=== PATIENT | female | born 1975 | race Caucasian/White ===

== ENCOUNTER 2018-05-15 08:08 | Day surgery (SDC) | payer BC ==
--- NOTE | 2018-05-14 07:00 | EKG ---
Test Date: 2018-05-13 Test Time: 14:05:20 Agent Licensing Clerk: RAJENDRA MEASUREMENT RESULTS: Intervals: Rate: 70 VT: 148 QRSD: 110 QT: 424 QTc: 457 [place]: P: 45 VT: 148 QRS: 48 T: 41 INTERPRETIVE STATEMENTS: Normal sinus rhythm Incomplete right bundle branch block Borderline ECG No previous ECG available for comparison Electronically Signed On 05-14-18 06:59:59 SOLDERER DIPPER by Shine Morales
[2018-05-15] MEDS ORDERED: Ringers Lactate 1,000 ML IV ONE (08:30)
[2018-05-15] MEDS ORDERED: EPINEPHRINE/PF 1 MG/ML AMP ONE (08:39)
[2018-05-15] MEDS ORDERED: LIDOCAINE 1% W/EPI 1:100,000 MDV 50 ML VIAL ONE (08:39)
[2018-05-15] MEDS ORDERED: PROPOFOL 200 MG/20 ML VIAL IV ONE (08:42)
[2018-05-15] MEDS ORDERED: FENTANYL CITR 100 MCG/2 ML ONE (08:43)
[2018-05-15] MEDS ORDERED: LIDOCAINE 2% MPF 5 ML VIAL ONE (08:43)
[2018-05-15] MEDS ORDERED: ONDANSETRON 4 MG/2 ML VIAL ONE (08:44)
[2018-05-15] MEDS ORDERED: ROCURONIUM 50 MG/5 ML VIAL IV ONE (08:44)
[2018-05-15] MEDS ORDERED: MIDAZOLAM HCL 2 MG/2 ML INJ ONE (08:48)
[2018-05-15] MEDS ORDERED: DEXAMETHASONE 10 MG/ML VIAL ONE (09:13)
[2018-05-15] MEDS ORDERED: GLYCOPYRROLATE 0.2 MG/ML SYR ONE (09:14)
[2018-05-15] MEDS ORDERED: ALBUTEROL INHALER 60 PUFF/8 GM IH ONE (09:15)
[2018-05-15] MEDS ORDERED: NEOSTIGMINE 1 MG/ML -5 ML SYRINGE ONE (09:15)
--- NOTE | 2018-05-15 19:22 | OP ---
Surgeon: Maggy Rudd MD Preoperative Diagnoses: Chronic hoarseness, chronic laryngitis, and tobacco use, abnormal in-office findings. Postoperative Diagnoses: Chronic hoarseness, chronic laryngitis, and tobacco use, abnormal in-office findings. Procedure: Direct operative laryngoscopy with telescope and biopsy. Indication For Procedure: Ms. Amezcua is a 42-year-old with chronic hoarseness and chronic laryngit is, chronic tobacco use, who was noted to have a thickened enlarged area on the left intra-arytenoid region, which was more prominent compared to the contralateral side. The risks, benefits, and altern atives to the procedure were discussed with the patient, who agreed to proceed. Procedure In Detail: The patient was brought to the operating room. She was placed under general an esthesia via oral endotracheal tube. A shoulder roll was placed and the neck was extended. A tooth guard was placed. A Yankauer was used to suction thick clear secretions from the oropharynx. Exam u nder anesthesia revealed no lesions of the lower lip. There was a small new crusted lesion of the ou ter lip, but due to the acuity of the finding, biopsy is not indicated at this time. The gingiva, pa late, teeth, floor of mouth, oral tongue, and base of tongue were all normal to examination and palpa tion. The [facility] laryngoscope was fitted with a 15-degree rigid telescope and used to perform a direct laryngoscopy. The uvula, posterior pharyngeal wall, tonsillar region, vallecula, and epiglo ttis were all without lesions, ulcerations, or masses. The epiglottis was moderately erythematous, b ut not swollen. The tip of the laryngoscope was passed along the endolaryngeal surface of the epiglo ttis and placed in suspension. Photodocumentation of the anterior commissure and vocal cords were ob tained. There is some hypervascularity, particularly on the lateral aspect of the right vocal cord, but no obvious mucosal lesion. There is moderate edema of the vocal cord with somewhat of a sulcus o n the right true vocal cord. The prominent vascularity is worse on the patient's left true vocal cor d. After adequate preop oxygenation with 100% oxygen, the endotracheal tube was removed in order to allow examination of the posterior pharynx including the interarytenoid area. Photodocumentation of this area was obtained and a large and small cup forceps were used to take several biopsies. After c ollection of the biopsies, the endotracheal tube was replaced for ventilation for several minutes. T he tube was then removed and an epinephrine-soaked pledget was applied to the biopsy site to aid in h emostasis. After several moments this was removed and the endotracheal tube was replaced. The proce dure was concluded and the laryngoscope was carefully withdrawn using a push-pull technique to mainta in intubation, the tooth guard was removed. The oropharynx was thoroughly suctioned from secretions and a small amount of clot, and the patient was returned to care of anesthesia for awakening, extubat ion in the operating room, which proceeded without difficulty. Disposition: The patient to be discharged home later today in the care of her family on strict voice rest for 3 days, and we will contact the patient when pathology results are available. LATESHA Voice ID: [id number] Report ID: [id number]
== END 2018-05-15 10:45 | disposition home or self-care (01) ==
LOC: OR 08:08
PROVIDERS: ATTEND Otolaryngology
PROC: 0CBM8ZX Excision of Pharynx, Via Natural or Artificial Opening Endoscopic, Diagnostic (ICD-10-PCS; principal; 2018-05-15 09:00)
DX: R49.0 Dysphonia (principal); J37.0 Chronic laryngitis; K21.9 Gastro-esophageal reflux disease without esophagitis; Z72.0 Tobacco use; Z80.9 Family history of malignant neoplasm, unspecified
CPT/HCPCS: 88305; 93005; J0171; J1100; J2250; J2405; J2704; J2710; J3010

== ENCOUNTER 2020-11-08 00:41 | Emergency (ER) | payer BC, SELFPAY ==
[2020-11-08 02:37] LABS: Protime INR 1.15
[2020-11-08 02:44] LABS: ALT/SGPT 45 U/L (12-78); AST/SGOT 66 U/L (15-37); Albumin 2.3 g/dL (3.4-5.0); Alkaline Phosphatase 483 U/L (45-117); BUN Blood Urea Nitrogen 10 mg/dL (7-18); Bicarbonate 28 mmol/L (21-32); Bilirubin Direct 0.2 mg/dL (0-0.2); Bilirubin Total 0.6 mg/dL (0.2-1.0); Glucose Level 93 mg/dL (74-106); Potassium 3.7 mmol/L (3.5-5.1); Protein, Total 6.8 g/dL (6.4-8.2); Sodium Level 138 mmol/L (136-145)
[2020-11-08 03:00] LABS: Absolute Lymphocytes (CBC) 4.5 K/uL (0.7-4.9); Hematocrit 28.1 % (36.0-45.0); Lymphocytes % 33.7 % (15.3-44.8); MPV 8.1 fL (7.6-11.3); RBC Red Blood Cell Count 3.06 M/uL (3.86-4.86)
[2020-11-08 04:01] LABS: Blood Morphology Comment NOTED (NOT SEEN); Platelet Estimate ADEQ; Polychromasia 1+
--- NOTE | 2020-11-08 06:57 | EDPHYS ---
Physician Documentation [facility] Name: Joyce Amezcua Age: 44 yrs Sex: Female : 1975 Arrival Date: 11/08/2020 Time: 00:43 Bed 8 Private MD: ED Physician Eliseo Logan HPI: 11/08 03:16 This 44 yrs old Female presents to ER via EMS with complaints of Numbness Of mh7 Face. 03:16 The patient's problem is reported as a facial droop, on right, paresthesias, in right mh7 side of face. Onset: The symptoms/episode began/occurred 3 week(s) ago. Duration: The episode is continuous. Context: the episode(s) was witnessed, by no one, symptoms became apparent at an unknown time, occurred at an unknown location, occurred while the patient was unknown. Possible contributing factors include:. The symptoms are alleviated by nothing. The symptoms are aggravated by nothing. Associated signs and symptoms: Pertinent positives: numbness, tingling, Pertinent negatives: abdominal pain, agitation, ataxia, blurred vision, chest pain, combativeness, confusion, diaphoresis, diarrhea, dizziness, headache, lightheadedness, nausea, palpitations, seizure, shortness of breath, vertigo, vomiting, weakness. Severity of symptoms: At their worst the symptoms were moderate 14 day(s) ago, in the emergency department the symptoms are unchanged. Patient's baseline: Neuro: alert and fully oriented, Motor: no deficits, Ambulation: walks without assistance, Speech: normal. Historical: - Allergies: : No Known Allergies; ad5 - PMHx: : breast cancer; ad5 - PSHx: :29 femur fracture repair-R side; ad5 - Immunization history:: Adult Immunizations unknown. - Social history:: Smoking status: unknown. ROS: 03:16 Constitutional: Negative for fever, chills, and weight loss, Eyes: Negative for injury, mh7 pain, redness, and discharge, Neck: Negative for injury, pain, and swelling, Cardiovascular: Negative for chest pain, palpitations, and edema, Respiratory: Negative for shortness of breath, cough, wheezing, and pleuritic chest pain, Abdomen/GI: Negative for abdominal pain, nausea, vomiting, diarrhea, and constipation, Back: Negative for injury and pain, : Negative for injury, bleeding, discharge, and swelling, MS/Extremity: Negative for injury and deformity, Skin: Negative for injury, rash, and discoloration, Psych: Negative for depression, anxiety, suicide ideation, homicidal ideation, and hallucinations, Allergy/Immunology: Negative for hives, rash, and allergies, Endocrine: Negative for neck swelling, polydipsia, polyuria, polyphagia, and marked weight changes, Hematologic/Lymphatic: Negative for swollen nodes, abnormal bleeding, and unusual bruising. Exam: 03:16 Constitutional: This is a well developed, well nourished patient who is awake, alert, mh7 and in no acute distress. Head/Face: Normocephalic, atraumatic. 03:16 Eyes: Pupils equal round and reactive to light, extra-ocular motions intact. Lids and lashes normal. Conjunctiva and sclera are non-icteric and not injected. Cornea within normal limits. Periorbital areas with no swelling, redness, or edema. ENT: Nares patent. No nasal discharge, no septal abnormalities noted. Tympanic membranes are normal and external auditory canals are clear. Oropharynx with no redness, swelling, or masses, exudates, or evidence of obstruction, uvula midline. Mucous membranes moist. Neck: Trachea midline, no thyromegaly or masses palpated, and no cervical lymphadenopathy. Supple, full range of motion without nuchal rigidity, or vertebral point tenderness. No Meningismus. Chest/axilla: Normal chest wall appearance and motion. Nontender with no deformity. No lesions are appreciated. Cardiovascular: Regular rate and rhythm with a normal S1 and S2. No gallops, murmurs, or rubs. Normal PMI, no JVD. No pulse deficits. Respiratory: Lungs have equal breath sounds bilaterally, clear to auscultation and percussion. No rales, rhonchi or wheezes noted. No increased work of breathing, no retractions or nasal flaring. Abdomen/GI: Soft, non-tender, with normal bowel sounds. No distension or tympany. No guarding or rebound. No evidence of tenderness throughout. Back: No spinal tenderness. No costovertebral tenderness. Full range of motion. Skin: Warm, dry with normal turgor. Normal color with no rashes, no lesions, and no evidence of cellulitis. MS/ Extremity: Pulses equal, no cyanosis. Neurovascular intact. Full, normal range of motion. 03:16 Psych: Awake, alert, with orientation to person, place and time. Behavior, mood, and affect are within normal limits. 03:16 Head/face: 03:16 Neuro: Orientation: is normal, Mentation: is normal, Memory: is normal, Cranial nerves: facial droop noted on right, with forehead involved. Decreased sensation on right face, Cerebellar function: is grossly normal, Motor: is normal, Sensation: is normal, Gait: is steady, at a normal pace, without difficulty, seizure activity, is not displayed by the patient, Abnormal movements: there are no abnormal movements. Vital Signs: 01:23 BP 97 / 78; Pulse 77; Resp 16 S; Temp 98.0; Pulse Ox 98% on R/A; Weight 72.57 kg; ad5 Height 5 ft. 6 in. (167.64 cm); 02:13 BP 104 / 68; Pulse 81; Resp 20 S; Pulse Ox 97% on R/A; ad5 03:39 BP 112 / 83; Pulse 95; Resp 18 S; Pulse Ox 100% on R/A; ad5 05:22 BP 120 / 77; Pulse 79; Resp 18 S; Pulse Ox 93% on R/A; ad5 06:30 BP 120 / 85; Pulse 88; Resp 16; Pulse Ox 95% on R/A; ea 06:53 BP 120 / 83; Pulse 80; Resp 18; Pulse Ox 98% ; ea 01:23 Body Mass Index 25.82 (72.57 kg, 167.64 cm) ad5 MDM: 06:53 Differential diagnosis: CVA, TIA, paralysis, [place] Palsy. Data reviewed: vital signs, [facility] nurses notes, lab test result(s), CBC, electrolytes, radiologic studies, CT scan. Counseling: I had a detailed discussion with the patient and/or guardian regarding: the historical points, exam findings, and any diagnostic results supporting the discharge/admit diagnosis, lab results, radiology results, the need for outpatient follow up, Oncology. Response to treatment: the patient's symptoms have mildly improved after treatment. 06:56 Patient medically screened. [facility] 11/08 02:05 Order name: CBC with Diff; Complete Time: 04:07 [facility] 11/08 02:05 Order name: Basic Metabolic Panel; Complete Time: 04:07 [facility] 11/08 02:05 Order name: LFT's; Complete Time: 04:07 [facility] 11/08 02:05 Order name: Protime (+inr); Complete Time: 04: [facility] 11/08 02:05 Order name: Ptt, Activated; Complete Time: 04:07 [facility] 11/08 03:02 Order name: Manual Differential; Complete Time: 04:07 [facility] 11/08 02:05 Order name: CT Head Brain wo Cont [facility] Administered Medications: 06:49 Drug: morphine 4 mg Route: IVP; Site: right antecubital; ea 06:58 Follow up: Response: No adverse reaction ea 06:49 Drug: Zofran (Ondansetron) 4 mg Route: IVP; Site: right antecubital; ea 06:58 Follow up: Response: No adverse reaction ea Disposition Summary: 11/08/20 06:56 Discharge Ordered Location: Home [facility] Problem: an ongoing problem [facility] Symptoms: have improved [facility] Condition: Stable [facility] Diagnosis - Facial Nerve Palsy, Right [facility] - Metastatic Cancer [facility] Followup: [facility] - With: Private Physician - When: 1 - 2 days - Reason: Worsening of condition, Recheck today's complaints, Continuance of care, Re-evaluation by your physician Followup: [facility] - With: Haley Jj MD - When: 1 - 2 days - Reason: Worsening of condition, Recheck today's complaints Discharge Instructions: - Discharge Summary Sheet [facility] - [place] Palsy, Adult [facility] - Metastatic Cancer [facility] Forms: - Medication Reconciliation Form [facility] - Thank You Letter [facility] - Antibiotic Education [facility] - Prescription Opioid Use [facility] Signatures: Dispatcher [employer] Marzena Guadarrama, RN RN Eliseo Gray MD MD [facility] Justin Villanueva
--- NOTE | 2020-11-08 06:57 | ER ---
Nurse's Notes [facility] Name: Joyce Amezcua Age: 44 yrs Sex: Female : 1975 Arrival Date: 11/08/2020 Time: 00:43 Bed 8 Private MD: Diagnosis: Facial Nerve Palsy, Right;Metastatic Cancer Presentation: 11/08 01:23 Chief complaint: EMS states: Pt BIB EMS from home for c/o R side facial ad5 tingling/numbness x 2-3 weeks. Pt with recent femur fx surgery to RLE, dry/intact bandages in place at this time. Hx of breast CA with mets. Pt AAOx3, speech clear and appropriate. Pt with R side facial droop, states "twitching" to R eye" and pain to R ear/neck. No other neuro deficits noted or reported. Coronavirus screen: At this time, the client does not indicate any symptoms associated with coronavirus-19. Ebola Screen: No symptoms or risks identified at this time. Initial Sepsis Screen: Does the patient meet any 2 criteria? No. Patient's initial sepsis screen is negative. Does the patient have a suspected source of infection? No. Patient's initial sepsis screen is negative. Risk Assessment: Do you want to hurt yourself or someone else? Patient reports no desire to harm self or others. Onset of symptoms is unknown. 01:23 Method Of Arrival: EMS ad5 01:23 Acuity: JOHNIE 3 ad5 Triage Assessment: :29 General: Appears uncomfortable, Behavior is calm, cooperative, appropriate for age. ad5 Pain: Complains of pain in right leg. Historical: - Allergies: : No Known Allergies; ad5 - PMHx: : breast cancer; ad5 - PSHx: :29 femur fracture repair-R side; ad5 - Immunization history:: Adult Immunizations unknown. - Social history:: Smoking status: unknown. Screenin:33 Abuse screen: Denies threats or abuse. Denies injuries from another. Nutritional ad5 screening: No deficits noted. Tuberculosis screening: No symptoms or risk factors identified. Fall Risk No fall in past 12 months (0 pts). Secondary diagnosis (15 points) IV access (20 points). Ambulatory Aid- None/Bed Rest/Nurse Assist (0 pts). Gait- Impaired (20 pts.). Mental Status- Oriented to own ability (0 pts). Total Mario Fall Scale indicates High Risk Score (45 or more points). Fall prevention measures have been instituted. Side Rails Up X 2 Frequent Obs/Assessments Occuring As available patient and family educated on Fall Prevention Program and Strategies. Assessment: 01:30 General: Appears uncomfortable, Behavior is calm, cooperative, appropriate for age. ad5 Neuro: Level of Consciousness is awake, alert, obeys commands, Oriented to person, place, time, situation, Appropriate for age Tape Control Skin Or [place] Operator are equal bilaterally Moves all extremities. Gait is unassessed at this time, pt unable to ambulate d/t recent leg surgery . 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 Pt reports increased concern this pm d/t s/s. Cardiovascular: No deficits noted. Heart tones present Capillary refill < 3 seconds Patient's skin is warm and dry. Rhythm is regular. Respiratory: No deficits noted. Airway is patent Respiratory effort is even, unlabored, Respiratory pattern is regular, symmetrical. GI: No deficits noted. No signs and/or symptoms were reported involving the gastrointestinal system. : No deficits noted. No signs and/or symptoms were reported regarding the genitourinary system. Derm: Skin is pink, warm \\T\\ dry. Musculoskeletal: Circulation, motion, and sensation intact. Capillary refill < 3 seconds, pt with dry/intact dressings to RLE, s/p recent femur repair per pt; denies new fall or injury; distal SMCs intact. 02:14 Reassessment: Patient appears in no apparent distress at this time. Patient and/or ad5 family updated on plan of care and expected duration. Pain level reassessed. Patient is alert, oriented x 3, equal unlabored respirations, skin warm/dry/pink. Pt reports pain to RLE, states last pain medication at home at 2100, MD aware. Awaiting further orders. Will continue to monitor.l. 03:39 Reassessment: Patient and/or family updated on plan of care and expected duration. Pain ad5 level reassessed. Patient is alert, oriented x 3, equal unlabored respirations, skin warm/dry/pink. 05:22 Reassessment: No changes from previously documented assessment. Patient and/or family ad5 updated on plan of care and expected duration. Pain level reassessed. 06:30 Reassessment: Patient and/or family updated on plan of care and expected duration. Pain ea level reassessed. Patient is alert, oriented x 3, equal unlabored respirations, skin warm/dry/pink. 07:08 Reassessment: Patient and/or family updated on plan of care and expected duration. Pain ea level reassessed. Patient is alert, oriented x 3, equal unlabored respirations, skin warm/dry/pink. Discharge instruction given to patient verbalized the understanding of instruction. Pt left ED wheelchair tolerating well. Vital Signs: 01:23 BP 97 / 78; Pulse 77; Resp 16 S; Temp 98.0; Pulse Ox 98% on R/A; Weight 72.57 kg; ad5 Height 5 ft. 6 in. (167.64 cm); 02:13 BP 104 / 68; Pulse 81; Resp 20 S; Pulse Ox 97% on R/A; ad5 03:39 BP 112 / 83; Pulse 95; Resp 18 S; Pulse Ox 100% on R/A; ad5 05:22 BP 120 / 77; Pulse 79; Resp 18 S; Pulse Ox 93% on R/A; ad5 06:30 BP 120 / 85; Pulse 88; Resp 16; Pulse Ox 95% on R/A; ea 06:53 BP 120 / 83; Pulse 80; Resp 18; Pulse Ox 98% ; ea 01:23 Body Mass Index 25.82 (72.57 kg, 167.64 cm) ad5 ED Course: 00:43 Patient arrived in ED. mw2 01:23 Justin Villanueva is Primary Nurse. ad5 01:27 Eliseo Logan MD is Attending Physician. mh7 01:28 Triage completed. ad5 01:29 Arm band placed on. EKG completed in triage. Results shown to . ad5 01:34 Patient has correct armband on for positive identification. Placed in gown. Bed in low ad5 position. Call light in reach. Side rails up X2. 01:34 No provider procedures requiring assistance completed. Inserted saline lock: 20 gauge ad5 in right antecubital area, using aseptic technique. Blood collected. 03:39 CT Head Brain wo Cont Sent. ad5 03:43 CT Head Brain wo Cont In Process Unspecified. EDMS 06:54 Haley jJ MD is Referral Physician. [facility] 07:08 IV discontinued, intact, bleeding controlled, No redness/swelling at site. Pressure ea dressing applied. Administered Medications: 06:49 Drug: morphine 4 mg Route: IVP; Site: right antecubital; ea 06:58 Follow up: Response: No adverse reaction ea 06:49 Drug: Zofran (Ondansetron) 4 mg Route: IVP; Site: right antecubital; ea 06:58 Follow up: Response: No adverse reaction ea Outcome: 06:56 Discharge ordered by . [facility] 06:57 Condition: stable ea 07:07 Discharged to home via wheelchair, with family. ea 07:07 Discharge instructions given to patient, Instructed on discharge instructions, follow up and referral plans. Demonstrated understanding of instructions, follow-up care. 07:09 Patient left the ED. ea Signatures: Dispatcher [employer] EDND Marzena Olea RN RN Brandon Mcfarland mw2 Eliseo Logan MD MD [facility] Justin Villanueva ad5
[2020-11-08] MEDS ORDERED: MORPHINE 4 MG/ML SYR ONE (07:07)
[2020-11-08] MEDS ORDERED: ONDANSETRON 4 MG/2 ML VIAL ONE (07:07)
[2020-11-08 07:16] VITALS: TEMP 98
[2020-11-08 07:25] VITALS: BP 120/83; O2SAT 98
--- NOTE | 2020-11-08 11:01 | RAD REPORT ---
EXAM DESCRIPTION: CT - Head Brain Wo Cont - 11/08/2020 6:30 am COMPARISON: None. CLINICAL HISTORY: NUMBNESS TECHNIQUE: Axial images were obtained from skull base to vertex without intravenous contrast. Imag es viewed on bone and brain windows. Multiplanar reformats were performed. Automated exposure contr ol was utilized on this examination as a dose lowering technique. FINDINGS: Brain parenchyma, ventricles, dura, meninges, and extra-axial spaces: Ventricles and sulci are normal. No abnormal attenuation of brain parenchyma is present. No acute intracranial hemor rhage or abnormal extra-axial fluid collections are present. Vascular structures: No hyperdense arteries or veins. Calvarium, mastoid air cells, paranasal sinuses and orbits: There is a lytic lesion of the suboccipit al calvarium, best seen on sagittal image 58. A similar lytic lesion is present in the left basion de pendent right C1 vertebral body. Additional similar lesion is noted in the left anterior zygoma. The mastoid air cells are clear. Visualized paranasal sinuses are unremarkable. Orbital structures are un remarkable. IMPRESSION: 1. No acute intracranial abnormality. Given osseous findings, further evaluation is lucrecia mmended with MRI brain with IV contrast to evaluate for intracranial metastases. 2. Multiple lytic lesions are present in the calvarium and cervical spine, concerning for metastases lesions or multiple myeloma. Electronically signed by: Usman Myrick MD 11/08/2020 4:01 AM CDT Due to temporary technical issues with the PACS/Fluency reporting system, reports are being signed by the in house radiologist without review as a courtesy to ensure prompt reporting. The interpreting r adiologist is fully responsible for the content of the report.
--- NOTE | 2020-11-08 12:59 | EKG ---
Test Date: 2020-11-08 Test Time: 01:19:38 First Officer: ROCIO MEASUREMENT RESULTS: Intervals: Rate: 78 MO: 136 QRSD: 86 QT: 396 QTc: 451 [place]: P: 42 MO: 136 QRS: 36 T: 37 INTERPRETIVE STATEMENTS: Normal sinus rhythm Normal ECG Compared to ECG 05/13/2018 14:05:20 Incomplete right bundle-branch block no longer present Electronically Signed On 11-08-20 12:58:53 CDT by Jeevan Sandoval
--- OUTSIDE RECORDS SUMMARY | 2020-11-08 15:05 | XMS REPORT | Continuity of Care Document ---
:1975 Author Organization [facility] t Address [address] [place] [address] Care Team Providers Name Role Phone [employer] Attending Clinician Daniel MOLINAP Attending Clinician Jet MARION Attending Clinician Miguel SIMMONS L Attending Clinician Problems Condition Condition Condition Status Onset Resolution Last Treating Co mments Source Name Details Category Date Date Treatment Clinician Date Throat Throat Problem [facility]arseness Hoarseness Problem Active [facility] Tobacco Tobacco Problem Active [facility] arm Right arm Problem Active [facility] Gastroesop Gastroesop Problem Active [facility] hageal hageal [facility] - reflux reflux [facility] disease, disease, l esophagiti esophagiti Ou tpati s presence s presence en t not not Clinics specified specified Hepatic Hepatic Problem Active [facility] Acute UTI Acute UTI Problem [facility] Vitamin D Vitamin D Problem Active [facility] deficiency deficiency [facility] Abnormal Abnormal Problem [facility] abdomen abdomen [facility] Anxiety Anxiety Problem [facility] Hyperchole Hyperchole Problem Active [facility] sterolemia sterolemia [facility] Out[facility] Renal Renal Problem Active [facility] cysts, cysts, [facility] - acquired, acquired, Rosales radhika bilateral bilateral l Outpati ent Clinics Callus of Callus of Problem Active [facility] foot foot [facility]ics Blood in Blood in Problem [facility] Elevated Elevated Problem Active [facility] blood blood [facility] pressure pressure [facility] a reading reading l without without Outpati diagnosis diagnosis ent of of Clinics hypertensi hypertensi on on Cough Cough Diagnosis Active [facility] Seasonal Seasonal Diagnosis Active [facility] allergic allergic [facility] rhinitis, rhinitis, Rosales radhika unspecifie unspecifie l d trigger d trigger Outp ati ent Clinics Allergies, Adverse Reactions, Alerts This patient has no known allergies or adverse reactions. Medications Ordered Filled Start Stop Current Ordering Indication Dosage Frequency Signature Comments Components Source Medication Medication Date Date Medication? Clinician (SIG) Name Name ProAir A ProAir A 2018- Yes Adriana [address] [facility] 0-11 Jack needed [facility] Vitamin D Vitamin D Yes Adriana [address] [facility] Jack (OTC) [facility] Procedures This patient has no known procedures. Encounters Start End Encounter Admission Attending Care Care Encounter Source Date/Time Date/Time Type Type Clinicians Facility Department ID 2020-11-07 2020-11-07 Transition Shonda Jauregui [id number] 00:00:00 00:00:00 of Care Kendra Kelly [id number] [place] [id number] 2020-11-02 2020-11-02 Surgery [facility] [id number] 13:05:00 15:27:00 SPECIALTY [id number] CARE [id number] CENTER AT [id number] MARGARITA Armaan OSCAR 2020-10-26 2020-10-26 [facility] [id number] 13:21:54 23:59:00 Encounter Beatriz SPECIALTY [id number] CARE [id number] CENTER AT [id number] MARGARITA 800 OSCAR 2020-10-26 2020-10-26 [facility] [id number] 13:19:49 13:20:00 Encounter Beatriz SPECIALTY [id number] CARE [id number] CENTER AT [id number] MARGARITA MOORE 2020-10-23 2020-10-23 Telephone [facility] [id number] 00:00:00 00:00:00 Beatriz Rothman [id number] [place] [id number] Professio [phone] [address] 2020-10-18 2020-10-18 Telemedici [facility] [id number] 15:55:20 16:13:41 ne Visit López Salters [id number] [place] [id number] Professio [id number] [address] 2020-10-18 2020-10-18 [facility] [id number] 00:00:00 00:00:00 Beatriz Rothman [id number] [place] [id number] Professio [phone] [address] 2020-10-16 2020-10-16 [facility] [id number] 00:00:00 00:00:00 Beatriz Rothman [id number] [place] [id number] Professio [id number] [address] 2020-10-12 2020-10-12 Patient [facility] [id number] 00:00:00 00:00:00 Outreach Enedina Lincoln Salters [id number] [place] [id number] Professio [id number] [address] 2020-10-11 2020-10-11 Office [facility] [id number] 14:29:04 15:22:03 Visit Beatriz Rothman [id number] Daniele .[id number] Daija [phone] [address] 2019-07-26 2019-07-26 [facility] [id number] [facility] 14:00:00 14:00:00 [facility] Medicine Outpati ent Clinics 2019-07-26 2019-07-26 [facility] [id number] [facility] 10:51:00 10:51:00 [facility] Medicine Outpati ent Clinics 2019-02-12 2019-02-12 [facility] [id number] [facility] 10:40:00 10:40:00 [facility] Medicine Outpati ent Clinics 2018-07-29 2018-07-29 [facility] [id number] [facility] 13:15:00 13:15:00 [facility] Medicine Outpati ent Clinics 2018-05-08 2018-05-08 [facility] [id number] [facility] 14:34:00 14:34:00 [facility] Medicine Outpati ent Clinics Results This patient has no known results.
== END 2020-11-08 07:09 | disposition home or self-care (01) ==
LOC: ER 00:41
DX: G51.0 Bell's palsy (principal); C79.31 Secondary malignant neoplasm of brain; C50.919 Malignant neoplasm of unspecified site of unspecified female breast
CPT/HCPCS: 36415; 70450; 80048; 80076; 85025; 85610; 85730; 93005; 96374; 96375; 99284; J2405

== ENCOUNTER 2020-12-02 21:49 | Observation (INO) | payer OTHER ==
--- OUTSIDE RECORDS SUMMARY | 2020-12-02 21:53 | XMS REPORT | Continuity of Care Document ---
:1975 Author Organization [facility] t Address [address] [place] [address] Care Team Providers Name Role Phone [phone] Primary Care Physician Unavailable SYSTEM, NOT IN Attending Clinician Unavailable Guanakito Rosenbaum Attending Clinician ISABELLA Attending Clinician Unavailable Isabella MARION Attending Clinician Doctor Unassigned, Name Attending Clinician Unavailable Sean MONTERROSO, L Attending Clinician Humble HITCHCOCK, M Attending Clinician Unavailable Latonia MURGUIA Attending Clinician Unavailable Von Han MD Attending Clinician Italia Guillermo MD Attending Clinician Jyoti MARION Attending Clinician Vesna MARION Attending Clinician Latonia Murguia MD Attending Clinician Louisa Dodd MD Attending Clinician LOUISA DODD Attending Clinician Unavailable VESNA Attending Clinician Unavailable Cristy MARION PhD, Magali Attending Clinician KWAKU Attending Clinician Unavailable Elias Landa Attending Clinician Kwaku MARION Attending Clinician El HITCHCOCK, D Attending Clinician Unavailable Deidre MARION, R Attending Clinician Tonya Gibbs Attending Clinician Doron HITCHCOCK Attending Clinician Unavailable Phil HITCHCOCK, A Attending Clinician Unavailable Daniel ADAMS Attending Clinician Alfredo CORDOVA, B Attending Clinician Unavailable Marcos MARION, G Attending Clinician Evelyn MARION Attending Clinician Desmond Alfaro PT Attending Clinician Catalina Ann MA Attending Clinician Unavailable VESNA Admitting Clinician Unavailable Payers Payer Name Policy Type Policy Effective Expiration Source Number Date Date [place]ID [place] [id number] 2020 MD Neal gore [place] 00:00:00 TRADITION[place] STAR NON [id number] 2020-Pre sentMedicaid Problems Condition Condition Condition Status Onset Resolution Last Treating Co mments Source Name Details Category Date Date Treatment Clinician Date 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 11-26 An derso disease disease 00:00: n 00 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:00: n of breast of breast 00 Cancer Cancer Disease Active associated associated 11-24 An derso pain pain 00:00: n 00 Facial Facial Disease Active palsy palsy 11-24 Anderso 00:00: n 00 Thoracic Thoracic Disease Active back pain back pain 11-24 Krunal rso 00:00: n 00 Severe Severe Disease Active protein-ca protein-ca 11-24 An derso home home 00:00: n malnutriti malnutriti 00 on on 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 - Anderso carcinoma carcinoma 00:00: n of of 00 overlappin overlappin g sites of g sites of right right female female breast 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 Chalino o positive positive 00:00: n status status 00 (ER+) (ER+) 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 rso neoplasm neoplasm 00:00: n of bone of bone 00 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 00:00: n of lower of lower 00 outer outer quadrant quadrant of left of left female female breast breast Throat Throat Problem [facility] Hoarseness Hoarseness Problem Active [facility] Tobacco Tobacco Problem Active [facility] Right arm Right arm Problem Active [facility] Gastroesop Gastroesop Problem Active [facility] hageal hageal [facility] - reflux reflux Memoria disease, disease, l esophagiti esophagiti Ou tpati s presence s presence en t not not Clinics specified specified Hepatic Hepatic Problem Active [facility] Acute UTI Acute UTI Problem Active [facility] Vitamin D Vitamin D Problem Active [facility] deficiency deficiency [facility] Abnormal Abnormal Problem Active [facility] abdomen abdomen [facility] Anxiety Anxiety Problem Active [facility] Hyperchole Hyperchole Problem Active [facility] sterolemia sterolemia [facility] Renal Renal Problem Active [facility] cysts, cysts, [facility] - acquired, acquired, Rosales radhika bilateral bilateral l [facility] Callus of Callus of Problem Active [facility] foot foot [facility] Blood in Blood in Problem Active [facility] stool stool [facility] Elevated Elevated Problem Active [facility] blood blood [facility] pressure pressure Memori a reading reading l without without Outpati diagnosis diagnosis ent of of Clinics hypertensi hypertensi on on Cough Cough Diagnosis Active [facility] Nausea Nausea Disease Active MD De Jesus n Malignant Malignant Disease Active neoplasm neoplasm Chalino o related related n fatigue fatigue Slow Slow Disease Active transit transit Anderso constipati constipati n on on Seasonal Seasonal Diagnosis Active [facility] allergic allergic [facility] rhinitis, rhinitis, Rosales radhika unspecifie unspecifie l d trigger d trigger Outp ati ent Clinics Acute Acute Disease Active hyperglyshayna hyperglyshayna woodso david david n Allergies, Adverse Reactions, Alerts This patient has no known allergies or adverse reactions. Family History Family Member Diagnosis Comments Start Date Stop Date Source Natural father -Other cancer MD Krunal yeboah Natural mother -Unknown cancer MD Megan marr Social History Social Habit Start Date Stop Date Quantity Comments Source History of tobacco Cigarette Smoker MD Osei use Exposure to Not sure MD Osei SARS-CoV-2 (event) Cigarettes smoked 2020-11-30 2020-11-30 MD Krunal yeboah current (pack per 00:00:00 00:00:00 day) - Reported Cigarette 2020-11-30 2020-11-30 MD Osei pack-years 00:00:00 00:00:00 Tobacco use and 2020-11-30 2020-11-30 Never used MD Allred on exposure 00:00:00 00:00:00 Alcohol intake 2020-11-30 2020-11-30 Ex-drinker MD Neal gore 00:00:00 00:00:00 (finding) Sex [birth year] At [birth year] MD Allred on 00:00:00 00:00:00 Smoking Status Start Date Stop Date Source Current every day smoker 2020-11-30 00:00:00 MD Osei Medications Ordered Filled Start Stop Current Ordering Indication Dosage Frequency Signature Comments Components Source Medication Medication Date Date Medication? Clinician (SIG) Name Name letrozole Yes Infiltratin 2.5mg Take 1 MD (Femara) 7-29 g duct tablet Anderso 2.5 mg 00:00: carcinoma (2.5 mg) n tablet 00 of lower by mouth outer daily. quadrant of left female breast palbociclib 2020- Infiltratin 125mg Take 1 MD (Ibrance) 7- 08-20 g duct tablet Harley so 125 mg 00:00: 04:59 carcinoma (125 mg) n tablet 00 :00 of lower by mouth outer daily for quadrant of 21 days. left female Repeat breast every 28 days. morphine Yes Cancer 30mg Take 1 MD (MS CONTIN) 7- associated tablet (30 Anderso 30 mg 12 hr 00:00: pain mg) by n tablet 00 mouth every 8 (eight) hours. morphine 2021-0 Yes Cancer 15mg Take 1 MD (MSIR) 15 7-27 associated tablet (15 Anderso mg IR 00:00: pain mg) by n tablet 00 mouth every 4 (four) hours as needed for moderate pain or severe pain. ondansetron Yes Nausea 8mg Take 1 MD (Zofran) 8 7-27 tablet (8 Krunal rso mg tablet 00:00: mg) by n 00 mouth every 8 (eight) hours as needed for nausea or vomiting. pantoprazol Yes Nausea 40mg Take 1 MD e 7-27 tablet (40 Anderso (Protonix) 00:00: mg) by n 40 mg EC 00 mouth tablet daily with breakfast. gabapentin Yes Secondary 300mg Take 1 MD (NEURONTIN) 7-20 malignant capsule Anderso 300 mg 00:00: neoplasm of (300 mg) n capsule 00 bone by mouth 3 (three) times a day. HYDROcodone Yes Secondary 1{tbl} Take 1-2 MD -acetaminop 7-20 malignant tablets by Neal hen ([place]) 00:00: neoplasm of mouth n 5 mg-325 mg 00 bone every 6 per tablet (six) hours as needed for moderate pain. LORazepam Yes Malignant 1mg Take 1 M D (ATIVAN) 1 7-15 neoplasm of tablet (1 Anderso mg tablet 00:00: unspecified mg) by n 00 site of mouth as unspecified directed. female Take 45 breast minutes prior to MRI or radiation treatment, once daily. Ok to take 1 additional pill at time of appointmen t if needed. dexamethaso 2020- Yes Malignant 4mg Take 1 MD ne 7-15 08-15 neoplasm of tablet (4 An derso (DECADRON) 00:00: 04:59 unspecified mg) by n 4 mg tablet 00 :00 site of mouth 2 unspecified (two) female times a breast day with meals for 30 days. tiZANidine 2020- No 2mg Take 2 mg M D (ZANAFLEX) 10-18 by mouth Krunal rso 2 mg tablet 00:00: 00:00 daily as n 00 :00 needed. traMADol-ac 2020- No 1{tbl} Take 1 M D etaminophen 10-18 tablet by An derso (ULTRACET) 00:00: 00:00 mouth n 37.5-325 mg 00 :00 every 8 per tablet (eight) hours as needed. gabapentin 2020- No 100mg Take 100 M D (NEURONTIN) 10-18-20 mg by Chalino o 100 mg 00:00: 00:00 mouth 3 n capsule 00 :00 (three) times a day. diclofenac 2020- No 100mg Take 100 M D sodium 100 10-09- mg by Anderso mg 24 hr 00:00: 00:00 mouth at n tablet 00 :00 bedtime. phenazopyri No 200mg Take 200 MD dine 10-09- mg by Anderso (PYRIDIUM) 00:00: 00:00 mouth n 200 mg 00 :00 daily as tablet needed. ProAir HFA ProAir HFA 2018-05 Yes Adriana [address] [facility] 0-11 [facility] Vitamin D Vitamin D Yes Adriana [address] [facility] (OTC[facility] Vital Signs Vital Name Observation Time Observation Value Comments Source Systolic blood pressure 2020-11-30 20:46:00 95 mm[Hg] MD Osei Diastolic blood pressure 2020-11-30 20:46:00 67 mm[Hg] MD Osei Heart rate 2020-11-30 20:46:00 76 /min MD Harley kasper Body temperature 2020-11-30 19:22:52 36.89 Marisol MD Dorene brady Respiratory rate 2020-11-30 19:22:52 16 /min MD Dorene brady Body weight 2020-11-30 19:22:52 61.6 kg MD Harley kasper BMI 2020-11-30 19:22:52 22.76 kg/m2 MD Harley kasper Oxygen saturation in 2020-11-30 19:22:52 98 /min MD Osei Arterial blood by Pulse oximetry Body height 2020-11-26 02:12:00 164.5 cm MD Harley kasper Procedures Procedure Date / Time Performed Performing Clinician [facility] e COMPLETE BLOOD COUNT W/ 2020-11-28 08:04:00 Pia Doll MD DIFFERENTIAL COMPREHENSIVE METABOLIC PANEL 2020-11-28 08:04:00 Jefry Doll MD Results CBC 2020-11-28 08:04:00 Pia Doll MD MANUAL DIFFERENTIAL 2020-11-28 08:04:00 Pia Doll MDrson GLUCOSE LEVEL 2020-11-28 08:04:00 Pia Doll MD Harleydaylin kasper BLOOD UREA NITROGEN 2020-11-28 08:04:00 Pia Doll MDrsilya ELECTROLYTE PANEL 2020-11-28 08:04:00 Pia Doll SERUM CREATININE 2020-11-28 08:04:00 Pia Doll MD ilya .GLOMERULAR FILTRATION RATE 2020-11-28 08:04:00 Renae Doll MD CALCIUM LEVEL TOTAL 2020-11-28 08:04:00 Pia Doll MDrson ALBUMIN LEVEL 2020-11-28 08:04:00 Pia Doll MD ALKALINE PHOSPHATASE 2020-11-28 08:04:00 Pia Doll MD ALANINE AMINOTRANSFERASE 2020-11-28 08:04:00 Pia Doll MD ASPARTATE AMINOTRANSFERASE 2020-11-28 08:04:00 Pia Doll MD TOTAL PROTEIN 2020-11-28 08:04:00 Pia Doll MD FRACTIONATED BILIRUBIN 2020-11-28 08:04:00 Pia Doll COMPLETE BLOOD COUNT W/ 2020-11-27 08:02:00 Pia Doll MD DIFFERENTIAL COMPREHENSIVE METABOLIC PANEL 2020-11-27 08:02:00 Jefry Doll MD Results CBC 2020-11-27 08:02:00 Pia Doll MD MANUAL DIFFERENTIAL 2020-11-27 08:02:00 Pia Doll MDrsilya GLUCOSE LEVEL 2020-11-27 08:02:00 Pia Doll MD Harleydaylin kasper BLOOD UREA NITROGEN 2020-11-27 08:02:00 Pia Doll MD ELECTROLYTE PANEL 2020-11-27 08:02:00 Pia Doll SERUM CREATININE 2020-11-27 08:02:00 Pia Doll MD Krunal rson .GLOMERULAR FILTRATION RATE 2020-11-27 08:02:00 Renae Doll MD CALCIUM LEVEL TOTAL 2020-11-27 08:02:00 Pia Doll MD ALBUMIN LEVEL 2020-11-27 08:02:00 Pia Doll MD [facility] ALKALINE PHOSPHATASE 2020-11-27 08:02:00 Pia Doll MD ALANINE AMINOTRANSFERASE 2020-11-27 08:02:00 Pia Doll MD ASPARTATE AMINOTRANSFERASE 2020-11-27 08:02:00 Pia Doll MD TOTAL PROTEIN 2020-11-27 08:02:00 Pia Doll MD [facility] FRACTIONATED BILIRUBIN 2020-11-27 08:02:00 Pia Doll COMPLETE BLOOD COUNT W/ 2020-11-26 05:32:00 Pia Doll MD DIFFERENTIAL COMPREHENSIVE METABOLIC PANEL 2020-11-26 05:32:00 Jefry Doll MD MAGNESIUM LEVEL 2020-11-26 05:32:00 Pia Doll MD Harley ranjith PHOSPHORUS LEVEL 2020-11-26 05:32:00 Pia Doll MD Krunal rson Results CBC 2020-11-26 05:32:00 Pia Doll MD Harley ranjith MANUAL DIFFERENTIAL 2020-11-26 05:32:00 Pia Doll MD GLUCOSE LEVEL 2020-11-26 05:32:00 Pia Doll MD Harleydaylin kasper BLOOD UREA NITROGEN 2020-11-26 05:32:00 Pia Doll MD ELECTROLYTE PANEL 2020-11-26 05:32:00 Pia Doll MD And erson SERUM CREATININE 2020-11-26 05:32:00 Pia Doll MD Krunal rson .GLOMERULAR FILTRATION RATE 2020-11-26 05:32:00 Renae Doll MD CALCIUM LEVEL TOTAL 2020-11-26 05:32:00 Pia Doll MD nderson ALBUMIN LEVEL 2020-11-26 05:32:00 Pia Doll MD Harley son ALKALINE PHOSPHATASE 2020-11-26 05:32:00 Pia Doll MD ALANINE AMINOTRANSFERASE 2020-11-26 05:32:00 Pia Doll MD ASPARTATE AMINOTRANSFERASE 2020-11-26 05:32:00 Pia Doll MD TOTAL PROTEIN 2020-11-26 05:32:00 [facility] FRACTION[facility] BILIRUBIN 2020-11-26 05:32:00 Pia Doll COMPLETE BLOOD COUNT W/ 2020-11-25 12:33:00 ThoppilJustine MD DIFFERENTIAL COMPREHENSIVE METABOLIC PANEL 2020-11-25 12:33:00 ThoppilJustine MD MAGNESIUM LEVEL 2020-11-25 12:33:00 ThoppilJustine MD PHOSPHORUS LEVEL 2020-11-25 12:33:00 ThoppilJustine MD Results CBC 2020-11-25 12:33:00 ThoppilJustine MD MANUAL DIFFERENTIAL 2020-11-25 12:33:00 ThoppilJustine MD Krunal rsilya GLUCOSE LEVEL 2020-11-25 12:33:00 ThoppiJustine edge MD BLOOD UREA NITROGEN 2020-11-25 12:33:00 ThoppilJustine MD Krunal rsilya ELECTROLYTE PANEL 2020-11-25 12:33:00 ThoppiJustine edge MD Chalino on SERUM CREATININE 2020-11-25 12:33:00 Thoppil, Justine P MD Anderso n .GLOMERULAR FILTRATION RATE 2020-11-25 12:33:00 ThoppilJustine MD CALCIUM LEVEL TOTAL 2020-11-25 12:33:00 Thoppil, Justine Jones MD Krunal rson ALBUMIN LEVEL 2020-11-25 12:33:00 ThoppilJustine MD ALKALINE PHOSPHATASE 2020-11-25 12:33:00 Thoppil, Justine Jones MD And erson ALANINE AMINOTRANSFERASE 2020-11-25 12:33:00 ThoppilJustine MD ASPARTATE AMINOTRANSFERASE 2020-11-25 12:33:00 Thoppil, Justine Osei TOTAL PROTEIN 2020-11-25 12:33:00 Thoppil, Justine Osei FRACTIONATED BILIRUBIN 2020-11-25 12:33:00 ThoppilJustine MD nderson MRI BRAIN W WO CONTRAST 2020-11-25 02:54:35 Jeny Guillermo MRI CERVICAL THORACIC LUMBAR 2020-11-25 02:53:52 Jeny Guillermo MD SPINE W WO CONTRAST OCT, RETINA - OU - BOTH EYES 2020-11-24 19:14:15 Beata Swanson MD FUNDUS PHOTOS - OU - BOTH 2020-11-24 19:14:11 Beata Swanson MD EYES INFLUENZA A/B + COVID-19 2020-11-24 14:13:00 Justyn Olsen MD ASYMPTOMATIC-L COMPLETE BLOOD COUNT W/ 2020-11-24 14:13:00 Justyn Olsen MD DIFFERENTIAL COMPREHENSIVE METABOLIC PANEL 2020-11-24 14:13:00 Clemente Olsen MD MAGNESIUM LEVEL 2020-11-24 14:13:00 Justyn Olsen MD And erson PHOSPHORUS LEVEL 2020-11-24 14:13:00 Justyn Olsen MD An derson Results CBC 2020-11-24 14:13:00 Юлия Han MD MANUAL DIFFERENTIAL 2020-11-24 14:13:00 Юлия Han MD Hraley son GLUCOSE LEVEL 2020-11-24 14:13:00 Юлия Han MD BLOOD UREA NITROGEN 2020-11-24 14:13:00 Юлия Han MD [facility] ELECTROLYTE PANEL 2020-11-24 14:13:00 Юлия Han MD SERUM CREATININE 2020-11-24 14:13:00 Юлия Han MD .GLOMERULAR FILTRATION RATE 2020-11-24 14:13:00 Юлия Han MD CALCIUM LEVEL TOTAL 2020-11-24 14:13:00 Юлия Han MD [facility] ALBUMIN LEVEL 2020-11-24 14:13:00 Юлия Han MD ALKALINE PHOSPHATASE 2020-11-24 14:13:00 Юлия Han MD ALANINE AMINOTRANSFERASE 2020-11-24 14:13:00 Юлия Han MD ASPARTATE AMINOTRANSFERASE 2020-11-24 14:13:00 Юлия Han TOTAL PROTEIN 2020-11-24 14:13:00 Юлия Han MD FRACTIONATED BILIRUBIN 2020-11-24 14:13:00 Юлия Han MD derson 2019-NCOV COVID-19 2020-11-15 15:27:00 Ofelia Dodd MD OSI FEMUR 2020-11-04 16:36:00 George Mason MD OSI INTERVENTIONAL 2020-11-02 16:35:00 George Mason MD Har[facility] OSI US BREAST 2020-10-31 16:37:00 George Mason MD OSI MAMMO BILATERAL 2020-10-31 16:36:00 George Mason MD rsilya PATHOLOGY OUTSIDE 2020-10-31 00:00:00 MD Neal Rivas INTERPRETATION [place] [facility] CHEST ABDOMEN PELVIS 2020-10-30 16:35:00 George Mason MD OSI FEMUR 2020-10-29 22:17:00 George Mason MD OSI HIP 2020-10-29 22:16:00 George Mason MD OSI MAMMO BILATERAL 2020-10-26 22:18:00 George Mason MD rson OSI US BREAST 2020-10-26 16:35:00 George Mason MD Encounters Start End Encounter Admission Attending Care Care Encounter Source Date/Time Date/Time Type Type Clinicians Facility Department ID 2020-11-23 Outpatient MDA MDA [id number] 15:33:25 Neal gore 2020-11-09 [facility] MDA [id number] 15:38:19 PROVIDER Chalino o sofía 2020-11-30 2020-11-30 Outpatient ABOARB, MDA MDA [id number] 15:20:51 17:28:01 GEORGE gore 2020-11-30 2020-11-30 [facility] MDA [id number] 14:05:47 15:12:04 GEORGE gore 2020-11-30 2020-11-30 [facility] MDA MDA [id number] 13:05:56 13:05:56 GEORGE gore 2020-11-30 2020-11-30 Outpatient [facility], MDA MDA [id number] 13:04:21 13:04:21 GEORGE gore 2020-11-30 2020-11-30 Orders Doctor JAQUELINE [id number] 00:00:00 00:00:00 Only Unassigned, KATHLEEN [id number] [place] [facility] [id number] 2020-11-29 2020-11-29 Outpatient ABOUHARB, MDA MDA [id number] 14:40:25 17:37:42 GEORGE Vanegasers bimal gore 2020-11-29 2020-11-29 [facility] [id number] 09:54:45 09:54:45 GEORGE gore 2020-11-24 2020-11-28 Inpatient ER LUCINA MURGUIA Med Breast [id number] 08:40:00 17:13:00 GABRIELLA gore 2020-11-27 2020-11-27 Inpatient EL DODD, MDA MDA [id number] 13:27:40 14:01:08 OFELIA gore 2020-11-27 2020-11-27 Inpatient EL JULIO CÉSARARB, MDA MDA [id number] 10:51:56 10:52:00 GEORGE gore 2020-11-26 2020-11-26 Inpatient EL VESNA, MDA MDA [id number] 22:10:48 22:26:19 MARCIAAILYN Megan israelsandra R n 2020-11-24 2020-11-24 Outpatient KWAKU, MDA MDA [id number] 13:48:32 15:01:50 BEATA gore 2020-11-23 2020-11-23 Outpatient JULIO CÉSARARB, MDA MDA [id number] 13:43:16 17:07:13 GEORGE gore 2020-11-23 2020-11-23 Outpatient JULIO CÉSARARB, MDA MDA [id number] 15:09:37 16:35:32 GEORGE gore 2020-11-23 2020-11-23 Outpatient JULIO CÉSARARB, MDA MDA [id number] 15:10:43 15:10:43 GEORGE gore 2020-11-20 2020-11-20 Outpatient JULIO CÉSARARB, MDA MDA [id number] 06:00:00 23:59:00 GEORGE gore 2020-11-20 2020-11-20 [facility] [id number] 00:00:00 00:00:00 [facility] [id number] [place] [id number] [facility] [id number] nal [address] 2020-11-16 2020-11-16 Outpatient [facility], MDA MDA [id number] 08:49:34 10:32:19 OFELIA gore 2020-11-16 2020-11-16 Outpatient [facility], MDA MDA [id number] 07:59:46 09:39:56 OFELIA gore 2020-11-16 2020-11-16 Outpatient EL ABOUHARB, MDA MDA [id number] 07:55:28 08:28:52 GEORGE Chalino o n 2020-11-15 2020-11-15 Outpatient EL ABOUHARB, MDA MDA [id number] 09:59:18 10:28:17 GEORGE Chalino o n 2020-11-14 2020-11-14 Orders Doctor PARSONS [id number] 00:00:00 00:00:00 Only Unassigned, KATHLEEN [id number] [place] [facility] [id number] 2020-11-10 2020-11-10 Outpatient ABOARB, MDA MDA [id number] 17:14:57 17:14:57 GEORGE Vanegasers o n 2020-11-10 2020-11-10 Outpatient ABOARB, MDA MDA [id number] 11:12:04 11:12:04 GEORGE Vanegasers o n 2020-11-10 2020-11-10 Outpatient ABOARB, MDA MDA [id number] 11:11:06 11:11:06 GEORGE Chalino o n 2020-11-10 2020-11-10 Outpatient ABOARB, MDA MDA [id number] 11:10:25 11:10:25 GEORGE Chalino o n 2020-11-10 2020-11-10 Outpatient ABOUHARB, MDA MDA [id number] 11:09:41 11:09:41 GEORGE Chalino o n 2020-11-10 2020-11-10 Outpatient EL ABOARB, MDA MDA [id number] 11:09:07 11:09:07 GEORGE Chalino o n 2020-11-10 2020-11-10 Outpatient EL ABOUHARB, MDA MDA [id number] 11:08:45 11:08:45 GEORGE Chalino o sofía 2020-11-10 2020-11-10 Outpatient ABOUHARB, MDA MDA [id number] 11:07:07 11:07:07 GEORGE Chalino o n 2020-11-10 2020-11-10 Outpatient ABOARB, MDA MDA [id number] 11:04:03 11:04:03 GEORGE gore 2020-11-02 2020-11-02 Surgery [facility] [id number] 13:05:00 15:27:00 SPECIALTY [id number] CARE [id number] [place] [id number] MARGARITA Crook [facility] 2019-07-26 2019-07-26 [facility] [id number] [facility] 14:00:00 14:00:00 [facility] 2019-07-26 2019-07-26 [facility] [id number] 10:51:00 10:51:00 [facility] 2019-02-12 2019-02-12 [facility] [id number] 10:40:00 10:40:00 [facility] 2018-07-29 2018-07-29 [facility] [id number] 13:15:00 13:15:00 [facility] 2018-05-08 2018-05-08 [facility] [id number] 14:34:00 14:34:00 [facility] Results Test Description Test Time Test Comments Results Result Comments Source Differential 2020-11-28 13:24:15 Test Item Value Reference Range Interpretation Comme nts Total Cells (test code = 7642) 112 Neutrophil % (test code = 6491) 65.0 % 42.0-66.0 The Neutrophil count includes Bands. Lymphocyte % (test code = 6194) 22.0 % 24.0-44.0 L Monocyte % (test code = 6422) 8.0 % 2.0-7.0 H Metamyelocyte % (test code = 5.0 % See_Comment H The Metamyelocyte count 6399) includes Myeloc ytes. [Automated mess age] The system which ge nerated this result transmit reyes reference range: <=0.0. T he reference range was not u sed to interpret this result as normal/abnormal . NRBC (test code = 6472) 38.0 See_Comment H [Au tomated message] The system which [employer] nerated this result transmit reyes reference range: <=0.0. T he reference range was not u sed to interpret this result as normal/abnormal . Neutrophil Abs (test code = 11.64 K/uL 1.70-7.30 H 6492) Lymphocyte Abs (test code = 3.94 K/uL 1.00-4.80 6195) Monocyte Abs (test code = 6423) 1.43 K/uL 0.08-0.70 H RBC Morph (test code = 6942) Present Normal A PLT Morph (test code = 45123-8) Normal Normal Anisocytosis (test code = 4811) Present Not Present A Polychromasia (test code = Present Not Present A 6844) Macrocyte (test code = 6358) Present Not Present A Pappenheimers (test code = Present Not Present A 7795-8) Lab Interpretation (test code = Abnormal 07350-8) MD Osei.[id number] 13:24:13 Test Item Value Reference Range Interpretation Comments WBC (test code = 17.9 K/uL 4.0-11.0 H 6690-2) RBC (test code = 789-8) 3.18 See_Comment L [Au tomated message] The system [employer] generated this result transmitted ref erence range: 4.00 - 5 .50 M/uL. The refer ence range was not u sed to interpret this result as normal/abnor mal. Hgb (test code = 718-7) 9.9 See_Comment L [Au tomated message] The system [employer] generated this result transmitted ref erence range: 12.0 - 1 6.0 gm/dL. The refe rence range was not u sed to interpret this result as normal/abnor mal. Hct (test code = 31.9 % 37.0-47.0 L 4544-3) MPV (test code = 787-2) 9.9 fL 4.0-10.4 H MCH (test code = 785-6) 31.1 pg 27.0-31.0 H MCHC (test code = 31.0 See_Comment [Automate d message] 786-4) The system [employer] generated this result transmitted ref erence range: 31.0 - 3 6.0 gm/dL. The refe rence range was not u sed to interpret this result as normal/abnor mal. RDW-SD (test code = 75.8 fL 35.1-46.3 H 13756-9) RDW-CV (test code = 21.1 % 12.0-15.5 H 788-0) Platelet count (test 218 K/uL 140-440 code = 777-3) INRBC (test code = 30.2 % See_Comment H The INRBC (instrument 5974) NRBC) value ref lects the enumeration of nucleated red b lood cells contained in a 200uL sampleof whole blood analyzed by the instrument. Thi s value maydiffer from the NRBC value reported in a m anual differential,wh ich is based on a 100 cell differential. [Automated mess age] The system [employer] generated this result transmitted ref erence range: <=0.0. T he reference range was not used to int erpret this result as normal/abnormal . Lab Interpretation Abnormal (test code = 12811-0) MD OseiFractionated [id number] 09:17:36 Test Item Value Reference Range Interpretation Comments Bili Total (test 0.3 mg/dL See_Comment Indocyanine Green (ICG) code = 5096) may cause false ly elevated biliru bin results. Total and direct bilirubin must not be measured from s amples containing indo cyanine green. False el evation of total bilirubin can be seen in patient s with IgG concentrations above 28 g/L. [Automate d message] The system [employer] generated this result transmitted ref erence range: <=1.2. T he reference range was not used to interpr et this result as normal/abnormal . Bili Direct (test <0.2 See_Comment Indocyanin e Green (ICG) code = 5094) may cause false ly elevated biliru bin results. Total and direct bilirubin must not be measured from s amples containing indo cyanine green. [Automat ed message] The sy stem which generated this result transmitted ref erence range: <=0.3 mg /dL. The reference range was not used to interpr et this result as normal/abnormal . Bili Indirect (test See Note 0.0-0.9 Unable t o calculate code = 5095) Indirect Biliru bin result due to some par ameters are outside rep ortable range MD OseiElectrolyte [id number] 09:17:35 Test Item Value Reference Range Interpretation Comments Sodium Lvl (test code = 137 See_Comment [Au tomated message] The 1219) system which ge nerated this result tra nsmitted reference range : 136 - 145 mEq/L. The reference range was not u sed to interpret this result as normal/abnormal . Potassium Lvl (test 4.4 See_Comment [Automa reyes message] The code = 6854) system which ge nerated this result tra nsmitted reference range : 3.5 - 5.1 mEq/L. The reference range was not u sed to interpret this result as normal/abnormal . Chloride (test code = 102 See_Comment [Auto mated message] The 2453) system which ge nerated this result tra nsmitted reference range : 98 - 107 mEq/L. The refe rence range was not u sed to interpret this result as normal/abnormal . CO2 (test code = 5227) 23 See_Comment [Aut omated message] The system which ge nerated this result tra nsmitted reference range : 22 - 29 mEq/L. The refe rence range was not u sed to interpret this result as normal/abnormal . Anion Gap (test code = 12 See_Comment [Aut omated message] The 8345) system which ge nerated this result tra nsmitted reference range : 4 - 14 mEq/L. The refe rence range was not u sed to interpret this result as normal/abnormal . MD OseiCalcium Njwfg0916-40-09 09:17:34 Test Item Value Reference Range Interpretation Comments Calcium Lvl (test code = 5258) 8.7 mg/dL 8.4-10.2 MD OseiAlbumin [id number] 09:17:32 Test Item Value Reference Range Interpretation Comments Albumin Lvl (test code = 3.2 See_Comment L [A utomated message] 9377) The system [employer] Aubrey generated this result transmitted ref erence range: 3.5 - 5. 2 gm/dL. The refe rence range was not u sed to interpret this result as normal/abnor mal. Lab Interpretation (test Abnormal code = 67639-8) MD OseiGlomerular Filtration [id number] 09:17:31 Test Item Value Reference Range Interpretation Comments eGFR-AA (test code 134 See_Comment Normal eG FR: >= 60 = 8062) mL/min/1.73 m2N ote: The eGFR is calculated u sing the CKD-EPI equatio n. The eGFR declines with a ge. eGFR <60 mL/min/1.73 m2 is considered as "decreased". This equation should only be used for patients 18 and older. According to th e [employer]'s Kidney Disease Outcome Quality Initiative (KDO QI) classification and 2012 Kidney Disease Improving Global Outcomes (KDIGO) Clinical Practi ce Guideline, the stage of CK D should be categorized bas ed on estimated GFR. Stage Description GFR mL/min/1.73 m21 Normal or high GFR >=902 Mildly decrease d GFR 60-893a M ildly to moderately decr eased GFR 45-593b Moderat supriya to severely decrea sed GFR 30-444 Severely decreased GFR 15-295 Kid leny failure <15 [Automa reyes message] The system [employer] generated this result tra nsmitted reference range : >=60 mL/min/1.73 sq. m. The reference range was not used to interpret th is result as normal/abnormal . eGFR-EFREM (test code 116 See_Comment Normal e GFR: >= 60 = 8063) mL/min/1.73 m2N ote: The eGFR is calculated u sing the CKD-EPI equatio n. The eGFR declines with a ge. eGFR <60 mL/min/1.73 m2 is considered as "decreased". This equation should only be used for patients 18 and older. According to th e [employer] on's Kidney Disease Outcome Quality Initiative (KDO QI) classification and 2012 Kidney Disease Improving Global Outcomes (KDIGO) Clinical Practi ce Guideline, the stage of CK D should be categorized bas ed on estimated GFR. Stage Description GFR mL/min/1.73 m21 Normal or high GFR >=902 Mildly decrease d GFR 60-893a M ildly to moderately decr eased GFR 45-593b Moderat supriya to severely decrea sed GFR 30-444 Severely decreased GFR 15-295 Kid leny failure <15 [Automa reyes message] The system [employer] generated this result tra nsmitted reference range : >=60 mL/min/1.73 sq. m. The reference range was not used to interpret th is result as normal/abnormal . MD OseiAspartate Ifxrkkxyelbpkohh1303-75-45 09:17:30 Test Item Value Reference Range Interpretation Comments AST (test code = 28 U/L See_Comment [Automated message] The 5251) system which ge nerated this result transmit reyes reference range : <=32. The reference range was not used to interpr et this result as shravan l/abnormal. MD OseiTotal [id number] 09:17:28 Test Item Value Reference Range Interpretation Comments Total Protein (test code = 7649) 6.2 g/dL 6.4-8.3 L Lab Interpretation (test code = Abnormal 71745-1) MD OseiAlkaline Jiyzujafhve1308-05-48 09:17:26 Test Item Value Reference Range Interpretation Comments Alk Phos (test code = 4768) 635 U/L 35-104 H Lab Interpretation (test code = Abnormal 64678-5) MD OseiGlucose [id number] 09:17:25 Test Item Value Reference Range Interpretation Comments Glucose Level (test code 120 mg/dL 70-99 H Eff ective 11/29/15, = 5699) the glucose reference inter vals have been updat ed based on [place] an Diabetes Associ ation guidelines (Standards of Medical Care in Diabetes 2016. Diabetes Care 2 016; 39: S13-S22).Fa sting blood glucose:Normal: 70-99 mg/dLImpa ired fasting glucose (increased risk for diabetes or pre-diabetes): 100-125 mg/dLDiabetes mellitus: >/=1 26 mg/dL Random bl ood glucose:Normal: 70-199 mg/dLNot e: Random glucose >100 mg/dL is associ ated with increased risk for diabetes Lab Interpretation (test Abnormal code = 07639-9) MD [id number] 09:17:24 Test Item Value Reference Range Interpretation Comments ALT (test code = 25 U/L See_Comment [Automated message] The 2855) system which ge nerated this result transmit reyes reference range : <=33. The reference range was not used to interpr et this result as shravan l/abnormal. MD Osei.Serum Fnxeayxxef4107-37-38 09:17:23 Test Item Value Reference Range Interpretation Comments Creatinine (test code = 5399) 0.50 mg/dL 0.51-0.95 L Lab Interpretation (test code = Abnormal 66827-9) [id number] 09:17:22 Test Item Value Reference Range Interpretation Comments BUN (test code = 5055) 22 mg/dL 6-23 MD OseiMagnesium Hpgbj5037-41-95 06:41:24 Test Item Value Reference Range Interpretation Comments Magnesium (test code = 6359) 2.3 mg/dL 1.6-2.6 MD OseiPhosphorus [id number] 06:41:19 Test Item Value Reference Range Interpretation Comments Phosphorus (test code = 6817) 3.2 mg/dL 2.5-4.5 MD OseiMRI CERVICAL THORACIC LUMBAR SPINE W WO [id number] 03:45:40 Metastatic disease throughout the skull base cervical thoracic lumbosacral spine both luis and ribs as well as anterior chest wall bones that with enhancement and some mottling throughout consistent with diffuse metastatic disease. No epidural or leptomeningeal disease. Mottling of the marrow signal is consistent with predominantly cellular metastasis with some areas of bony sclerosis.Small biconcavecompression injury in the posterior aspect of T10 anterior biconcave compression injuries in T8 unchanged from prior study October 30, 2020. Interface, Radiology Results In - 11/24/2020 10:47 PM CDT FULL RESULT: Examination: MRI CERVICAL THORACIC LUMBAR SPINE W WO CONTRAST, 11/24/2020 9:53 PM.Clinical History: Thoracic back painEncounter for observation for other suspected condition ruled outBenign neoplasm of right choroidInfiltrating duct carcinoma of breastCancer associated painFacial palsyIndication: Back pain, leg weaknessComparison: CT chest abdomen pelvis October 30, 2020Technique: Multiplanar, multisequence magnetic resonance imaging of the cervical, thoracic and lumbosacral spine was performed without and with intravenous contrast. Findings: Cervical spine: Multiple metastatic lesions throughout the skull base cervical spine almost diffuse with both the T2 and postcontrast T1 enhancement as well as some signal voids consistent with diffuse metastatic disease. Degenerative changes with effacement of thecal sac at several levels consistent with mild cervical spondylosis. No cord compromise. No significant epidural and no leptomeningeal disease. Vertebral body alignment is stable. Marrow signal is heterogenous consistent diffuse metastatic disease. No significant spinal canal stenosis is present. There is no cord signal abnormality or cord compression. Thoracic spine: Multiple metastatic lesions throughout the thoracic spine and ribs consistent with diffuse metastatic disease. Vertebral body alignment is stable. Marrow signalis heterogenous consistent with diffuse metastatic disease. No significant spinal canal stenosis ispresent. There is no cord signal abnormality or cord compression. No epidural or leptomeningeal disease.Small biconcave compression injury in the posterior aspect of T10 anterior biconcave compression injuries in T8 unchanged from prior study October 30, 2020.Lumbosacral spine: Multicentric metastatic les ions throughout the lumbosacral spine both luis consistent with diffuse metastatic disease. Vertebral body alignment is stable. Marrow signal is heterogenous consistent with diffuse metastatic disease.. No significant spinal canal stenosis is present. There is no cord signal abnormality or cord compr ession. No epidural or leptomeningeal disease.IMPRESSION:Metastatic disease throughout the skull base cervical thoracic lumbosacral spine both luis and ribs as well as anterior chest wall bones that with enhancement and some mottling throughout consistent with diffuse metastatic disease. No epidural or leptomeningeal disease. Mottling of the marrow signal is consistent with predominantly cellular metastasis with some areas of bony sclerosis.Small biconcave compression injury in the posterior aspect of T10 anterior biconcave compression injuries in T8 unchanged from prior study October 30, 2020.[facility] MRI Brain with and without [id number] 03:20:09No acute intracranial lesions. Enhancement of the mastoid segment of the right facial nerve and adjac ent petrous bone worrisome for a metastasis. Multiple additional metastasis in the skull base and calvarium with dural enhancement overlying the cerebral convexities and at the left cranial occipital junction. Metastasis of the left sphenoid triangle/lateral orbital wall with enhancement extending tothe superior orbital fissure. No visualized intra-axial metastasis. Interface, Radiology Results In 11/24/2020 10:22 PM CDT FULL RESULT:Examination: MRI BRAIN W WO CONTRAST on 11/24/2020 9:54 PMClinical History: Invasive ductal carcinoma the breast.Indication: Right- sided facial droop.Comparison: NoneTechnique: Multiplanar pre and post contrast T1 and T2 weighted sequences were obtained through the brain.Findings:There is asymmetric enhancement within the right petrous bone and adjacent mastoid segment of the facial nerve (series 24, images 6 through 8; series 2501, image 94Multiple enhancing metastasis are seen within the bilateral calvarium with no obvious intracranial mass extension, although there is underlying bilateral dural enhancement. There is no visualized leptomeningeal or sulcal cisternal enhancement to suggest obvious CSF dissemination of tumor.No visualized intra- axial/intraparenchymal metastasis, although the 3-D postcontrast T1-weighted sequences are limited secondary to motion artifact.No acute infarct, hemorrhage, ventriculomegaly, or concerning extra-axial fluid collection.Additional enhancing lesions of the bilateral skull base, proximal cervical spine, and facial bones. The posterior left craniocervical junction has a prominent metastasis with invasion through the inner cortex with subtle underlying dural enhancement (series 24, image 5). There is an enhancing lesion in the left sphenoid triangle with asymmetric enhancement extending over the left superior orbital fissure (series 24, image 13; series 2501,image 62). IMPRESSION:No acute intracranial lesions.Enhancement of the mastoid segment of the right facial nerve and adjacent petrous bone worrisome for a metastasis.Multiple additional metastasis in the skull base and calvarium with dural enhancement overlying the cerebral convexities and at the leftcranial occipital junction. Metastasis of the left sphenoid triangle/lateral orbital wall with enhancement extending to the superior orbital fissure.No visualized intra-axial metastasis.MD Osei OCT, Retina - OU - Both [id number] 19:25:39Right EyeQuality was good. Scan locations included subfoveal. This is the baseline exam. Findings include normal foveal contour. Left EyeQuality was good. Scan locations included subfoveal. This is the baseline exam. Findings include normal foveal contour.MD Osei Fundus Photos - OU - Both [id number] 19:23:17Right EyeBasline Exam. The vitreous is clear. Disc findings include normal observations. Macula findings include normal observations. Vessel findings include normal observations. Periphery findings include Comments: (WWP, Nevus along ST and SN). Left EyeBasline Exam. The vitreous is clear. Disc findings include normal observations. Macula findings include normal observations. Vessel findings includenormal observations. Periphery findings include Comments: (WWP). NotesOD: nevus along ST and SN, noorange pigment or SRF.MD OseiInfluenza A/B + COVID-19 Asymptomatic- [id number] 14:56:39 Test Item Value Reference Range Interpretation Comments COVID19 Not Detected Not Detected (SARS-CoV-2) (test code = 80091-1) Influenza A (test Not Detected Not Detected code = 16005-9) Influenza B (test Not Detected Not Detected code = 47424-0) COVID19 SARS Inpatient Indication (test Admission code = 23071) Inf AB+Cov19 See Note The rodney SARS- CoV-2 Comment (test & Influenza A/ B code = 66453) nucleic acid t est for use on the bebeto s [employer] System is a e-Go aeroplaneslex real-time RT-PC R assay intended for the simultaneou s, qualitative det ection and differentia l of SARS-CoV-2 (COVID-19), inf luenza A, and influenz a B viral RNA in nasopharyngeal swabs in transport me héctor from patients suspected of gu ving a respiratory inf ection with one of the se viruses or poss ibly exposure to COV ID-19 by a healthcare provider. Resul ts must be interpr eted within the cont ext of all relevant cl inical and laboratory findings and sh ould not form the so le basis for a héctor gnosis or treatment decision. A fac t sheet for patie nts provided by the [employer] ([employer]) can be rev iewed at: https://www.fda .gov/m edia/627319/josias nloadA fact sheet for Health Care providers is provided by the [employer] ([employer]) and can be reviewed at: https://www.fda .gov/m edia/397052/josias nload Influenza A and Influenza B neg ative results should be considered presumptive in samples that gu ve a positive SARS-C oV-2 result. If co-infection wi th influenza A or influenza B vir us is suspected in sa mples with a positive SARS-CoV-2 resu lts, the sample shou ld be re-tested with another approve d influenza test. This assay has been authorized by t alessandra [facility] for use only un [place] Emergency Use Authorization ( EUA) in laboratories that have been CLIA-certified to perform moderate-comple xity and high-comple xity tests. The Microbiology Laboratory at [facility], CLIA Accreditation #[id number] and CAP Accreditation #[id number], verif ied the performance characteristics of this assay. Int ernal controls are us ed to monitor all sta ges of the test proces s. MD OseiPathology Outside Brufodqwvdsquc2394-02-67 15:53:36 Test Item Value Reference Range Interpretation Comments Materials Received (test x5wqkGKwRTGykSHgAuZc code = 9973) FMPpOYStl6nkVPMppRFh ZzEwMzNcZnRuYmpcdWMx RDWvQsTyz7reg783zLEk m7dcWZNkSuI1lWVuPNMo iXAmL388FHVoRWtmc2sq p1MpYOMbhMQch0M6QCBF ookzfJw7tClpE74zw9D8 DbbcQ0jtHQOgDXBoE2Fo IC1lDGLvKzb5RFK3MIG7 SWShCMZeC5BiHN9oIQQv mYHvDDi0q2ymmVakYLKs KWI3u4lzXQrjblBvKV6d bh8bnYv4h1zlmxEaTKOd PWHvpAMBIAAfD5DfgMdp Rc4mhMb6fEqqPgqnWAO3 Wwy9LB0jge49olk0yKhx TNLxgznwYeC1ZGroRDBy izirKZc2OLjbMRSgwIgc MFxtYXJncjcyMFxtYXJn uBM6MTBrcANeA3XaARLh MBziSORgqls4VyReIn2e gPZujRtaIMwuk4xdi6fj cHNnWig5DVZqDhFhFdqe AAozy2Jos3guNOIfzt2z YOA0mLFcnUqjb0F0cFIo OYBgdLYhesRtYSQeew44 eKQvaZEtvTXhlf7ymuVn yMGsxRVhUXR8wCVwuzLp CJZwxYEnOMAcRO5toWGg YRWhkT1spiptSPIcGdDu xtphVIKjiPxzpwFaMx8f vNqbCWO0CWsqG4kuxQ4m WiI4VWteG0mxeP4uWDb5 ARngnKD7BYDyvG3rBE6a yffml1gtVdTaYN5bszna u8wcSmSxVO8hprr4c4vl RWD0LAbxVGTvNcP1yaP4 NDBcaGVhZGVyeTcyMFxm e355RBR4OfCoGIKzc9Gq Q7AfmKsyF77tdJqpE04h CLSjwSshdC2jqBglpS9y YmHzOhQbAQj7yt55LEq3 lfyecAcuWEq8msNmCTHy UZF8LPKokNHiDRTsM6p0 rxZfAOYxKUV8ELDtnTSx ZIYxJ5a0uvMjALG2HSf6 cnBhZGRmdDNcdHJwYWRk YjBcdHJwYWRkZmIzXHRy uYUarYLbvBIlnF8zyIog KUCljEPxfY0wRXS2EMUt cmgzMjBcdHJoZHJcbHRy rm77QRVltwSgbCEngOcj jBHaJMU3IQUqKZBgJTXy OGK3RAInLwHqkwBrXKkz bGJyZHJiXGJyZHJzXGJy JQX0BLSjZnFyebWkEOzh bGJyZHJsXGJyZHJzXGJy SFH1KEJcPqZovwOnRTwc bGJyZHJyXGJyZHJzXGJy BJY0KDAnGzFslsIqMTgl bHBhZHQxMFxjbHBhZGZ0 M8qzjBEjSAXpSVtyyNTs QUGjH5atsFYtTWdnTZTx cGFkZmwzXGNscGFkYjBc T8nnONQdOsEzD1GkfZk2 MDAwXGNsdmVydGFsdFxj iXEnNIY3KEHtAWQdXHNj CTT0QYHnSyTrcqXuYAsv bGJyZHJiXGJyZHJzXGJy TGX4DAUePeIqnkZcZOui bGJyZHJsXGJyZHJzXGJy RRF6YAGvDbMglbAtYJug bGJyZHJyXGJyZHJzXGJy DFV5HKOuHmZlorKiVRna bHBhZHQxMFxjbHBhZGZ0 X6qejYSdSDTaACmqjLSq MTSdL8kaeYDfOMjnUEBn cGFkZmwzXGNscGFkYjBc X3yaEQJqMiIqR1RqrFs5 NjAwXGNsdmVydGFsdFxj mEGiRLT0LFKrINMjVXBz WHJ9KIEiXnSgfkIyMMdq bGJyZHJiXGJyZHJzXGJy KUQ7IEMmNxDbueBaFFsd bGJyZHJsXGJyZHJzXGJy CPJ5YEMwGzAkccUlUGfh bGJyZHJyXGJyZHJzXGJy ZLM5OUOjSyErnsQcCNzq bHBhZHQxMFxjbHBhZGZ0 V3fhrZIqIXHmKVyobBAc PSFiH1brkBTkHWryXCAq cGFkZmwzXGNscGFkYjBc P3sqKUOlMlOtG3QvnSm4 CrQyYKGkmdFktR23Rpch m3WwDCYvSMP3RRdzKHyl bFxwbGFpblxmMVxmczIw HZqenqswOCXvCYgfJ4hb UdKbXIPwhOrgFPrwe2Xs XGYxXGNmMlxmczIwXGIg SGEzKJXkxD1zIgypN2Tm oN6hIMbhJozmO1qrIOKq v7HovB5xJZhfpORjpxap MVxmczIwXGxhbmcxMDMz HSswV7hfNdFbXKIicDuq TMphn5UwCPQlOHZcDbvu exDrOEa3rnTzQCBktBgx sTHeIXyntlCxfHeac6De fmGgrTjvGSItSYy5qqXj dkdipAy0kYPozNzsUMTn uDyqfF5tKqVcQhBcQNxi bGFpblxmMVxmczIwXGxh ywttZOGlOUctE0bfTsSt AMVcjAurIUzqi6XtZRLq CFJaKtujovBkZAPvB61a bGVjdGVkXHBsYWluXGYx XGZzMjBcbGFuZzEwMzNc aGljaFxmMVxkYmNoXGYx EPhwR9yqBzHmU1UaUKRw TxFydWTuP3geI8VguXzq YXJkXGludGJsXHNzcGFy YSN2vEWjszIefQCjaAIj KEJyCTrvGOM5eVFqgucb vUCwznvhNSqdzqB1TNDk YWluXGYxXGZzMjBcbGFu ZzEwMzNcaGljaFxmMVxk HtYrTFDiBXaaD3qwRyBe S2AkOPUaDuRrBqSJGWXj aXZlZFxwbGFpblxmMVxm czIwXGxhbmcxMDMzXGhp K8ceRuBnUUTqoKqkEErf p7ZgGNZlJTWkLyagbfWc RXg0emVrBCXbsVotaB74 Jvwyck34IHGks1lvAZKi K0VnhIWiHYPuhIYlJVix MDhcdHJwYWRkZmwzXHRy cGFkZHIxMDhcdHJwYWRk ZnIzXHRycGFkZHQwXHRy nGEgELN9X5o2yaYjUDDi FWn6lmLiYFBiBfYqzNEl AQD2XId1GainixI2wPOh T7i0RbwvzpHuGJqviJQm yy85ZEWalrJkkONicVxi qDNuENQ6EKTaHXDpBXNl EHA7VOHbDaEpctKcNUae bGJyZHJiXGJyZHJzXGJy ILI1EQKjWjIqtgFrQEeu bGJyZHJsXGJyZHJzXGJy YDI0ZNVmBuRsyyOhCYdo bGJyZHJyXGJyZHJzXGJy MHJ8ORVvAfPtvrCjLNst bHBhZHQxMFxjbHBhZGZ0 Z4jiqLAdVEXgMHhfdQGi POQqW1qaoJHqJQfmYCAy cGFkZmwzXGNscGFkYjBc E4jsDTLiQnHaW4RaxQd2 MDAwXGNsdmVydGFsdFxj lFJyBUM5FHZwRAFfUXFp ZYW5QFGjSaFazvNvMKxg bGJyZHJiXGJyZHJzXGJy OPN6PNGnKiRjbxGyMWrc bGJyZHJsXGJyZHJzXGJy AXU6TWBtAqIvxkIuXSkw bGJyZHJyXGJyZHJzXGJy WWV0ZLOqAjIpkmVwYYda bHBhZHQxMFxjbHBhZGZ0 X2ylzOCuABUdHKtdkHAj YCBcI3tcxRYzRGbiBYEq cGFkZmwzXGNscGFkYjBc V4xmEHZtRlPtG4VvtNy7 NjAwXGNsdmVydGFsdFxj gQRaSPK8NBZlHWTzXIMp KTN1QGXiXgWuxqOeCLmj bGJyZHJiXGJyZHJzXGJy UUI5JGXwSkRzyrWpATvi bGJyZHJsXGJyZHJzXGJy GJM2UPNzCqPygjBnUOfz bGJyZHJyXGJyZHJzXGJy YCE5ZMOcCqRldxMyZKky bHBhZHQxMFxjbHBhZGZ0 C2jopMAlVKWlERlcfFVq NGIlQ7ubxIIsVBbyBYHk cGFkZmwzXGNscGFkYjBc D4wgWEOrDlIoT6DsaEw3 JwBbVDFqvvBfvP19Bgjv h8IjXQZwGVD0XLkmQUas bFxwbGFpblxmMFxmczI0 XHBsYWluXGYxXGZzMjBc bGFuZzEwMzNcaGljaFxm HEujTzKuGFVoHQinE0bd CbFtC7AzFNHjGmBuPD4n GySpMWTnZMs0RCAgHlSY NzujNFEAST0JD1RkYBGa VVNTXHBhciBCLiBTMjEt KJGcRYTjCEA1COYWMUTr KWGGG8WQCppdYODBX1Yy pXjldS0vTsPjYpYgKWne UY2pUHJbT7duwWVgUYTg RCTeW3fpKbLptD7lwJuu MVxjZjJcZnMyMFxsdHJj nZldLPiaSLZachNccY14 Xphzi7WuUPLiYLN4VEtw MFxxbFxwbGFpblxmMFxm qpT0CNPfPShqZKTpTSJv MjBcbGFuZzEwMzNcaGlj aFxmMVxkYmNoXGYxXGxv U6ceQqFfV8WrXANvDqSj Ca3jYL4iSJImEQQyruU7 LzEvMjAyMVxwbGFpblxm MVxmczIwXGxhbmcxMDMz QYscY7uzXeEfTIJcsFxq OFysq0JdVDTdVHAtQlyb apKjTIx4moMcIQTlpGkh mIRoHUqfcvCbdBtyw5Lp cmFhdXgwXHMwXHFsXHBs YWluXGYwXGZzMjRccGxh jG8yKnOuXmHfYWrmGV9f VSVcY8tupVUdYNKfLGMt T4vnGlHbpA9sxQfbNArp BdYlIgSbPZB9TnD9MxVd MjFccGFyIDcvMTUvMjAy MVxwbGFpblxmMVxmczIw KExyyqvlLVHtROzeB6xc OqRdWAWckEkcBFzwr4Am XGYxXGNmMlxmczIwXGx0 dqPvSOJaxPthbI60Gpvl cx62KGNcfgZlo9DpQVFt FKC6OGlgTMtreSfbvZYm lkwwFMlkzgN3VHKyITfi XGYxXGZzMjBcbGFuZzEw MzNcaGljaFxmMVxkYmNo XXZoZQhsP5quTnIpWmPa MFxwYXJ9 Diagnosis (test code = q4fxbIKiPEFstIL5JQKf 34) CKJwg1pus4GmoIKxcQAm YDxtaBNfkvJypf39xRZ9 iR23PB0jRVMpZbT1NXJh ijK7Tdu4IMGiNFGfwSVj Y177g3jcu8ezbqEbdME4 QDChKHDwJ3RhKF3mYHDe pJOiS89zgHMeZXO7XXJl AOPwsWHwJZDeUKM2SZAj rTDfG0aoAOTgBB1nzdyu BNwnCOgpHMUhtTW4PSUh bGRvF0BaJUAyKYaeGULo qhd4YcJgWm3gqPUkqIxp MFxwYXJkXHBsYWluXGZz OjDnC2CbZN93oPHrJMPt ISCmHO6cHBU0EcvdRUXr O9TrCUIzCpwDH7vWNOOq JVECDsduB60npROlvRCs KH0rPRPeKgnpHxRtFEl3 XHBhclxjZjBccGFyXGxp NzIwXGxpbjcyMCBCcmVh i6SbQNnjUbKzCThvXaKo MpKtYFJ1LD9ot5NcUBxt ZOPxNAUnPA1rgLAdQAGy QTEtNSwgQTItNSwgQTMt FSciWLtREAl5NChffRMv XHBhclxsaTIxNjBcZmkt HmMiZPjejxDxZuJgG7Cv PCcUKvGQBWKTIPOOF5RO ACQDBZVTYN8AABNiUyQA LMHDTCWACYOOO3yKS6lR ZCeHKTDMAFBhIR7KVXbH DVSFVCRJQLNWM0DiAnZK TEVBUiBHUkFERSAyIChJ XbQIMt7UMKySLAUoY1MX GWWqFaDfD3IBJISDAA2O TlQgIzEpXHBhclxwYXJk JKarHyM0BNdahQ06QoDb wMskLiI4DZxwGkHfrGKd GPefBkXrRIEbWPoykE13 NrBmIuUvNZS8ITXswCmq dCwgcmlnaHQgYnJlYXN0 CL7wa5DuRAufPCSmJGLk RK5dqPElRKRtBwPhQFib QjItNSwgQjMtNSwgSUhD IBb3UUikiXVhBUIhqvxh zFZ0EVBkaHveECI3KTtt YbJvWV1ENABKTzOaDLPJ NTIKLJGGFkGUYg8YDRXK KpGCV1EhUQwIW8CWXM0P REKfM0TWPMTgKsfjAE9T QQZUZIWlZwmWV5iaVyPQ VUNMRUFSIEdSQURFIDIg CYaQGYHWYWWKDXBYXQ3H RoHUCYewLDhSHJZhO20F TUVOVCAjMSlccGFyXGxp CQslfC9lOKNvYRllJMHf T8UmAH03jBIoSNItGRGs AT1iZXDzGysiDFGsS0Gs CXZdErwLK0pBHQEnNFZD DzruD64ovUVotYVzJK8t KQvtLX1qTXOdMGfxhALu GDKkCEzdNPXvqYd7AnQd bGluNzIwIEJvbmUsIGlu yPJwhNMklQwpZMB4PFSj WT0nqpneSjJxfNUxoHdx sYFvNU51hxAgOVSyRnqh MVGsGHniFLIxFNj1OPPf clxwYXJcbGkyMTYwXGZp AAlaNPyhjM4lLNDcTPHN J1XOORMPSMIWQLWILbGN YSIOKKCNKKBODV7WVLHf ETFwG0GWZZWXTJ9MYlYq IzIpXHBhclxwYXJcbGk3 MjBcZmkwXGxpbjcyMCBC l76kTSGynqUwVG4eIJIa lMXgeFKnRCYnuD0jSGGp y85ntoxpbSOiWpUksHTz KEIxLTIsIEIyLTEsIEIz TYTmOLI4AFSiJGuXGaI7 Cbn3JVJmohwyCNBmqQmq GAIiIIntfcH7DZNvIC1Q UkxZIERJRkZFUkVOVElB EXWFGLTJAvOPHn3HQE5e PKmLMUQsE87AXACTMXMf MilccGFyXHBhcmRccGFy LUjSZq1SDEWxiLQyyA== Comment (test code = m3qwhYFtKMIfxIS3KIEl 8660) QTXgx9vpv7PaiXAvvIOn NBrcsRTgpcZxpb94mRP2 hM27HM9qTFXmThS3WWBu lqW4Tvu3DXRoMYFadFAr Z003z2ivr1ruhiLqbJA7 sLfqEEFbvdsfQjF6DDsg BIAumjrqKWl5JFhaFUFl bFV4VRRmcJVbJ4CmAKSv CZ7otxe7WRB9DHziSECo KbJ7DWTnxQYjYNZpnTde KCjbu212IYG6UgBeRNJp tlBjuZlxqG4oTaAjWPSp GFgpZ84zk3VgwLb1wVNf GV30sXSbJSDca9ctILVc IANcc75hGh12rCDbAFV7 IGFuZCByaWdodCBicmVh v9JfcWIxl5HmCtsooZNi ZXMsIGludmFzaXZlIGNh jjWlhi6wWJCtxuUym7Zb kXh5HJYng2BmOMI2sg3a EV7mnqMiZRJ8u8FyJHl0 OImmJsitkI63XB7vsTF9 XUpgmB3itMCtmvCfZw8e CHFhe5wlt3Axkt4gLLNh ZWNlcHRvciAoOTUlLCAz KyBpbnRlbnNpdHkpLCBh knFwioJzBSOxivDhJo8n ZTsKIrAdz8WlowE2gVGh v7Fzm80gDWJxEV4vL4x6 JtYwsl3szVAmlgZ0oODg GRvuOFO9XHjpSJUiPR1b TSosYLAbH9VmlHv3fVEc VHfljLWbv1nng4LxQ8wc oLusMXovk2OkxL8qKCXp ciBFLWNhZGhlcmluIHNo d0jvpEMvQgPfkhYrj1Mm mV9viheqxI4kdBNqu2Rg G4ObrAFrPPV6wZIoclMe krdkYXPviyQqWNnxH14i b3eaDzysSCWliGBmHRJx MiAUtGRnlKR8UEWpaF5p hS3saJpkaB7ueTWogHAz eARndENyyYUqBYEcz2rj yFIas0JlL0NqbTEmVCZp NNBxm5r1aRNtJFFckiJG IILwQFRaISN2jZ7zRJNu tQjgpywlT8j1OTCWLJAG MywgRVIsIGFuZCBQUiwg DX9cAB7gW7R9aPIxVHGc ciBDSzIwIGFuZCBIRVIy UsRBjHFkj5HaaeVxvIUt lAU9w1clM5wdXIGvcjVp hjlsWPTwy41aJCzetCpp fYphEMAuuT4gH9FeKXfi s3XptfbfVA1iGYPxbL1r dMRmFMmmmFXot6acd3Lm Y6ajaYibIPpwj6TcaY1v UBLwUTEbc99ntNW1UH74 WJyrwRpsuZB2AYA8GNQh KqJwXHOcoV6wpCNmOREj HCYcbBHqsihkJFI8Iqjj YXJccGFyfQ== Biomarker Block(s) (test a7nkbHOxGTFrwAK5RLLf code = 9841) OCXse4zfs2WkgKPuaWTl BCopjUWbdaJqlt55cLI8 rC17VE6zSFOcZzY2SEOh cfH4Eyl0GLNdKBQfaECc P316a7upf8wtokLtaVT2 HFVoPGCbY3TiUE8ePRLc oWCgO85bkQXuDQI7GNVc JDHbpPCoIGQnHYM0NQTd eEJzD8efISPcKF4xcfwy IKtnTFrfDPJyuVC9YAAn eIWwD0XnVPZzIRbiLODv agl8WiJgMx6cyKRbwRzp MFxwYXJkXHBsYWluXGZz MjAgVDogXGNmMSBTMjEt MTEwOTcsIEIxLTVccGFy ZP41OH0qNBfgWDZ1 Disclaimer (test code = v9xayGZxHLJljZRoWjYs 9817) ECOjJXDvi2xwOPBhdVLz ZzEwMzNcZnRuYmpcdWMx OMWuVxUsj0mak078oEQh w0ufFNEoAgN5hNQxUGRe cGHdE177ZZBbSTcbz5um s1OkKOIakLYcd2H2EJGP rniywSp4oBlcH49bz3V3 MfaxK1jvZDAhYUHxS9Vu TT4uEPAvRxk5KNA7OBQ6 THErVTLkQ7ImCM5yUVIs rWKqRCr4u7chjAljFRCw YET3q7uqCFbfzqNxGG6o wo8zrQd7s8dmdxUsCRWm MODkdNJBFUPvN9RovKlc Yj2zsKg3sMjbBbagQCM3 Ulb6BC5wgg16cwd7aBag DZHmmvmgScO6NSqqBFTj eemjXXo7RRnsLADluBD5 UEDfnELxC6AiOCBsJC4p nge2VBH7XOchZBVrDaV9 NDBcaGVhZGVyeTcyMFxm j771AFU8NgRgRY1vL9Zy d2K4dC5vyFYjGCPkhPRa HkVsFPIvwt4jrRSmLTkq a2BnWAS9axV4cRKajAYl OOOvOF13Fdlyk2DxSjpl XQC4FKFtbzXyp0Bqh1fm ByGbwdGoK3qmZ6RpITPl BRLqVTVjCiUcelFrj3Sl l0UvuJGvrXi5c1gaXLDd CFXriIgmt1goGVQ4HOXa O9L4tDPzt7rgTAavQHPt zFD8wyB3DHBtyMQtB3Fy xN0vWZQiBA1bagn9u4qv SBD5WNebDHArMuV9ylZ2 NDBcaGVhZGVyeTcyMFxm j406BIR3SyZhTJFcs1Xf O7FdjXwnM12naOqeY98q XZIzyImxpW0ynTohsL7f ZjBcZnMyNFxxbFxwbGFp xdjgEAmsnlR5EBxuygxb KNQlRJjkK2jjShKeVTCr mXjaSQdvl1KgKNQeMFTy TwxomtX5HELNj88tWALf e4BnZMFqdF2zwTTiNSjy ybOljVO2PXshfiBjDwUu kpNqKYSchN4hSGHjWH9v GFNkicSdrw0gvoCfBAYk IKTlZ6AmbckobVdtpbSu BWVcrl3tffYgWGV1YPMJ SB0ABJYcBJFro68hVLAs pVfjiX8ukUPkfrKqYNOb d0LrjK2pxXYJDCFrN9nc EF1qVOlse5VzyDUtaIOt qDV0ZRWmh9BrTjMqwoDg bEUsaFOaV0RxyXgeH7ns SYWyTASbwxYzqOUqn8Kd TNRgwLO1tZZaQR0CCgKY c34bMJMsYXDUtcPuMKEz hZoxxTE8eqI7uF1xDeKB ZiBhcHBsaWNhYmxlLCBj l228jk3gscP1BSPnGVJy fsrxh1KbRJZuYOFunP33 HJGeJSAnbt4copeuyCKy cuAbF1Cvbfc6qM7lHJDw YWluXGYxXGZzMjJcbGFu ZzEwMzNcaGljaFxmMVxk ReAtCXRhBQapC8vzEqUg ZnMyMlxwYXJ9 MD OseiMT COVID-19 (CINDI-CoV-2) PCR [id number] 11:39:53 Test Item Value Reference Interpretation Comments Range COVID19 SARS Pre-Radiation Therapy Indication (test code = 17962) COVID19 SARS Result Not Detected Not Detected (test code = 90409-7) COVID19 SARS SARS-CoV-2 NOT Detected. Interpretation (test Reference Range: Not code = 96348) Detected Methodology: The Ramírez RealTime SARS-CoV-2 assay is a qualitative real-time reverse tamper operator polymerase chain reaction (thermal intelligence analyst-PCR) test to detect RNA from SARS-CoV-2 in nasal, nasopharyngeal and oropharyngeal swabs from patients with signs and symptoms of infection who are suspected of COVID-19 by their health care provider. The Ramírez RealTime SARS-CoV-2 performed on the Jobber000 System is a dual target assay with primers and probes for the RdRp and N genes. Results must be interpreted within the context of all relevant clinical and laboratory findings, and epidemiological risk factors. Positive results are indicative of the presence of SARS-CoV-2 RNA; clinical correlation with patient history and other diagnostic information is necessary to determine patient infection status. Positive results do not rule out bacterial infection or co-infection with other viruses. Negative results do not preclude SARS-CoV-2 infection and should not be used as the sole basis for patient management decisions. The Ramírez RealTime SARS-CoV-2 assay is for in vitro diagnostic use under FDA Emergency Use Authorization only. Testing is limited to laboratories certified under the Clinical Laboratory Improvement Amendments of 1988 (CLIA), 42U.S.C. 263a, to perform high complexity tests. The Test was performed by the CLIA-certified, high-complexity Molecular Diagnostics Laboratory ([facility]) at [facility] under the Food and Drug Administration (FDA) s Emergency Use Authorization. Factsheet for patients: https://www.[facility].org/ AbbottFactSheetPatientsFact sheet for healthcare providers: https://www.[facility].org/ AbbottFactSheetHCP Test performed by:[facility] [id number] [place] [address] MD Brown [id number] 22:17:06Study acquired at another institution. For comparison only. No MD Osei originated interpretationrequested or available. MD Brown US [id number] 16:37:22Study acquired at another institution. For comparison only. No MD Osei originated interpretation requested or available.MD Brown [id number] 16:36:55Study acquired at another institution. For comparison only. No MD Osei originated interpretationrequested or available.MD Brown [id number] 16:36:34 Study acquired at another institution. For comparison only. No MD Osei originated interpretationrequested or available.MD Brown Interventional 2020-11-10 16:36:14Study acquired at another institution. For comparison only. No MD Osei originated interpretationrequested or available.MD Brown CT CHEST ABDOMEN [id number] 16:35:52Study acquired at another institution. For comparison only. No MD Sea originated interpretationrequested or available.MD Osei
[2020-12-03 02:24] LABS: Absolute Lymphocytes (CBC) 1.9 K/uL (0.7-4.9); Basophils % 0.9 % (0-1.3); Hematocrit 34.4 % (36.0-45.0); Lymphocytes % 16.3 % (15.3-44.8); MPV 7.4 fL (7.6-11.3); RBC Red Blood Cell Count 3.61 M/uL (3.86-4.86)
[2020-12-03 02:36] LABS: ALT/SGPT 98 U/L (12-78); AST/SGOT 79 U/L (15-37); Alkaline Phosphatase 623 U/L (45-117); BUN Blood Urea Nitrogen 11 mg/dL (7-18); Bicarbonate 28 mmol/L (21-32); Bilirubin Direct 0.2 mg/dL (0-0.2); Bilirubin Total 0.6 mg/dL (0.2-1.0); Glucose Level 96 mg/dL (74-106); Magnesium 2.4 mg/dL (1.8-2.4); NT PRO-BNP 136 pg/mL (<125); Potassium 4.6 mmol/L (3.5-5.1); Protein, Total 7.5 g/dL (6.4-8.2); Sodium Level 136 mmol/L (136-145); Troponin (Emerg Dept Use Only) < 0.02 ng/mL (0.0-0.045)
--- NOTE | 2020-12-03 02:52 | EDPHYS ---
Physician Documentation [facility] Name: Joyce Amezcua Age: 44 yrs Sex: Female : 1975 Arrival Date: 12/02/2020 Time: 21:55 Bed 6 Private MD: Davian Stuart HPI: 12/03 02:16 This 44 yrs old Female presents to ER via Wheelchair with complaints of Chest gregory Pain. 02:16 The patient or guardian reports chest pain that is located primarily in the epigastric gregory area, anterior chest wall. Onset: yesterday. The pain does not radiate. Associated signs and symptoms: Pertinent positives: cough, shortness of breath. The chest pain is described as a pressure, sharp. Duration: The patient or guardian reports a single episode, that is still ongoing. Modifying factors: The symptoms are alleviated by nothing. remaining still, the symptoms are aggravated by deep breath, exertion, movement. Severity of pain: At its worst the pain was moderate in the emergency department the pain is unchanged. The patient has experienced similar episodes in the past, several times. 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 - Social history:: Smoking status: Patient reports the use of cigarette tobacco products, smokes one-half pack cigarettes per day. - Family history:: not pertinent. ROS: 12/03 02:16 Constitutional: Negative for fever, chills, and weight loss, Eyes: Negative for injury, gregory pain, redness, and discharge, ENT: Negative for injury, pain, and discharge, Neck: Negative for injury, pain, and swelling, Respiratory: Negative for shortness of breath, cough, wheezing, and pleuritic chest pain, Abdomen/GI: Negative for abdominal pain, nausea, vomiting, diarrhea, and constipation, Back: Negative for injury and pain, : Negative for injury, bleeding, discharge, and swelling, MS/Extremity: Negative for injury and deformity, Skin: Negative for injury, rash, and discoloration, Neuro: Negative for headache, weakness, numbness, tingling, and seizure, Psych: Negative for depression, anxiety, suicide ideation, homicidal ideation, and hallucinations, Allergy/Immunology: Negative for hives, rash, and allergies, Endocrine: Negative for neck swelling, polydipsia, polyuria, polyphagia, and marked weight changes, Hematologic/Lymphatic: Negative for swollen nodes, abnormal bleeding, and unusual bruising. Cardiovascular: Positive for chest pain, of the chest. Exam: 02:16 Constitutional: This is a well developed, well nourished patient who is awake, alert, gregory and in no acute distress. Head/Face: Normocephalic, atraumatic. Eyes: Pupils equal round and reactive to light, extra-ocular motions intact. Lids and lashes normal. Conjunctiva and sclera are non-icteric and not injected. Cornea within normal limits. Periorbital areas with no swelling, redness, or edema. ENT: Nares patent. No nasal discharge, no septal abnormalities noted. Tympanic membranes are normal and external auditory canals are clear. Oropharynx with no redness, swelling, or masses, exudates, or evidence of obstruction, uvula midline. Mucous membranes moist. Neck: Trachea midline, no thyromegaly or masses palpated, and no cervical lymphadenopathy. Supple, full range of motion without nuchal rigidity, or vertebral point tenderness. No Meningismus. Chest/axilla: Normal chest wall appearance and motion. Nontender with no deformity. No lesions are appreciated. Cardiovascular: Regular rate and rhythm with a normal S1 and S2. No gallops, murmurs, or rubs. Normal PMI, no JVD. No pulse deficits. Respiratory: Lungs have equal breath sounds bilaterally, clear to auscultation and percussion. No rales, rhonchi or wheezes noted. No increased work of breathing, no retractions or nasal flaring. Abdomen/GI: Soft, non-tender, with normal bowel sounds. No distension or tympany. No guarding or rebound. No evidence of tenderness throughout. Back: No spinal tenderness. No costovertebral tenderness. Full range of motion. Skin: Warm, dry with normal turgor. Normal color with no rashes, no lesions, and no evidence of cellulitis. MS/ Extremity: Pulses equal, no cyanosis. Neurovascular intact. Full, normal range of motion. Neuro: Awake and alert, GCS 15, oriented to person, place, time, and situation. Cranial nerves II-XII grossly intact. Motor strength 5/5 in all extremities. Sensory grossly intact. Cerebellar exam normal. Normal gait. Psych: Awake, alert, with orientation to person, place and time. Behavior, mood, and affect are within normal limits. 02:16 Musculoskeletal/extremity: DVT Exam: No signs of deep vein thrombosis. no pain, no swelling, no tenderness, negative Homans' sign noted on exam, no appreciated bluish discoloration, no erythema, no increased warmth. 04:37 ECG was reviewed by the Attending Physician. [facility] Vital Signs: 12/02 22:35 BP 89 / 70; Pulse 102; Resp 18 S; Temp 97.7(TE); Pulse Ox 94% on R/A; Weight 63.5 kg bb (R); Height 5 ft. 6 in. (167.64 cm) (R); Pain 10/10; 12/03 02:30 BP 99 / 73; Pulse 89; Resp 18; Pulse Ox 100% on R/A; Pain 10/10; em 03:45 BP 112 / 82; Pulse 86; Resp 16; Pulse Ox 97% on R/A; Pain 8/10; em 06:02 BP 114 / 82; Pulse 79; Resp 18; Pulse Ox 99% on R/A; Pain 7/10; em 12/02 22:35 Body Mass Index 22.60 (63.50 kg, 167.64 cm) bb MDM: 02:07 Patient medically screened. [facility] 02:20 Differential diagnosis: coronary artery disease chest wall pain, congestive heart gregory failure cholecystitis, Cholelithiasis costochondritis, esophagitis, gastritis, hiatal hernia, pancreatitis, peptic ulcer disease, pleurisy, pneumonia, pulmonary embolus, stable angina, thoracic aortic disection, unstable angina. HEART Score: History: Slightly Suspicious (0), ECG: Normal (0), Age: > 45 and < 65 years (1), Risk Factors: 1 or 2 risk factors (1), [Active Smoker] Troponin: Total Score = 1. The patient was given aspirin in the Emergency Department. The patient's deep vein thrombosis risk score was calculated as follows: Total Score: 0. This patient was found to be at low risk for a deep vein thrombosis by using the Well's assessment criteria. The patient's pulmonary embolism risk score was calculated as follows: the patients heart rate is greater than 100 beats per minute (1.5 Pts) malignancy Total Score: 0-2 points. This patient was found to be at low risk for a pulmonary embolism by using the Well's assessment criteria. RADHA Risk Score: TOTAL SCORE = 0. Data reviewed: vital signs, nurses notes, lab test result(s), EKG, radiologic studies, CT scan, plain films. Data interpreted: nurse monitoring: rate is 102 beats/min, rhythm is regular, Pulse oximetry: on room air is 94 %. Test interpretation: by ED physician or midlevel provider: ECG, plain radiologic studies. Counseling: I had a detailed discussion with the patient and/or guardian regarding: the historical points, exam findings, and any diagnostic results supporting the discharge/admit diagnosis, the presence of at least one elevated blood pressure reading (>120/80) during this emergency department visit, lab results, the need for further work-up and treatment in the hospital. 12/03 02:05 Order name: Basic Metabolic Panel 12/03 02:05 Order name: CBC with Diff 12/03 02:05 Order name: LFT's 12/03 02:05 Order name: Magnesium 12/03 02:05 Order name: NT PRO-BNP; Complete Time: 02:47 12/03 02:05 Order name: PT-INR 12/03 02:05 Order name: Troponin (emerg Dept Use Only); Complete Time: 02:47 12/03 02:05 Order name: Basic Metabolic Panel; Complete Time: 02:47 EDNC 12/03 02:05 Order name: CBC with Automated Diff; Complete Time: 03:38 EDMS 12/03 02:05 Order name: Liver (Hepatic) Function; Complete Time: 02:47 EDMS 12/03 02:05 Order name: Magnesium; Complete Time: 02:47 EDMS 12/03 02:15 Order name: Lipase [facility] 12/03 02:15 Order name: COVID-19 : Document "Date of Symptom Onset" if Symptomatic. [facility] 12/03 02:29 Order name: Manual Differential; Complete Time: 03:38 EDMS 12/03 02:05 Order name: XRAY Chest (1 view) 12/03 02:05 Order name: EKG; Complete Time: 02:06 em 12/03 02:05 Order name: Cardiac monitoring; Complete Time: 02:06 em 12/03 02:05 Order name: EKG - Nurse/Tech; Complete Time: 02:05 em 12/03 02:05 Order name: IV Saline Lock; Complete Time: 02:05 em 12/03 02:05 Order name: Labs collected and sent; Complete Time: 02:05 em 12/03 02:05 Order name: O2 Per Protocol; Complete Time: 02:05 em 12/03 02:15 Order name: CT Aorta for Dissection gregory 12/03 06:01 Order name: SARS-COV-2 RT PCR EDMS 12/03 02:05 Order name: O2 Sat Monitoring; Complete Time: 02:05 em EC:37 Rate is 97 beats/min. Rhythm is regular. QRS [place] is Normal. [place] interval is normal. QRS gregory interval is normal. QT interval is normal. No Q waves. T waves are Normal. No ST changes noted. Clinical impression: NSR w/ Non-specific ST/T Changes and No evidence of ischemia. Interpreted by me. Reviewed by me. Administered Medications: 02:37 Drug: NS 0.9% 1000 ml Route: IV; Rate: 1 bolus; Site: right antecubital; em 03:37 Follow up: IV Status: Completed infusion; IV Intake: 1000ml em 02:37 Drug: morphine 4 mg Route: IVP; Site: right antecubital; em 03:36 Follow up: Response: No adverse reaction; Marked relief of symptoms; Pain is decreased em 02:37 Drug: Zofran (Ondansetron) 4 mg Route: IVP; Site: right antecubital; em 03:36 Follow up: Response: No adverse reaction em 02:37 Drug: Pepcid (famotidine) 20 mg Route: IVP; Site: right antecubital; em 03:36 Follow up: Response: No adverse reaction em 04:25 Drug: [place] (HYDROcodone-acetaminophen) (7.5 mg-325 mg) 1 tabs Route: PO; em 05:33 Follow up: Response: No adverse reaction; Marked relief of symptoms; Pain is decreased em 04:25 Drug: Aspirin Chewable Tablet 324 mg Route: PO; em 04:42 Follow up: Response: No adverse reaction em 04:25 Drug: Lovenox (enoxaparin) 1 mg/kg Route: Sub-Q; Site: right lower abdomen; em 04:42 Follow up: Response: No adverse reaction em Disposition Summary: 12/03/20 02:52 Hospitalization Ordered Hospitalization Status: Observation gregory Provider: Chris Booker cha Location: Telemetry/MedSurg (observation) gregory Condition: Fair gregory Problem: new gregory Symptoms: have improved gregory Bed/Room Type: Standard gregory Room Assignment: 209(12/03/20 06:16) mw Diagnosis - Chest pain, unspecified gregory - Chest pain on breathing gregory - Hypotension, unspecified gregory - Tobacco abuse counseling gregory - Tobacco use gregory - Personal history of malignant neoplasm of breast - metastatic gregory - Pulmonary embolism without acute cor pulmonale - BILATERAL MAIN PA, RIGHT AND LEFT gregory Forms: - Medication Reconciliation Form gregory - SBAR form gregory Signatures: Dispatcher [employer] Helena Abraham RN RN mw Anderson, Corey, MD MD cha Munoz, Edgar, RN RN em Ballard, Brenda, RN RN bb Attema, Lee, TRAVELIFT OPERATOR-C TRAVELIFT OPERATOR-Cla1 Corrections: (The following items were deleted from the chart) 06:16 02:52 greogry mw
--- NOTE | 2020-12-03 02:52 | ER ---
Nurse's Notes [facility] Name: Joyce Amezcua Age: 44 yrs Sex: Female : 1975 Arrival Date: 12/02/2020 Time: 21:55 Bed 6 Private MD: Diagnosis: Chest pain, unspecified;Chest pain on breathing;Hypotension, unspecified;Tobacco abuse counseling;Tobacco use;Personal history of malignant neoplasm of breast-metastatic;Pulmonary embolism without acute cor pulmonale-BILATERAL MAIN PA, RIGHT AND LEFT Presentation: 12/02 22:35 Chief complaint: Patient states: c/o chest pain x 3 hours and nausea. Coronavirus bb screen: At this time, the client does not indicate any symptoms associated with coronavirus-19. Ebola Screen: No symptoms or risks identified at this time. Initial Sepsis Screen: Does the patient meet any 2 criteria? Systolic BP < 90 mmHg. HR > 90 bpm. Yes Does the patient have a suspected source of infection? Yes: Other: unknown. Risk Assessment: Do you want to hurt yourself or someone else? Patient reports no desire to harm self or others. Onset of symptoms was December 02, 2020. 22:35 Method Of Arrival: Wheelchair bb 22:35 Acuity: JOHNIE 2 bb Triage Assessment: 22:38 General: Appears ill, Behavior is cooperative, anxious. Pain: Complains of pain in bb chest. Neuro: Level of Consciousness is awake, alert, obeys commands, Oriented to person, place, time, situation. Cardiovascular: Capillary refill < 3 seconds Patient's skin is warm and dry. Respiratory: Respiratory effort is even, unlabored. GI: Reports nausea. Derm: Skin is pink, warm \T\ dry. Musculoskeletal: Circulation, motion, and sensation intact. 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 - Social history:: Smoking status: Patient reports the use of cigarette tobacco products, smokes one-half pack cigarettes per day. - Family history:: not pertinent. Screenin/01 02:06 Abuse screen: Denies threats or abuse. Nutritional screening: No deficits noted. em Tuberculosis screening: No symptoms or risk factors identified. Fall Risk None identified. Assessment: 02:00 General: Appears in no apparent distress. uncomfortable, Behavior is cooperative, em Denies fever. Pain: Complains of pain in chest Pain does not radiate. Pain began 2-3 days ago. Neuro: Level of Consciousness is awake, alert, obeys commands, Oriented to person, place, time, situation, Speech Facial droop on right, reports paralysis on the right side of the face from brain tumor . Cardiovascular: Capillary refill < 3 seconds Patient's skin is warm and dry. Respiratory: Airway is patent Respiratory effort is even, unlabored, Respiratory pattern is regular, symmetrical. Derm: Skin is intact, is healthy with good turgor, Skin is pink, warm \T\ dry. Musculoskeletal: Capillary refill < 3 seconds, Range of motion: intact in all extremities. 03:00 Reassessment: Patient appears in no apparent distress at this time. Patient and/or em family updated on plan of care and expected duration. Pain level reassessed. Patient is alert, oriented x 3, equal unlabored respirations, skin warm/dry/pink. 03:45 Reassessment: Patient appears in no apparent distress at this time. Patient and/or em family updated on plan of care and expected duration. Pain level reassessed. Patient is alert, oriented x 3, equal unlabored respirations, skin warm/dry/pink. Patient states symptoms have improved. 06:06 Reassessment: Patient appears in no apparent distress at this time. Patient and/or em family updated on plan of care and expected duration. Pain level reassessed. Patient is alert, oriented x 3, equal unlabored respirations, skin warm/dry/pink. rates pain 7/10, pending covid swab Patient states feeling better. Vital Signs: 12/02 22:35 BP 89 / 70; Pulse 102; Resp 18 S; Temp 97.7(TE); Pulse Ox 94% on R/A; Weight 63.5 kg bb (R); Height 5 ft. 6 in. (167.64 cm) (R); Pain 10/10; 12/03 02:30 BP 99 / 73; Pulse 89; Resp 18; Pulse Ox 100% on R/A; Pain 10/10; em 03:45 BP 112 / 82; Pulse 86; Resp 16; Pulse Ox 97% on R/A; Pain 8/10; em 06:02 BP 114 / 82; Pulse 79; Resp 18; Pulse Ox 99% on R/A; Pain 7/10; em 12/02 22:35 Body Mass Index 22.60 (63.50 kg, 167.64 cm) bb ED Course: 12/02 21:55 Patient arrived in ED. cf2 22:38 Triage completed. bb 22:38 Arm band placed on. EKG completed in triage. Results shown to MD. bb 12/03 02:00 Inserted saline lock: 20 gauge in right antecubital area, using aseptic technique. em Blood collected. Patient maintains SpO2 saturation greater than 95% on room air. 02:05 Tyler Rothman, RN is Primary Nurse. em 02:06 Patient has correct armband on for positive identification. Bed in low position. Call em light in reach. Side rails up X2. Adult w/ patient. panel monitor on. Pulse ox on. NIBP on. 02:07 Davian Osei MD is Attending Physician. gregory 02:49 XRAY Chest (1 view) In Process Unspecified. EDMS 02:49 Chris Booker is Hospitalizing Provider. gregory 02:59 No provider procedures requiring assistance completed. em 03:18 CT Aorta for Dissection In Process Unspecified. EDMS 06:27 Patient admitted, IV remains in place. em Administered Medications: 02:37 Drug: NS 0.9% 1000 ml Route: IV; Rate: 1 bolus; Site: right antecubital; em 03:37 Follow up: IV Status: Completed infusion; IV Intake: 1000ml em 02:37 Drug: morphine 4 mg Route: IVP; Site: right antecubital; em 03:36 Follow up: Response: No adverse reaction; Marked relief of symptoms; Pain is decreased em 02:37 Drug: Zofran (Ondansetron) 4 mg Route: IVP; Site: right antecubital; em 03:36 Follow up: Response: No adverse reaction em 02:37 Drug: Pepcid (famotidine) 20 mg Route: IVP; Site: right antecubital; em 03:36 Follow up: Response: No adverse reaction em 04:25 Drug: [place] (HYDROcodone-acetaminophen) (7.5 mg-325 mg) 1 tabs Route: PO; em 05:33 Follow up: Response: No adverse reaction; Marked relief of symptoms; Pain is decreased em 04:25 Drug: Aspirin Chewable Tablet 324 mg Route: PO; em 04:42 Follow up: Response: No adverse reaction em 04:25 Drug: Lovenox (enoxaparin) 1 mg/kg Route: Sub-Q; Site: right lower abdomen; em 04:42 Follow up: Response: No adverse reaction em Intake: 03:37 IV: 1000ml; Total: 1000ml. em Outcome: 02:52 Decision to Hospitalize by Provider. gregory 06:27 Admitted to Med/surg accompanied by nurse, via wheelchair, room 209, with chart, Report em called to CORETTA Arias 06:27 Condition: stable 06:27 Instructed on the need for admit, Demonstrated understanding of instructions. 06:54 Patient left the ED. lp1 Signatures: Dispatcher [employer] Davian Sinclair MD MD cha Munoz, Edgar, RN RN Sweta Crowley RN RN Enedina Holbrook RN RN lp1 Yaakov Sullivan 2
[2020-12-03] MEDS ORDERED: ONDANSETRON 4 MG/2 ML VIAL ONE (02:56)
[2020-12-03] MEDS ORDERED: MORPHINE 4 MG/ML SYR ONE (02:56)
[2020-12-03] MEDS ORDERED: FAMOTIDINE 20 MG/2 ML VIAL IV ONE (02:56)
[2020-12-03] MEDS ORDERED: NA CHLORIDE 0.9% 1,000 ML ONE (02:56)
[2020-12-03 03:16] LABS: Platelet Estimate ADEQ
[2020-12-03 03:17] LABS: Anisocytosis 2+; Blood Morphology Comment NOTED (NOT SEEN); Macrocytosis 1+
[2020-12-03 03:18] LABS: Polychromasia 1+; Stomatocytes 1+
--- NOTE | 2020-12-03 03:31 | P.HP ---
Certification for Inpatient Patient admitted to: Observation With expected LOS: <2 Midnights Patient will require the following post-hospital care: None Practitioner: I am a practitioner with admitting privileges, knowledge of patient current condition, hospital course, and medical plan of care. Services: Services provided to patient in accordance with Admission requirements found in Title 42 Section 412.3 of the Code of Federal Regulations <Gabriel Jenkins - Last Filed: 12/03/20 03:28> Patient History Date of Service: 12/03/20 Reason for admission: Chest pain History of Present Illness: 44-year-old female with history of stage IV breast cancer presents emergency department for chest pain. Patient reports chest pain waking her up from sleep proximally 3 hours prior to arrival, pain described as sharp radiating to the neck and back. Patient evaluated in the emergency department, labs significant for white blood cell count 11.7 hemoglobin 1.5 a hematocrit 34.4,10% bands alk phos 623 ALT 98 AST 79 BNP 136 troponin negative EKG without acute ST changes. CT dissection protocol pending but without gross dissection or PE, ED provider wishes to admit for further evaluation and management of chest pain. - Past Medical/Surgical History -: Stage IV breast cancer -: Right hip surgery -: Hysterectomy Psychosocial/ Personal History: Lives with significant other currently unemployed - Family History Father -: Cancer Mother -: Cancer - Social History Smoking Status: Current every day smoker Counseled patient to stop smoking for: less than 10 minutes Smoking therapy provided: No (Patient declined) Alcohol use: No CD- Drugs: No Caffeine use: Yes Place of Residence: Home <Gabriel Jenkins - Last Filed: 12/03/20 03:28> Date of Service: 12/03/20 <Lakesha Mcintosh - Last Filed: 12/03/20 14:15> Allergies No Known Drug Allergies Allergy (Verified 12/03/20 08:46) Unknown No Known Allergies Allergy (Uncoded 05/13/18 13:56) Unknown Home Medications: Hydrocodone Bit/Acetaminophen [[place] 7.5-325 Tablet] 1 tab PO PRN PRN 12/03/20 Morphine *Extended Release* [MS Contin*] 1 tab PO PRN PRN 12/03/20 Review of Systems 10-point ROS is otherwise unremarkable General: Weakness, Malaise Respiratory: Shortness of Breath Cardiovascular: Chest Pain <Gabriel Jenkins - Last Filed: 12/03/20 03:28> Physical Examination - Physical Exam General: Alert, In no apparent distress, Oriented x3 HEENT: Atraumatic, PERRLA, Mucous membr. moist/pink, EOMI, Sclerae nonicteric Neck: Supple, 2+ carotid pulse no bruit, No LAD, Without JVD or thyroid abnormality Respiratory: Clear to auscultation bilaterally, Normal air movement Cardiovascular: Regular rate/rhythm, Normal S1 S2 Gastrointestinal: Normal bowel sounds, No tenderness Musculoskeletal: No tenderness Integumentary: No rashes Neurological: Normal speech, Normal strength at 5/5 x4 extr, Normal tone, Normal affect - Studies Laboratory Data (last 24 hrs) 12/03/20 02:00: WBC 11.70 H, Hgb 11.5 L, Hct 34.4 L, Plt Count 190 12/03/20 02:00: Sodium 136, Potassium 4.6, BUN 11, Creatinine 0.72, Glucose 96, Magnesium 2.4, Total Bilirubin 0.6, AST 79 H, ALT 98 H, Alkaline Phosphatase 623 H <Gabriel Jenkins - Last Filed: 12/03/20 03:28> - Studies Laboratory Data (last 24 hrs) 12/03/20 02:00: Lipase 104 12/03/20 02:00: PT 12.4, INR 1.04 12/03/20 02:00: WBC 11.70 H, Hgb 11.5 L, Hct 34.4 L, Plt Count 190 12/03/20 02:00: Sodium 136, Potassium 4.6, BUN 11, Creatinine 0.72, Glucose 96, Magnesium 2.4, Total Bilirubin 0.6, AST 79 H, ALT 98 H, Alkaline Phosphatase 623 H <Lakesha Mcintosh - Last Filed: 12/03/20 14:15> Assessment and Plan - Plan Assessment: Chest pain rule out ACS Stage IV breast cancer Plan: Chest pain rule out ACS: Monitor on telemetry, trend troponin, daily aspirin, statin therapy. Blood pressure borderline low will hold off on beta-gloria therapy at this time. As needed pain medications, cardiology consult in place. Stage IV breast cancer: Patient has received radiation, due to start chemotherapy in the next week or 2. Patient reports cancer is "everywhere except her left leg". Patient need to follow-up with oncology outpatient. DVT PPX: Lovenox Code status: Full Discharge Plan: Home Plan to discharge in: 24 Hours - Advance Directives Does patient have a Living Will: No Does patient have a Durable POA for Healthcare: No - Code Status/Comfort Care Code Status Assessed: Yes Critical Care: No Time Spent Managing Pts Care (In Minutes): 55 <Gabriel Jenkins - Last Filed: 12/03/20 03:28> Date of Service: 12/03/20 Subjective: Agree with history of presenting illness. Patient scheduled for chemo in 2 weeks. In the meantime we will continue with Eliquis. Patient needs to follow with Oncology did see what they would recommend for outpatient anti coagulation. Physical Examination: Vitals: Afebrile vital signs are stable Physical exam: Cardiovascular: Within normal limits. Lungs: Within normal limits Abdomen: Within normal limits Neuro: Awake, alert, oriented to person place and time Assessment: 1. Metastatic breast cancer 2. Chronic pain with bone metastasis status post radiation 3. Pulmonary embolism Plan: 1. Continue with current plan of care <Lakesha Mcintosh - Last Filed: 12/03/20 14:15>
[2020-12-03 03:36] LABS: Protime INR 1.04
[2020-12-03] MEDS ORDERED: HYDROCODONE/APAP 7.5/325 MG TAB ONE (04:04)
[2020-12-03] MEDS ORDERED: ASPIRIN 81 MG CHEWABLE TABLET ONE (04:39)
[2020-12-03] MEDS ORDERED: ENOXAPARIN 60 MG/0.6 ML SQ ONE (04:41)
[2020-12-03] MEDS ORDERED: ONDANSETRON 4 MG/2 ML VIAL IV PRN (06:40)
[2020-12-03] MEDS ORDERED: MORPHINE 2 MG/ML SYR IV PRN (06:40)
[2020-12-03 07:27] VITALS: O2SAT 99
[2020-12-03 07:52] LABS: HDL Cholesterol 45 mg/dL (40-60); LDL Cholesterol, Calculated 111 (<130); Thyroid Stimulating Hormone 0.095 uIU/mL (0.360-3.740); Troponin I < 0.02 ng/mL (0.0-0.045)
[2020-12-03] MEDS ORDERED: ASPIRIN EC 81 MG TAB PO SCH (09:00)
--- NOTE | 2020-12-03 10:15 | RAD REPORT ---
EXAM DESCRIPTION: RAD - Chest Single View - 12/03/2020 2:49 am CLINICAL HISTORY: CHEST PAIN Chest pain. COMPARISON: Chest Pa And Lat (2 Views) dated 08/11/2015; Humerus Right dated 02/25/2018; Angio Aorta For Dissection dated 12/03/2020; Head Brain Wo Cont dated 11/08/2020 FINDINGS: Portable technique limits examination quality. The lungs are grossly clear. The heart is normal in size. Extensive lytic and sclerotic appearance to the bony structures probably related to metastatic disease.
[2020-12-03 11:33] VITALS: BMI 22.6
[2020-12-03] MEDS ORDERED: HYDROMORPHONE HCL 1 MG/ML INJ IV ONE (13:45)
--- NOTE | 2020-12-03 14:25 | P.DS ---
Discharge Date: 12/03/20 Disposition: ROUTINE DISCHARGE Discharge Condition: GOOD Reason for Admission: Chest pain Consultations: Pulmonary Brief History of Present Illness: Patient is a 44-year-old female with a history of metastatic breast cancer with metastasis to the bones. Patient has been on radiation therapy. Patient also on chemotherapy. Chemotherapy is to resume in 2-3 weeks. Patient follows up with Oncology in [place]. Patient came in because she was having generalized pain and also some chest discomfort. CT of the chest revealed small pulmonary emboli in the right and left pulmonary arteries. There was no RV strain. Hospital Course: At this time, patient is clinically doing better. Patient still having pain which is chronic. She has another really helps her pain as she takes MS Contin and hydrocodone at home. We have given her some IV Dilaudid care. At this time patient is stable for discharge. Vital Signs/Physical Exam: Temp Pulse Resp BP Pulse Ox 99.1 F 93 H 18 103/61 96 12/03/20 12:00 12/03/20 12:00 12/03/20 12:00 12/03/20 12:00 12/03/20 12:00 General: Alert, In no apparent distress, Oriented x3 Laboratory Data at Discharge: WBC 11.70 K/uL (4.3-10.9) H 12/03/20 02:00 Hgb 11.5 g/dL (12.0-15.0) L 12/03/20 02:00 Hct 34.4 % (36.0-45.0) L 12/03/20 02:00 Plt Count 190 K/uL (152-406) 12/03/20 02:00 PT 12.4 SECONDS (9.2-12.8) 12/03/20 02:00 INR 1.04 12/03/20 02:00 Sodium 136 mmol/L (136-145) 12/03/20 02:00 Potassium 4.6 mmol/L (3.5-5.1) 12/03/20 02:00 BUN 11 mg/dL (7-18) 12/03/20 02:00 Creatinine 0.72 mg/dL (0.55-1.3) 12/03/20 02:00 Glucose 96 mg/dL (74-106) 12/03/20 02:00 Magnesium 2.4 mg/dL (1.8-2.4) 12/03/20 02:00 Total Bilirubin 0.6 mg/dL (0.2-1.0) 12/03/20 02:00 AST 79 U/L (15-37) H 12/03/20 02:00 ALT 98 U/L (12-78) H 12/03/20 02:00 Alkaline Phosphatase 623 U/L (45-117) H 12/03/20 02:00 Troponin I < 0.02 ng/mL (0.0-0.045) 12/03/20 13:15 Triglycerides 213 mg/dL (<150) H 12/03/20 07:06 Cholesterol 199 mg/dL (<200) 12/03/20 07:06 HDL Cholesterol 45 mg/dL (40-60) 12/03/20 07:06 Cholesterol/HDL Ratio 4.42 12/03/20 07:06 Lipase 104 U/L (73-393) 12/03/20 02:00 Home Medications: Apixaban [Eliquis] 5 mg PO BID #1 tab.ds.pk 12/03/20 Hydrocodone Bit/Acetaminophen [[place] 7.5-325 Tablet] 1 tab PO PRN PRN 12/03/20 Morphine *Extended Release* [MS Contin*] 1 tab PO PRN PRN 12/03/20 predniSONE [Deltasone] 20 mg PO DAILY #5 tab 12/03/20 New Medications: Apixaban [Eliquis] 5 mg PO BID #1 tab.ds.pk predniSONE [Deltasone] 20 mg PO DAILY #5 tab Physician Discharge Instructions: OK TO DC IV AND DC HOME FOLLOW-UP WITH PRIMARY CARE PROVIDER IN 1-2 WEEKS FOLLOW-UP WITH Oncology and Pulmonary and 1 week RETURN TO THE ER IF symptoms worsen CALL or TEXT DR. BOND AT [phone] IF ANY QUESTIONS REGARDING HOSPITAL STAY. PLEASE CALL THE FLOOR AT [phone] IF ANY MEDICATION OR NURSING QUESTIONS. Diet: Regular Activity: Fall precautions Followup: NONE,NONE [Primary Care Provider] - Time spent managing pt's care (in minutes): 35
[2020-12-03] MEDS ORDERED: HYDROCODONE/APAP 7.5/325 MG TAB PO PRN ×2 (14:46→16:00)
[2020-12-03] MEDS ORDERED: MORPHINE *EXTENDED RELEASE* 15 MG TAB PO PRN (14:46)
[2020-12-03] MEDS ORDERED: WATER FOR INJ,STERILE 10 ML IV SCH (15:00)
[2020-12-03] MEDS ORDERED: HYDROCORTISONE SUC 100 MG INJ IV ONE (15:00)
[2020-12-03 17:04] VITALS: BP 105/74; TEMP 98
--- NOTE | 2020-12-03 17:05 | CON ---
Date of Consultation: 12/03/2020 Reason For Consultation: Chest pain. History Of Present Illness: This is a young female, who has history of breast cancer, status post ra diation and chemotherapy, presented to the emergency room because of chest pain and worse with deep b reath along with some shortness of breath. At the present time, she seems to be comfortable. Does n ot have any further episodes of chest pain. Past Medical History: Breast cancer. Medications: Refer to reconciliation sheet for detailed list. Allergies: NO KNOWN DRUG ALLERGIES. Social History: She is a smoker. Does not drink, use any drugs. Family History: No premature coronary artery disease, but there is history of cancer in both sides o f family. Review of Systems: All systems reviewed and were negative except mentioned in the HPI. Physical Examination: Vital Signs: Temperature is 99.1, pulse 93, breathing at 18, blood pressure 103/61, saturating 96%. General: A pleasant young female, in no apparent distress. Head and Neck: Pupils are equal, reactive to light. Intact eye movements. No JVD. No cervical lym phadenopathy. Neck: Supple. Thyroid is not enlarged. Lungs: Clear to auscultation bilaterally. No rhonchi, rales, or crackles. No accessory muscle use. Heart: Regular rate and rhythm. No extra sounds. Abdomen: Soft, nontender. Bowel sounds positive. No organomegaly. No rigidity or rebound. Extremities: No clubbing, cyanosis. Intact pulses. Skin: No rashes. Neurologic: Alert, awake, oriented x3. No acute focal deficits appreciated. Investigations: Troponins x2 are negative. Creatinine 0.72. Hemoglobin is 11.5 with white blood ce ll count of 11.7. CT scan as per documentation showed small pulmonary embolisms. Assessment And Recommendations: Pulmonary embolism in the setting of presence of cancer. The patien t is hemodynamically and clinically stable. I recommend Lovenox 1 mg/kg subcu q.12 hours and to be a s a maintenance treatment upon discharge due to the presence of cancer, likely this pulmonary embolis m related to her cancer problem. From my standpoint since the troponins are negative, she can be rel eased and she will need further evaluation with a stress test and echocardiogram, but for the time be ing and acute management of pulmonary embolism which should be carried on as an outpatient with Loven ox as outlined above. Thank you for the consult. MARTIN Voice ID: [id number] Report ID: [id number]
[2020-12-03 17:07] LABS: Urine Appearance CLEAR (Clear); Urine Bilirubin NEGATIVE (Negative); Urine Blood NEGATIVE (Negative); Urine Color YELLOW (Yellow); Urine Glucose NEGATIVE (Negative); Urine Protein NEGATIVE (Negative)
[2020-12-03 17:53] LABS: Urine Microscopic Reflex ORDER UMIC
[2020-12-03] MEDS ORDERED: APIXABAN 5 MG TABLET PO SCH (18:00)
[2020-12-03 18:06] LABS: Urine Bacteria 20-50 /HPF (<20); Urine RBC <5 /HPF (NONE SEEN); Urine Trichomonas PRESENT (NONE SEEN)
[2020-12-03 18:07] LABS: Urine Mucus 1+ /HPF (NONE SEEN)
[2020-12-03] MEDS ORDERED: RIVAROXABAN 15 MG TABLET PO SCH (21:00)
[2020-12-03] MEDS ORDERED: ATORVASTATIN 40 MG TAB PO SCH (21:00)
[2020-12-03] MEDS ORDERED: ENOXAPARIN 60 MG/0.6 ML SQ SCH (21:00)
--- NOTE | 2020-12-04 09:40 | RAD REPORT ---
EXAM DESCRIPTION: ADDENDUM #1 THIS REPORT CONTAINS FINDINGS THAT MAY BE CRITICAL TO PATIENT CARE: Called, telephoned, verbal repo rt was given oral to Dr. Davian Osei at 3:37 AM CDT on 12/03/2020. Electronically signed by: Larry Tomlinson MD 12/03/2020 4:06 AM CDT End of Addendum EXAM DESCRIPTION: Angio Aorta For Dissection 12/03/2020 3:24 AM CDT CLINICAL HISTORY: 44 years, Female, mixed sclerotic and lytic lesions throughout the bones correspon ding to diffuse metastatic disease. COMPARISON: None. TECHNIQUE: Multiple transaxial tomograms from the thoracic and abdominal aorta from the lung apex to the ischial tuberosities performed before and after the administration of large bolus of IV contrast for complete opacification of the thoracic, abdominal aorta and iliac arteries utilizing 3 mm slice thickness at 3 mm. 2-D and 3-D multiplanar reformats, volume rendering technique and maximum intensity projection images were generated and reviewed. This exam was performed according to our departmental dose-optimization protocol, which includes auto mated exposure control, adjustment of the mA and/or kV according to patient size and/or use of iterat alverto reconstruction technique. FINDINGS: Thoracic aorta: The thoracic aorta demonstrate to be within normal limits. There is no evidence for thoracic aortic d issection and/or aneurysm. The ascending portion of the thoracic aorta measured 3.2 cm on image 36. T he aortic arch measured 2.4 cm on image 23. The descending portion of the thoracic aorta measured 2.2 cm on image 47. There is normal takeoff of the great vessels with no evidence for significant stenos is and/or proximal occlusion. Abdominal aorta: The abdominal aorta demonstrate to be within normal limits. There is no evidence for dissection and/o r aneurysm. The proximal aspect of the abdominal aorta measured 2.1 cm on image 86, the midportion of the abdominal aorta measured 1.9 cm on image 95. The distal portion of the abdominal aorta measured 1.5 cm on image 119. The right common iliac artery measured 0.8 cm, the left common iliac artery mynor ured 0.8 cm on image 136. The celiac trunk, superior mesenteric artery and inferior mesenteric artery demonstrate to be patent with no evidence for significant stenosis and/or occlusion. There is normal single bilateral renal arteries with no evidence for stenosis. Chest: The lung parenchyma demonstrate to be clear. No significant pulmonary nodules and/or masses. T he trachea mainstem bronchus demonstrate to be unremarkable. There is no pleural/or pericardial effus ions the heart is normal in size. There is no significant coronary artery calcification. The central portions of the pulmonary arteries demonstrate small partial filling defect within the proximal aspec t of the right and left pulmonary arteries corresponding to small pulmonary embolus. There is no evid ence for right ventricular strain. There is no significant mediastinal and/or hilar lymphadenopathy. The axillary regions demonstrate to be clear. The bone windows demonstrate diffuse mixed metastatic disease throughout the bony structur es of the chest. Abdomen and pelvis: The liver, gallbladder, spleen, adrenal glands, pancreas demonstrate to be unrema rkable. The kidneys demonstrate normal uptake of contrast media. The unopacified stomach, large and small bowel demonstrate to be within normal limits. There is no ev idence for bowel dilatation/or free air. The bladder is normal. The uterus is unremarkable. There are no adnexal masses. There is no retroperi toneal lymphadenopathy. The bone windows demonstrate diffuse mixed sclerotic and lytic lesions throughout the bony structures of the abdomen and pelvis. Small umbilical hernia containing omentum. IMPRESSION: Small partial filling defect within the proximal aspect of the right and left pulmonary arteries corresponding to small pulmonary embolus. No evidence for thoracic aortic dissection and/or aneurysm. Diffuse mixed sclerotic and lytic lesions throughout the bony structures of the chest, abdomen, and p heidi, consistent with diffuse bony metastatic disease. Electronically signed by: Larry Tomlinson MD 12/03/2020 3:34 AM CDT Due to temporary technical issues with the PACS/Fluency reporting system, reports are being signed by the in house radiologists without review as a courtesy to insure prompt reporting. The interpreting radiologist is fully responsible for the content of the report.
== END 2020-12-03 18:21 | disposition home or self-care (01) ==
LOC: ER 21:49 → ERHOLD 12-03 03:22 → 2ND 12-03 06:36
PROVIDERS: ADMIT Hospitalist; ATTEND Hospitalist
DX: I26.99 Other pulmonary embolism without acute cor pulmonale (principal); C50.919 Malignant neoplasm of unspecified site of unspecified female breast; C79.51 Secondary malignant neoplasm of bone; G89.3 Neoplasm related pain (acute) (chronic); I95.9 Hypotension, unspecified; F17.210 Nicotine dependence, cigarettes, uncomplicated; Z71.6 Tobacco abuse counseling; Z20.822 Contact with and (suspected) exposure to COVID-19; Z90.710 Acquired absence of both cervix and uterus; Z80.9 Family history of malignant neoplasm, unspecified; Z82.49 Family history of ischemic heart disease and other diseases of the circulatory system
CPT/HCPCS: 96361; 93005; 87088; 85025; 87086; 80048; 36415; 83735; 85610; 80061; 80076; 84443; 84484 ×3; 84439; 83690; 83880; 71275; 74175; 71045; 96375; 96372; 96374; 99285; U0003; Q9967; J1650; J2270; J1170; J7030; J1720; J2405 ×2; G0378 ×2; 81003; 81015

== ENCOUNTER 2020-12-24 22:28 | Inpatient (IN) | payer OTHER ==
--- OUTSIDE RECORDS SUMMARY | 2020-12-24 22:32 | XMS REPORT | Clinical Summary ---
:1975 Author Organization [facility] MD [facility] Address [address] [place] [address] Care Team Providers Name Role Phone Jaylen Sanchez Unavailable MD Isabella Primary Care Provider Allergies No Known Active Allergies Medications Medication Sig Dispensed Refills Start Date End Date Status LORazepam (ATIVAN) 1 Take 1 tablet (1 mg) 30 tablet 2 11/17/19 21 Active mg by mouth as tabletIndications: directed. Take 45 Secondary malignant minutes prior to MRI neoplasm of bone, or radiation Acute thoracic back treatment, once pain, Malignant daily. Ok to take 1 neoplasm of additional pill at unspecified site of time of appointment unspecified female if needed. breast Additional Information Patient not taking. Reason: No longer taking, Informant: Self, Reported on 12/07/2020 gabapentin (NEURONTIN) 300 mg Take 1 capsule (300 90 capsule 2 11/21/2020 Active capsuleIndications: Secondary mg) by mouth 3 malignant neoplasm of bone (three) times a day. Additional Information Patient not taking. Reason: No longer taking, Informant: Self, Reported on 12/07/2020 HYDROcodone-acetaminophen (Spring) 5 Take 1-2 tablets 30 tablet 0 11/21/2020 Active mg-325 mg per tabletIndications: by mouth every 6 Secondary malignant neoplasm of (six) hours as bone needed for moderate pain. Additional Information Patient not taking. Reason: No longer taking, Informant: Self, Reported on 12/07/2020 morphine (MS CONTIN) 30 mg 12 Take 1 tablet (30 mg) 90 tablet 0 11/28/2020 Active hr tabletIndications: Cancer by mouth every 8 associated pain (eight) hours. morphine (MSIR) 15 mg IR Take 1 tablet (15 mg) 120 tablet 0 Active tabletIndications: Cancer by mouth every 4 associated pain (four) hours as needed for moderate pain or severe pain. ondansetron (Zofran) 8 mg Take 1 tablet (8 mg) 30 tablet 0 Active tabletIndications: Nausea by mouth every 8 (eight) hours as needed for nausea or vomiting. Additional Information Patient not taking. Reason: No longer taking, Informant: Self, Reported on 12/07/2020 pantoprazole (Protonix) 40 mg Take 1 tablet (40 mg) 30 tablet 0 11/28/2020 Active EC tabletIndications: Nausea by mouth daily with breakfast. Additional Information Patient not taking. Reason: No longer taking, Informant: Self, Reported on 12/07/2020 letrozole (Femara) 2.5 Take 1 tablet 30 tablet 2 11/30/2020 Active mg tabletIndications: (2.5 mg) by Secondary malignant mouth daily. 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 Repeat carcinoma of overlapping every 28 days. 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 chlorhexidine (PERIDEX) Swish and spit 473 mL 12/07/202001/06 Active 0.12% 15 mL twice solutionIndications: daily for 30 Infiltrating duct days. carcinoma of overlapping sites of right female breast fluoride, sodium, Apply to teeth 51 g 12/07/202001/06 Active (PREVIDENT) 1.1 % dental twice daily for creamIndications: 30 days. Coffey Infiltrating duct teeth with cream carcinoma of overlapping twice a day and sites of right female expectorate (Do breast not rinse for 30 minutes). lidocaine (XYLOCAINE) 20 Swish and spit 100 mL 0 12/07/2020 Active mg/mL (2%) viscous 15 mL as needed solutionIndications: (rinse and Infiltrating duct expectorate as carcinoma of overlapping needed TID). sites of right female breast ondansetron (ZOFRAN-ODT) Dissolve 1 30 tablet 3 12/13/2020 Active 8 mg disintegrating tablet (8 mg) on tabletIndications: the tongue every Infiltrating duct 8 (eight) hours carcinoma of overlapping as needed for sites of right female nausea or breast vomiting. diclofenac sodium 100 mg Take 100 mg by 0 10/09/202011/24 Discontinued 24 hr tablet mouth at (Error) bedtime. gabapentin (NEURONTIN) Take 100 mg by 0 10/18/2020 0 11/21 Discontinued 100 mg capsule mouth (three) (Alternate times a day. therapy ) phenazopyridine Take 200 mg by 0 10/09/202011/24 Discontinued (PYRIDIUM) 200 mg tablet mouth daily (Error) needed. tiZANidine (ZANAFLEX) 2 Take 2 mg by 0 10/18/2020 Discontinued mg tablet mouth daily (Erro r) needed. traMADol-acetaminophen Take 1 tablet by 0 10/18/202011/24 Discontinued (ULTRACET) 37.5-325 mg mouth every 21 (Error) per tablet (eight) hours as needed. dexamethasone (DECADRON) Take 1 tablet (4 60 tablet 2 11/17/19 21 12/16 4 mg tabletIndications: mg) by mouth 2020 Secondary malignant (two) times a neoplasm of bone, Acute day with meals thoracic back pain, for 30 days. 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 10/18/2020 Nausea Malignant neoplasm related fatigue Slow transit constipation Acute hyperglycemia Encounters Date Type Specialty Care Team Description 12/21/2020 Infusion Infusion Services [facility], Secondary malignant neoplasm of bone (Primary Dx); MD George Estrogen recept or positive status (ER+); Infiltrating du ct carcinoma of overlapping sites of right female breast 12/21/2020 Office Visit Breast Medical [facility], Secondary mal ignant neoplasm of bone (Primary Dx); Oncology MD George 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; Infiltrating du ct carcinoma of overlapping sites of right female breast; Estrogen recept or positive status (ER+) 12/21/2020 Orders Only Breast Medical [facility], Oncology MD George 12/21/2020 Orders Only Breast Medical [facility], Secondary mal ignant neoplasm of bone (Primary Dx); Oncology MD George 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; Infiltrating du ct carcinoma of overlapping sites of right female breast; Estrogen recept or positive status (ER+) 12/21/2020 Travel 12/18/2020 Telephone Oncology Noé Turk RN 12/18/2020 Telephone Oncology Ariane Biggs 12/14/2020 Telephone Radiation Oncology Mone Garay PA 12/13/2020 Orders Only Oncology Sweta Estrada 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, [employer]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 female breast (Primary Dx) 12/11/2020 Telephone Oncology Noé Turk RN 12/08/2020 Telemedicine Pain Medicine José Miguel, Neoplasm rela reyes pain (acute) (chronic) (Primary Dx); Judi Secondary fina gnant neoplasm of bone; 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; Infiltrating du ct carcinoma of overlapping sites of right female breast; 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 12/08/2020 Telephone Pain Medicine Marina Ravi RN 12/07/2020 Hospital Encounter Lab [facility], Secondary malignant neoplasm of bone; MD George 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; Infiltrating du ct carcinoma of overlapping sites of right female breast; Estrogen recept or positive status (ER+) 12/07/2020 Hospital Encounter Dental Oncology Kenroy Isidoro, Jonas ounter for DDS observation for other suspected condition ruled out 12/07/2020 Hospital Encounter Dental Oncology Isidoro Jasmine, Aracelis ondary malignant neoplasm of bone; DDS 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; Infiltrating du ct carcinoma of overlapping sites of right female breast; Estrogen recept or positive status (ER+) 12/07/2020 Documentation [facility], Oncology MD George 12/07/2020 Orders Only Breast Medical [facility], Secondary mal ignant neoplasm of bone (Primary Dx); Oncology MD George 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; Infiltrating du ct carcinoma of overlapping sites of right female breast; Estrogen recept or positive status (ER+) 12/07/2020 Orders Only Dental Oncology Sade, Encounter f or NIKA Anderson observation for other suspected condition ruled out (Primary Dx) 12/07/2020 Travel 12/04/2020 Telephone Oncology Noé Turk PE RN 12/01/2020 Specialty Pharmacy Maura Calabrese PharmD 11/30/2020 Infusion Infusion Services [facility], Secondary malignant neoplasm of bone (Primary Dx); MD George Estrogen recept or positive status (ER+); Infiltrating du ct carcinoma of overlapping sites of right female breast 11/30/2020 Office Visit Breast Medical [facility], Secondary mal ignant neoplasm of bone (Primary Dx); Oncology MD George 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; Infiltrating du ct carcinoma of overlapping sites of right female breast; Estrogen recept or positive status (ER+) 11/30/2020 Clinical [facility] ([facility] MD George Request) 11/30/2020 Orders Only Oncology Sweta Estrada Infiltrating d uct carcinoma of overlapping sites of right female breast (Primary Dx); L, [employer]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 Estrogen recept or positive status (ER+); Secondary malig nant neoplasm of bone; 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 11/30/2020 Travel 11/29/2020 Telemedicine Breast [facility], Secondary mal ignant neoplasm of bone; Oncology MD George 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; Infiltrating du ct carcinoma of overlapping sites of right female breast; Estrogen recept or positive status (ER+) 11/29/2020 Travel 11/29/2020 Telephone Radiation Oncology Lorenza Kate RN 11/27/2020 Telemedicine Radiation Oncology [place] 11/26/2020 Documentation Radiation Oncology Jordon Muniz MD PhD 11/25/2020 Travel 11/24/2020 Hospital Encounter /GI Med Юлия Han Infiltra ting duct carcinoma of breast (Primary Dx); Kelly Longoria MD Cancer associated pain; 11/28/2020 Jeny Guillermo Facial palsy ; MD Italia Thoracic back pain; Wattana, Benign neoplasm of right choroid; MD Lorenza Encounter for observation for other susp ected condition ruled out; [place], Nausea; Jesse, Infiltrating d uct carcinoma of lower outer quadrant of left female breast Gilbert Adams MD 11/24/2020 Orders Only Ophthalmology Bravo, Facial palsy ANGIE Arcos (Primary Dx) 11/24/2020 Ophth Exam Ophthalmology Maria Dolores Swanson MD 11/24/2020 Travel 11/23/2020 [facility] neoplasm of bone Karey Gallegos (Primary Dx) Elias RN 11/23/2020 Consult Breast Medical [facility], Secondary mal ignant neoplasm of bone (Primary Dx); Oncology MD George 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; Infiltrating du ct carcinoma of overlapping sites of right female breast; Estrogen recept or positive status (ER+) 11/23/2020 Documentation Radiation Oncology Paulina Jiang MD 11/23/2020 Travel 11/23/2020 Orders Only Radiation Oncology Mone Garay ry malignant DEBBIE Castaneda neoplasm of bon e (Primary Dx) 11/23/2020 Telephone Radiation Oncology Maggie Sal RN 11/22/2020 Documentation Radiation Oncology Janette Dodd MD 11/21/2020 Orders Only Radiation Oncology Janette Dodd MD 11/21/2020 Telephone Radiation Oncology Justin Villarreal RN 11/21/2020 Orders Only Radiation Oncology Janette Dodd Secondary malignant MD Louisa neoplasm of bon e (Primary Dx) 11/20/2020 Hospital Encounter Radiation Oncology George Mason MD 11/17/[address] 11/16/2020 Office Visit Radiation Oncology Janette Dodd Secondary malignant neoplasm of bone (Primary Dx); MD Louisa Facial palsy; Acute thoracic back pain; Malignant neopl asm of unspecified site of unspecified female breast 11/16/2020 NPR Patient Access Mary Mason MD 11/16/2020 Documentation Radiation Oncology Janette Dodd MD 11/16/2020 Documentation Radiation Oncology Janette Dodd MD 11/16/2020 Lab Requisition Juancho Rodríguez MD Muthukumarana, [place], MD 11/16/2020 Documentation Physical Therapy OdemBella Michele, PT 11/16/2020 Orders Only Radiation Oncology Mone Garay ry DEBBIE Hutchinson neoplasm of bon e (Primary Dx) 11/16/2020 Travel 11/15/2020 [facility] COVID-Farhat Vazquez MD (Primary Dx) Myra Ann MA 11/15/2020 Orders Only Radiation Oncology Janette Dodd Secondary malignant MD Louisa neoplasm of bon e (Primary Dx) 11/15/2020 Orders Only Radiation Oncology Mone Garay PA 11/15/2020 Travel 11/10/2020 Ancillary Procedure Radiology Kana Mason MD 11/10/2020 Ancillary Procedure Radiology Kana Mason MD 11/10/2020 Ancillary Procedure Radiology Kana Mason MD 11/10/2020 Ancillary Procedure Radiology Kana Mason MD 11/10/2020 Ancillary Procedure Radiology Kana Mason MD 11/10/2020 Ancillary Procedure Radiology Kana Mason MD 11/10/2020 Ancillary Procedure Radiology Kana Mason MD 11/10/2020 Ancillary Procedure Radiology Kana Mason MD 11/10/2020 Ancillary Procedure Radiology Kana Mason MD 11/09/2020 Telephone Patient Access Mary Mason MD after 12/25/2019 Surgical History Surgery Date Site/Laterality Comments HYSTERECTOMY 05/05/2013 - 05/04/2014 Uterine fi broid HUMERUS FRACTURE SURGERY 05/05/1991 - 05/04/1992 Left M etal Screws Family History Medical History Relation Name Comments -Other cancer Father -Unknown cancer Mother Relation Name Status Comments Father Alive Renal cell carci noma stage IV Mother Alive Stomach cancer Sister Alive Cervical cancer Social History Tobacco Use Types Packs/Day Years Used Date Current Every Day Smoker Cigarettes 0.25 30 Smokeless Tobacco: Never Used Tobacco Cessation: Ready to Quit: No; Co unseling Given: Yes Alcohol Use Standard Drinks/Week Comments Not Currently 0 (1 standard drink = 0.6 oz pure alcoho l) Sex Assigned at Date Recorded Not on file Job Start Date Occupation Industry Not on file Not on file Not on file COVID-19 Exposure Response Date Recorded In the last month, have you been in contact with No / Unsure 12/21/2020 11:58 AM CDT someone who was confirmed or suspected to have Coronavirus / COVID-19? Last Filed Vital Signs Vital Sign Reading Time Taken Comments Blood Pressure 106/72 12/21/2020 3:30 PM CDT Pulse 86 12/21/2020 3:30 PM CDT Temperature 36.7 C (98.1 F) 12/21/2020 1:01 PM CDT Respiratory Rate 18 12/21/2020 3:30 PM CDT Oxygen Saturation 99% 12/21/2020 1:01 PM CDT Inhaled Oxygen Concentration - - Weight 60.5 kg (133 lb 6.1 oz) 12/21/2020 1:01 PM CDT Height 164.5 cm (5' 4.76") 11/25/2020 9:12 PM CDT Body Mass Index 22.36 11/25/2020 9:12 PM CDT Plan of Treatment Date Type Specialty Care Team Description 12/27/2020 Consult Pain Medicine Judi Valdez MD [address] [place], [place] [address] [phone] 01/01/2021 Appointment Ophthalmology Marcio Jama MD [address] [place], [place] [address] [phone] 01/02/2021 Lab Lab George Mason MD [address] [place], [place] [address] [phone] 01/02/2021 Office Visit Breast Medical Oncology George Mason MD [facility] [place], [place] [address] [phone] 02/21/2021 Appointment Ophthalmology Emil Cuenca MD [facility] [place], [place] [address] [phone] Implants Implanted Type Area Business Strategy Manager Device Identifier Shelf Exp iration Model / Serial Date / Lot Nail Nail Femur Procedures Procedure Name Priority Date/Time Associated Comments Diagnosis CONFIRM ABORH TYPE Routine 12/21/2020 12:45 Resul ts for this PM CDT procedure are i n the results section. TMP INTERPRETATION Routine 12/21/2020 12:02 Resul ts for this ANTIBODY SCREEN NEGATIVE PM CDT pro cedure are in the results section. CLOT EXPIRATION DATE Routine 12/21/2020 12:02 Res ults for this PM CDT procedure are i n the results section. ANTIBODY SCREEN Routine 12/21/2020 12:02 Secondary malignant R esults for this PM CDT neoplasm of bone procedure are in Infiltrating duct the result s carcinoma of lower section. 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 receptor positive status (ER+) COMPREHENSIVE METABOLIC Routine 12/21/2020 12:02 Secondary mal ignant PANEL PM CDT neoplasm of bone Infiltrating duct carcinoma of lower 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 FRACTIONATED BILIRUBIN AM 11/28/2020 3:04 R esults for this AM CDT procedure are i n the results section. TOTAL PROTEIN AM 11/28/2020 3:04 Results fo r this AM CDT procedure are i n the results section. ASPARTATE AM 11/28/2020 3:04 Results for this AMINOTRANSFERASE AM CDT procedure a re in the results section. ALANINE AMINOTRANSFERASE AM 11/28/2020 3:04 Results for this AM CDT procedure are i n the results section. ALKALINE PHOSPHATASE AM 11/28/2020 3:04 Res ults for this AM CDT procedure are i n the results section. ALBUMIN LEVEL AM 11/28/2020 3:04 Results fo r this AM CDT procedure are i n the results section. CALCIUM LEVEL TOTAL AM 11/28/2020 3:04 Resu lts for this AM CDT procedure are i n the results section. .GLOMERULAR FILTRATION AM 11/28/2020 3:04 R esults for this RATE AM CDT procedure are i n the results section. SERUM CREATININE AM 11/28/2020 3:04 Results for this AM CDT procedure are i n the results section. ELECTROLYTE PANEL AM 11/28/2020 3:04 Result s for this AM CDT procedure are i n the results section. BLOOD UREA NITROGEN AM 11/28/2020 3:04 Resu lts for this AM CDT procedure are i n the results section. GLUCOSE LEVEL AM 11/28/2020 3:04 Results fo r this AM CDT procedure are i n the results section. MANUAL DIFFERENTIAL AM 11/28/2020 3:04 Resu lts for this AM CDT procedure are i n the results section. Results CBC AM 11/28/2020 3:04 Results for this AM CDT procedure are i n the results section. COMPREHENSIVE METABOLIC AM 11/28/2020 3:04 PANEL AM CDT COMPLETE BLOOD COUNT W/ AM 11/28/2020 3:04 DIFFERENTIAL AM CDT FRACTIONATED BILIRUBIN AM 11/27/2020 3:02 R esults for this AM CDT procedure are i n the results section. TOTAL PROTEIN AM 11/27/2020 3:02 Results fo r this AM CDT procedure are i n the results section. ASPARTATE AM 11/27/2020 3:02 Results for this AMINOTRANSFERASE AM CDT procedure a re in the results section. ALANINE AMINOTRANSFERASE AM 11/27/2020 3:02 Results for this AM CDT procedure are i n the results section. ALKALINE PHOSPHATASE AM 11/27/2020 3:02 Res ults for this AM CDT procedure are i n the results section. ALBUMIN LEVEL AM 11/27/2020 3:02 Results fo r this AM CDT procedure are i n the results section. CALCIUM LEVEL TOTAL AM 11/27/2020 3:02 Resu lts for this AM CDT procedure are i n the results section. .GLOMERULAR FILTRATION AM 11/27/2020 3:02 R esults for this RATE AM CDT procedure are i n the results section. SERUM CREATININE AM 11/27/2020 3:02 Results for this AM CDT procedure are i n the results section. ELECTROLYTE PANEL AM 11/27/2020 3:02 Result s for this AM CDT procedure are i n the results section. BLOOD UREA NITROGEN AM 11/27/2020 3:02 Resu lts for this AM CDT procedure are i n the results section. GLUCOSE LEVEL AM 11/27/2020 3:02 Results fo r this AM CDT procedure are i n the results section. MANUAL DIFFERENTIAL AM 11/27/2020 3:02 Resu lts for this AM CDT procedure are i n the results section. Results CBC AM 11/27/2020 3:02 Results for this AM CDT procedure are i n the results section. COMPREHENSIVE METABOLIC AM 11/27/2020 3:02 PANEL AM CDT COMPLETE BLOOD COUNT W/ AM 11/27/2020 3:02 DIFFERENTIAL AM CDT FRACTIONATED BILIRUBIN AM 11/26/2020 12:32 R esults for this AM CDT procedure are i n the results section. TOTAL PROTEIN AM 11/26/2020 12:32 Results fo r this AM CDT procedure are i n the results section. ASPARTATE AM 11/26/2020 12:32 Results for this AMINOTRANSFERASE AM CDT procedure a re in the results section. ALANINE AMINOTRANSFERASE AM 11/26/2020 12:32 Results for this AM CDT procedure are i n the results section. ALKALINE PHOSPHATASE AM 11/26/2020 12:32 Res ults for this AM CDT procedure are i n the results section. ALBUMIN LEVEL AM 11/26/2020 12:32 Results fo r this AM CDT procedure are i n the results section. CALCIUM LEVEL TOTAL AM 11/26/2020 12:32 Resu lts for this AM CDT procedure are i n the results section. .GLOMERULAR FILTRATION AM 11/26/2020 12:32 R esults for this RATE AM CDT procedure are i n the results section. SERUM CREATININE AM 11/26/2020 12:32 Results for this AM CDT procedure are i n the results section. ELECTROLYTE PANEL AM 11/26/2020 12:32 Result s for this AM CDT procedure are i n the results section. BLOOD UREA NITROGEN AM 11/26/2020 12:32 Resu lts for this AM CDT procedure are i n the results section. GLUCOSE LEVEL AM 11/26/2020 12:32 Results fo r this AM CDT procedure are i n the results section. MANUAL DIFFERENTIAL AM 11/26/2020 12:32 Resu lts for this AM CDT procedure are i n the results section. Results CBC AM 11/26/2020 12:32 Results for this AM CDT procedure are i n the results section. PHOSPHORUS LEVEL AM 11/26/2020 12:32 Results for this AM CDT procedure are i n the results section. MAGNESIUM LEVEL AM 11/26/2020 12:32 Results for this AM CDT procedure are i n the results section. COMPREHENSIVE METABOLIC AM 11/26/2020 12:32 PANEL AM CDT COMPLETE BLOOD COUNT W/ AM 11/26/2020 12:32 DIFFERENTIAL AM CDT FRACTIONATED BILIRUBIN Now 11/25/2020 7:33 R esults for this AM CDT procedure are i n the results section. TOTAL PROTEIN Now 11/25/2020 7:33 Results fo r this AM CDT procedure are i n the results section. ASPARTATE Now 11/25/2020 7:33 Results for this AMINOTRANSFERASE AM CDT procedure a re in the results section. ALANINE AMINOTRANSFERASE Now 11/25/2020 7:33 Results for this AM CDT procedure are i n the results section. ALKALINE PHOSPHATASE Now 11/25/2020 7:33 Res ults for this AM CDT procedure are i n the results section. ALBUMIN LEVEL Now 11/25/2020 7:33 Results fo r this AM CDT procedure are i n the results section. CALCIUM LEVEL TOTAL Now 11/25/2020 7:33 Resu lts for this AM CDT procedure are i n the results section. .GLOMERULAR FILTRATION Now 11/25/2020 7:33 R esults for this RATE AM CDT procedure are i n the results section. SERUM CREATININE Now 11/25/2020 7:33 Results for this AM CDT procedure are i n the results section. ELECTROLYTE PANEL Now 11/25/2020 7:33 Result s for this AM CDT procedure are i n the results section. BLOOD UREA NITROGEN Now 11/25/2020 7:33 Resu lts for this AM CDT procedure are i n the results section. GLUCOSE LEVEL Now 11/25/2020 7:33 Results fo r this AM CDT procedure are i n the results section. MANUAL DIFFERENTIAL Now 11/25/2020 7:33 Resu lts for this AM CDT procedure are i n the results section. Results CBC Now 11/25/2020 7:33 Results for this AM CDT procedure are i n the results section. PHOSPHORUS LEVEL Now 11/25/2020 7:33 Results for this AM CDT procedure are i n the results section. MAGNESIUM LEVEL Now 11/25/2020 7:33 Results for this AM CDT procedure are i n the results section. COMPREHENSIVE METABOLIC Now 11/25/2020 7:33 PANEL AM CDT COMPLETE BLOOD COUNT W/ Now 11/25/2020 7:33 DIFFERENTIAL AM CDT MRI BRAIN W WO CONTRAST STAT 11/24/2020 9:54 Results for this PM CDT procedure are i n the results section. MRI CERVICAL THORACIC STAT 11/24/2020 9:53 Re sults for this LUMBAR SPINE W WO PM CDT procedure are in CONTRAST the results section. 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 observation for other suspected condition ruled out FRACTIONATED BILIRUBIN Now 11/24/2020 9:13 R esults for this AM CDT procedure are i n the results section. TOTAL PROTEIN Now 11/24/2020 9:13 Results fo r this AM CDT procedure are i n the results section. ASPARTATE Now 11/24/2020 9:13 Results for this AMINOTRANSFERASE AM CDT procedure a re in the results section. ALANINE AMINOTRANSFERASE Now 11/24/2020 9:13 Results for this AM CDT procedure are i n the results section. ALKALINE PHOSPHATASE Now 11/24/2020 9:13 Res ults for this AM CDT procedure are i n the results section. ALBUMIN LEVEL Now 11/24/2020 9:13 Results fo r this AM CDT procedure are i n the results section. CALCIUM LEVEL TOTAL Now 11/24/2020 9:13 Resu lts for this AM CDT procedure are i n the results section. .GLOMERULAR FILTRATION Now 11/24/2020 9:13 R esults for this RATE AM CDT procedure are i n the results section. SERUM CREATININE Now 11/24/2020 9:13 Results for this AM CDT procedure are i n the results section. ELECTROLYTE PANEL Now 11/24/2020 9:13 Result s for this AM CDT procedure are i n the results section. BLOOD UREA NITROGEN Now 11/24/2020 9:13 Resu lts for this AM CDT procedure are i n the results section. GLUCOSE LEVEL Now 11/24/2020 9:13 Results fo r this AM CDT procedure are i n the results section. MANUAL DIFFERENTIAL STAT 11/24/2020 9:13 Resu lts for this AM CDT procedure are i n the results section. Results CBC STAT 11/24/2020 9:13 Results for this AM CDT procedure are i n the results section. PHOSPHORUS LEVEL Now 11/24/2020 9:13 Results for this AM CDT procedure are i n the results section. MAGNESIUM LEVEL Now 11/24/2020 9:13 Results for this AM CDT procedure are i n the results section. COMPREHENSIVE METABOLIC Now 11/24/2020 9:13 PANEL AM CDT COMPLETE BLOOD COUNT W/ Now 11/24/2020 9:13 DIFFERENTIAL AM CDT INFLUENZA A/B + COVID-19 Now 11/24/2020 9:13 Results for this ASYMPTOMATIC-L AM CDT procedure are in the results section. HC 2019-NCOV COVID-19 Routine 11/15/2020 10:27 Suspected COVID -19 Results for this AM CDT procedure are i n the results section. OSI FEMUR Routine 11/04/2020 11:36 Cancer Results for this AM CDT procedure are i n the results section. OSI INTERVENTIONAL Routine 11/02/2020 11:35 Cancer Resul ts for this AM CDT procedure are i n the results section. OSI US BREAST Routine 10/31/2020 11:37 Cancer Results fo r this AM CDT procedure are i n the results section. OSI MAMMO BILATERAL Routine 10/31/2020 11:36 Cancer Resu lts for this AM CDT procedure are i n the results section. PATHOLOGY OUTSIDE Routine 10/31/2020 Results fo r this INTERPRETATION procedure are in the results section. OSI CT CHEST ABDOMEN Routine 10/30/2020 11:35 Cancer Res ults for this PELVIS AM CDT procedure are i n the results section. OSI FEMUR Routine 10/29/2020 5:17 Cancer Results for this PM CDT procedure are i n the results section. OSI HIP Routine 10/29/2020 5:16 Cancer Results for this PM CDT procedure are i n the results section. OSI MAMMO BILATERAL Routine 10/26/2020 5:18 Cancer Resu lts for this PM CDT procedure are i n the results section. OSI US BREAST Routine 10/26/2020 11:35 Cancer Results fo r this AM CDT procedure are i n the results section. after 12/25/2019 Results Confirm ABORh (12/21/2020 12:45 PM CDT) Pathologist Sig nature ABORh Confirm. O NEG [facility] ER Specimen Blood Performing Organization Address City/State/ZIP Code Phon e Number [facility] Unless otherwise noted, [place] [address] CENTER all lab tests performed by: Division of Pathology and Laboratory Medicine [address] .Serum Creatinine (12/21/2020 12:02 PM CDT)Only the most recent of7 results within the time period is included. Pathologist Sig nature Creatinine 0.84Comment: Testing 0.51 - 0.95 mg/dL WACO performed at [facility], [address] [place] [address] Specimen Blood Performing Organization Address City/State/ZIP Code Phon e Number [address] .CBC (12/21/2020 12:02 PM CDT)Only the most recent of7 resultswithin the time period is included. [facility] nature WBC 3.9 (L)Comment: All 4.0 - 11.0 K/uL WACO components of the CBC performed at [facility], [address] [place] [address] RBC 3.79 (L)Comment: All 4.00 - 5.50 WACO components of the CBC M/uL performed at [facility], [address] [place] [address] Hgb 12.2Comment: As part 12.0 - 16.0 WACO of CBC or as an gm/dL individual orderable testing performed at [facility], [address] [place] [address] Hct 38.7Comment: As part 37.0 - 47.0 % WACO of CBC testing performed at [facility], [address] [place] [address] MCV 102 (H)Comment: As 82 - 98 fL WACO part of CBC testing performed at [facility], [address] [place] [address] MCH 32.2 (H)Comment: As 27.0 - 31.0 pg WACO part of CBC testing performed at [facility], [address] [place] [address] MCHC 31.5Comment: As part 31.0 - 36.0 WACO of CBC testing gm/dL performed at [facility], [address] [place] [address] RDW-SD 71.9 (H)Comment: As 35.1 - 46.3 fL WACO part of CBC testing performed at [facility], [address] [place] [address] RDW-CV 19.1 (H)Comment: As 12.0 - 15.5 % WACO part of CBC testing performed at [facility], [address] [place] [address], [place] [address] Platelet count 238Comment: As part 140 - 440 K/uL WACO of CBC or an individual orderable testing performed at [facility], [address] [place] [address], [place] [address] MPV 9.8Comment: As part 4.0 - 10.4 fL WACO of CBC testing performed at [facility], [address] [place] [address], [place] [address] Specimen Blood Performing Organization Address City/State/ZIP Code Phon e Number [address] Clot Expiration Date (12/21/2020 12:02 PM CDT) Pathologist Sig amanda T & S Expiration 12/24/2020 [facility] Specimen Blood Performing Organization Address City/State/ZIP Code Phon e Number [facility] Unless otherwise noted, [place] [address] [place] all lab tests performed by: Division of Pathology and Laboratory Medicine [address] [facility] Glomerular Filtration Rate (12/21/2020 12:02 PM CDT)Only the most recent of7 resultswithin the time period is included. Pathologist Sig amanda eGFR-AA 96 >=60 mL/min/1.73 WACO Comment: sq. m Normal eGFR >= 60 mL/min/1.73 m2 Note: The eGFR is calculated using the CKD-EPI equation. The eGFR declines with age. eGFR <60 mL/min/1.73 m2 is considered as "decreased". This equation should only be used for patients 18 and older. According to the National [facility]'s Kidney Disease Outcome Quality Initiative (KDOQI) classification and 2012 Kidney Disease Improving Global Outcomes (KDIGO) Clinical Practice Guideline, the stage of CKD should be categorized based on estimated GFR. Stage Description GFR mL/min/1.73 m2 1 Normal or high GFR >=90 2 Mildly decreased GFR 60-89 3a Mildly to moderately decreased GFR 45-59 3b Moderately to severely decreased GFR 30-44 4 Severely decreased GFR 15-29 5 Kidney failure <15 Testing performed at [facility], [address] [place] [address] eGFR-EFREM 83 >=60 mL/min/1.73 WACO Comment: sq. m Normal eGFR >= 60 mL/min/1.73 m2 Note: The eGFR is calculated using the CKD-EPI equation. The eGFR declines with age. eGFR <60 mL/min/1.73 m2 is considered as "decreased". This equation should only be used for patients 18 and older. According to the National [facility]'s Kidney Disease Outcome Quality Initiative (KDOQI) classification and 2012 Kidney Disease Improving Global Outcomes (KDIGO) Clinical Practice Guideline, the stage of CKD should be categorized based on estimated GFR. Stage Description GFR mL/min/1.73 m2 1 Normal or high GFR >=90 2 Mildly decreased GFR 60-89 3a Mildly to moderately decreased GFR 45-59 3b Moderately to severely decreased GFR 30-44 4 Severely decreased GFR 15-29 5 Kidney failure <15 Testing performed at [facility], [address] [place] [address] Specimen Blood Performing Organization Address City/State/ZIP Code Phon e Number [facility] [place] [address] [place] [address] Fractionated Bilirubin (12/21/2020 12:02 PM CDT)Only the most recent of7 results within the time period is included. [facility] Bili Total 0.7 <=1.2 mg/dL WACO Comment: Indocyanine Green (ICG) may cause falsely elevated bilirubin results. Total and direct bilirubin must not be measured from samples containing indocyanine green. False elevation of total sarita irubin can be seen in patients with IgG concentrations above 28 g/L. Testing performed at [facility], [address] [place] [address] Bili Direct 0.3 <=0.3 mg/dL WACO Comment: Indocyanine Green (ICG) may cause falsely elevated bilirubin results. Total and direct bilirubin must not be measured from samples containing indocyanine green. Testing performed at [facility], [address] [place] [address] Bili Indirect 0.4Comment: Testing 0.0 - 0.9 WACO performed at [facility], [address] [place] [address] Specimen Blood Performing Organization Address [facility] [place] [address] [address] [facility] TMP Interpretation Antibody Screen Negative (12/21/2020 12:02 PM CDT) [facility] Auto Neg ABSC At the present time, patien t plasma shows no evidence of RBC alloantibodies. [facility] Interp Comment: [facility] MALLORY VALLADARES, Dictated by: MALLORY VALLADARES, Dictated Date/Time: 12.23.19 7:17 AM CDT Transcribed Date/Time: 12.22.2020 7:17 AM CDT Electronically Signed By: MALLORY VALLADARES, on 12.04 7:17 AM C Specimen Blood Performing Organization Address City/[facility] [facility] Code Phon e Number [facility] CANCER Unless otherwise noted, [place] [address] OLATON all lab tests performed by: Division of Pathology and Laboratory Medicine [address] [place] [address] CA 15-3 (12/21/2020 12:02 PM CDT)Only the most recent of2 resultswithin the time period is included. [facility] [place] 15-3 4,035.0 (H) <=25.0 U/mL WACO Comment: Results greater than 2400.0 U/mL may not be reliable due to matrix effect with extended dilution as it exceeds the associate professor of forestry's recommended limit. Caution should be exercised when interpreting such va lues and done in conjunction with clinical context. This test is measured by olena ctrochemiluminescence immunoassay on Bria Rodney immunoassay analyzers. Results obtained in different methods are not interchangeable. Testing Performed at [facility], [address] [place] [address] Specimen Blood Performing Organization Address City/State/[place] [address] [place] [address] ABORh (12/21/2020 12:02 PM CDT) Pathologist Sig amanda ABORraulito. O NEG [facility] Specimen Blood Performing Organization Address City/State/ZIP Code Phon e Number [facility] CANCER Unless otherwise noted, [place] [address] CENTER all lab tests performed by: Division of Pathology and Laboratory Medicine [address] Differential (12/21/2020 12:02 PM CDT)Only the most recent of7 resultswithin the time period is included. Total Cells 100Comment: All WACO components of the Differential performed at [facility], [address] [place] [address] Neutrophil % 67.0 (H) 42.0 - 66.0 % WACO Comment: The Neutrophil count includes Bands. As part of the Differential testing performed at [facility], [address] [place] [address] Lymphocyte % 20.0 (L)Comment: As 24.0 - 44.0 % WACO part of the Differential testing performed at [facility], [address] [place] [address] Monocyte % 3.0Comment: As part 2.0 - 7.0 % WACO of the Differential testing performed at [facility], [address] [place] [address]455 Eosinophil % 8.0 (H)Comment: As 1.0 - 4.0 % [facility] part of the Differential testing performed at [facility], [address] [place] [address] Basophil % 2.0 (H)Comment: As 0.0 - 1.0 % [facility] part of the Differential testing performed at [facility], [address] [place] [address] NRBC 15.0 (H)Comment: As <=0.0 [facility] part of the Differential testing performed at [facility], [address], [place] [address] Neutrophil Abs 2.61Comment: As part 1.70 - 7.30 K/uL [facility] of the Differential testing performed at [facility], [address] [place] [address], [facility] Lymphocyte Abs 0.78 (L)Comment: As 1.00 - 4.80 K/uL [facility] [place] part of the Differential testing performed at [facility], [address] [place] [address], [facility] Monocyte Abs 0.12Comment: As part 0.08 - 0.70 K/uL [facility] of the Differential testing performed at [facility], [address] [place], [place] [address] Eosinophil Abs 0.31Comment: As part 0.04 - 0.40 K/uL [facility] of the Differential testing performed at [facility], [address] [place] [address] Basophil Abs 0.08Comment: As part 0.00 - 0.10 K/uL [place] of the Differential testing performed at [facility], [address] [place] [address], [place] [address] RBC Morph Present (A)Comment: Normal WACO As part of the Differential testing performed at [facility], [address] [place] [address], [facility] PLT Morph NormalComment: As Normal [facility] part of the Differential testing performed at [facility], [address] [place] [address], [place] [address] Schistocyte Few (A)Comment: As Not Seen [facility] [place] part of the Differential testing performed at [facility], [address] [place] [address], [place] [address] Anisocytosis Present (A)Comment: Not Present [place] [place] As part of the Differential testing performed at [facility], [address] [place] [address], [facility] Polychromasia Present (A)Comment: Not Present [place] [place] As part of the Differential testing performed at [facility], [address] [place] [address], [facility] Macrocyte Present (A)Comment: Not Present [place] [place] As part of the Differential testing performed at [facility], [address] [place] [address] Specimen Blood Performing Organization Address City/[facility]/ZIP Code Phon e Number [place], [place] [id number] [place] [address] Antibody Screen (12/21/2020 12:02 PM CDT) Pathologist Sig nature ABSC. Negative ABSC [facility] R Specimen Blood Performing Organization Address City/[facility] Code Phon e Number [facility]ER Unless otherwise noted, [place] [address] OLATON all lab tests performed by: Division of Pathology and Laboratory Medicine [address] BUN (12/21/2020 12:02 PM CDT)Only the most recent of7 resultswithin the time period is included. Pathologist Sig amanda BUN 10Comment: Testing 6 - 23 mg/dL WACO performed at [facility], [address] [place] [address] Specimen Blood Performing Organization Address City/[facility] Code Phon e Number [place], [place] [id number] [place] [address] ALT (12/21/2020 12:02 PM CDT)Only the most recent of7 resultswithin the time period is included. Pathologist Sig amanda ALT 105 (H)Comment: Testing <=33 U/L WACO performed at [facility], [address] [place] [address] Specimen Blood Performing Organization Address City/[facility]/[place] [address] [place] [address] Aspartate Aminotransferase (12/21/2020 12:02 PM CDT)Only the most recent of7 resultswithin the time period is included. Pathologist Sig nature AST 63 (H)Comment: Testing <=32 U/L WACO performed at [facility], [address] [place] [address] Specimen Blood Performing Organization Address City/[facility]/ZIP [facility] Phon e Number [place], [place] [id number] [place] [address] Total Protein (12/21/2020 12:02 PM CDT)Only the most recent of7 resultswithin the time period is included. Pathologist Sig nature Total Protein 7.0Comment: Testing 6.4 - 8.3 g/dL WACO performed at [facility], [address] [place] [address]647 Specimen Blood Performing Organization Address City/State/ZIP Code Phon e Number [place], [place] [id number] [place] [address] Alkaline Phosphatase (12/21/2020 12:02 PM CDT)Only the most recent of7 results within the time period is included. Pathologist Sig nature Alk Phos 776 (H)Comment: Testing 35 - 104 U/L WACO performed at [facility], [address] [place] [address]98 Specimen Blood Performing Organization Address City/[facility]/ZIP Code Phon e Number [place], [place] [id number] [place] [address] Glucose Level (12/21/2020 12:02 PM CDT)Only the most recent of7 resultswithin the time period is included. Pathologist Sig nature Glucose Level 90 70 - 99 mg/dL WACO Comment: Effective 11/29/15, the gluco se reference intervals have been updated based on [place] [employer] guidelines (Standards of Medical Care in Diabetes 2016. Diabetes Care 2016; 39: S13-S22). Fasting blood glucose: Normal: 70-99 mg/dL Impaired fasting glucose (in creased risk for diabetes or pre-diabetes): 100- 125 mg/dL Diabetes mellitus: >/=126 mg/dL Random blood glucose: Normal: 70-199 mg/dL Note: Random glucose >100 mg/dL is assoc iated with increased risk for diabetes Testing performed at [facility], [address] [place] [address] Specimen Blood Performing Organization Address City/State/[place] [address] [place] [address] Calcium Level (12/21/2020 12:02 PM CDT)Only the most recent of7 resultswithin the time period is included. Pathologist Sig nature Calcium Lvl 9.5Comment: Testing 8.4 - 10.2 mg/dL WACO performed at [facility], [address] [place] [address]121 Specimen Blood Performing Organization Address City/[facility]/ZIP Code Phon e Number [place], [place] [id number] [place] [address] Albumin Level (12/21/2020 12:02 PM CDT)Only the most recent of7 resultswithin the time period is included. Pathologist Sig nature Albumin Lvl 3.6Comment: Testing 3.5 - 5.2 gm/dL WACO performed at [facility], [address] [place] [address] Specimen Blood Performing Organization Address City/[facility] Code Phon e Number [place], [place] [id number] [place] [address] Electrolyte Panel (12/21/2020 12:02 PM CDT)Only the most recent of7 results within the time period is included. Pathologist Sig nature Sodium Lvl 138Comment: Testing 136 - 145 mEq/L WACO performed at [facility], [address] [place] [address] Potassium Lvl 3.9Comment: Testing 3.5 - 5.1 mEq/L WACO performed at [facility], [address] [place] [address]503 Chloride 100Comment: Testing 98 - 107 mEq/L WACO performed at [facility], [address] [place] [address]006 CO2 23Comment: Testing 22 - 29 mEq/L WACO performed at [facility], [address] [place] [address] Anion Gap 15 (H)Comment: 4 - 14 mEq/L WACO Testing performed at [facility], [address] [place] [address]28 Specimen Blood Performing Organization Address City/[facility]/ZIP Code Phon e Number [place], [place] [id number] [place] [address] Estradiol (12/07/2020 9:48 AM CDT) Pathologist Sig nature Estradiol <11 pg/mL [facility] Comment: [facility] CENTER Reference Ranges: Adult Females: Follicular Phase 12.0 - 233.0 pg/mL Ovulation Phase 41.0 - 398.0 pg/mL Luteal Phase 22.0 - 341.0 pg/mL Postmenopausal <138.0 pg/mL Adult Males: 11 - 43 pg/mL Boys (1-10 years): <20.0 pg/mL Girl (1-10 years): <27.0 pg/mL Patients treated with Fulves trant will show falsely increase in estradiol concentrations due to cross-reaction. For further information or assistance, please contact pathologist. Specimen Blood Performing Organization Address City/[facility]/ZIP Code Phon e Number [facility] CANCER Unless otherwise noted, [place] [id number] OLATON all lab tests performed by: Division of Pathology and Laboratory Medicine [address] Phosphorus Level (12/07/2020 9:48 AM CDT)Only the most recent of4 resultswithin the time period is included. Pathologist Sig nature Phosphorus 5.1 (H) 2.5 - 4.5 mg/dL [facility] Specimen Blood Performing Organization Address City/[facility] Code Phon e Number [facility] DIAGNOSTIC Unless otherwise noted, [place] [address] OL[place] all lab tests performed by: Division of Pathology and Laboratory Medicine [address] Magnesium Level (12/07/2020 9:48 AM CDT)Only the most recent of4 resultswithin the time period is included. Pathologist Sig nature Magnesium 2.4 1.6 - 2.6 mg/dL [facility] Specimen Blood Performing Organization Address City/[facility]/ZIP Code Phon e Number [facility] DIAGNOSTIC Unless otherwise noted, [place] [address] OL[place] all lab tests performed by: Division of Pathology and Laboratory Medicine [address] LH (12/07/2020 9:48 AM CDT) Pathologist Sig nature LH 3.1 mIU/mL [facility] Comment: [facility] Female Luteinizing Hormone Reference Ranges: LOW H IGH Follicular 2.4 12.6 Ovulation 14.0 95.6 Luteal 1.0 11.4 Postmenopause 7.7 58.5 Specimen Blood Performing Organization Address City/[facility]/ZIP Code Phon e Number [facility]ER Unless otherwise noted, [address] all lab tests performed by: Division of Pathology and Laboratory Medicine [facility] [place] FSH (12/07/2020 9:48 AM CDT) Pathologist Sig nature FSH 5.0 mIU/mL [facility] Comment: [facility] CENTER Female Follicle Stimulating Hormone Reference Ranges: LOW HI GH Follicular 3.5 12.5 Ovulation 4.7 21.5 Luteal 1.7 7.7 Postmenopause 25.8 134.8 Specimen Blood Performing Organization Address City/[facility] Phon e Number [facility] CANCER Unless otherwise noted, [address] all lab tests performed by: Division of Pathology and Laboratory Medicine [facility] [place] Orthopantogram (12/07/2020 8:04 AM CDT) Specimen Narrative Performed At This procedure requires no interpretation from the rad iologist. MRI Brain with and without Contrast (11/24/2020 9:54 PM CDT) Specimen Impressions Performed At No acute intracranial lesions. [id number] Enhancement of the mastoid segment of the right facial nerve and adjacent petrous bone worrisome for a me tastasis. Multiple additional metastasis in the skull base and c alvarium with dural enhancement overlying the cerebral convexities a nd at the left cranial occipital junction. Metastasis of the left sphenoid triangle/lateral orbit al wall with enhancement extending to the superior or bital fissure. No visualized intra-axial metastasis. 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 Indication: Right-sided facial droop. Comparison: None Technique: Multiplanar pre and post contrast T1 and T2 weighted sequences were obtained through the [facility] n. Findings: There is asymmetric enhancement within the right lidya us bone and adjacent mastoid segment of the facial nerve (series 2 4, images 6 through 8; series 2501, image 94 Multiple enhancing metastasis are seen within the bila teral calvarium with no obvious intracranial mass extension, although there is underlying bilateral dural enhancement. There is no vi sualized leptomeningeal or sulcal cisternal enhancement to sugg est obvious CSF dissemination of tumor. No visualized intra-axial/intraparenchymal metastasis, although the 3-D postcontrast T1-weighted sequences are limited sec ondary to motion artifact. No acute infarct, hemorrhage, ventriculomegaly, or con cerning extra-axial fluid collection. Additional enhancing lesions of the bilateral skull ba se, proximal cervical spine, and facial bones. The posterior left c raniocervical junction has a prominent metastasis with invasion thro ugh the inner cortex with subtle underlying dural enhancement (serie s 24, image 5). There is an enhancing lesion in the left sphenoid tria ngle with asymmetric enhancement extending over the left superio r orbital fissure (series 24, image 13; series 250 1, image 62). 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 Indication: Right-sided facial droop. Comparison: None Technique: Multiplanar pre and post cont rast T1 and T2 weighted sequences were obtained through the brain. Findings: There is asymmetric enhancement within t he right petrous bone and adjacent mastoid segment of the facial nerve (series 24, images 6 through 8; series 2501, image 94 Multiple enhancing metastasis are seen w ithin the bilateral calvarium with no obvious intracranial mass extension, although there is underlying bilateral dural enhancement. There is no visualized leptomeningeal or sulcal cisternal enhancement to suggest obvious CSF dissemination of tumor. No visualized intra-axial/intraparenchym al metastasis, although the 3-D postcontrast T1-weighted sequences are limited secondary to motion artifact. No acute infarct, hemorrhage, ventriculo megaly, or concerning extra-axial fluid collection. Additional enhancing lesions of the bila teral skull base, proximal cervical spine, and facial bones. The posterior left craniocervical junction has a prominent metastasis with invasion through the inner cortex with subtle underlying dural enhancement (series 24, image 5). There is an enhancing lesion in the left sphenoid triangle with asymmetric enhancement extending over the left superior orbital fissure (series 24, image 13; series 2501, image 62). IMPRESSION: No acute intracranial lesions. Enhancement of the mastoid segment of th e right facial nerve and adjacent petrous bone worrisome for a metastasis. Multiple additional metastasis in the sk ull base and calvarium with dural enhancement overlying the cerebral convexities and at the left cranial occipital junction. Metastasis of the left sphenoid triangle /lateral orbital wall with enhancement extending to the superior orbital fissure. No visualized intra-axial metastasis. Performing Organization Address City/State/ZIP Code Phon e Number [id number] MRI CERVICAL THORACIC LUMBAR SPINE W WO CONTRAST (11/24/2020 9:53 PM CDT) Specimen Impressions Performed At Metastatic disease throughout the skull base cervical thoracic [id number] lumbosacral spine both luis and ribs as well as anteri or chest wall bones that with enhancement and some mottling througho ut consistent with diffuse metastatic disease. No epidural or leptom eningeal disease. Mottling of the marrow signal is consistent w ith predominantly cellular metastasis with s ome areas of bony sclerosis. Small biconcave compression injury in the posterior as pect of T10 anterior biconcave compression injuries in T8 unchange d from prior study October 30, 2020. Narrative Performed At FULL RESULT: [id number] Examination: MRI CERVICAL THORACIC LUMBAR SPINE W WO C ONTRAST, 11/24/2020 9:53 PM. 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 Findings: Cervical spine: Multiple metastatic lesions throughout the skull base cervical spine almost diffuse with both the T2 and pos tcontrast T1 enhancement as well as some signal voids consistent wi th diffuse metastatic disease. Degenerative changes with effaceme nt of thecal sac at several levels consistent with mild cervical spondy losis. No cord compromise. No significant epidural and no leptomening eal disease. Vertebral body alignment is stable. Marrow signal is heterogenous consistent diffuse metastatic disease. No significan t spinal canal stenosis is present. There is no cord signal abnormali ty or cord compression. Thoracic spine: Multiple metastatic lesions throughout the thoracic spine and ribs consistent with diffuse metastatic dise ase. Vertebral body alignment is stable. Marrow signal is heterogen ous consistent with diffuse metastatic disease. No significant spin al canal stenosis is present. There is no cord signal abnormali ty or cord compression. No epidural or leptomeningeal disease.Sma ll biconcave compression injury in the posterior aspect of T10 ante rior biconcave compression injuries in T8 unchanged fro m prior study October 30, 2020. Lumbosacral spine: Multicentric metastatic lesions thr oughout the lumbosacral spine both luis consistent with diffuse me tastatic disease. Vertebral body alignment is stable. Marrow signal is heterogenous consistent with diffuse metastatic diseas e.. No significant spinal canal stenosis is present. There is no cord signal abnormality or cord compression. No epidural or leptom eningeal disease. Procedure Note Interface, Radiology Results In - 2020 10:47 PM CDT FULL RESULT: Examination: MRI CERVICAL THORACIC LUMBA R SPINE W WO CONTRAST, 11/24/2020 9:53 PM. 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 Findings: Cervical spine: Multiple metastatic lesi ons throughout the skull base cervical spine almost diffuse with both the T2 and postcontrast T1 enhancement as well as some signal voids consistent with diffuse metastatic disease. Degenerative changes with effacement of thecal sac at several levels consistent with mild cervical spondylosis. No cord compromise. No significant epidural and no leptomeningeal disease. Vertebral body alignment is stable. Mar row signal is heterogenous consistent diffuse metastatic disease. No significant spinal canal stenosis is present. There is no cord signal abnormality or cord compression. Thoracic spine: Multiple metastatic lesi ons throughout the thoracic spine and ribs consistent with diffuse metastatic disease. Vertebral body alignment is stable. Marrow signal is heterogenous consistent with diffuse metastatic disease. No signific ant spinal canal stenosis is present. There is no cord signal abnormality or cord compression. No epidural or leptomeningeal disease.Small biconcave compression injury in the posterior aspect of T10 anterior bic oncave compression injuries in T8 unchanged from prior study October 30, 2020. Lumbosacral spine: Multicentric metastat ic lesions throughout the lumbosacral spine both luis consistent with diffuse metastatic disease. Vertebral body alignment is stable. Marrow signal is heterogenous consistent with diffuse metastatic disea se.. No significant spinal canal stenosis is present. There is no cord signal abnormality or cord compression. No epidural or leptomeningeal disease. IMPRESSION: Metastatic disease throughout the skull base cervical thoracic lumbosacral spine both luis and ribs as well as anterior chest wall bones that with enhancement and some mottling throughout consistent with diffuse metastatic disease. No epidural or lepto meningeal disease. Mottling of the marrow signal is consistent with predominantly cellular metastasis with some areas of bony sclerosis. Small biconcave compression injury in th e posterior aspect of T10 anterior biconcave compression injuries in T8 unchanged from prior study October 30, 2020. Performing Organization Address City/State/ZIP Code Phon e Number [id number] OCT, Retina - OU - Both Eyes (11/24/2020 2:14 PM CDT) Specimen Narrative Performed At This result has an attachment that is no t available. Right Eye Quality was good. Scan locations included subfoveal. T his is the baseline exam. Findings include normal foveal contour. Left Eye Quality was good. Scan locations included subfoveal. T his is the baseline exam. Findings include normal foveal contour. Fundus Photos - OU - Both Eyes (11/24/2020 2:14 PM CDT) Specimen Narrative Performed At This result has an attachment that is no t available. Right Eye Basline Exam. The vitreous is clear. Disc findings inc lude normal observations. Macula findings include normal observati ons. Vessel findings include normal observations. Periphery findings includ e Comments: (WWP, Nevus along ST and SN). Left Eye Basline Exam. The vitreous is clear. Disc findings inc lude normal observations. Macula findings include normal observati ons. Vessel findings include normal observations. Periphery findings includ e Comments: (WWP). Notes OD: nevus along ST and SN, no orange pigment or SRF. Influenza A/B + COVID-19 Asymptomatic- L (11/24/2020 9:13 AM CDT) COVID19 Not Detected Not Detected [facility] Influenza A Not Detected Not Detected [facility] Influenza B Not Detected Not Detected [facility] COVID19 SARS Inpatient Admission [facility] Inf AB+Cov19 See Note [facility] Comment Comment: [facility] The rodney SARS-CoV-2 & Influ yogesh A/B nucleic acid test for use on the rodney Mamta System is a multiplex real-time RT-PCR assay intended for the simultaneous, qualitative detection and differential of SARS-CoV-2 (COVID-19), influenza A, and influenza B viral RNA in nasopharyngeal swabs in transport media from patients suspected of having a respiratory infection with one of these viruses or possibly exposure to COVID-19 by a healthcare provider. Results must be interpreted within the context of all relevant clinical and labora tory findings and should not form the sole basis for a diagnosis or treatment decision. A fact sheet for patients provided by the associate professor of forestry ([employer]) can be reviewed at: https://www.fda.gov/media/572053/download A fact sheet for Health Care providers is provided by the associate professor of forestry ([employer]) and can be reviewed at: https://www.fda.gov/media/447276/download Influenza A and Influenza B negative results should be considered presumptive in samples that have a positive SARS-CoV-2 result. If co-infection with influenza A or influenza B virus is suspected in brendon ples with a positive SARS-CoV-2 results, the sample should be re-tested with another approved influenza te st. This assay has been authoriz ed by the FDA for use only under Emergency Use Authorization (EUA) in laboratories that have been CLIA-certified to perform moderate-complexity and high-complexity tests. The Microbiology Laboratory at [facility], CLIA Accreditation # [id number] and CAP Accreditation #[id number], verified the performance characteristics of this assay. Internal controls are used to monitor all stages of the test process. Specimen Nasopharyngeal Swab Performing Organization Address City/State/ZIP Code Phon e Number [facility] Unless otherwise noted, [place] [address] [place] all lab tests performed by: Division of Pathology and Laboratory Medicine [address] Nathalia Mathias MD COVID-19 (CINDI-CoV-2) PCR Asymptomatic (11/15/2020 10:27 AM CDT) COVID19 SARS Pre-Radiation Therapy [facility] COVID19 SARS Result Not Detected Not Detected [facility] COVID19 SARS SARS-CoV-2 NOT Detected. [facility] Reference Range: Not Detected Methodology: The Ramírez Real Time SARS-CoV-2 assay is a qualitative real-time reverse continuous process tanner rotary drum polymerase chain reaction (trauma manager-PCR) test to detect RNA from SARS-CoV-2 in nasal, nasopharyngeal and oropharyngeal swabs from patients with signs and symptoms of infection who ar e suspected of COVID-19 by their health care provider. The Ramírez RealTime SARS-CoV-2 performed on the [employer] System is a dual target assay with primers and probes for the RdRp and N genes. Results must be interpreted within the context of all relevant clinical and laboratory findings, and epidemiological risk factors. Positive results are indicative of the presence of SARS-CoV-2 RNA; clinical correlation with patient history and other diagnostic information is ne cessary to determine patient infection status. Positive results do not rule out bacterial infection or co-infection with other viruses. Negative results do not preclude SARS- CoV-2 infection and should not be used as the sole basis for patient management decisions. The Ramírez RealTime SARS-CoV -2 assay is for in vitro diagnostic use under FDA Emergency Use Authorization only. Testing is limited to laboratories certified under the Clinical Laboratory Improvement Khadijah ndments of 1988 (CLIA), 42U.S.C. 263a, to perform high complexity tests. The T est was performed by the CLIA-certified, high- complexity Molecular Diagnostics Laboratory (MDL) at [facility] under the Food and Drug Administration (FDA) s Emergency Use Authorization. Factsheet for patients: https://www.mdanderson.org/Abb ottFactSheetPatients Factsheet for healthcare pro viders: https://www.mdanderson.org/AbbottFactSheetHCP Test performed by: [facility] [address] [place] [address] Specimen Nasopharyngeal Swab Performing Organization Address City/State/ZIP Code Phon e Number [facility] Unless otherwise noted, [place] [address] CENTER all lab tests performed by: Division of Pathology and Laboratory Medicine [facility] OSI Femur (11/04/2020 11:36 AM CDT)Only the most recent of2 resultswithin the time period is included. Specimen Narrative Performed At Study acquired at another institution. For comparison only. No MD Osei originated interpretation requested or available. OSI Interventional (11/02/2020 11:35 AM CDT) Specimen Narrative Performed At Study acquired at another institution. For comparison only. No MD Osei originated interpretation requested or available. OSI US Breast (10/31/2020 11:37 AM CDT)Only the most recent of2 resultswithin the time period is included. Specimen Narrative Performed At Study acquired at another institution. For comparison only. No MD FRANCIS Osei originated interpretation requested or available. Performing Organization Address City/[facility] Code Phon e Number [facility] OSI Mammo (10/31/2020 11:36 AM CDT)Only the most recent of2 resultswithin the time period is included. Specimen Narrative Performed At Study acquired at another institution. For comparison only. No MD FRANCIS Osei originated interpretation requested or available. Performing Organization Address [facility] Phon e Number FRANCIS Pathology Outside Interpretation (10/31/2020) Materials Accession#, Stained, Block, Unstained Collected Receiv ed [facility] Received A. [id number], 16 SS, 0 BLOCKS, 0 USS B. [id number], 14 SS, 0 BLOCKS, 0 USS 10/31/2020 11/02/2020 11/16/2020 11/16/2020 Diagnosis Outside ([id number], 16 SS, 0 BLOCKS, 0 USS, lino ected on 10/31/2020): [facility] Electronically signed by Willi am Breast, left, left breast mass 5:00 2 cm nipple (A1-5, A2-5, A3-5, IHC x5): Martell Diaz MD on 11/20/2020 at INVASIVE DUCTAL CARCINOMA BR EAST, HISTOLOGIC GRADE 2, MODIFIED BLACK'S NUCLEAR GRADE 2 (INTERMEDIATE-GRADE). (SEE COMMENT #1) 10:53 AM Breast, right, right breast mass 9:00 2 cm nippl e (B1-5, B2-5, B3-5, IHC x5): INVASIVE DUCTAL CARCINOMA BR EAST, HISTOLOGIC GRADE 2, MODIFIED BLACK'S NUCLEAR GRADE 2 (INTERMEDIATE-GRADE). (SEE COMMENT #1) Outside ([id number], 14 SS, 0 BLOCKS, 0 USS, collected on 11/02/2020): Bone, intramedullary reaming from right femur (A1-2, A 2-1, A3-1): POORLY DIFFERENTIATED CARCINOMA. (SEE COMMENT #2) Bone, intramedullary reaming from right femur (B1-2, B2-1, B3-1, B4-1, IHC x7): POORLY DIFFERENTIATED CARCINOMA. (SEE COMMENT #2) WFS/FMT Comment #1: On submitted outside sli junior from both left and right breast tumor biopsies, invasive carcinoma is positive for estrogen receptor (95%, 3+ intensity), positive for progesterone receptor (95%, 3+ inte [facility] nsity), and negative for HER 2 overexpression (1+). Ki67 proliferative index is 30%. Submitted immunohistochemica l stains for E-cadherin show membrane staining in tumor cells, supporting above diagnosis. #2: Submitted immunohistoche mical studies show tumor cells are positive for AE1/AE3 cytokeratins, CK7, GATA3, ER, and HI, and negative for CK20 and HER2. The overall histologic findings along with the c linical history and reported immunohistochemical stains are consistent with metastatic carcinoma, breast primary. Biomarker T: [id number], B1-5 [facility] Block(s) N: N/A Disclaimer "Some tests reported here [facility] may have been developed and performance characteristics determined by [facility] Pathology and Laboratory Medicine. These tests have not been specifically cleared or approved by the U.S. Food and Drug Administration. If applicable, controls were reviewed and showed appropriate reactivity." Specimen Tissue Tissue Performing Organization Address City/State/ZIP Code Phon e Number [facility] [place] [address] [address] [facility] OSI CT CHEST ABDOMEN PELVIS (10/30/2020 11:35 AM CDT) Specimen Narrative Performed At Study acquired at another institution. For comparison only. No [facility] originated interpretation requested or available. OSI Hip (10/29/2020 5:16 PM CDT) Specimen Narrative Performed At Study acquired at another institution. For comparison only. No [facility] originated interpretation requested or available. after 12/25/2019 Insurance Payer Benefit Plan / Subscriber ID Effective Phone Address T ype Group Dates [place] [id number] 2020-Prese Medicaid TRADITIONAL TRADITIONAL STAR nt NON SSI Joyce Amezcua Dorene Personal/Family Self 1975 [address]) [place] [address] Advance Directives Code Status Date Activated Date Inactivated Comments Full Code 11/24/2020 3:48 PM 11/28/2020 7:18 PM
--- OUTSIDE RECORDS SUMMARY | 2020-12-24 22:33 | XMS REPORT | Continuity of Care Document ---
:1975 Author Organization [facility] t Address [address] [place] [address] Care Team Providers Name Role Phone [phone] Primary Care Physician Unavailable SYSTEM, NOT IN Attending Clinician Unavailable Carson ADAMS Attending Clinician Isabella MARION Attending Clinician ISABELLA Attending Clinician Unavailable Burke HITCHCOCK, T Attending Clinician Unavailable Vasquez Biggs Attending Clinician Unavailable Tonya Gibbs Attending Clinician Sean MONTERROSO, L Attending Clinician José Miguel MARION Attending Clinician Trav HITCHCOCK, A Attending Clinician Unavailable Mateo DDS Attending Clinician MATEO Attending Clinician Unavailable Sade MAHER Attending Clinician Guanakito PharmD Attending Clinician Doctor Unassigned, Name Attending Clinician Unavailable Humble HITCHCOCK, M Attending Clinician Unavailable Von Han MD Attending Clinician Eagle MARION AArti Attending Clinician Jyoti MARION Attending Clinician Vesna MARION Attending Clinician Latonia Murguia MD Attending Clinician Latonia MURGUIA Attending Clinician Unavailable Louisa Dodd MD Attending Clinician LOUISA DODD Attending Clinician Unavailable VESNA Attending Clinician Unavailable Cristy MARION PhD, Magali Attending Clinician KWAKU Attending Clinician Unavailable Lawrence ADAMS, D Attending Clinician Kwaku MARION Attending Clinician El RN, D Attending Clinician Unavailable Deidre MARION, R Attending Clinician Doron HITCHCOCK Attending Clinician Unavailable Phil HITCHCOCK, A Attending Clinician Unavailable Daniel ADAMS Attending Clinician Alfredo CORDOVA, B Attending Clinician Unavailable Lizette Rodríguez MD Attending Clinician Evelyn MARION Attending Clinician Corolla Angelina ROJAS Attending Clinician Catalina Ann MA Attending Clinician Unavailable VESNA Admitting Clinician Unavailable Payers Payer Name Policy Type Policy Effective Expiration Source Number Date Date MEDICAID [place] [id number] 2020 MD De Jesus n [place] 00:00:00 TRADITIONAL STAR NON [id number] 2020-Pre sentMedicaid Problems Condition Condition Condition Status Onset Resolution Last Treating Co mments Source Name Details Category Date Date Treatment Clinician Date 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 12-08 Anderso use of use of 00:00: n opiate opiate 00 analgesic analgesic 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 11-26 An derso disease disease 00:00: n 00 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 related 11-24 Anderso pain pain 00:00: n (acute) (acute) 00 (chronic) (chronic) Facial Facial Disease Active palsy palsy 11-24 Anderso 00:00: n 00 Thoracic Thoracic Disease Active back pain back pain 7-23 Krunal rso 00:00: n 00 Severe Severe Disease Active protein-ca protein-ca 7-23 Megan bhat 00:00: n malnutriti malnutriti 00 on on 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 7-22 Anderso carcinoma carcinoma 00:00: n of of 00 overlappin overlappin g sites of g sites of right right female female breast breast 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 7-22 Chalino o positive positive 00:00: n status status 00 (ER+) (ER+) Secondary Secondary Disease Active MD malignant malignant 7-14 Krunal rso neoplasm neoplasm 00:00: n of bone of bone 00 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 00:00: n of lower of lower 00 outer outer quadrant quadrant of left of left female female breast breast Throat Throat Problem Active [facility] Hoarseness Hoarseness Problem Active [facility] Tobacco Tobacco Problem Active [facility] Right arm Right arm Problem Active [facility] Gastroesop Gastroesop Problem Active [facility] hageal hageal [facility] - reflux reflux Memoria disease, disease, l esophagiti esophagiti Ou tpati s presence s presence en t not not Clinics specified specified Hepatic Hepatic Problem Active [facility] cyst cyst [facility] Acute UTI Acute UTI Problem Active [facility] Vitamin D Vitamin D Problem Active [facility] deficiency deficiency [facility] Abnormal Abnormal Problem Active [facility] - abdomen abdomen [facility] Anxiety Anxiety Problem Active [facility] Hyperchole Hyperchole Problem Active [facility] sterolemia sterolemia [facility] Renal Renal Problem Active [facility] cysts, cysts, [facility] - acquired, acquired, Rosales radhika bilateral bilateral l [facility] Callus of Callus of Problem [...] trigger d trigger Outp ati ent Clinics Nausea Nausea Disease Active Andteo n Malignant Malignant Disease Active neoplasm neoplasm Chalino o related related n fatigue fatigue Slow Slow Disease Active transit transit Anderso constipati constipati n on on Acute Acute Disease Active hyperglyce hyperglyce An derso david david n Allergies, Adverse Reactions, Alerts [...] Date Date Medication? Clinician (SIG) Name Name famotidine Yes 20mg Take 20 mg M D (PEPCID) 20 8-19 by mouth Krunal rso mg tablet 18:11: daily as n 00 needed. ondansetron Yes Infiltratin 8mg Dissolve 1 MD (ZOFRAN-ODT 8-11 g duct tablet (8 A nderso ) 8 mg 00:00: carcinoma mg) on the n disintegrat 00 of tongue ing tablet overlapping every 8 sites of (eight) right hours as female needed for breast nausea or vomiting. lidocaine Yes Infiltratin 15mL Swish and MD (XYLOCAINE) 8-05 g duct spit 15 mL Anderso 20 mg/mL 00:00: carcinoma as needed n (2%) 00 of (rinse and viscous overlapping expectorat solution sites of e as right needed female TID). breast chlorhexidi 2020- Yes Infiltratin 15mL Swish and MD ne 8- 09-05 g duct spit 15 mL Chalino o (PERIDEX) 00:00: 04:59 carcinoma twice n 0.12% 00 :00 of daily for solution overlapping 30 days. sites of right female breast fluoride, 2020- Yes Infiltratin Apply to MD sodium, 8 09-05 g duct teeth Anderso (PREVIDENT) 00:00: 04:59 carcinoma twice n 1.1 % 00 :00 of daily for dental overlapping 30 days. cream sites of [place] right teeth with female cream breast twice a day and expectorat e (Do not rinse for 30 minutes). Eliquis 2.5 Yes MD mg tablet 12-04 Anderso 00:00: n 00 predniSONE Yes MD (DELTASONE) 8- Anderso 20 mg 00:00: n tablet 00 letrozole Yes Infiltratin 2.5mg Take 1 MD (Femara) 7-29 g duct tablet Anderso 2.5 mg 00:00: carcinoma (2.5 mg) n tablet 00 of lower by mouth outer daily. quadrant of left female breast palbociclib 2020- Yes Infiltratin 125mg Take 1 MD (Ibrance) 11-30 09-17 g duct tablet Harley so 125 mg 00:00: 04:59 carcinoma (125 mg) n tablet 00 :00 of lower by mouth outer daily for quadrant of 21 days. left female Repeat breast every 28 days. morphine 2021-0 Yes Cancer 30mg Take 1 MD (MS CONTIN) 7-27 associated tablet (30 Anderso 30 mg 12 hr 00:00: pain mg) by n tablet 00 mouth every 8 (eight) hours. morphine Yes Cancer 15mg Take 1 MD (MSIR) [...] 1-2 MD -acetaminop 7-20 malignant tablets by Anderso hen ([place]) 00:00: neoplasm of mouth n 5 mg-325 [...] time of appointmen t if needed. dexamethaso 2020-2020- No Malignant 4mg Take 1 MD ne 7-15 08-15 neoplasm of tablet (4 An derso (DECADRON) 00:00: 04:59 unspecified mg) by n 4 mg tablet 00 :00 site of mouth 2 unspecified (two) female times a breast day with meals for 30 days. tiZANidine 0 2020- No 2mg Take 2 mg M D (ZANAFLEX) 6-16 07-23 by mouth Krunal rso 2 mg tablet 00:00: 00:00 daily as n 00 :00 needed. traMADol-ac No 1{tbl} Take 1 M D etaminophen 10-18 tablet by An derso (ULTRACET) 00:00: 00:00 mouth n 37.5-325 mg 00 :00 every 8 per tablet (eight) hours as needed. gabapentin No 100mg Take 100 M D (NEURONTIN) 10-18-20 mg by Chalino o 100 mg 00:00: 00:00 mouth 3 n capsule 00 :00 (three) times a day. diclofenac No 100mg Take 100 M D sodium 100 10-09- mg by Anderso mg 24 hr 00:00: 00:00 mouth at n tablet 00 :00 bedtime. phenazopyri 200mg Take 200 MD dine 10-09 mg by Anderso (PYRIDIUM) 00:00: 00:00 mouth n 200 mg 00 :00 daily as tablet needed. ProAir HFA ProAir HFA 2018-05 Yes Adriana [address] [facility]11 [facility] Vitamin D Vitamin D Yes Adriana [address] [facility]OTC[facility] Vital Signs Vital Name Observation Time Observation Value Comments Source Systolic blood pressure 2020-12-21 20:30:00 106 mm[Hg] MD Osei Diastolic blood pressure 2020-12-21 20:30:00 72 mm[Hg] MD Osei Heart rate 2020-12-21 20:30:00 86 /min MD Harley kasper Respiratory rate 2020-12-21 20:30:00 18 /min MD Dorene brady Body temperature 2020-12-21 18:01:03 36.72 Marisol MD Dorene brady Body weight 2020-12-21 18:01:03 60.5 kg MD Harley kasper BMI 2020-12-21 18:01:03 22.36 kg/m2 MD Harley kasper Oxygen saturation in 2020-12-21 18:01:03 99 /min MD Osei Arterial blood by Pulse oximetry Body height 2020-11-26 02:12:00 164.5 cm MD Harley kasper Procedures Procedure Date / Time Performed Performing Clinician Marisel drummond CONFIRM ABORH TYPE 2020-12-21 17:45:00 George Mason MD COMPLETE BLOOD COUNT W/ 2020-12-21 17:02:00 George Mason MD DIFFERENTIAL COMPREHENSIVE METABOLIC PANEL 2020-12-21 17:02:00 Sheila Mason MD TYPE AND SCREEN 2020-12-21 17:02:00 George Mason MD CANCER ANTIGEN 15-3 2020-12-21 17:02:00 George Mason MD Krunal rson Results CBC 2020-12-21 17:02:00 George Mason MD MANUAL DIFFERENTIAL 2020-12-21 17:02:00 George Mason MD Krunal rson GLUCOSE LEVEL 2020-12-21 17:02:00 George Mason MD BLOOD UREA NITROGEN 2020-12-21 17:02:00 George Mason MD Krunal rson ELECTROLYTE PANEL 2020-12-21 17:02:00 George Mason MD on SERUM CREATININE 2020-12-21 17:02:00 George Mason MD n .GLOMERULAR FILTRATION RATE 2020-12-21 17:02:00 George Mason MD CALCIUM LEVEL TOTAL 2020-12-21 17:02:00 George Mason MD Krunal rson ALBUMIN LEVEL 2020-12-21 17:02:00 George Mason MD ALKALINE PHOSPHATASE 2020-12-21 17:02:00 George Mason MD And erson ALANINE AMINOTRANSFERASE 2020-12-21 17:02:00 George Mason MD ASPARTATE AMINOTRANSFERASE 2020-12-21 17:02:00 George Mason MD TOTAL PROTEIN 2020-12-21 17:02:00 George Mason MD FRACTIONATED BILIRUBIN 2020-12-21 17:02:00 George Mason MD nderson ABORH 2020-12-21 17:02:00 AbouhGeorge wilks MD ANTIBODY SCREEN 2020-12-21 17:02:00 [facility] CLOT EXPIRATION DATE 2020-12-21 17:02:00 AboGeorge wilks TMP INTERPRETATION ANTIBODY 2020-12-21 17:02:00 AboGeorge wilks MD SCREEN NEGATIVE COMPLETE BLOOD COUNT W/ 2020-12-07 14:48:00 AboGeorge wilks MD DIFFERENTIAL COMPREHENSIVE METABOLIC PANEL 2020-12-07 14:48:00 AbouharbSheila MD CANCER ANTIGEN 15-3 2020-12-07 14:48:00 AboarbGeorge MD rson PHOSPHORUS LEVEL 2020-12-07 14:48:00 AbouharbGeorge MD MAGNESIUM LEVEL 2020-12-07 14:48:00 AboGeorge wilks MD ESTRADIOL LEVEL 2020-12-07 14:48:00 AboGeorge wilks MD FOLLICLE STIMULATING HORMONE 2020-12-07 14:48:00 AbouharbJennifer MD LEVEL LUTEINIZING HORMONE 2020-12-07 14:48:00 AboarbGeorge MD rson Results CBC 2020-12-07 14:48:00 AboGeorge wilks MD MANUAL DIFFERENTIAL 2020-12-07 14:48:00 AbouhGeorge wilks MD rson GLUCOSE LEVEL 2020-12-07 14:48:00 AboGeorge wilks MD BLOOD UREA NITROGEN 2020-12-07 14:48:00 AbouhGeorge wilks MD Krunal rson ELECTROLYTE PANEL 2020-12-07 14:48:00 AbouhGeorge wilks MD on SERUM CREATININE 2020-12-07 14:48:00 AbouhGeorge wilks MD .GLOMERULAR FILTRATION RATE 2020-12-07 14:48:00 AbouhGeorge wilks MD CALCIUM LEVEL TOTAL 2020-12-07 14:48:00 AbouhGeorge wilks MD rson ALBUMIN LEVEL 2020-12-07 14:48:00 AbouhGeorge wilks MD ALKALINE PHOSPHATASE 2020-12-07 14:48:00 George Mason MD And erson ALANINE AMINOTRANSFERASE 2020-12-07 14:48:00 George Mason MD ASPARTATE AMINOTRANSFERASE 2020-12-07 14:48:00 George Mason MD TOTAL PROTEIN 2020-12-07 14:48:00 George Mason MD FRACTIONATED BILIRUBIN 2020-12-07 14:48:00 George Mason MD nderson ORTHOPANTOGRAM 2020-12-07 13:04:31 Isidoro Jasmine MD COMPLETE BLOOD COUNT W/ 2020-11-28 08:04:00 Pia Doll MD DIFFERENTIAL COMPREHENSIVE METABOLIC PANEL 2020-11-28 08:04:00 Jefry Doll MD Results CBC 2020-11-28 08:04:00 [facility] 2020-11-28 08:04:00 Pia Doll MDrsilya GLUCOSE LEVEL 2020-11-28 08:04:00 [facility] BLOOD UREA NITROGEN 2020-11-28 08:04:00 Pia Doll MD ELECTROLYTE PANEL 2020-11-28 08:04:00 Pia Doll MD And ersilya SERUM CREATININE 2020-11-28 08:04:00 Pia Doll MD Krunal rson .GLOMERULAR FILTRATION RATE 2020-11-28 08:04:00 Renae Doll MD CALCIUM LEVEL TOTAL 2020-11-28 08:04:00 Pia Doll MD ALBUMIN LEVEL 2020-11-28 08:04:00 Pia Doll MD [facility] ALKALINE PHOSPHATASE 2020-11-28 08:04:00 Pia Doll MD ALANINE AMINOTRANSFERASE 2020-11-28 08:04:00 Pia Doll MD ASPARTATE AMINOTRANSFERASE 2020-11-28 08:04:00 Pia Doll MD TOTAL PROTEIN 2020-11-28 08:04:00 Pia Doll MD FRACTIONATED BILIRUBIN 2020-11-28 08:04:00 Pia Doll COMPLETE BLOOD COUNT W/ 2020-11-27 08:02:00 Pia Doll MD DIFFERENTIAL COMPREHENSIVE METABOLIC PANEL 2020-11-27 08:02:00 Jefry Doll MD Results CBC 2020-11-27 08:02:00 Pia Doll MD Harleydaylin kasper MANUAL DIFFERENTIAL 2020-11-27 08:02:00 Pia Doll MD GLUCOSE LEVEL 2020-11-27 08:02:00 Pia Doll MD Harleydaylin kasper BLOOD UREA NITROGEN 2020-11-27 08:02:00 Pia Doll MD ELECTROLYTE PANEL 2020-11-27 08:02:00 Pia Doll MD And chanel SERUM CREATININE 2020-11-27 08:02:00 Pia Doll MD Krunal rson .GLOMERULAR FILTRATION RATE 2020-11-27 08:02:00 Renae Doll MD CALCIUM LEVEL TOTAL 2020-11-27 08:02:00 Pia Doll MD ALBUMIN LEVEL 2020-11-27 08:02:00 Pia Doll MD Harleydaylin kasper ALKALINE PHOSPHATASE 2020-11-27 08:02:00 Pia Doll MD ALANINE AMINOTRANSFERASE 2020-11-27 08:02:00 Pia Doll MD ASPARTATE AMINOTRANSFERASE 2020-11-27 08:02:00 Pia Doll MD TOTAL PROTEIN 2020-11-27 08:02:00 Pia Doll MD Harley son FRACTIONATED BILIRUBIN 2020-11-27 08:02:00 Pia Doll COMPLETE BLOOD COUNT W/ 2020-11-26 05:32:00 Pia Doll MD DIFFERENTIAL COMPREHENSIVE METABOLIC PANEL 2020-11-26 05:32:00 Jefry Doll MD MAGNESIUM LEVEL 2020-11-26 05:32:00 Pia Doll MD Harley ranjith PHOSPHORUS LEVEL 2020-11-26 05:32:00 Pia Doll MD Kurnal rson Results CBC 2020-11-26 05:32:00 [facility] 2020-11-26 05:32:00 Pia Doll MD nderson GLUCOSE LEVEL 2020-11-26 05:32:00 [facility] BLOOD UREA NITROGEN 2020-11-26 05:32:00 Pia Doll MD nderson ELECTROLYTE PANEL 2020-11-26 05:32:00 Pia Doll MD And [facility] SERUM CREATININE 2020-11-26 05:32:00 Pia Doll MD Krunal rson .GLOMERULAR FILTRATION RATE 2020-11-26 05:32:00 Renae Doll MD CALCIUM LEVEL TOTAL 2020-11-26 05:32:00 Pia Doll MD nderson ALBUMIN LEVEL 2020-11-26 05:32:00 Pia Doll MD [facility] ALKALINE PHOSPHATASE 2020-11-26 05:32:00 Pia Doll MD ALANINE AMINOTRANSFERASE 2020-11-26 05:32:00 Pia Doll MD ASPARTATE AMINOTRANSFERASE 2020-11-26 05:32:00 Pia Doll MD TOTAL PROTEIN 2020-11-26 05:32:00 Pia Doll MD [facility] FRACTIONATED BILIRUBIN 2020-11-26 05:32:00 Pia Doll COMPLETE BLOOD COUNT W/ 2020-11-25 12:33:00 ThopbrycelJustine MD DIFFERENTIAL COMPREHENSIVE METABOLIC PANEL 2020-11-25 12:33:00 ThopJustine ellsworth MD MAGNESIUM LEVEL 2020-11-25 12:33:00 ThopJustine ellsworth MD PHOSPHORUS LEVEL 2020-11-25 12:33:00 ThopJustine [facility] 2020-11-25 12:33:00 Thoppil, Justine Osei MANUAL DIFFERENTIAL 2020-11-25 12:33:00 Thoppil, Justine Jones MD Krunal rson GLUCOSE LEVEL 2020-11-25 12:33:00 ThoppilJustine MD BLOOD UREA NITROGEN 2020-11-25 12:33:00 Thoppil, Justine Jones MD Krunal rson ELECTROLYTE PANEL 2020-11-25 12:33:00 Thoppil, Justine Jones MD Chalino on SERUM CREATININE 2020-11-25 12:33:00 Thoppil, Justine Jones MD Anderso n .GLOMERULAR FILTRATION RATE 2020-11-25 12:33:00 Thoppil, Justine Osei CALCIUM LEVEL TOTAL 2020-11-25 12:33:00 Thoppil, Justine Jones MD Krunal rson ALBUMIN LEVEL 2020-11-25 12:33:00 Thoppil, Justine Osei ALKALINE PHOSPHATASE 2020-11-25 12:33:00 Thoppil, Justine Jones MD And erson ALANINE AMINOTRANSFERASE 2020-11-25 12:33:00 Thoppil, Justine Osei ASPARTATE AMINOTRANSFERASE 2020-11-25 12:33:00 Thoppil, Justine Osei TOTAL PROTEIN 2020-11-25 12:33:00 Thoppil, Justine Osei FRACTIONATED BILIRUBIN 2020-11-25 12:33:00 Thoppil, Justine Catherine nderson MRI BRAIN W WO CONTRAST 2020-11-25 [...] erson PHOSPHORUS LEVEL 2020-11-24 14:13:00 Justyn Olsen MDson Results CBC 2020-11-24 14:13:00 Юлия Han MD MANUAL DIFFERENTIAL 2020-11-24 14:13:00 Юлия Han MD [facility] GLUCOSE LEVEL 2020-11-24 14:13:00 Юлия Han MD BLOOD UREA NITROGEN 2020-11-24 14:13:00 Юлия Han MD [facility] ELECTROLYTE PANEL 2020-11-24 14:13:00 Юлия Han MD [facility] SERUM CREATININE 2020-11-24 14:13:00 Юлия Han MD .GLOMERULAR FILTRATION RATE 2020-11-24 14:13:00 Юлия Han MD CALCIUM LEVEL TOTAL 2020-11-24 14:13:00 Юлия Han MD [facility] ALBUMIN LEVEL 2020-11-24 14:13:00 Юлия Han MD ALKALINE PHOSPHATASE 2020-11-24 14:13:00 Юлия Han MD Krunal rs ALANINE AMINOTRANSFERASE 2020-11-24 14:13:00 Юлия Han MD ASPARTATE AMINOTRANSFERASE 2020-11-24 14:13:00 Юлия Han TOTAL PROTEIN 2020-11-24 14:13:00 Юлия Han MD FRACTIONATED BILIRUBIN 2020-11-24 14:13:00 Юлия Han MD 2019-NCOV COVID-19 2020-11-15 15:27:00 Ofelia Dodd MD OSI FEMUR 2020-11-04 16:36:00 George Mason MD OSI INTERVENTIONAL 2020-11-02 16:35:00 George Mason MD [facility] OSI US BREAST 2020-10-31 16:37:00 George Mason MD OSI MAMMO BILATERAL 2020-10-31 16:36:00 George Mason MD PATHOLOGY OUTSIDE 2020-10-31 00:00:00 MD Neal Rivas INTERPRETATION [place] [facility] CHEST ABDOMEN PELVIS 2020-10-30 16:35:00 George Mason MD OSI FEMUR 2020-10-29 22:17:00 George Mason MD OSI HIP 2020-10-29 22:16:00 Miguel AGeorge wilks MD OSI MAMMO BILATERAL 2020-10-26 22:18:00 George Mason MD OSI US BREAST 2020-10-26 16:35:00 George Mason MD Encounters Start End Encounter Admission Attending Care Care Encounter Source Date/Time Date/Time Type Type Clinicians Facility Department ID 2020-12-14 Outpatient SYSTEM, MDA LUCINA [id number] 09:08:58 PROVIDER Chalino gore 2020-11-23 Outpatient MDA LUCINA [id number] 15:33:25 Neal gore 2020-11-09 Outpatient SYSTEM, MDA LUCINA [id number] 15:38:19 PROVIDER Chalino gore 2020-12-21 2020-12-21 Emergency [facility], [facility] [id number] 16:00:00 16:48:00 [facility] [id number] [facility] [id number] [facility] [id number] [address] ([facility]) 2020-12-21 2020-12-21 Outpatient EL ABOUHARB, MDA MDA [id number] 13:55:05 15:34:33 GEORGE gore 2020-12-21 2020-12-21 Outpatient EL ABOUHARB, MDA MDA [id number] 12:47:00 13:53:05 GEORGE gore 2020-12-21 2020-12-21 Outpatient EL ABOUHARB, MDA MDA [id number] 12:00:35 12:39:38 GEORGE gore 2020-12-07 2020-12-07 Outpatient EL ABOUHARB, MDA MDA [id number] 09:15:00 23:59:00 GEORGE Vanegasers o n 2020-12-07 2020-12-07 Outpatient EL WON, MDA MDA [id number] 08:04:31 09:14:00 ISIDORO Krunal rso n 2020-12-07 2020-12-07 Outpatient EL WON, MDA MDA [id number] 08:00:00 08:03:00 ISIDORO Krunal rso n 2020-11-30 2020-11-30 Outpatient EL ABOUHARB, MDA MDA [id number] 15:20:51 17:28:01 GEORGE Vanegasers o sofía 2020-11-30 2020-11-30 Outpatient EL ABOUHARB, MDA MDA [id number] 14:05:47 15:12:04 GEORGE Vanegasers o sofía 2020-11-30 2020-11-30 Outpatient EL ABOUHARB, MDA MDA [id number] 13:05:56 13:55:00 GEORGE Vanegasers o sofía 2020-11-30 2020-11-30 Outpatient EL ABOUHARB, MDA MDA [id number] 13:04:21 13:04:21 GEORGE Allred o sofía 2020-11-30 2020-11-30 Orders Doctor PARSONS [id number] 00:00:00 00:00:00 Only Unassigned, KATHLEEN [id number] [place] [facility] [id number] 2020-11-29 2020-11-29 Outpatient EL ABOUHARB, MDA MDA [id number] 14:40:25 17:37:42 GEORGE Vanegasers o sfoía 2020-11-29 2020-11-29 Outpatient EL ABOUHARB, MDA MDA [id number] 09:54:45 09:54:45 EGORGE Vanegasers o sofía 2020-11-24 2020-11-28 Inpatient ER SHANTAL, MDA Med Breast [id number] 08:40:00 17:13:00 GABRIELLA gore 2020-11-27 2020-11-27 Inpatient EL DODD, MDA MDA [id number] 13:27:40 14:01:08 OFELIA gore 2020-11-27 2020-11-27 Inpatient EL ABOARB, MDA MDA [id number] 10:51:56 10:52:00 GEORGE gore 2020-11-26 2020-11-26 Inpatient EL VESNA, MDA MDA [id number] 22:10:48 22:26:19 MARGOGaylaRULA underwood R n 2020-11-24 2020-11-24 Outpatient KWAKU, MDA MDA [id number] 13:48:32 15:01:50 BEATA gore 2020-11-23 2020-11-23 Outpatient MIGUEL AARB, MDA MDA [id number] 13:43:16 17:07:13 GEORGE gore 2020-11-23 2020-11-23 [facility] MDA [id number] 15:09:37 16:35:32 GEORGE gore 2020-11-23 2020-11-23 Outpatient [address]UEL [facility], MDA MDA [id number] 15:10:43 15:10:43 GEORGE gore 2020-11-20 2020-11-20 Outpatient [facility], MDA MDA [id number] 06:00:00 23:59:00 GEORGE gore 2020-11-20 2020-11-20 [facility] [id number] 00:00:00 00:00:00 [facility] [id number] [place] [id number] [facility] [id number] nal [address] 2020-11-16 2020-11-16 Outpatient [facility], MDA MDA [id number] 08:49:34 10:32:19 OFELIA gore 2020-11-16 2020-11-16 Outpatient [facility], MDA MDA [id number] 07:59:46 09:39:56 OFELIA gore 2020-11-16 2020-11-16 Outpatient ABOARB, MDA MDA [id number] 07:55:28 08:28:52 GEORGE Chalino o n 2020-11-15 2020-11-15 Outpatient EL ABOUHARB, MDA MDA [id number] 09:59:18 10:28:17 GEORGE Chalino o n 2020-11-14 2020-11-14 Orders Doctor JAQUELINE [id number] 00:00:00 00:00:00 Only Unassigned, KATHLEEN [id number] [facility] [id number] 2020-11-10 2020-11-10 Outpatient EL ABOUHARB, MDA MDA [id number] 17:14:57 17:14:57 GEORGE Vanegasers o n 2020-11-10 2020-11-10 Outpatient EL ABOUHARB, MDA MDA [id number] 11:12:04 11:12:04 GEORGE Vanegasers o n 2020-11-10 2020-11-10 Outpatient EL ABOUHARB, MDA MDA [id number] 11:11:06 11:11:06 GEORGE Chalino o n 2020-11-10 2020-11-10 Outpatient EL ABOUHARB, MDA MDA [id number] 11:10:25 11:10:25 GEORGE Vanegasers o n 2020-11-10 2020-11-10 Outpatient EL ABOUHARB, MDA MDA [id number] 11:09:41 11:09:41 GEORGE Vanegasers o sofía 2020-11-10 2020-11-10 Outpatient EL ABOUHARB, MDA MDA [id number] 11:09:07 11:09:07 GEORGE Chalino o sofía 2020-11-10 2020-11-10 Outpatient EL ABOUHARB, MDA MDA [id number] 11:08:45 11:08:45 GEORGE Vanegasers o sofía 2020-11-10 2020-11-10 Outpatient EL ABOUHARB, MDA MDA [id number] 11:07:07 11:07:07 GEORGE Chalino o n 2020-11-10 2020-11-10 Outpatient EL ABOUHARB, MDA MDA [id number] 11:04:03 11:04:03 GEORGE wallis n 2020-11-02 2020-11-02 Surgery [facility] [id number] 13:05:00 15:27:00 SPECIALTY [id number] CARE [id number] CENTER AT [id number] MARGARITA Crook [facility] 2019-07-26 2019-07-26 [facility] [id number] [facility] 14:00:00 14:00:00 [facility] ent [facility] 2019-07-26 2019-07-26 [facility] [id number] [facility] 10:51:00 10:51:00 [facility] ent [facility] 2019-02-12 2019-02-12 [facility] [id number] [facility] 10:40:00 10:40:00 [facility] ent [facility] 2018-07-29 2018-07-29 [facility] [id number] [facility] 13:15:00 13:15:00 [facility] ent [facility] 2018-05-08 2018-05-08 [facility] [id number] 14:34:00 14:34:00 [facility] Results Test Description Test Time Test Comments Results Result Comments Source FSH 2020-12-07 15:59:51 Test Item Value Reference Range Interpretation Comme nts FSH (test code = 5571) 5.0 mIU/mL Femal e Follicle Stimulating Hormone Reference Ranges: LOW HIGHFollicular 3.5 12.5Ovulation 4.7 21.5Luteal 1.7 7.7Postmenopause 25.8 134.8 MD OseiQiqvrydgRF3920-73-44 15:59:50 Test Item Value Reference Range Interpretation Comments LH (test code = 3.1 mIU/mL Female Lutei nizing Hormone 6126) Reference Range s: LOW HIGHFollicular 2.4 12.6O vulation 14.0 95.6Luteal 1.0 11.4Postmenopau se 7.7 58.5 MD OseiPgftxyydLslnsuteu6908-21-01 15:59:49 Test Item Value Reference Range Interpretation Comments Estradiol (test code = <11 pg/mL Refer ence Ranges: Adult 5524) Females:Follicu lar Phase 12.0 - 233.0 pg/mLOvulation Phase 41.0 - 398.0 pg /mLLuteal Phase 22.0 - 341.0 pg/mLPostmenopa usal <138.0 pg/mL A dult Males: 11 - 43 pg/mLBoys (1-10 years): <20.0 pg/mLGir l (1-10 years): <27 .0 pg/mL Patients treate d with Fulvestrant wendy l show falsely increas e in estradiol sailaja ntrations due to cross-re action. For further informa tion or assistance, ple ase contact pathologist. MD OseiPhosphorus Eflbr9917-06-62 15:47:23 Test Item Value Reference Range Interpretation Comments Phosphorus (test code = 6817) 5.1 mg/dL 2.5-4.5 H Lab Interpretation (test code = Abnormal 85132-7) MD OseiMagnesium Oqyyi0451-39-35 15:47:20 Test Item Value Reference Range Interpretation Comments Magnesium (test code = 6359) 2.4 mg/dL 1.6-2.6 MD OseiZjrtynkmRliuyblijelglv7973-54-79 13:04:31This procedure requires no interpretation from the radiologist.MD OseiMRI CERVICAL THORACIC LUMBAR SPINE W WO [id number] 03:45:40Metastatic disease throughout the skull base cervical thoracic [...] was performed without and with intravenous contrast. Fi ndings: Cervical spine: Multiple metastatic lesions throughout the skull base cervical spine almost diffuse with both the T2 and postcontrast T1 enhancement as well as some signal voids consistent withdiffuse metastatic disease. Degenerative changes with effacement of [...] study October 30, 2020.Lumbosacral spine: Multicentric metastatic lesions throughout the lumbosacral spine both luis consistent with diffuse metastatic disease. Vertebral body alignment is stable. Marrow signal is heterogenous consistent with diffuse metastatic disease.. No significant spinal canal stenosis is present. There is no cord signal abnormality or cord compression. No epidural or leptomeningeal disease.IMPRESSION:Metastatic disease throughout [...] T8 unchanged from prior study October 30, 2020.MD OseiMattie Brain with and without Litsbafk8470-98-94 03:20:09No acute intracranial lesions. Enhancement of the [...] visualized intra-axial metastasis. Interface, Radiology Results In - 11/24/2020 10:22 PM CDT FULL RESULT:Ex amination: MRI BRAIN W WO CONTRAST on 11/24/2020 9:54 PMClinical History: Invasive ductal carcinoma the breast.Indication: Right-sided facial droop.Comparison: NoneTechnique: Multiplanar pre and post [...] extension, although there is underlying bilateral dural enha ncement. There is no visualized leptomeningeal or sulcal [...] Osei OCT, Retina - OU - Both [id number] 19:25:39Right EyeQuality was good. Scan locations included subfoveal. This is the baseline exam. Findings include normal foveal contour. Left EyeQuality was good. Scan locations included subfoveal. This is the baseline exam. Findings include normal foveal contour.MD Osei Fundus Photos - OU - Both [id number] 19:23:17Right EyeBasline Exam. The vitreous is clear. [...] or SRF.MD OseiInfluenza A/B + COVID-19 Asymptomatic- [id number] 14:56:39 Test Item Value Reference Range Interpretation Comments COVID19 Not Detected Not Detected (SARS-CoV-2) (test code = 25596-3) Influenza A (test Not Detected Not Detected code = 16624-7) Influenza B (test Not Detected Not Detected code = 37727-2) COVID19 SARS Inpatient Indication (test Admission code = 21276) Inf AB+Cov19 See Note The rodney SARS- CoV-2 Comment (test & Influenza A/ B code = 98607) nucleic acid t est for use on the bebeto s Mamta System is a mul tiplex real-time RT-PC R assay intended for the [...] sheet for patie nts provided by the distribution center administrator ([employer]) can be rev iewed at: https://www.fda .gov/ edia/081712/josias nloadA fact sheet for Health Care providers is provided by the distribution center administrator ([employer]) and can be reviewed at: https://www.fda .gov/m edia/823138/josias nload Influenza A and Influenza B neg ative results should be considered presumptive in samples that gu ve a positive SARS-C oV-2 result. If co-infection wi th influenza A or influenza B vir us is suspected in sa mples with a positive SARS-CoV-2 resu lts, the sample shou ld be re-tested with another approve d influenza test. This assay has been authorized by [facility] for use only un israel Emergency Use Authorization ( EUA) in laboratories that have been CLIA-certified to perform moderate-comple xity and high-comple xity tests. [facility], CLIA Accreditation #[id number] and CAP Accreditation #[id number], verif ied the performance characteristics of this assay. Int ernal controls are us ed to monitor all sta ges of the test khanh OseiPathology Outside Tjxzrioqxxkxbg1624-33-46 15:53:36 Test Item Value Reference Range Interpretation Comments Materials Received (test s7manWEnLKEkrXDeQeTl code = 9973) EHHaMVQhl9fqNUFguSDl ZzEwMzNcZnRuYmpcdWMx AQTeCcKhc0tnn376dBIi e4mfCLHjUvA2dHBoLGEh nWNrN692YAUrXIevn8bh a7OjVVKsoNZcf0F2EGVV sirjgDg6kUyrY95gx2G6 LqbtC1kwEIDdPXIuF3Gy GE4zUTQhMxr4ODR0ATC2 AVClGDUlU4TeNX8kKBBl kEKpBWn8s8tjlUdsQKCh OHI4p2riDUboqlVqIR1i jj1neQj4h9gqzdCqWNVe UCQmrZLHHLAhX6GifXiy Ag7dhRg2bTmuJshwXXN8 Gap6IY4fuf60qcu7gZaz HWQeqsnjVxA3WKnmQUDq coopBVg9FDjsIGZbhZuo MFxtYXJncjcyMFxtYXJn pJA1MFHmkKCtS9WfWOLg ADkbDXHpkqe2AfLaAn6p xFYoxZbzICuig2fus7of nJQsFrr7HQXiDcLtUsgo WJpxz4Pof8peCQIxva6c HSW0oMRloWjmd6N1lELs ZGWetZRdhqVkNUJupu66 jVLyiMQqpIBdap2kuqFd rDLauZYpDWC9cFAtfpPq OMVvwYFpVDKzGC6vmGRv GAZoyL6ommiiDUKmKqRx mwhuHYRvpTipqrZeKx3e tHfuATM7DYfcT7jzaY9d JfE8MZvtE1ttsR0sWKc6 OKnirBV6YWFdgY8aZH3o ykbje9fnDdVxQI2mtolf m2zpPfHlHB3dmhp1y5jc TGU1QUuuZQZiKbN9nqS0 NDBcaGVhZGVyeTcyMFxm x908ZDX6ArFxGOWeh3Qq D4FchQxaQ65krRemL52m XAPtvTjalY0eaZpzhA5r PgMlEjIbWHg3yx38GMh0 hzsvyKetNHx1snDmFICa EFI6TIJtdSXeWSGtM5k8 poXtLSDlJVH0CBXleYKd SOCpQ9m2cuXjFCJ7TKx7 cnBhZGRmdDNcdHJwYWRk YjBcdHJwYWRkZmIzXHRy wHGpmMEmoRNchS5ciPcm WJUchARwiQ1eHLI1GHWk cmgzMjBcdHJoZHJcbHRy hu96UAKgfuEgkDUezKre kLNcOTT3ISTsMBBxJFNj VTJ0EAYmDhZmeqErMLci bGJyZHJiXGJyZHJzXGJy JGX7EOPnUpEdzuOdIZxx bGJyZHJsXGJyZHJzXGJy KBA9SWKiGoYiwiAsKJwv bGJyZHJyXGJyZHJzXGJy EKC8DNYqEfXywnVoQQae bHBhZHQxMFxjbHBhZGZ0 I7hmhZEnFYHqHYxuiNQx FMYpI7stxGIzZSddFHNk cGFkZmwzXGNscGFkYjBc J0cvIQAjSqFmT6NktLn2 MDAwXGNsdmVydGFsdFxj aDJzOWJ7FBFdKJYbXHLy HEC7HEPwBxDdqjZbEAii bGJyZHJiXGJyZHJzXGJy QQE6NAUzNtRtcnBmECor bGJyZHJsXGJyZHJzXGJy JLS4QKPqXoDdxeZbSEem bGJyZHJyXGJyZHJzXGJy PRA6OTExZjJcrhCfEJkh bHBhZHQxMFxjbHBhZGZ0 C9aguOHxAIQfZXgwrSHy LSNhY1nraJVuMNekEJBw cGFkZmwzXGNscGFkYjBc V7czZMEdJdGsZ9VedZh4 NjAwXGNsdmVydGFsdFxj sLOqWEH8YBJaGDNwJJBe TOI5GOFtLuNjcmDaILmy bGJyZHJiXGJyZHJzXGJy ELW2FGLhElAiecNsXSbm bGJyZHJsXGJyZHJzXGJy CKV2LVAzFbGyicCdKLyi bGJyZHJyXGJyZHJzXGJy QYA2PRGmMjRlmdCgYOxo bHBhZHQxMFxjbHBhZGZ0 I9oguKPfXGTdKGhgxPVp YVXzV9ugbGZjDRflZDYl cGFkZmwzXGNscGFkYjBc Y0bdUKWvJjPiK9SlsFg4 YlClVCMsleFbiR55Efmb l9XtLCBjPWA2CYzrMDnl bFxwbGFpblxmMVxmczIw RTlwzcnmXIYbZVzcZ8jj RoWjWKIfbZcbVFmiu4Qu XGYxXGNmMlxmczIwXGIg VBYlLRVksX7iKzchW1Na dM8pGCjnNitkZ6mjYGGi d6LbkZ8pIFnthQZngvsf MVxmczIwXGxhbmcxMDMz NWfzN3brEgGjVIDuvCcz VOhdh1RzASSwHGScTvxt toXfFXd6gxEpWOKzxWpk eHHxNOrbivFqnOmfx0Fs ozJgvCbxVSXhEWl5zuWm dlocqJi4kVZvjTqfQMAp sJkpgH2kRlYtJpUePBte bGFpblxmMVxmczIwXGxh eydxIUAkIOisC7xhQnFt BKQqoLsrWXpyt1JnFOBd AQQqTfgsbgGfJVVjM52j bGVjdGVkXHBsYWluXGYx XGZzMjBcbGFuZzEwMzNc aGljaFxmMVxkYmNoXGYx VFbwL0svTeQqM7TwMWYp XpIcuIKaK8owM3IqeCtf YXJkXGludGJsXHNzcGFy VEU8iKNvmzPqwWZfcKMv GJPxJObgNVD3mAMpyivd pTRpbsiqPQkdzlW6IHEl YWluXGYxXGZzMjBcbGFu ZzEwMzNcaGljaFxmMVxk UuJqOVTmWGmtZ1fxVeQy E9YyBCDrZvTfSdOYLTQf aXZlZFxwbGFpblxmMVxm czIwXGxhbmcxMDMzXGhp Q7gqPhDtWGOfoIoeOTbv x9OpAYCcBLApGsyylsIt CTz8ptMcKYVayTikwS26 Rimzte07TRNrn7yxGTTb M7PktXAlGYRxzWCjWUbr MDhcdHJwYWRkZmwzXHRy cGFkZHIxMDhcdHJwYWRk ZnIzXHRycGFkZHQwXHRy qSXaLOL0P1q1hdCyTITr ROw3fiIpAEBsJxQjuRKs IKD9NUq0ApyocfT9sGZj H3r5SizsuqJxGKdggZTp dv47SLJwdhHcxAIvhFjq dYUwJTP8FZJcYCCaNSPb TLW3HVHbKuUptqAzWYnh bGJyZHJiXGJyZHJzXGJy UGN4NYPyBhRiioLlHDwn bGJyZHJsXGJyZHJzXGJy DFI7XIDxSkMhhiHgIPxe bGJyZHJyXGJyZHJzXGJy RMC1FXGwLoSxinRuPRsb bHBhZHQxMFxjbHBhZGZ0 O2rceZGyMZRlVAzfuJTp RFCpZ8qqeKYgEEjuXFBw cGFkZmwzXGNscGFkYjBc H1eaZXYqSuMoO9EbhNa0 MDAwXGNsdmVydGFsdFxj oLGzRXE9PTJpXNSvJZIv ZKK0AUSrAgXecvNkPPla bGJyZHJiXGJyZHJzXGJy LKV9AWTcJaOnaeAcGOmg bGJyZHJsXGJyZHJzXGJy IAJ1BIUsUsFtktCrHUsu bGJyZHJyXGJyZHJzXGJy WAB4GUSmCeMogkIgBHgt bHBhZHQxMFxjbHBhZGZ0 Y4vltXJqPEUxUTcaxMKu FCWwV6okkTAjXLiaXLWy cGFkZmwzXGNscGFkYjBc S8ccKMEjSlBfN3XeiEn6 NjAwXGNsdmVydGFsdFxj vTFhBIU0MCVmQQNxUJQi NLR5QHKlDaDpkrZnKOgz bGJyZHJiXGJyZHJzXGJy HTB3JOGmUzJzwuPjFQyj bGJyZHJsXGJyZHJzXGJy ZDL1GDXeUiKfijGuQPer bGJyZHJyXGJyZHJzXGJy PGH4JOWeQhQkzmKjMCfk bHBhZHQxMFxjbHBhZGZ0 Z2eofCOxMWUzILezfXLz FXWjO8hugWZkESubFJMk cGFkZmwzXGNscGFkYjBc J4odDQBaKyVfL8VnrTx2 QxHdSRTcmjGhxF58Smlu p4KdVSBaXLZ4MFvuVUxu bFxwbGFpblxmMFxmczI0 XHBsYWluXGYxXGZzMjBc bGFuZzEwMzNcaGljaFxm AVkyUaYzKHOuXOedW4go GkGkV3SeOKRvQcXuGL9n EdWjDSOhHOx4KITsTgWQ PbmbXOKGIW1TC9RmSHGk VVNTXHBhciBCLiBTMjEt FTLxHQKjLZX4XZNQHRNm QRIEB4NNXmvaBMPZM9Iy sHzykY8aRrPuMoYtMNxf WE3dDDWyL4sdxTHuAMKd EYDlN7anWcIkcP4ciWgw MVxjZjJcZnMyMFxsdHJj xYxsSVriTJWqmmCgjX25 Aiitw3NuVXBzEDL0PJhj MFxxbFxwbGFpblxmMFxm mzR9AXRzWAhfVKXlCALw MjBcbGFuZzEwMzNcaGlj aFxmMVxkYmNoXGYxXGxv G1fkMmSmJ7HbKPQhTaQm Ji7kGS9rDJAkMNIlshP3 LzEvMjAyMVxwbGFpblxm MVxmczIwXGxhbmcxMDMz IBayY5hlEkTrWYSjaUbj WZhos6McDPEpCVNmFuig wjCeCKz2muEsYGXzgUkf dGTuJBtonrGxrUhfe1Bv cmFhdXgwXHMwXHFsXHBs YWluXGYwXGZzMjRccGxh vB9lJoFgYfOaSJlsXD2z MJDrY7dqaCAzDCFcWDHu N3cbXpJusX9qmTdfQFrf TiTdCcEhNKU4ZtQ6JxLy MjFccGFyIDcvMTUvMjAy MVxwbGFpblxmMVxmczIw CIylowhjGVVvUTzwT1df SuJvHXNfiJuwRHymq2Rg XGYxXGNmMlxmczIwXGx0 nnOyHNYkuMaodF13Xykx qc58GAWsobNsf1BjVKEq OQU2CLamUWrpvRbbrFCn diesEWbhkwK0XBScHWay XGYxXGZzMjBcbGFuZzEw MzNcaGljaFxmMVxkYmNo WVYdQBjpD9ksInGtZkAj MFxwYXJ9 Diagnosis (test code = p8hoeEXmBELpiYD4IITw 34) DLTqq0ovv4WvyNVoqMLh LCyfiNQvykNbat91iCC3 pA22RN9eBTGuFjP3SUPd mvC2Dpi5DORtPNUltHYe U238p5pte7jvtdBxxZF9 GNCrESDkP1VmMP9jQFWq xPClF17cvYRxRNF8UUJu SMQjeUKhLUBlPSZ7FVJm vUKsZ5lkTHIjYI6oauja HWzmZWsuAKNhyNQ2VFHo sMSfL6YcERQtIUhbKNXw lnl9KnOmTq1wyCCryNbs MFxwYXJkXHBsYWluXGZz QuZcI7RoDW21xSJjUBGl CVXpPE3yVIV9AtqjLNWy G7VyZBBhJrzWC9jCJDTp REIUPhojU97xiUIeoDAn YR8nGNCgEfmrWoQuOJx2 XHBhclxjZjBccGFyXGxp NzIwXGxpbjcyMCBCcmVh k3ZjYKwxXgZpKYtxCcNx HeMwKWD9UP1yh3FfIGbv PQEpMVWuLB2jaYSaTCZt QTEtNSwgQTItNSwgQTMt RDeuLIxQMZp0PJrukDLo XHBhclxsaTIxNjBcZmkt AtZsSInmpjZaHmOuE4Aw KGtKMsCEFXMJYQFIO3XU SDNQZAJGTE4GYOGfNeKZ FFHZRDIHZRQQB7gZG0rU RTpCPAKJZRMlJS7KNBuN MAJGJSAWSNTYO5RlDaDL TEVBUiBHUkFERSAyIChJ OgPLTc8ECUjCJEEmC1WT SSBxQhHuL5RZBQWZUC9D TlQgIzEpXHBhclxwYXJk AMszGrM4AXsqeF34EiHw fHzaGoG0PHcnEjFgeFXp NMvlQnTaSNUxNNkwjN40 DgHnMiVfBAM8AJAasBvf dCwgcmlnaHQgYnJlYXN0 XL4jj4PiCYigMRQlFOFw HY6kjOHyRVEpUkLcDJfa QjItNSwgQjMtNSwgSUhD EPc2LPymuPWrGQOvvele oMM7FIZaxMvbHRI1EZkx RaLxWO7UDMQJDbFtLXDD OQFTLLVXWdHTSa2XHPGL EwLDL5XaVWfJG8LIZK9C LMFkR8YZDBRaHcbvNJ5C FDBLFKJoYglBW9jyZsOL VUNMRUFSIEdSQURFIDIg XFjBJYXSEAUYWLQELX4R OzKSWKyzSYhOUVBvF31S TUVOVCAjMSlccGFyXGxp WXwhdX1xCQCoINqrBECo F2QvYE23fIIqTEQlSRFg PO7gXDSzSaxrKOCgW1Fr YZWrGayAS8nAUXWjSFLK HxtcM60cpEYwcLTiZR1m HMceZM9zWYXxVQncdNGs MMOnFNkbHVCdcDq2JqXg bGluNzIwIEJvbmUsIGlu sLNyvYPbhXppPSV6RBYh ND9ldtcnPtFjxCQlbAzg rEFaWV11njBvEUOhYbnr KDReVHudOVKbFEb8PNFy clxwYXJcbGkyMTYwXGZp SUcxLIfhoF8hMXFmVGWM A1GWXUTWQGBZVGTBLbXT IRICHESOIGRRKM8LBQSi QUZjC5TLLUCQXL9HMlQx IzIpXHBhclxwYXJcbGk3 MjBcZmkwXGxpbjcyMCBC w73qUSRnmzTzQN4cWDGn jWNbwDBcPLGrqJ4hNIAe c52blmymnQZpGhGjtYPu KEIxLTIsIEIyLTEsIEIz BAFvFBP1XRGwRNnSUeO7 Wxq2NBVewlbzPQNqvSen HREtMQrvsoL0VFPzVX1Y UkxZIERJRkZFUkVOVElB YDEWTHRRMuOPUd3ICZ6z LGoCRKRlX44AUYHXIZPs MilccGFyXHBhcmRccGFy MSjKXj8ATQYmrIKbwK== Comment (test code = l7wqdIQaRJInjHZ2JCPx 9807) CLUcj5dki5PfvBRarJDl NGwkbETzdhTstn90uOE6 iD60ME6cABStJcA9PNIw rwO0Mch1VMQgPSGcaLFc V275n7fuw8hoftZkoES9 gNbmKFJypuwtCmQ3ATge RSFylenwZIa2YHrqLIRi lZX8HSKbfNOuK8WcYGUv GY1rphu4DBH6EHlrGYDi BkE0UGGmoPItBYNhiKrw JNhqp611ZTO0UeMrZTCo yaMzoBtbzG4xIoWbPMFd AXllS39dq1QyeOf9cKFq QL61vOMdNZSuk7swNYQq LWIgt83dJx42zQYxJSZ4 IGFuZCByaWdodCBicmVh p1MqpHNlw7GnRekvwVZt ZXMsIGludmFzaXZlIGNh ecLuua8qLQSibgTol4Vh bWn9XJTyn3MjOLC7jf7d CQ8aacVwZQV2k7AvETi7 UVgtNdgbbD50TY6otQO7 VMhpwW8epHKvuhQkNp8i KSMbm2puo9Acjs8qQGYx ZWNlcHRvciAoOTUlLCAz KyBpbnRlbnNpdHkpLCBh enLqksXkCINawqCmLd0x FFnIYrYkz3VcpyM1oFJk a7Fnt77hEFXvPA7pB0q0 LeLgsl8pgRCnrcI3aFXd XEwhJSP0TXkqDPGxMV6m BCfgRTYzT3PozNl5gJBy FPeacFYrk8ono7TrN6zn qYzyQUips3PujH4pVOAs ciBFLWNhZGhlcmluIHNo y6jcgDXbUyBteeMbj2Cx pL6vqxlohB6fbYOag5Sw M6IdrBAsHHL8iXItbzNt eikxOWKynxXfDPzyC04r d5tpGqepAMZefYZjSFIi VyAEzGWhqOF5KSZzkV0u qF3niCvotX0bpWGwdEGq yZIzpJYjcUBoPZKhs4uc aHRdi1DjZ2NtmQPfXRDn KNFcj2n6qUUcCCVgbaXP FXEzANFxCSI5tY0oNKTq oGtrjaszY1l5FUBHPYOR MywgRVIsIGFuZCBQUiwg PJ0bLX1zQ8K7hGBeWXDq ciBDSzIwIGFuZCBIRVIy AdVTmYBlh9QpwdCbrLJm cRQ6d0dzG2maZJYwdiLj tgpkOGFel20kTXiaiUqv iXeyYYWnaB2tL6LrLHxl n5NncfkmRF6vMVWprW5s nFKiSEvorHMui2qnr9Hk I4xzbHxxIFkoa6BebF6x FXStNHTfu29alWT1BB41 TAretTqwbRS6LIN4RJWp OeKfTWRftD3duJShTWXn YLGttIQvyhvyGOB6Bvha YXJccGFyfQ== Biomarker Block(s) (test x2kxqFBkDJGydFJ8RHXw code = 9841) MQOsy3qjs2TrfHPvhPKf ZJfpeAFzyjAvgs62bWK7 hE49PP5hYXEdGkM2CUQj coZ3Ams2IUYcNFIhkRQr B283c7fbo6uapzYgiJQ1 MLNpWTAxW9OzUD0jSAJz vBExM54seJZjXBA0TZDa AXQjtPXkOOZqQYG1DLHr pZObL1ueHQKpOY4qmzdi OBlqLMiqWPTfyNR2GLQb vZLrY6TnKGCkORcbHMVh yhg9HgRuKb6crTMmgBjh MFxwYXJkXHBsYWluXGZz MjAgVDogXGNmMSBTMjEt MTEwOTcsIEIxLTVccGFy WZ52JM9bDKlhVUA1 Disclaimer (test code = r3pxgDGnCEMgpDHqIpQz 9844) XOYdEKClr1qeYYCcyWTo ZzEwMzNcZnRuYmpcdWMx WMYnEpFll9hdr698hDUi p5mrKNSiUqC6bITyKXMb jUKlQ360MQBdMGpql3sq d3SrWRFvdSUee5H0ULOR jyqkiFf5bCxiV99pw4B5 FfxrP8ftTWJnZTTbK5Jh CF4bMCZtCkz8SMV7SYQ6 XBIpYWRqK8MrLL1hJGZn vXUwAOh5f4uxeMiyYUXo BCV6c6unAIdmqoIbKG3k es6cuQe5t8asewAsVQIy UFGdjLFFNBHzQ8DcaTrp By4reSi0rAuyTsriZRV6 Gaj1RU0sve53xxn7pOmy CQMgiukiXmZ1OAgzQPIs fguxXBm2OSvjVLLfpLZ3 NBMjhXWcI5VmBBJrFY1h obq8UAC3LJurFBEiHoN7 NDBcaGVhZGVyeTcyMFxm s818YBO9OsCrSX0eY6Mf p7L2lL3snXNaLLIbgQXq DeRcDEIhtf7usIQsEXpu y5JcPAV2kpM5lPBjxBNa YNUnUZ96Fctom0LxRqqk MEM1FCWdfuAko6Yvq1ap TaPkgdZlL4nuH5FqVTZg DOWrBEFgKxRzceYen3Zh y2MavSQluWm1h3xrAIQx HOVwrSeml7fzBJQ9STAl T8B5fLOsn4vuYSmvOWRb hYQ7siT2GSIxxIBsS7Ec mR3xPUFbAT2neem9w9cy AVM5MPcaDFFkSoV2xwV1 NDBcaGVhZGVyeTcyMFxm e449FOM8CvVkSHNjr5Tv U1YiiNycR74zsZigK13j AXFisLxbxQ5hsMryqT8l ZjBcZnMyNFxxbFxwbGFp wmghXAofyoW3NMctjvzg JGTeGTsvG5sfSqAwOBWj wIuaFEmxa4IpQSNqWIGo GoveafT0KXDAw97qYXXg l5OoWRJwcN9ajHLbVRwe bdPmqGL6UVxxbaCkAaWs lmGaNLChnU1mCXPnSV7p ROFncdVlbc4ftgTkTWEv QOBcU4LaxxlvvIdezdNq AKMhrb4xusXtPNZ9VQMA ZI2QAPSxUKBlo11vFKMv sWwhtD2piHRpcqRdMPQd e7TneC6lbZRJTFPfY6wa AW6oMEkag9LfzYAvyULa gMO5OZXvm3FpJkInsaQd nKMhvBCrV3KsqTehF7rg AGFgQVQapaVtuYGts5Zj IZYmwKZ8lXZaEW7QOnYB s97cKRQeVDUCewEhUCSt fEwzcAT2fmI7pT9bXeIM ZiBhcHBsaWNhYmxlLCBj p293yc4domL2UOEmRBXc sjnal0LrYQRvUPNssW89 OHNlLVFrta0vnwvrfIJq jrGhB7Fjccb8kR2tAMRk YWluXGYxXGZzMjJcbGFu ZzEwMzNcaGljaFxmMVxk YwArSBGlNJihB5nvSyVw ZnMyMlxwYXJ9 MD OseiMD COVID-19 (CINDI-CoV-2) PCR [id number] 11:39:53 Test Item Value Reference Interpretation Comments Range COVID19 SARS Pre-Radiation Therapy Indication (test code = 77185) COVID19 SARS Result Not Detected Not Detected (test code = 74516-2) COVID19 SARS SARS-CoV-2 NOT Detected. Interpretation (test Reference Range: Not code = 62199) Detected Methodology: The Ramírez RealTime SARS-CoV-2 assay is a qualitative real-time reverse director dermatology polymerase chain reaction (outpatient admitting clerk-PCR) test to detect RNA from SARS-CoV-2 in nasal, nasopharyngeal and oropharyngeal swabs from patients with signs and symptoms of infection who are suspected of COVID-19 by their health care provider. The Ramírez RealTime SARS-CoV-2 performed on the HelloSign000 System is a dual target assay with [...] CLIA-certified, high-complexity Molecular Diagnostics Laboratory (MDL) at [facility] under the Food and Drug Administration (FDA) s Emergency Use Authorization. Factsheet for patients: https://www.[facility].org/ AbbottFactSheetPatientsFact sheet for healthcare providers: https://www.[facility].org/ AbbottFactSheetHCP Test performed by:[facility] Molecular Diagnostic [id number] [place] [address] MD Brown [id number] 22:17:06Study acquired at another institution. For comparison only. No [place] originated interpretationrequested or available. MD Brown [id number] 16:37:22Study acquired at another institution. For comparison only. No MD Osei originated interpretation requested or available.MD Brown [id number] 16:36:55Study acquired at another institution. For comparison only. No MD Osei originated interpretationrequested or available.MD Brown [id number] 16:36:34 Study acquired at another institution. For comparison only. No MD Osei originated interpretationrequested or available.MD Brown Interventional 2020-11-10 16:36:14Study acquired at another institution. For comparison only. No MD Osei originated interpretationrequested or available.MD Brown CT CHEST ABDOMEN [id number] 16:35:52Study acquired at another institution. For comparison only. No MD Osei originated interpretationrequested or available.MD Osei
[2020-12-25 00:29] LABS: Absolute Lymphocytes (CBC) 0.8 K/uL (0.7-4.9); Basophils % 1.3 % (0-1.3); Lymphocytes % 27.8 % (15.3-44.8); MPV 7.5 fL (7.6-11.3); RBC Red Blood Cell Count 3.54 M/uL (3.86-4.86)
[2020-12-25 01:50] LABS: Blood Morphology Comment NOTED (NOT SEEN); Platelet Estimate ADEQ; Polychromasia 1+
--- NOTE | 2020-12-25 02:44 | ER ---
Nurse's Notes [facility] Name: Joyce Amezcua Age: 45 yrs Sex: Female : 1975 Arrival Date: 12/24/2020 Time: 22:29 Bed 24 Private MD: Diagnosis: Chest pain, unspecified;Nausea with vomiting, unspecified;Hypocalcemia;Dehydration Presentation: 12/24 23:38 Chief complaint: Patient states: paralysis in fingers, tingling on left sided of head, kg chest pain x 1 day, nausea, vomiting x 2 days. Pt started chemo PO 11 days ago. Coronavirus screen: Client denies travel out of the [place] in the last 14 days. At this time, unable to obtain information related to travel outside the [place] Client presents with at least one sign or symptom that may indicate coronavirus-19. Standard/surgical mask placed on the client. Provider contacted for isolation considerations. Ebola Screen: Patient negative for fever greater than or equal to 101.5 degrees Fahrenheit, and additional compatible Ebola Virus Disease symptoms Patient denies exposure to infectious person. Patient denies travel to an Ebola-affected area in the 21 days before illness onset. Initial Sepsis Screen: Does the patient meet any 2 criteria? No. Patient's initial sepsis screen is negative. Does the patient have a suspected source of infection? No. Patient's initial sepsis screen is negative. Risk Assessment: Do you want to hurt yourself or someone else? Patient reports no desire to harm self or others. Onset of symptoms was December 22, 2020. 23:38 Method Of Arrival: Wheelchair kg 23:38 Acuity: JOHNIE 3 kg Triage Assessment: 23:43 General: Appears uncomfortable, emaciated, Behavior is restless. Pain: Complains of kg pain in chest Pain radiates to back Pain currently is 10 out of 10 on a pain scale. at worst was 10 out of 10 on a pain scale. level that patient reports is acceptable is 4 out of 10 on a pain scale. Cardiovascular: Reports chest pain. HOSPITAL NURSE: 23:43 LMP N/A - Hysterectomy kg Historical: - Allergies: 23:43 No Known Allergies; kg - Home Meds: 23:43 Ibrance oral once daily [Active]; kg 23:47 morphine 15 mg Oral TR12 1 tab every 12 hours [Active]; Zofran 4 mg Oral tab 1 tab 4 kg times per day [Active]; Eliquis 2.5 mg oral tab 1 tab 2 times per day [Active]; - PMHx: 23:43 breast cancer; kg 23:47 Pulmonary Embolism; kg - PSHx: 23:43 femur fracture repair-R side; Total abdominal hysterectomy; kg - Immunization history:: Adult Immunizations Client reports having NOT received the Covid vaccine. - Social history:: Smoking status: Patient reports the use of cigarette tobacco products, smokes one-half pack cigarettes per day. Screenin:45 Abuse screen: Denies threats or abuse. Denies injuries from another. Nutritional kg screening: No deficits noted. Tuberculosis screening: No symptoms or risk factors identified. Fall Risk None identified. Assessment: 23:45 Pain: Pain began 2-3 days ago. kg Vital Signs: 23:38 BP 93 / 62; Pulse 82; Resp 20; Temp 98.4(O); Pulse Ox 99% on R/A; Weight 58.97 kg (R); kg Height 5 ft. 7 in. (170.18 cm); Pain 10/10; 23:38 Body Mass Index 20.36 (58.97 kg, 170.18 cm) kg ED Course: 22:29 Patient arrived in ED. bp1 22:29 Librado Amezcua (father)[phone]. mw2 23:43 Triage completed. kg 23:43 Arm band placed on. kg 23:45 Patient has correct armband on for positive identification. kg 23:45 Patient maintains SpO2 saturation greater than 95% on room air. kg 12/25 01:51 Eliseo Logan MD is Attending Physician. 7 02:02 Enedina Scott, RN is Primary Nurse. lp1 02:30 No provider procedures requiring assistance completed. Inserted saline lock: 20 gauge em in left antecubital area, using aseptic technique. 02:42 Lakesha Mcintosh MD is Hospitalizing Provider. 7 07:38 Primary Nurse role handed off by Enedina Scott, CORETTA bd 07:50 Patient admitted, IV remains in place. em 12/26 18:24 Dalia Lau, RN is Primary Nurse. ap3 Administered Medications: 12/25 02:30 Drug: NS 0.9% 1000 ml Route: IV; Rate: 1000 ml; Site: left antecubital; em 02:47 Drug: Pepcid (famotidine) 20 mg Route: IVP; Site: left antecubital; em 02:47 Drug: Phenergan (promethazine) 12.5 mg Route: IVP; Site: left antecubital; em 02:49 Drug: morphine 4 mg Route: IVP; Site: left antecubital; em 02:50 Drug: Calcium Gluconate 2 grams Route: IVPB; Infused Over: 60 mins; Site: left em antecubital; Outcome: 02:43 Decision to Hospitalize by Provider. [facility] 07:50 Admitted to ER Hold. Please see [facility] for further documentation. em 07:50 Condition: stable 07:50 Instructed on the need for admit, Demonstrated understanding of instructions. 12/26 18:24 Patient left the ED. ap3 Signatures: Latia Velazquez Edgar, RN CORETTA Enedina Scott RN RN lp1 Dalia Lau RN RN ap3 Brandon Rios [facility] Beatriz Adam Maurice, MD MD 7 Ashwini Narvaez RN RN kg
--- NOTE | 2020-12-25 02:44 | EDPHYS ---
Physician Documentation [facility] Name: Joyce Amezcua Age: 45 yrs Sex: Female : 1975 Arrival Date: 12/24/2020 Time: 22:29 Bed 24 Private MD: ED Physician Eliseo Lgoan HPI: 12/25 02:10 This 45 yrs old Female presents to ER via Wheelchair with complaints of Chest mh7 Pain, Decreased Appetite. 02:10 The patient or guardian reports chest pain that is located primarily in the substernal mh7 area. 02:38 Onset: 2 day(s) ago. The pain does not radiate. Associated signs and symptoms: mh7 Pertinent positives: nausea, vomiting, Pertinent negatives: abdominal pain, cough, diaphoresis, dizziness, headache, lower extremity pain, lower extremity swelling, lightheadedness, near syncope, palpitations, recent travel, shortness of breath, syncope. The chest pain is described as sharp. Duration: The patient or guardian reports multiple episodes, that are intermittent, that wax and wane, with no pattern. Modifying factors: The symptoms are alleviated by nothing. the symptoms are aggravated by nothing. Severity of pain: At its worst the pain was moderate yesterday, in the emergency department the pain is unchanged. 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 - Social history:: Smoking status: Patient reports the use of cigarette tobacco products, smokes one-half pack cigarettes per day. ROS: 12/25 02:10 Constitutional: Negative for fever, chills, and weight loss, Eyes: Negative for injury, mh7 pain, redness, and discharge, ENT: Negative for injury, pain, and discharge, Neck: Negative for injury, pain, and swelling, Respiratory: Negative for shortness of breath, cough, wheezing, and pleuritic chest pain. 02:10 Back: Negative for injury and pain, : Negative for injury, bleeding, discharge, and mh7 swelling, MS/Extremity: Negative for injury and deformity, Skin: Negative for injury, rash, and discoloration, Neuro: Negative for headache, weakness, numbness, tingling, and seizure, Psych: Negative for depression, anxiety, suicide ideation, homicidal ideation, and hallucinations, Allergy/Immunology: Negative for hives, rash, and allergies, Endocrine: Negative for neck swelling, polydipsia, polyuria, polyphagia, and marked weight changes, Hematologic/Lymphatic: Negative for swollen nodes, abnormal bleeding, and unusual bruising. 02:10 Abdomen/GI: Negative for abdominal pain, diarrhea, constipation, abdominal cramps, abdominal distension, anorexia, dysphagia, hematemesis, black/tarry stool, rectal pain, rectal bleeding, bowel incontinence, flatulence. Exam: 02:10 Head/Face: Normocephalic, atraumatic. Eyes: Pupils equal round and reactive to light, 7 extra-ocular motions intact. Lids and lashes normal. Conjunctiva and sclera are non-icteric and not injected. Cornea within normal limits. Periorbital areas with no swelling, redness, or edema. Neck: Trachea midline, no thyromegaly or masses palpated, and no cervical lymphadenopathy. Supple, full range of motion without nuchal rigidity, or vertebral point tenderness. No Meningismus. Chest/axilla: Normal chest wall appearance and motion. Nontender with no deformity. No lesions are appreciated. Cardiovascular: Regular rate and rhythm with a normal S1 and S2. No gallops, murmurs, or rubs. Normal PMI, no JVD. No pulse deficits. Respiratory: Lungs have equal breath sounds bilaterally, clear to auscultation and percussion. No rales, rhonchi or wheezes noted. No increased work of breathing, no retractions or nasal flaring. Abdomen/GI: Soft, non-tender, with normal bowel sounds. No distension or tympany. No guarding or rebound. No evidence of tenderness throughout. Back: No spinal tenderness. No costovertebral tenderness. Full range of motion. Skin: Warm, dry with normal turgor. Normal color with no rashes, no lesions, and no evidence of cellulitis. MS/ Extremity: Pulses equal, no cyanosis. Neurovascular intact. Full, normal range of motion. Neuro: Awake and alert, GCS 15, oriented to person, place, time, and situation. Cranial nerves II-XII grossly intact. Motor strength 5/5 in all extremities. Sensory grossly intact. Cerebellar exam normal. Normal gait. Psych: Awake, alert, with orientation to person, place and time. Behavior, mood, and affect are within normal limits. 02:10 Constitutional: The patient appears in no acute distress, alert, awake, frail. Vital Signs: 12/24 23:38 BP 93 / 62; Pulse 82; Resp 20; Temp 98.4(O); Pulse Ox 99% on R/A; Weight 58.97 kg (R); kg Height 5 ft. 7 in. (170.18 cm); Pain 10/10; 23:38 Body Mass Index 20.36 (58.97 kg, 170.18 cm) kg MDM: 12/25 02:10 Differential diagnosis: abnormal EKG, acute myocardial infarction, acute pericarditis, 7 anxiety, coronary artery disease chest wall pain, congestive heart failure costochondritis, myocarditis, pneumonia, pneumothorax, pulmonary embolus. HEART Score: History: Slightly Suspicious (0), ECG: Non specific repolarization disturbance / LBTB / PM (1), Age: > 45 and < 65 years (1), Risk Factors: No Risk Factors Known (0), Troponin: < or = 1 x Normal Limit (0), Total Score = 2. Data reviewed: vital signs, nurses notes, old medical records, lab test result(s), cardiac enzymes, CBC, electrolytes, urinalysis, EKG, radiologic studies, CT scan. Data interpreted: Pulse oximetry: on room air is 99 %. Interpretation: normal. Counseling: I had a detailed discussion with the patient and/or guardian regarding: the historical points, exam findings, and any diagnostic results supporting the discharge/admit diagnosis, lab results, radiology results, the need for further work-up and treatment in the hospital. 02:43 Patient medically screened. 7 12/24 23:46 Order name: Basic Metabolic Panel kg 12/24 23:46 Order name: CBC with Diff kg 12/24 23:46 Order name: LFT's; Complete Time: 01:52 kg 12/24 23:46 Order name: Magnesium; Complete Time: 01:52 kg 12/24 23:46 Order name: NT PRO-BNP; Complete Time: 01:52 kg 12/24 23:46 Order name: PT-INR; Complete Time: 01:52 kg 12/24 23:46 Order name: Troponin (emerg Dept Use Only); Complete Time: 01:52 kg 12/24 23:46 Order name: Basic Metabolic Panel; Complete Time: 01:52 EDMS 12/24 23:46 Order name: CBC with Automated Diff; Complete Time: 01:52 EDMS 12/25 01:51 Order name: Manual Differential; Complete Time: 01:52 EDMS 12/25 02:22 Order name: Pth,Intact em 12/25 02:22 Order name: Phosphorus em 12/25 03:21 Order name: Phosphorus EDMS 12/25 03:52 Order name: CORONAVIRUS EDMS 12/25 04:05 Order name: PTH Intact EDMS 12/25 04:05 Order name: Vitamin D, 25 ([place]), TOTAL EDMS 12/25 04:46 Order name: T4 Free EDMS 12/25 04:46 Order name: Thyroid Stimulating Hormone EDMS 12/25 05:37 Order name: SARS-COV-2 RT PCR EDMS 12/25 06:23 Order name: CREATININE WHOLE BLOOD EDMS 12/25 08:20 Order name: Comprehensive Metabolic Panel EDMS 12/25 18:47 Order name: Basic Metabolic Panel EDMS 12/25 18:47 Order name: Magnesium EDMS 12/26 05:04 Order name: CBC with Automated Diff EDMS 12/26 05:22 Order name: Comprehensive Metabolic Panel EDMS 12/26 05:22 Order name: Phosphorus EDMS 12/26 05:22 Order name: NT PRO-BNP EDMS 12/26 05:22 Order name: C-Reactive Protein EDMS 12/24 23:46 Order name: EKG; Complete Time: 23:47 kg 12/24 23:46 Order name: Cardiac monitoring; Complete Time: 02:04 kg 12/24 23:46 Order name: EKG - Nurse/Tech; Complete Time: 02:31 kg 12/24 23:46 Order name: IV Saline Lock; Complete Time: 02:04 kg 12/24 23:46 Order name: Labs collected and sent; Complete Time: 02:04 kg 12/24 23:46 Order name: O2 Per Protocol; Complete Time: 02:04 kg 12/24 23:46 Order name: O2 Sat Monitoring; Complete Time: 02:04 kg 12/24 23:49 Order name: CT Chest For PE Angio kg 12/25 22:41 Order name: CT EDMS 12/26 05:22 Order name: Magnesium EDMS Administered Medications: 02:30 Drug: NS 0.9% 1000 ml Route: IV; Rate: 1000 ml; Site: left antecubital; em 02:47 Drug: Pepcid (famotidine) 20 mg Route: IVP; Site: left antecubital; em 02:47 Drug: Phenergan (promethazine) 12.5 mg Route: IVP; Site: left antecubital; em 02:49 Drug: morphine 4 mg Route: IVP; Site: left antecubital; em 02:50 Drug: Calcium Gluconate 2 grams Route: IVPB; Infused Over: 60 mins; Site: left em antecubital; Disposition Summary: 12/25/20 02:43 Hospitalization Ordered Hospitalization Status: Inpatient Admission [facility] Provider: Lakesha Mcintosh Condition: Stable [facility] Problem: new [facility] Symptoms: have improved [facility] Bed/Room Type: Standard [facility] Location: Telemetry/MedSurg (Inpatient)(12/26/20 17:45) bd Room Assignment: [facility](12/26/20 17:45) bd Diagnosis - Chest pain, unspecified 7 - Nausea with vomiting, unspecified 7 - Hypocalcemia [facility] - Dehydration [facility] Forms: - Medication Reconciliation Form [facility] - SBAR form [facility] Signatures: Dispatcher [employer] EDLatia Lynn Edgar RN Silvia Bhakta RN RN Eliseo Logan MD MD [facility] Ashwini Narvaez RN RN kg Corrections: (The following items were deleted from the chart) 12/24 23:49 23:47 Chest Single View+RAD.RAD.BRZ ordered. EDMS EDMS 12/25 03:51 02:43 Telemetry/MedSurg (Inpatient) mh7 cg 03:51 02:43 mh7 cg 12/26 17:45 12/25 03:51 [facility] ER HOLD cg bd 12/26 03:51 ERHOLD- cg bd
--- NOTE | 2020-12-25 02:49 | P.HP ---
Certification for Inpatient Patient admitted to: Inpatient With expected LOS: >2 Midnights Patient will require the following post-hospital care: None Practitioner: I am a practitioner with admitting privileges, knowledge of patient current condition, hospital course, and medical plan of care. Services: Services provided to patient in accordance with Admission requirements found in Title 42 Section 412.3 of the Code of Federal Regulations <Gabriel Jenkins - Last Filed: 12/25/20 02:43> Patient History Date of Service: 12/25/20 Reason for admission: Hypocalcemia, dehydration, hypokalemia History of Present Illness: 45-year female with history of stage IV metastatic breast cancer with mets to the bones presents emergency department for paresthesias, nausea, vomiting, dehydration. Patient was evaluated in the emergency department, labs were significant for white blood cell count 2.9 hemoglobin 9.6 medical 34.0 platelets 195 potassium 3.0 BUN 5 calcium 5.8 with corrected calcium for albumin of 6.3, AST 117 ALT 108 alk phos 721 BNP 169, ionized calcium, phosphorus, PTH, vitamin D levels pending. Patient not tolerate anything by mouth the last week, will admit for further evaluation and management. - Past Medical/Surgical History Diabetic: No -: Stage IV breast cancer -: Right hip surgery -: Hysterectomy Psychosocial/ Personal History: Lives with significant other currently unemployed - Family History Father -: Cancer Mother -: Cancer - Social History Smoking Status: Never smoker Alcohol use: No CD- Drugs: No Caffeine use: Yes Place of Residence: Home <Gabriel Jenkins - Last Filed: 12/25/20 02:43> Date of Service: 12/25/20 <Lakesha Mcintosh - Last Filed: 12/28/20 06:38> Allergies No Known Drug Allergies Allergy (Verified 12/03/20 08:46) Unknown No Known Allergies Allergy (Uncoded 05/13/18 13:56) Unknown Home Medications: Apixaban [Eliquis] 5 mg PO BID #1 tab.ds.pk 12/03/20 Morphine *Extended Release* [MS Contin*] 1 tab PO PRN PRN 12/03/20 Letrozole [Femara*] 1 tab PO DAILY 12/27/20 Palbociclib [Ibrance] 1 tab PO DAILY 12/27/20 Review of Systems 10-point ROS is otherwise unremarkable General: Other (Generalized pain, paresthesias) Gastrointestinal: Nausea, Vomiting <Gabriel Jenkins - Last Filed: 12/25/20 02:43> Physical Examination - Physical Exam General: Alert, In no apparent distress, Oriented x3 HEENT: Atraumatic, PERRLA, Other (Mucous membranes dry), EOMI, Sclerae nonicteric Neck: Supple, 2+ carotid pulse no bruit, No LAD, Without JVD or thyroid abnormality Respiratory: Clear to auscultation bilaterally, Normal air movement Cardiovascular: Regular rate/rhythm, Normal S1 S2 Gastrointestinal: Normal bowel sounds, No tenderness Musculoskeletal: No tenderness Integumentary: No rashes Neurological: Normal speech, Normal strength at 5/5 x4 extr, Normal tone, Normal affect Lymphatics: Axilla lymphadenopathy - Studies Laboratory Data (last 24 hrs) 12/24/20 23:55: WBC 2.90 L, Hgb 11.6 L, Hct 34.0 L, Plt Count 195 12/24/20 00:00: PT 16.2 H, INR 1.40 12/24/20 00:00: Sodium 138, Potassium 3.0 L, BUN 5 L, Creatinine 0.65, Glucose 92, Magnesium 2.1, Total Bilirubin 0.9, AST 117 H, ALT 108 H, Alkaline Phosphatase 721 H <Gabriel Jenkins - Last Filed: 12/25/20 02:43> Assessment and Plan - Plan Assessment: Hypocalcemia: Intractable nausea and vomiting, dehydration Stage IV breast cancer with bony mets: Recent history of pulmonary embolism on chronic anticoagulation therapy: Plan: Hypocalcemia: Patient given 2 g of calcium gluconate in the emergency department, additional labs ordered including PTH, ionized calcium, vitamin D levels. Nephrology consulted for additional assistance in management of severe hypercalcemia. Corrected calcium 6.4. Will repeat with morning labs. Intractable nausea and vomiting, dehydration: N.p.o. aside from ice chips and sips of water, continue with Protonix twice daily, as needed Zofran/Phenergan, advance diet as tolerated. Stage IV breast cancer with bony mets: Patient on oral chemotherapy with Ibrance. Reports terminal diagnosis from oncologist. Recent history of pulmonary embolism on chronic anticoagulation therapy: CT PE protocol with stable scattered small pulmonary embolisms continue Eliquis. Monitor on telemetry. 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 Review of Systems 10-point ROS is otherwise unremarkable Physical Examination - Vital Signs Reviewed - Physical Exam General: Alert, In no apparent distress, Oriented x3 Respiratory: Clear to auscultation bilaterally, Normal air movement Cardiovascular: Regular rate/rhythm, Normal S1 S2, No murmurs Gastrointestinal: Normal bowel sounds, Soft and benign, Non-distended, No tenderness Musculoskeletal: No clubbing, No swelling, No tenderness Neurological: Sensation intact, Cranial nerves 3-12 intact Assessment & Plan - Problems (Diagnosis) (1) Hypocalcemia Current Visit: Yes Status: Acute (2) Anemia Current Visit: Yes Status: Acute (3) 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 Patient with hypercalcemia with elevated PTH; most likely related to vitamin- D deficiency. Will continue with supplementation 2. Monitor electrolytes closely 3. Continue monitoring CBC 4. Potassium supplementation 5. Pain control 6. Anti emetics 7. GI and DVT prophylaxis <Lakesha Mcintosh - Last Filed: 12/28/20 06:38>
[2020-12-25] MEDS ORDERED: MORPHINE 4 MG/ML SYR ONE ×2 (02:58→03:08)
[2020-12-25] MEDS ORDERED: PROMETHAZINE INJ 25 MG/ML AMP ONE (02:58)
[2020-12-25] MEDS ORDERED: FAMOTIDINE 20 MG/2 ML VIAL IV ONE (02:58)
[2020-12-25] MEDS ORDERED: CALCIUM GLUCONATE 1 GM IVPB 0 GM/0 ML BAG IV ONE (02:59)
[2020-12-25] MEDS ORDERED: NA CHLORIDE 0.9% 1,000 ML ONE ×2 (02:59→05:07)
[2020-12-25] MEDS ORDERED: CALCIUM GLUCONATE 1 GM IVPB 2 GM/100 ML BAG IV ONE (03:06)
[2020-12-25 03:21] LABS: Phosphorus 1.8 mg/dL (2.5-4.9)
[2020-12-25] MEDS ORDERED: SODIUM CHLORIDE 0.9% 10ML INJ IV PRN (03:33)
[2020-12-25] MEDS ORDERED: ACETAMINOPHEN 500 MG TAB PO PRN (03:33)
[2020-12-25] MEDS: NA CHLORIDE 0.9% 1,000 ML IV SCH ×3 (03:33→23:33)
[2020-12-25 04:46] LABS: Thyroid Stimulating Hormone 0.25 uIU/mL (0.360-3.740)
[2020-12-25] MEDS: MORPHINE 2 MG/ML SYR IV PRN ×4 (04:49→20:17)
[2020-12-25] MEDS ORDERED: MORPHINE 2 MG/ML SYR ONE ×4 (05:11→20:32)
[2020-12-25 07:51] VITALS: BMI 19.3
[2020-12-25 08:13] LABS: ALT/SGPT 100 U/L (12-78); AST/SGOT 110 U/L (15-37); Albumin 2.7 g/dL (3.4-5.0); Alkaline Phosphatase 584 U/L (45-117); BUN Blood Urea Nitrogen 5 mg/dL (7-18); Bicarbonate 27 mmol/L (21-32); Bilirubin Total 0.8 mg/dL (0.2-1.0); Glucose Level 82 mg/dL (74-106); Protein, Total 5.6 g/dL (6.4-8.2); Sodium Level 141 mmol/L (136-145)
[2020-12-25 08:20] LABS: Potassium 2.8 mmol/L (3.5-5.1)
[2020-12-25] MEDS: APIXABAN 5 MG TABLET PO SCH ×2 (09:41→21:00)
[2020-12-25] MEDS: KCL 20 MEQ/100 mL IVPB 20 MEQ/100 ML BAG IV SCH ×3 (09:41→14:17)
[2020-12-25] MEDS: PANTOPRAZOLE 40 MG INJ IVP SCH ×2 (09:42→21:00)
[2020-12-25] MEDS ORDERED: APIXABAN 5 MG TABLET ONE ×2 (09:43→22:04)
[2020-12-25] MEDS ORDERED: PANTOPRAZOLE 40 MG INJ ONE ×2 (09:43→22:04)
[2020-12-25] MEDS ORDERED: KCL 20 MEQ/100 mL IVPB 20 MEQ/100 ML BAG IV ONE ×3 (09:43→14:28)
[2020-12-25] MEDS: ONDANSETRON 4 MG/2 ML VIAL IV PRN ×3 (10:31→20:17)
[2020-12-25] MEDS ORDERED: ONDANSETRON 4 MG/2 ML VIAL ONE ×3 (10:45→20:32)
[2020-12-25] MEDS ORDERED: CALCIUM GLUC 10% INJ 9.3 MEQ in NA CHLORIDE 0.9% 100 ML IV ONE (17:30)
[2020-12-25 18:46] LABS: BUN Blood Urea Nitrogen 4 mg/dL (7-18); Bicarbonate 21 mmol/L (21-32); Glucose Level 85 mg/dL (74-106); Magnesium 2.2 mg/dL (1.8-2.4); Potassium 3.6 mmol/L (3.5-5.1); Sodium Level 141 mmol/L (136-145)
[2020-12-25] MEDS: CALCIUM CARB 500MG/VIT D 200 IU TAB PO SCH (21:00)
--- NOTE | 2020-12-25 22:39 | RAD REPORT ---
EXAM DESCRIPTION: CT - Chest For Pe Angio - 12/25/2020 3:31 am COMPARISON: CT chest December 03, 2020 CLINICAL HISTORY: [facility] MAIN PAIN TECHNIQUE: CT images through the chest with IV contrast using the pulmonary embolus protocol. Multip lanar reformats. MIPS reformats are provided. Automated exposure control was utilized on this exami nation as a dose lowering technique. FINDINGS: Pulmonary arteries and vascular: Diagnostic quality bolus. Stable scattered filling defect s in several bilateral segmental and subsegmental pulmonary arteries and within the distal right and left main pulmonary arteries. Heart and mediastinum: Heart size is normal. No lymphadenopathy. Thyroid gland: Visualized portions are normal. Lungs: Clear. Airways: No filling defects. No bronchiectasis. Pleura: No pneumothorax. No significant pleural effusion. Subphrenic structures: Within normal limits. Musculoskeletal and soft tissues: Redemonstrated numerous sclerotic and lytic osseous metastases. IMPRESSION: 1. Stable scattered small pulmonary emboli. 2. Redemonstrated numerous sclerotic and lytic osseous metastases. Electronically signed by: Usman Myrick MD 12/25/2020 1:07 AM CDT Due to temporary technical issues with the PACS/Fluency reporting system, reports are being signed by the in house radiologist without review as a courtesy to ensure prompt reporting. The interpreting r adiologist is fully responsible for the content of the report.
[2020-12-25] MEDS ORDERED: CALCIUM CARB 500MG/VIT D 200 IU TAB PO ONE (22:41)
[2020-12-26] MEDS: MORPHINE 2 MG/ML SYR IV PRN ×5 (00:02→20:10)
[2020-12-26] MEDS: PROMETHAZINE INJ 25 MG/ML AMP IV PRN ×4 (00:11→15:44)
[2020-12-26] MEDS ORDERED: PROMETHAZINE INJ 25 MG/ML AMP ONE ×4 (00:26→16:00)
[2020-12-26] MEDS ORDERED: MORPHINE 2 MG/ML SYR ONE ×4 (00:26→16:01)
[2020-12-26] MEDS ORDERED: NA CHLORIDE 0.9% 1,000 ML ONE ×3 (00:28→12:57)
[2020-12-26 04:49] LABS: Absolute Lymphocytes (CBC) 1.1 K/uL (0.7-4.9); Basophils % 0.3 % (0-1.3); Hematocrit 28.5 % (36.0-45.0); Lymphocytes % 41.7 % (15.3-44.8); MPV 6.9 fL (7.6-11.3); RBC Red Blood Cell Count 2.95 M/uL (3.86-4.86)
[2020-12-26 05:20] LABS: ALT/SGPT 69 U/L (12-78); AST/SGOT 70 U/L (15-37); Albumin 2.4 g/dL (3.4-5.0); Alkaline Phosphatase 557 U/L (45-117); BUN Blood Urea Nitrogen 3 mg/dL (7-18); Bicarbonate 23 mmol/L (21-32); Bilirubin Total 0.6 mg/dL (0.2-1.0); Glucose Level 71 mg/dL (74-106); Magnesium 2.1 mg/dL (1.8-2.4); NT PRO-BNP 685 pg/mL (<125); Phosphorus 1.8 mg/dL (2.5-4.9); Potassium 3.3 mmol/L (3.5-5.1); Protein, Total 5.5 g/dL (6.4-8.2); Sodium Level 142 mmol/L (136-145)
[2020-12-26] MEDS: NA CHLORIDE 0.9% 1,000 ML IV SCH ×2 (08:15→20:09)
[2020-12-26] MEDS: PANTOPRAZOLE 40 MG INJ IVP SCH ×2 (08:15→20:09)
[2020-12-26] MEDS: CALCIUM CARB 500MG/VIT D 200 IU TAB PO SCH ×2 (08:15→20:10)
[2020-12-26] MEDS: APIXABAN 5 MG TABLET PO SCH ×2 (08:15→20:09)
[2020-12-26] MEDS ORDERED: APIXABAN 5 MG TABLET ONE (08:23)
[2020-12-26] MEDS ORDERED: PANTOPRAZOLE 40 MG INJ ONE (08:24)
[2020-12-26] MEDS ORDERED: CALCIUM GLUC 10% INJ 9.3 MEQ in NA CHLORIDE 0.9% 100 ML IV ONE (09:15)
[2020-12-26] MEDS ORDERED: CALCITROL 0.25 MCG CAP PO SCH ×2 (10:00→21:00)
--- NOTE | 2020-12-26 10:12 | P.PN ---
Subjective Date of Service: 12/26/20 Patient with hypocalcemia with vitamin D deficiency. Continue with supplementation. Most likely related to Ibrance; patient's calcium has improved. Continue with supplementation. Patient with significant pain and continue with chronic pain medication. Review of Systems 10-point ROS is otherwise unremarkable Physical Examination - Vital Signs Temperature: 98.6 F Blood Pressure: 106/72 Pulse: 71 Respirations: 16 Pulse Ox (%): 99 - Physical Exam General: Alert, In no apparent distress, Oriented x3 Respiratory: Clear to auscultation bilaterally, Normal air movement Cardiovascular: Regular rate/rhythm, Normal S1 S2, No murmurs Gastrointestinal: Normal bowel sounds, Soft and benign, Non-distended, No tenderness Musculoskeletal: No clubbing, No swelling, No tenderness Neurological: Sensation intact, Cranial nerves 3-12 intact - Studies Medications List Reviewed: Yes Assessment & Plan - Problems (Diagnosis) (1) Hypocalcemia Current Visit: Yes Status: Acute (2) Anemia Current Visit: Yes Status: Acute (3) 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 Patient with hypocalcemia with elevated PTH; most likely related to vitamin-D deficiency and chemotherapy. Will continue with supplementation. On [place] with vitamin-D. Continue monitoring closely. 2. Monitor electrolytes closely 3. Continue monitoring CBC 4. Potassium supplementation 5. Pain control 6. Anti emetics 7. Continue with nutritional support 8. GI and DVT prophylaxis Discharge Plan: Home Plan to discharge in: Greater than 2 days - Advance Directives Does patient have a Living Will: No Does patient have a Durable POA for Healthcare: No - Code Status/Comfort Care Code Status Assessed: Yes Code Status: Full Code Critical Care: No Time Spent Managing PTS Care (In Minutes): 35
[2020-12-26] MEDS ORDERED: POTASSIUM PHOS 30 MM in NA CHLORIDE 0.9% 500 ML IV ONE (11:00)
[2020-12-26] MEDS ORDERED: DRISDOL (VITAMIN D=ERGOCALCIFEROL) 50000 UNIT CAP PO SCH (11:00)
--- NOTE | 2020-12-26 17:13 | CON ---
Date of Consultation: 12/26/2020 Reason For Consultation: Hypocalcemia. History Of Present Illness: This is a 45-year-old female unfortunate with significant past medical h istory of breast cancer stage IV with metastasis to the bone, on chemotherapy, last chemotherapy 3 da ys ago, the patient came to the hospital with nausea and vomiting, found to have dehydrated and sever e hypocalcemia. For that reason, we have been consulted. The patient denied any kidney problem. De nied any supplement for her calcium. Past Medical History: Includes breast cancer with met. Allergies: NO KNOWN DRUG ALLERGIES. Home Medications: Include Eliquis, hydrocodone, morphine, and prednisone. Past Surgical History: Includes right hip surgery, hysterectomy. Family History: Positive for cancer. Social History: Denied smoking, denied drinking, denied drugs abuse. Review of Systems: Head and Neck: No red eye. No ear pain. GI: Has nausea. Has vomiting. : No polyuria. No dysuria. No hematuria. 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 Respiratory: No shortness of breath. Cardiovascular: No chest pain. No leg swelling. Endocrine: No polydipsia. Skin: No rash. Neuro: Generalized weakness. No focality. Has numbness. Musculoskeletal: Generalized fatigue. Physical Examination: Vital Signs: When I saw the patient; blood pressure of 109/71, pulse of 72. Chest: Clear to auscultation. Heart: S1, S2. Regular. Abdomen: Soft, nontender. Extremity: No edema. Neuro: Alert. No focality. [place] negative. Laboratory Data: WBC 2.7, H and H 9.5/28.5. Sodium 142, potassium 3.3, bicarb 23, BUN 3, creatinine 0.5, GFR above 90, calcium 6.2, phosphorus 1.8, magnesium 2.1, albumin 2.4, corrected calcium is 7.2 . PTH 340. Assessment And Plan: 1.Hypocalcemia, mostly secondary to chemo. I am going to start the patient on calcitriol and vitami n D given the low vitamin D, and we will monitor for the patient closely. We will start the patient on calcium gluconate q.8 hours and I am going to start the patient on oral calcium carbonate and we w ill follow up the patient. 2.Gastroenteritis. Continue symptomatic treatment. 3.Hypernatremia secondary to dehydration. Continue normal saline. 4.Hypokalemia, hypophosphatemia. We will supplement and we will follow up. 5.Hyperparathyroidism. Start the patient on calcitriol. Thank you, Dr. Mcintosh for allowing us to participate in the care of your patient. RAYSHAWN Voice ID: [id number] Report ID: [id number]
[2020-12-26] MEDS ORDERED: CALCIUM CARB 500MG/VIT D 200 IU TAB PO SCH (18:00)
--- NOTE | 2020-12-26 19:16 | CON ---
Date of Consultation: 12/25/2020 Chief Complaint: Acute kidney injury, electrolyte abnormalities. The patient was found to have jennifer re hypokalemia, hypocalcemia, acute kidney injury with volume depletion. 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 She presented to the emergency room for paresthesia, nause a, vomiting, and volume depletion. Calcium level was 5.8, potassium 3.0. The corrected calcium was 6.3. The patient was found to have a WBC of 2.9, hemoglobin 9.6, platelet count [id number]. The patient was started on replacement and received potassium replacement. PTH will be checked. Phosphorus, io nized calcium, vitamin D labs were obtained in the emergency room and pending. Review of Systems: General: The patient denies fever, chills. Eyes: Denies vision changes. Ears Nose and Throat: Denies sore throat earache. Respiratory: Denies PND or orthopnea. Cardiovascular: Denies chest pain, palpitation, syncope. GI: Denies nausea or vomiting. : Denies dysuria, hematuria. MUSCULOSKELETAL: She complains of some paresthesia, generalized weakness. Denies focal weakness. All other systems reviewed and all are negative. Home Medication List: Eliquis 5 mg p.o. b.i.d., hydrocodone acetaminophen 7.5/325 1 tab as needed, m orphine extended release 1 tablet p.o. p.r.n., prednisone 20 mg p.o. daily. Past Medical History: Stage IV breast cancer, right hip surgery, hysterectomy. Family History: Father had a cancer. Mother had a cancer. Physical Examination: General: Th patient is awake, alert, follows commands. Eyes: Anicteric sclerae. EOMI. Ears, Nose and Throat: Oral mucosa moist. No pallor. Neck: Supple. No bruits. Lungs: Clear to auscultation bilaterally. Heart: S1, S2. Abdomen: Soft, benign. Extremities: No edema. No clubbing. No cyanosis. Neurologic: No tremor. Normal strength 5/5 in 4 extremities. Laboratory Data: WBC 2.9, hemoglobin 11.6, hematocrit 34, platelet count 195,000. INR 1.4, PT 16.2, creatinine 0.65, BUN 5, sodium 158, potassium 3.0, magnesium 2.1. AP 721 and ALT 108. Impression And Plan: 1.The patient has multiple medical problems including history of breast cancer stage IV with bone me tastasis disease, recent history of pulmonary embolism on chronic anticoagulation. She came to the ospital because of intractable nausea, vomiting, and volume status. She was started on hydration and she received calcium replacement. The patient was given 2 g calcium gluconate in emergency room and lab work was obtained including PTH, ionized calcium, vitamin D level. Corrected calcium was 6.4. The patient has mild symptoms of hypocalcemia. The patient received IV fluids because of nausea and vomiting and intractable nausea was treated with Zofran and Phenergan as needed. The patient is feel ing better. She may advance p.o. intake. 2.Stage IV breast cancer. The patient on oral chemotherapy with Ibrance. The patient will follow u p with oncologist. 3.History of pulmonary embolism, on anticoagulation. 4.The patient has multiple medical problems. She presented with electrolyte abnormalities and hypoc alcemia, is treated with replacement. Awaiting workup for PTH and vitamin D level. Likely, the devan ent needs vitamin D replacement and calcium replacement. The patient will have intact PTH to verify diagnostic. 5.Hypokalemia. Monitor magnesium level and phosphorus level. Continue replacement with potassium supplement. Monitor lab work. 6.Volume depletion. Continue hydration. ALONDRA/MODL Voice ID: [id number] Report ID: [id number]
[2020-12-27] MEDS: MORPHINE 2 MG/ML SYR IV PRN ×6 (00:47→22:56)
[2020-12-27 05:24] LABS: Absolute Lymphocytes (CBC) 1.2 K/uL (0.7-4.9); Basophils % 1.4 % (0-1.3); Hematocrit 27.5 % (36.0-45.0); Lymphocytes % 37.3 % (15.3-44.8); RBC Red Blood Cell Count 2.83 M/uL (3.86-4.86)
[2020-12-27] MEDS: CALCIUM CARB 500MG/VIT D 200 IU TAB PO SCH ×4 (05:52→18:46)
[2020-12-27] MEDS: NA CHLORIDE 0.9% 1,000 ML IV SCH (05:56)
[2020-12-27 05:58] LABS: ALT/SGPT 49 U/L (12-78); AST/SGOT 43 U/L (15-37); Albumin 2.3 g/dL (3.4-5.0); Alkaline Phosphatase 558 U/L (45-117); BUN Blood Urea Nitrogen 1 mg/dL (7-18); Bicarbonate 20 mmol/L (21-32); Bilirubin Total 0.7 mg/dL (0.2-1.0); Glucose Level 62 mg/dL (74-106); Phosphorus 2.2 mg/dL (2.5-4.9); Potassium 3.6 mmol/L (3.5-5.1); Protein, Total 5.2 g/dL (6.4-8.2); Sodium Level 143 mmol/L (136-145)
[2020-12-27] MEDS ORDERED: D5 0.9 NS 1,000 ML IV SCH (06:31)
[2020-12-27] MEDS ORDERED: KCL 20 MEQ/100 mL IVPB 20 MEQ/100 ML BAG IV SCH (09:00)
[2020-12-27] MEDS ORDERED: POTASSIUM PHOS IN 0.9 % NACL 15 MMOL/250 ML BAG IV ONE ×2 (09:00→10:15)
[2020-12-27] MEDS: PROMETHAZINE INJ 25 MG/ML AMP IV PRN ×3 (10:12→18:46)
[2020-12-27] MEDS: DRISDOL (VITAMIN D=ERGOCALCIFEROL) 50000 UNIT CAP PO SCH (10:14)
[2020-12-27] MEDS: PANTOPRAZOLE 40 MG INJ IVP SCH ×2 (10:14→20:56)
[2020-12-27] MEDS: APIXABAN 5 MG TABLET PO SCH ×2 (10:14→20:56)
[2020-12-27] MEDS ORDERED: CALCITROL 0.25 MCG CAP PO SCH (12:00)
[2020-12-27] MEDS ORDERED: CALCIUM GLUC 10% INJ 9.3 MEQ in NA CHLORIDE 0.9% 100 ML IV ONE (13:00)
[2020-12-27] MEDS: POTASSIUM CL IV SCH ×2 (13:56)
[2020-12-27] MEDS: D5 NS IV SCH ×2 (13:56)
--- NOTE | 2020-12-27 15:29 | PN ---
Date of Progress Note: 12/27/2020 Subjective: The patient was admitted with gastroenteritis, hypercalcemia. The patient was started o n calcium supplement, calcium started being corrected. The patient was started also on calcitriol. The patient still has some nausea and vomiting. Physical Examination: Vital Signs: Blood pressure 110/74, pulse of 74. Chest: Clear to auscultation. Heart: S1, S2. Regular. Abdomen: Soft, nontender. Extremities: No edema. Neuro: Alert. No focality. No [place]. Laboratory Data: Sodium 143, potassium 3.6, bicarb 20, BUN 1, creatinine 0.4, calcium 6.5, phosphoru s 2.2, magnesium of 2, albumin 2.3, corrected calcium is 8. Hemoglobin 9.3. Current Medications: The patient on include; 1.Calcium carbonate. 2.Promethazine. 3.Eliquis. 4.Tylenol. 5.Zofran. 6.D5 normal saline. 7.Potassium phosphate. 8.Vitamin D. Assessment And Plan: 1.Hypocalcemia secondary to vitamin D deficiency/tubular injury secondary to chemotherapy. Waiting for the electrolyte. 2.Vitamin D deficiency, hyperparathyroidism. Start the patient on calcitriol and vitamin D, and we will follow up. 3.Hypokalemia, hypophosphatemia. We will supplement. 4.Hypernatremia. I am going to go ahead and change IV fluid to D5 half and we will follow up the vaibhav muhammad. NIKA/EDUARDO Voice ID: [id number] Report ID: [id number]
[2020-12-28] MEDS: CALCIUM CARB 500MG/VIT D 200 IU TAB PO SCH ×5 (00:14→18:00)
[2020-12-28] MEDS: CALCIUM GLUC 10% INJ 4.65 MEQ in NA CHLORIDE 0.9% 100 ML IV SCH ×3 (01:51→21:24)
[2020-12-28] MEDS: POTASSIUM CL IV SCH ×6 (02:36→16:12)
[2020-12-28] MEDS: D5 NS IV SCH ×6 (02:36→16:12)
[2020-12-28] MEDS: MORPHINE 2 MG/ML SYR IV PRN ×3 (03:34→14:10)
[2020-12-28 04:04] LABS: Absolute Lymphocytes (CBC) 1.2 K/uL (0.7-4.9); Basophils % 1.4 % (0-1.3); Hematocrit 29.1 % (36.0-45.0); Lymphocytes % 36.3 % (15.3-44.8); MPV 7.5 fL (7.6-11.3); RBC Red Blood Cell Count 3.01 M/uL (3.86-4.86)
[2020-12-28 04:17] LABS: ALT/SGPT 46 U/L (12-78); AST/SGOT 40 U/L (15-37); Albumin 2.4 g/dL (3.4-5.0); Alkaline Phosphatase 628 U/L (45-117); BUN Blood Urea Nitrogen 1 mg/dL (7-18); Bicarbonate 23 mmol/L (21-32); Bilirubin Total 0.7 mg/dL (0.2-1.0); Glucose Level 88 mg/dL (74-106); Magnesium 1.8 mg/dL (1.8-2.4); Potassium 4.2 mmol/L (3.5-5.1); Protein, Total 5.6 g/dL (6.4-8.2); Sodium Level 142 mmol/L (136-145)
[2020-12-28 05:05] LABS: Anisocytosis 1+; Blood Morphology Comment NOTED (NOT SEEN); Platelet Estimate ADEQ; Polychromasia 1+
--- NOTE | 2020-12-28 06:33 | P.PN ---
Subjective Date of Service: 12/28/20 Chief Complaint: Hypocalcemia, dehydration, hypokalemia Subjective: No new changes Physical Examination - Vital Signs Temperature: 97.6 F Blood Pressure: 130/72 Pulse: 65 Respirations: 16 Pulse Ox (%): 97 - Physical Exam General: Other (appears as her stated age) HEENT: Atraumatic, Normocephalic Neck: Supple, JVD not distended Respiratory: Diminished Cardiovascular: No rubs, No murmurs Gastrointestinal: No guarding Musculoskeletal: No clubbing Integumentary: No warmth Neurological: Normal tone External genitalia: Deferred Rectal: Deferred - Studies Medications List Reviewed: Yes Assessment And Plan - Plan # Hypocalcemia, non-PTH mediated, likely related to osteoblastic metastatic bone lesions She has multiple lytic bony lesions on imaging, however because of her hypocalcemia, she likely also has a good burden of osteoblastic lesions IV calcium gluconate ordered for today Increase calcitriol to 0.5 mg by mouth twice a day Give calcium carbonate every 6 hours po on empty stomach Continue vitamin D repletion Once serum calcium is normalized and stable, she would then benefit from receiving Zoledronic acid to decrease skeletal related events from her metastatic cancer # Secondary hyperparathyroidism Continue Ergocalciferol & Calcitriol # Vitamin D deficiency Continue high-dose Ergocalciferol 50,000 international units by mouth every 7 days # Pulmonary embolism On apixaban # Hypomagnesemia IV magnesium ordered for today # Hypophosphatemia Neutra-Phos ordered for today # Hypokalemia Improved Received potassium repletion Monitor/replete when necessary # Anemia Monitor H&H # Breast cancer w/ metastasis On chemotherapy, last dose received a few days prior to this hospitalization Mngt per oncology
--- NOTE | 2020-12-28 06:47 | P.PN ---
Date of Service: 12/27/20 Subjective Patient with hypocalcemia with vitamin D deficiency. Continue with supplementation. Most likely related to Ibrance; patient's calcium has improved. Continue with supplementation. Patient with significant pain and continue with chronic pain medication. Review of Systems 10-point ROS is otherwise unremarkable Physical Examination - Vital Signs Reviewed - Physical Exam General: Alert, In no apparent distress, Oriented x3 Respiratory: Clear to auscultation bilaterally, Normal air movement Cardiovascular: Regular rate/rhythm, Normal S1 S2, No murmurs Gastrointestinal: Normal bowel sounds, Soft and benign, Non-distended, No tenderness Musculoskeletal: No clubbing, No swelling, No tenderness Neurological: Sensation intact, Cranial nerves 3-12 intact Assessment & Plan - Problems (Diagnosis) (1) Hypocalcemia with vitamin D deficiency Current Visit: Yes Status: Acute (2) Anemia Current Visit: Yes Status: Acute (3) 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 Continue with plan of care with calcium supplementation. Patient's calcium has improved. Continue with Oscal with vitamin-D along with Calcium gluconate. 2. Monitor electrolytes closely 3. Continue monitoring CBC 4. Potassium supplementation 5. Pain control 6. Anti emetics 7. Continue with nutritional support 8. GI and DVT prophylaxis Discharge Plan: Home Plan to discharge in: Greater than 2 days - Advance Directives Does patient have a Living Will: No Does patient have a Durable POA for Healthcare: No - Code Status/Comfort Care Code Status Assessed: Yes Code Status: Full Code Critical Care: No Time Spent Managing PTS Care (In Minutes): 35
[2020-12-28] MEDS ORDERED: MAGNESIUM SULFATE 1 gm IVPB 1 GM/100 ML BAG IV ONE (09:00)
[2020-12-28] MEDS: POTASS/SODIUM PHOSPHATE 1 PKT POWD.PACK PO SCH ×2 (09:22→10:00)
[2020-12-28] MEDS: PROMETHAZINE INJ 25 MG/ML AMP IV PRN ×4 (09:23→22:37)
[2020-12-28] MEDS: PANTOPRAZOLE 40 MG INJ IVP SCH ×2 (09:23→21:23)
[2020-12-28] MEDS: APIXABAN 5 MG TABLET PO SCH ×2 (09:24→21:22)
[2020-12-28] MEDS ORDERED: POTASS/SODIUM PHOSPHATE 1 PKT POWD.PACK PO ONE (10:00)
[2020-12-28] MEDS: LETROZOLE 2.5 MG PO SCH (11:52)
[2020-12-28] MEDS: PALBOCICLIB 125 MG PO SCH (11:53)
[2020-12-28] MEDS: CALCITROL 0.25 MCG CAP PO SCH ×2 (12:04→21:22)
[2020-12-28] MEDS: HYDROMORPHONE HCL 1 MG/ML INJ IV PRN ×2 (18:24→22:38)
[2020-12-28] MEDS ORDERED: CALCITROL 0.25 MCG CAP PO SCH (21:00)
[2020-12-28] MEDS: ONDANSETRON 4 MG/2 ML VIAL IV PRN (21:36)
[2020-12-29] MEDS: CALCIUM CARB 500MG/VIT D 200 IU TAB PO SCH ×5 (00:53→23:40)
[2020-12-29] MEDS: D5 NS IV SCH ×6 (01:56→19:24)
[2020-12-29] MEDS: POTASSIUM CL IV SCH ×6 (01:56→19:24)
[2020-12-29] MEDS: HYDROMORPHONE HCL 1 MG/ML INJ IV PRN ×5 (03:40→22:11)
[2020-12-29] MEDS: PROMETHAZINE INJ 25 MG/ML AMP IV PRN ×3 (03:40→22:10)
[2020-12-29 06:36] LABS: Albumin 2.3 g/dL (3.4-5.0); Bicarbonate 24 mmol/L (21-32); Glucose Level 97 mg/dL (74-106); Phosphorus 2.2 mg/dL (2.5-4.9); Sodium Level 141 mmol/L (136-145)
[2020-12-29 06:45] LABS: BUN Blood Urea Nitrogen < 1 mg/dL (7-18)
--- NOTE | 2020-12-29 07:11 | P.PN ---
Subjective Date of Service: 12/29/20 Chief Complaint: Hypocalcemia, dehydration, hypokalemia Subjective: Other (she complains of having persistent nausea.) Physical Examination - Vital Signs Temperature: 98.4 F Blood Pressure: 123/52 Pulse: 83 Respirations: 18 Pulse Ox (%): 99 - Physical Exam General: In no apparent distress HEENT: Atraumatic, Normocephalic Neck: Supple, JVD not distended Respiratory: Normal air movement Cardiovascular: No rubs, No murmurs Gastrointestinal: Soft and benign, No guarding Musculoskeletal: No clubbing Neurological: Normal speech, Normal tone Urinary: Other (no bladder distention) External genitalia: Deferred Rectal: Deferred - Studies Medications List Reviewed: Yes Assessment And Plan - Plan # Hypocalcemia, non-PTH mediated, 2/2 Vit D deficiency + poor po intake +/- osteoblastic metastatic bone lesions Improved, corrected serum calcium today is normal at 9.4 She has multiple lytic bony lesions on imaging, however because of her hypocalcemia, she likely also has a good burden of osteoblastic lesions Received IV calcium gluconate continue calcitriol to 0.5 mg by mouth twice a day continue calcium carbonate every 6 hours po taken on empty stomach Continue vitamin D repletion as below Once serum calcium is normalized and stable, she would then benefit from receiving Zoledronic acid to decrease skeletal related events from her metastatic cancer # Secondary hyperparathyroidism Continue Ergocalciferol & Calcitriol # Vitamin D deficiency Continue high-dose Ergocalciferol 50,000 international units by mouth every 7 days # Pulmonary embolism On apixaban # Hypomagnesemia Improved Monitor/replete when necessary # Hypophosphatemia Neutra-Phos ordered again for today # Hypokalemia Improved Received potassium repletion Monitor/replete when necessary # Anemia Monitor H&H # Nausea, vomiting Antiemetics when necessary # Breast cancer w/ metastasis On chemotherapy, last dose received a few days prior to this hospitalization Mngt per Oncology
[2020-12-29] MEDS: ONDANSETRON 4 MG/2 ML VIAL IV PRN ×2 (07:57→18:04)
[2020-12-29] MEDS: APIXABAN 5 MG TABLET PO SCH ×2 (08:01→21:05)
[2020-12-29] MEDS: CALCITROL 0.25 MCG CAP PO SCH ×2 (08:01→21:05)
[2020-12-29] MEDS: PANTOPRAZOLE 40 MG INJ IVP SCH ×2 (08:01→21:04)
[2020-12-29] MEDS: CALCIUM GLUC 10% INJ 4.65 MEQ in NA CHLORIDE 0.9% 100 ML IV SCH ×2 (08:03→21:05)
[2020-12-29] MEDS: POTASS/SODIUM PHOSPHATE 1 PKT POWD.PACK PO SCH ×3 (08:09→11:00)
[2020-12-29] MEDS: PALBOCICLIB 125 MG PO SCH (09:00)
[2020-12-29] MEDS: LETROZOLE 2.5 MG PO SCH (09:00)
[2020-12-29 11:07] LABS: ALT/SGPT 73 U/L (12-78); AST/SGOT 98 U/L (15-37); Absolute Lymphocytes (CBC) 1.2 K/uL (0.7-4.9); Albumin 2.3 g/dL (3.4-5.0); Alkaline Phosphatase 697 U/L (45-117); Basophils % 2.6 % (0-1.3); Bicarbonate 23 mmol/L (21-32); Bilirubin Total 0.6 mg/dL (0.2-1.0); Glucose Level 96 mg/dL (74-106); Hematocrit 30.2 % (36.0-45.0); Lymphocytes % 40.4 % (15.3-44.8); MPV 7.3 fL (7.6-11.3); Protein, Total 5.5 g/dL (6.4-8.2); RBC Red Blood Cell Count 3.14 M/uL (3.86-4.86); Sodium Level 142 mmol/L (136-145)
[2020-12-29 11:09] LABS: BUN Blood Urea Nitrogen < 1 mg/dL (7-18)
[2020-12-29] MEDS ORDERED: POTASS/SODIUM PHOSPHATE 1 PKT POWD.PACK PO ONE (12:05)
[2020-12-29 15:08] LABS: Vitamin D 1,25-Dihydroxy Total 122 pg/mL (18-72); Vitamin D,1,25-OH2, D2 <8 pg/mL
[2020-12-29 23:13] LABS: UR PROTEIN 13.8 mg/dL (<11.9)
[2020-12-30] MEDS: PROMETHAZINE INJ 25 MG/ML AMP IV PRN ×5 (02:05→19:59)
[2020-12-30] MEDS: HYDROMORPHONE HCL 1 MG/ML INJ IV PRN ×5 (02:05→19:58)
[2020-12-30 04:26] LABS: Absolute Lymphocytes (CBC) 1.2 K/uL (0.7-4.9); Basophils % 2.3 % (0-1.3); Hematocrit 28.8 % (36.0-45.0); Lymphocytes % 41.3 % (15.3-44.8); MPV 7.6 fL (7.6-11.3); RBC Red Blood Cell Count 2.98 M/uL (3.86-4.86)
[2020-12-30 04:35] LABS: Albumin 2.3 g/dL (3.4-5.0); Bicarbonate 24 mmol/L (21-32); Glucose Level 93 mg/dL (74-106); Magnesium 1.9 mg/dL (1.8-2.4); Phosphorus 2.4 mg/dL (2.5-4.9); Potassium 4.2 mmol/L (3.5-5.1); Sodium Level 143 mmol/L (136-145)
[2020-12-30 04:37] LABS: BUN Blood Urea Nitrogen < 1 mg/dL (7-18)
[2020-12-30] MEDS: CALCIUM CARB 500MG/VIT D 200 IU TAB PO SCH (06:13)
[2020-12-30] MEDS: D5 NS IV SCH ×4 (09:19→22:36)
[2020-12-30] MEDS: POTASSIUM CL IV SCH ×4 (09:19→22:36)
[2020-12-30] MEDS: PANTOPRAZOLE 40 MG INJ IVP SCH ×2 (09:21→20:03)
[2020-12-30] MEDS: CALCITROL 0.25 MCG CAP PO SCH ×2 (09:22→20:03)
[2020-12-30] MEDS: APIXABAN 5 MG TABLET PO SCH ×2 (09:22→20:03)
[2020-12-30] MEDS: POTASS/SODIUM PHOSPHATE 1 PKT POWD.PACK PO SCH ×2 (09:22→11:06)
[2020-12-30] MEDS: LETROZOLE 2.5 MG PO SCH (09:23)
[2020-12-30] MEDS: PALBOCICLIB 125 MG PO SCH (09:24)
[2020-12-30] MEDS ORDERED: CALCIUM CARBONATE CHEW 500MG TAB PO PRN (10:44)
[2020-12-30] MEDS ORDERED: MAGNESIUM SULFATE 1 gm IVPB 1 GM/100 ML BAG IV ONE (12:00)
--- NOTE | 2020-12-30 14:18 | PN ---
Date of Progress Note: 12/30/2020 Subjective: The patient was admitted with acute kidney injury, hypocalcemia secondary to chemo, hypo magnesemia, and hypophosphatemia. The patient after supplement has been improved. The patient still has nausea and vomiting. Physical Examination: Vital Signs: Blood pressure 124/81, pulse of 82. Chest: Clear to auscultation. Heart: S1, S2. Regular. Abdomen: Soft. Mild tenderness. No guarding or rebound. Extremities: No edema. Neurologic: Alert. No focal . Laboratory Data: H and H 9.8/.8. Sodium 143, potassium 4.2, bicarb 24, BUN less than 1, creatinin e 0.7, calcium 7.8, phosphorus 2.4, magnesium 1.9, albumin 2.3, corrected calcium 9.5. Current Medications: The patient is on/include: 1.Promethazine. 2.Eliquis. 3.Calcium carbonate with vitamin D. 4.Eliquis. 5.Vitamin D. 6.Calcitriol. Assessment And Plan: 1.Acute kidney injury secondary to prerenal, recovered, resolved. 2.Hypocalcemia, resolved. Continue oral. I am going to change the calcium supplement to pure calci um as the patient is receiving calcitriol and ergocalciferol to avoid any vitamin D toxicity. 3.Hypomagnesemia, hypophosphatemia. We will supplement. 4.Gastroenteritis. Continue symptomatic treatment. RAYSHAWN Voice ID: [id number] Report ID: [id number]
[2020-12-31] MEDS: HYDROMORPHONE HCL 1 MG/ML INJ IV PRN ×6 (00:30→21:11)
[2020-12-31] MEDS: D5 NS IV SCH ×4 (00:30→13:19)
[2020-12-31] MEDS: PROMETHAZINE INJ 25 MG/ML AMP IV PRN ×6 (00:30→21:10)
[2020-12-31] MEDS: POTASSIUM CL IV SCH ×4 (00:30→13:19)
[2020-12-31 06:08] LABS: Albumin 2.5 g/dL (3.4-5.0); Magnesium 2.1 mg/dL (1.8-2.4); Phosphorus 2.6 mg/dL (2.5-4.9); Potassium 4.3 mmol/L (3.5-5.1)
[2020-12-31] MEDS: PANTOPRAZOLE 40 MG INJ IVP SCH ×2 (08:31→21:10)
[2020-12-31] MEDS: CALCITROL 0.25 MCG CAP PO SCH ×2 (08:31→21:12)
[2020-12-31] MEDS: APIXABAN 5 MG TABLET PO SCH ×2 (08:32→21:12)
[2020-12-31] MEDS: LETROZOLE 2.5 MG PO SCH (08:32)
[2020-12-31] MEDS: PALBOCICLIB 125 MG PO SCH (08:33)
[2020-12-31] MEDS ORDERED: HYDROCODONE/APAP 10/325 TAB PO ONE (09:00)
[2020-12-31] MEDS: ONDANSETRON 4 MG/2 ML VIAL IV PRN (11:14)
[2020-12-31] MEDS ORDERED: HYDROCORTISONE SUC 100 MG INJ IV ONE (12:48)
--- NOTE | 2020-12-31 15:13 | PN ---
Date of Progress Note: 12/30/2020 Subjective: The patient was admitted with hypocalcemia, symptomatic secondary to chemotherapy. The patient had breast cancer with metastasis. Physical Examination: Vital Signs: Blood pressure 115/74, pulse of 80. Chest: Clear to auscultation. Heart: S1, S2. Regular. Abdomen: Soft, nontender. Extremity: No edema. Neurologic: Alert. No focality. Laboratory Data: H and H 9.8/28.8. Sodium 140, potassium 4.3, bicarb 28, BUN 1, creatinine 0.7, neal cium 7.6, phosphorus 2.6, magnesium 2.1, albumin 2.5, corrected calcium is 8.8. Current Medications: The patient on include promethazine, Eliquis, calcium carbonate 1 g q.i.d., Zof ran, pantoprazole, calcitriol, and vitamin D. Assessment And Plan: 1.Hypocalcemia secondary to vitamin D deficiency, hyperparathyroidism, corrected. Continue oral sup plement. We will monitor. 2.Hypertension, controlled, optimal. 3.Acute kidney injury secondary to prerenal, resolved. 4.Hypokalemia, status post supplement, resolved. 5.Hypophosphatemia, status post supplement, resolved. 6.Breast cancer with metastasis as by primary. The patient cleared from the Renal standpoint for di leanne planning. RAYSHAWN Voice ID: [id number] Report ID: [id number]
[2020-12-31] MEDS: ENSURE CLEAR 200 ML CAN PO SCH (21:00)
--- NOTE | 2020-12-31 23:33 | P.PN ---
Date of Service: 12/28/20 Subjective Patient's calcium is improving. Patient with no new complaints. Review of Systems 10-point ROS is otherwise unremarkable Physical Examination - Vital Signs Reviewed - Physical Exam General: Alert, In no apparent distress, Oriented x3 Respiratory: Clear to auscultation bilaterally, Normal air movement Cardiovascular: Regular rate/rhythm, Normal S1 S2, No murmurs Gastrointestinal: Normal bowel sounds, Soft and benign, Non-distended, No tenderness Musculoskeletal: No clubbing, No swelling, No tenderness Neurological: Sensation intact, Cranial nerves 3-12 intact Assessment & Plan - Problems (Diagnosis) (1) Hypocalcemia with vitamin D deficiency Current Visit: Yes Status: Acute (2) Anemia Current Visit: Yes Status: Acute (3) 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 Continue with plan of care with calcium supplementation. Patient's calcium has improved. Continue with Oscal with vitamin-D along with Calcium gluconate. 2. Monitor electrolytes closely 3. Continue monitoring CBC 4. Discuss with Oncology and family regarding the seeing oral chemotherapy regimen-Ibrance 5. Pain control 6. Anti emetics 7. Continue with nutritional support 8. GI and DVT prophylaxis Discharge Plan: Home Plan to discharge in: Greater than 2 days - Advance Directives Does patient have a Living Will: No Does patient have a Durable POA for Healthcare: No - Code Status/Comfort Care Code Status Assessed: Yes Code Status: Full Code Critical Care: No Time Spent Managing PTS Care (In Minutes): 35
--- NOTE | 2020-12-31 23:35 | P.PN ---
Date of Service: 12/29/20 Subjective Patient clinical symptoms are not improving except for the calcium which is correcting. Appreciate Nephrology assistance in patient's care. Patient's sister who is medical prior of insurance defense attorney is going to have Oncology talk to us or talked to the Oncology. Review of Systems 10-point ROS is otherwise unremarkable Physical Examination - Vital Signs Reviewed - Physical Exam General: Alert, In no apparent distress, Oriented x3 Respiratory: Clear to auscultation bilaterally, Normal air movement Cardiovascular: Regular rate/rhythm, Normal S1 S2, No murmurs Gastrointestinal: Normal bowel sounds, Soft and benign, Non-distended, No tenderness Musculoskeletal: No clubbing, No swelling, No tenderness Neurological: Sensation intact, Cranial nerves 3-12 intact Assessment & Plan - Problems (Diagnosis) (1) Hypocalcemia with vitamin D deficiency Current Visit: Yes Status: Acute (2) Anemia Current Visit: Yes Status: Acute (3) 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 Continue with plan of care with calcium supplementation. Continue with Oscal with vitamin-D. 2. Monitor electrolytes closely 3. Continue monitoring labs 4. Discuss with Oncology and family regarding the seeing oral chemotherapy regimen-Ibrance 5. Pain control 6. Anti emetics 7. Continue with nutritional support 8. GI and DVT prophylaxis Discharge Plan: Home Plan to discharge in: Greater than 2 days - Advance Directives Does patient have a Living Will: No Does patient have a Durable POA for Healthcare: No - Code Status/Comfort Care Code Status Assessed: Yes Code Status: Full Code Critical Care: No Time Spent Managing PTS Care (In Minutes): 35
--- NOTE | 2020-12-31 23:39 | P.PN ---
Date of Service: 12/30/20 Subjective Patient is still having significant nausea and pain; Review of Systems 10-point ROS is otherwise unremarkable Physical Examination - Vital Signs Reviewed - Physical Exam General: Alert, In no apparent distress, Oriented x3 Respiratory: Clear to auscultation bilaterally Cardiovascular: Regular rate/rhythm, Normal S1 S2, No murmurs Gastrointestinal: Normal bowel sounds, Soft and benign, Non-distended, No tenderness Musculoskeletal: No clubbing, No swelling, No tenderness Assessment & Plan - Problems (Diagnosis) (1) Hypocalcemia with vitamin D deficiency Current Visit: Yes Status: Acute (2) Anemia Current Visit: Yes Status: Acute (3) 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 Continue with plan of care with calcium supplementation. Continue with Oscal with vitamin-D. 2. Monitor electrolytes closely 3. Continue monitoring labs 4. Discuss with Oncology and family regarding the seeing oral chemotherapy regimen-Ibrance 5. Pain control 6. Anti emetics 7. Continue with nutritional support 8. GI and DVT prophylaxis Discharge Plan: Home Plan to discharge in: Greater than 2 days - Advance Directives Does patient have a Living Will: No Does patient have a Durable POA for Healthcare: No - Code Status/Comfort Care Code Status Assessed: Yes Code Status: Full Code Critical Care: No Time Spent Managing PTS Care (In Minutes): 35
--- NOTE | 2020-12-31 23:47 | P.PN ---
Date of Service: 12/31/20 Subjective Patient is still having pain and nausea; she will stop Ibrance. She will follow- up with Oncology Friday; in AM Review of Systems 10-point ROS is otherwise unremarkable Physical Examination - Vital Signs Reviewed - Physical Exam General: Alert, In no apparent distress, Oriented x3 Respiratory: Clear to auscultation bilaterally Cardiovascular: Regular rate/rhythm, Normal S1 S2, No murmurs Gastrointestinal: Normal bowel sounds, Soft and benign, Non-distended, No tenderness Musculoskeletal: No clubbing, No swelling, Hip tenderness Assessment & Plan - Problems (Diagnosis) (1) Hypocalcemia with vitamin D deficiency Current Visit: Yes Status: Acute (2) Anemia Current Visit: Yes Status: Acute (3) 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 Continue with plan of care with calcium supplementation. Continue with Oscal with vitamin-D. 2. Monitor electrolytes closely 3. Continue monitoring labs 4. Discuss with Oncology and family regarding the seeing oral chemotherapy regimen-Ibrance 5. Pain control 6. Antiemetics 7. Continue with nutritional support 8. GI and DVT prophylaxis Discharge Plan: Home Plan to discharge in: Greater than 2 days - Advance Directives Does patient have a Living Will: No Does patient have a Durable POA for Healthcare: No - Code Status/Comfort Care Code Status Assessed: Yes Code Status: Full Code Critical Care: No Time Spent Managing PTS Care (In Minutes): 35
--- NOTE | 2020-12-31 23:51 | P.DS ---
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 Patient was evaluated in the emergency department, labs were significant for white blood cell count 2.9 hemoglobin 9.6 medical 34.0 platelets 195 potassium 3.0 BUN 5 calcium 5.8 with corrected calcium for albumin of 6.3, AST 117 ALT 108 alk phos 721 BNP 169, ionized calcium, phosphorus, PTH, vitamin D levels pending. Patient not tolerate anythi ng by mouth the last week, will admit for further evaluation and management. Vital Signs/Physical Exam: Temp Pulse Resp BP Pulse Ox 98.3 F L 80 19 147/93 H 99 General: Alert, In no apparent distress, Oriented x3 Laboratory Data at Discharge: WBC 2.80 K/uL (4.3-10.9) L 12/30/20 03:33 Hgb 9.8 g/dL (12.0-15.0) L 12/30/20 03:33 Hct 28.8 % (36.0-45.0) L 12/30/20 03:33 Plt Count 173 K/uL (152-406) 12/30/20 03:33 PT 16.2 SECONDS (9.5-12.5) H 12/24/20 00:00 INR 1.40 12/24/20 00:00 Sodium 140 mmol/L (136-145) 12/31/20 05:20 Potassium 4.3 mmol/L (3.5-5.1) 12/31/20 05:20 BUN 1 mg/dL (7-18) L 12/31/20 05:20 Creatinine 0.70 mg/dL (0.55-1.3) 12/31/20 05:20 Glucose 99 mg/dL (74-106) 12/31/20 05:20 Phosphorus 2.6 mg/dL (2.5-4.9) 12/31/20 05:20 Magnesium 2.1 mg/dL (1.8-2.4) 12/31/20 05:20 Total Bilirubin 0.6 mg/dL (0.2-1.0) 12/29/20 10:18 AST 98 U/L (15-37) H 12/29/20 10:18 ALT 73 U/L (12-78) 12/29/20 10:18 Alkaline Phosphatase 697 U/L (45-117) H 12/29/20 10:18 Home Medications: Apixaban [Eliquis] 5 mg PO BID #1 tab.ds.pk 12/03/20 Morphine *Extended Release* [MS Contin*] 1 tab PO PRN PRN 12/03/20 Letrozole [Femara*] 1 tab PO DAILY 12/27/20 Calcitrol [Rocaltrol*] 0.5 mcg PO BID #60 cap 12/31/20 Ensure Clear 200 ml PO BID #60 can 12/31/20 Promethazine Suppos [Phenergan] 25 mg MO Q12HP PRN #20 supp 12/31/20 Promethazine Tab [Phenergan] 25 mg PO Q6HP PRN #30 tab 12/31/20 Vitamin D [Drisdol*] 50,000 unit PO Q7D@0900 #5 cap 12/31/20 New Medications: Vitamin D [Drisdol*] 50,000 unit PO Q7D@0900 #5 cap Ensure Clear 200 ml PO BID #60 can Promethazine Suppos [Phenergan] 25 mg MO Q12HP PRN #20 supp PRN Reason: nausea and vomiting Promethazine Tab [Phenergan] 25 mg PO Q6HP PRN #30 tab PRN Reason: nausea and vomiting Calcitrol [Rocaltrol*] 0.5 mcg PO BID #60 cap Physician Discharge Instructions: OK TO DC IV AND DC HOME FOLLOW-UP WITH PRIMARY CARE PROVIDER IN 1-2 WEEKS FOLLOW-UP WITH Oncology on FridayJanuary 02 RETURN TO THE ER IF symptoms worsen CALL or TEXT DR. BOND AT [phone] IF ANY QUESTIONS REGARDING HOSPITAL STAY. PLEASE CALL THE FLOOR AT [phone] IF ANY MEDICATION OR NURSING QUESTIONS. Diet: Regular Activity: Fall precautions Followup: Unknown,U [Primary Care Provider] -
[2021-01-01] MEDS: PROMETHAZINE INJ 25 MG/ML AMP IV PRN ×4 (01:14→13:40)
[2021-01-01] MEDS: HYDROMORPHONE HCL 1 MG/ML INJ IV PRN ×5 (01:15→23:24)
[2021-01-01] MEDS: POTASSIUM CL IV SCH ×4 (04:17→17:59)
[2021-01-01] MEDS: D5 NS IV SCH ×4 (04:17→17:59)
[2021-01-01] MEDS: PALBOCICLIB 125 MG PO SCH (09:00)
[2021-01-01] MEDS: LETROZOLE 2.5 MG PO SCH (09:00)
[2021-01-01] MEDS: CALCITROL 0.25 MCG CAP PO SCH ×2 (09:16→21:23)
[2021-01-01] MEDS: PANTOPRAZOLE 40 MG INJ IVP SCH ×2 (09:16→21:22)
[2021-01-01] MEDS: ENSURE CLEAR 200 ML CAN PO SCH ×3 (09:17→21:00)
[2021-01-01] MEDS: APIXABAN 5 MG TABLET PO SCH ×2 (09:17→21:23)
[2021-01-01 13:03] LABS: Tissue Transglutaminase IgA Ab 1 U/mL (<4)
[2021-01-01] MEDS ORDERED: MORPHINE 2 MG/ML SYR IV ONE (13:21)
[2021-01-01] MEDS ORDERED: MORPHINE 2 MG/ML SYR IV PRN (15:42)
[2021-01-01] MEDS ORDERED: LACTULOSE 20 GM/30 ML UCUP PO PRN (15:45)
--- NOTE | 2021-01-01 15:54 | P.PN ---
Subjective Date of Service: 01/01/21 Primary Care Provider: unknown Chief Complaint: Hypocalcemia, dehydration, hypokalemia Subjective: Other (Nausea, vomiting. Chronic pain) Physical Examination - Vital Signs Temperature: 97.6 F Blood Pressure: 135/91 Pulse: 83 Respirations: 18 Pulse Ox (%): 96 - Studies Medications List Reviewed: Yes Assessment & Plan Discharge Plan: Home Plan to discharge in: 24 Hours Physician Review Additional Text: COVID: Negative CT scan: FINDINGS: Pulmonary arteries and vascular: Diagnostic quality bolus. Stable scattered filling defects in several bilateral segmental and subsegmental pulmonary arteries and within the distal right and left main pulmonary arteries. Heart and mediastinum: Heart size is normal. No lymphadenopathy. Thyroid gland: Visualized portions are normal. Lungs: Clear. Airways: No filling defects. No bronchiectasis. Pleura: No pneumothorax. No significant pleural effusion. Subphrenic structures: Within normal limits. Musculoskeletal and soft tissues: Redemonstrated numerous sclerotic and lytic osseous metastases. IMPRESSION: 1. Stable scattered small pulmonary emboli. 2. Redemonstrated numerous sclerotic and lytic osseous metastases. Physical Exam: GENERAL: The patient is a well-developed, well-nourished, in no apparent distress. Alert and oriented x3. VITAL SIGNS: Reviewed HEENT: Head is normocephalic and atraumatic. Extraocular muscles are intact. Pupils are equal, round, and reactive to light and accommodation. Nares appeared normal. Mouth is well hydrated and without lesions. Mucous membranes are moist. NECK: Supple. No carotid bruits. No lymphadenopathy or thyromegaly. LUNGS: Clear to auscultation. No crackles or wheezes are heard. HEART: Regular rate and rhythm, no appreciable gallops, rubs, murmurs or extra heart sounds ABDOMEN: Soft, nontender, and nondistended. Positive bowel sounds. No hepatosplenomegaly was noted. EXTREMITIES: Without any cyanosis, clubbing, rash, lesions or peripheral edema. NEUROLOGIC: The patient is oriented to person, place and time. Strength and sensation are grossly intact. Face is symmetric. SKIN: Normal color, turgor and temperature. No ulcerations or rashes noted. Impression: Nausea, vomiting with abdominal pain Stage IV metastatic breast cancer with metastasis to the bone Hypocalcemia Elevated liver function History of pulmonary embolism on chronic anticoagulation therapy Constipation Plan: Patient continues with nausea and vomiting. Provide medication for nausea and vomiting. Will also provide medication for pain. Patient takes MS Contin at home. Will need to verify home medications. Will check CT scan of the abdomen to further evaluate. Patient has stage IV metastatic breast cancer. Patient is to follow-up with oncology tomorrow. Calcium has been replaced. Liver function improved. Continue with nephrology recommendations. Patient remains on Eliquis for her treatment of pulmonary embolism. Will provide medication for constipation. Continue with Protonix. Will consider discharge if significantly improved with nausea and vomiting. Code Status: Full Code DVT prophylaxis: Eliquis Advanced Care Planning-30 minutes: Home at discharge Time Spent Managing Pts Care (In Minutes): 55
[2021-01-01] MEDS: ONDANSETRON 4 MG/2 ML VIAL IV PRN (16:17)
[2021-01-01] MEDS: HYDROCODONE/APAP 7.5/325 MG TAB PO PRN ×2 (16:17→21:23)
--- NOTE | 2021-01-01 17:47 | RAD REPORT ---
EXAM DESCRIPTION: CT - Abdomen Pelvis Wo Contrast - 01/01/2021 5:18 pm CLINICAL HISTORY: Abdominal pain COMPARISON: December 03, 2020 TECHNIQUE: Computed axial tomography of the abdomen and pelvis was obtained. IV was not requested. O ral contrast was given. Coronal reconstructions performed. All CT scans are performed using dose optimization technique as appropriate and may include automated exposure control or mA/KV adjustment according to patient size. FINDINGS: The evaluation of solid organs and vessels is limited secondary to the lack of contrast a dministration. Small bilateral pleural effusions. Pancreatic tail is inhomogeneous. Fluid is present within the peripancreatic space extending into the left anterior pararenal space inferiorly. Development of mild left hydronephrosis. A ureteral calculus is not seen. The liver, adrenals and right kidney appear grossly normal. There is no evidence of diverticulitis. Extensive skeletal metastatic disease IMPRESSION: These findings likely indicate pancreatitis. Development of mild left hydronephrosis. The cause of this is not clearly ascertained. Extensive skeletal metastatic disease
--- NOTE | 2021-01-01 21:30 | RAD REPORT ---
EXAM DESCRIPTION: RAD - Abdomen 1 View (KUB) - 01/01/2021 9:18 pm CLINICAL HISTORY: Abdomen pain. FINDINGS: The bowel gas pattern is unremarkable. Calcifications pelvis probably phleboliths. Extensive skeletal metastatic disease
--- NOTE | 2021-01-02 00:47 | PN ---
Date of Progress Note: 01/01/2021 Chief Complaint: Hypocalcemia. History Of Present Illness: The patient has multiple medical problems. She has history of breast ca ncer with metastatic lesion. She underwent chemotherapy. On presentation to the hospital, she had s ymptoms related to hypocalcemia. Recently, corrected calcium is up to 8.8. The patient has hypoalbu minemia. She was found to have vitamin D deficiency. Apparently, she is on calcitriol and vitamin D replacement. Calcium level has improved. The patient is asymptomatic. The patient was found to gu ve hypophosphatemia, received supplementation as well as hypokalemia, she has supplementation of that . Review of Systems: Denies fever, chills. Physical Examination: Lungs: Clear to auscultation bilaterally. Heart: S1 and S2. Abdomen: Soft, benign. Extremities: No edema. Impression And Plan: 1.Hypocalcemia secondary to multiple causes. The patient has vitamin D deficiency and this will be corrected with vitamin D replacement. Currently, she is on calcitriol to prevent symptomatic hypocal cemia. Continue to monitor intact PTH level. Intact PTH slightly was elevated due to hypocalcemia i n the setting of vitamin D deficiency. The patient developed hypocalcemia. Most likely, there is re cent history of bisphosphonate treatment as well, which was contributory to the symptoms of hypocalce david. 2.Hypertension, blood pressure controlled. Continue current treatment. 3.Hypokalemia. Monitor magnesium level and monitor electrolytes. Potassium level is normalizing. 4.Hypophosphatemia, resolved, the patient received replacement. ALONDRA/MIGUELL Voice ID: [id number] Report ID: [id number]
[2021-01-02] MEDS: HYDROMORPHONE HCL 1 MG/ML INJ IV PRN ×5 (03:24→22:21)
[2021-01-02] MEDS: PROMETHAZINE INJ 25 MG/ML AMP IV PRN ×4 (03:35→17:26)
[2021-01-02] MEDS: D5 NS IV SCH ×4 (05:36→18:36)
[2021-01-02] MEDS: POTASSIUM CL IV SCH ×4 (05:36→18:36)
[2021-01-02] MEDS: HYDROCODONE/APAP 7.5/325 MG TAB PO PRN ×2 (05:39→20:35)
[2021-01-02 05:55] LABS: Absolute Lymphocytes (CBC) 1.1 K/uL (0.7-4.9); Basophils % 3.4 % (0-1.3); Hematocrit 30.7 % (36.0-45.0); Lymphocytes % 29.8 % (15.3-44.8); MPV 7.1 fL (7.6-11.3); RBC Red Blood Cell Count 3.17 M/uL (3.86-4.86)
--- NOTE | 2021-01-02 06:13 | P.PN ---
Subjective Date of Service: 01/02/21 Primary Care Provider: unknown Chief Complaint: Hypocalcemia, dehydration, hypokalemia Subjective: Other (Still with nausea and vomiting. Pain slightly improved.) Physical Examination - Vital Signs Temperature: 98.1 F Blood Pressure: 134/86 Pulse: 77 Respirations: 18 Pulse Ox (%): 99 - Studies Medications List Reviewed: Yes Assessment & Plan Discharge Plan: Home Plan to discharge in: 72 Hours Physician Review Additional Text: COVID: Negative CT scan: FINDINGS: Pulmonary arteries and vascular: Diagnostic quality bolus. Stable scattered filling defects in several bilateral segmental and subsegmental pulmonary arteries and within the distal right and left main pulmonary arteries. Heart and mediastinum: Heart size is normal. No lymphadenopathy. Thyroid gland: Visualized portions are normal. Lungs: Clear. Airways: No filling defects. No bronchiectasis. Pleura: No pneumothorax. No significant pleural effusion. Subphrenic structures: Within normal limits. Musculoskeletal and soft tissues: Redemonstrated numerous sclerotic and lytic osseous metastases. IMPRESSION: 1. Stable scattered small pulmonary emboli. 2. Redemonstrated numerous sclerotic and lytic osseous metastases. Follow up CT scan: COMPARISON: December 03, 2020 TECHNIQUE: Computed axial tomography of the abdomen and pelvis was obtained. IV was not requested. Oral contrast was given. Coronal reconstructions performed. All CT scans are performed using dose optimization technique as appropriate and may include automated exposure control or mA/KV adjustment according to patient size. FINDINGS: The evaluation of solid organs and vessels is limited secondary to the lack of contrast administration. Small bilateral pleural effusions. Pancreatic tail is inhomogeneous. Fluid is present within the peripancreatic space extending into the left anterior pararenal space inferiorly. Development of mild left hydronephrosis. A ureteral calculus is not seen. The liver, adrenals and right kidney appear grossly normal. There is no evidence of diverticulitis. Extensive skeletal metastatic disease IMPRESSION: These findings likely indicate pancreatitis. Development of mild left hydronephrosis. The cause of this is not clearly ascertained. Extensive skeletal metastatic disease Renal US: COMPARISON: January 01, 2021 cat scan FINDINGS: The right kidney measures 10 cm with a normal echotexture. The left kidney measures 11 cm with a normal echotexture. Mild left hydronephrosis Hydronephrosis is not seen. A bladder mass is not seen IMPRESSION: Mild left hydronephrosis Renal Scan: COMPARISON: Renal Ultrasound-Complete dated 01/02/2021; Abdomen Pelvis Wo Contrast dated 01/01/2021 TECHNIQUE: Following intravenous administration of 8.9 mCi Tc99m MAG-3, posterior dynamic angiogram and sequential static images of the kidneys were obtained. 28 mg Lasix was administered intravenously 10 minutes into the study. Static post-void imaging was also performed. FINDINGS: FLOW: There is delayed uptake in the left kidney. The right kidney is unremarkable. SPLIT FUNCTION: Differential function at 2 min is 31.5% on the left and 68.5% on the right. RENOGRAM AND COLLECTING SYSTEM CLEARANCE: Symmetric renal size and normal chantal entation. There is left-sided hydronephrosis.. There is time to peak for right kidney of 3.45 minutes. There is hydronephrosis of the left kidney without peak identified..Time to peak activity on the right is 7.8 minutes which is normal. The left kidney is hydronephrotic and does not peak. POST VOID: The left kidney remains hydronephrotic on the postvoid. The right kidney is unremarkable. IMPRESSION: Left-sided hydronephrosis consistent with grade 3 obstruction with persistent nephrogram and no evidence of excretion. No response to diuresis. The right kidney is unremarkable. Physical Exam: GENERAL: The patient is a well-developed, well-nourished, in no apparent distress. Alert and oriented x3. VITAL SIGNS: Reviewed HEENT: Head is normocephalic and atraumatic. Extraocular muscles are intact. Pupils are equal, round, and reactive to light and accommodation. Nares appeared normal. Mouth is well hydrated and without lesions. Mucous membranes are moist. NECK: Supple. No carotid bruits. No lymphadenopathy or thyromegaly. LUNGS: Clear to auscultation. No crackles or wheezes are heard. HEART: Regular rate and rhythm, no appreciable gallops, rubs, murmurs or extra heart sounds ABDOMEN: Soft, nontender, and nondistended. Positive bowel sounds. No hepatosplenomegaly was noted. EXTREMITIES: Without any cyanosis, clubbing, rash, lesions or peripheral edema. NEUROLOGIC: The patient is oriented to person, place and time. Strength and sensation are grossly intact. Face is symmetric. SKIN: Normal color, turgor and temperature. No ulcerations or rashes noted. Impression: Nausea, vomiting with abdominal pain secondary to pancreatitis New left-sided hydronephrosis with renal scan showing grade 3 obstruction Stage IV metastatic breast cancer with metastasis to the bone Hypocalcemia Elevated liver function History of pulmonary embolism on chronic anticoagulation therapy Constipation Plan: Patient remains n.p.o. at this time. Continue IV fluids. Nausea improved. Abdominal pain improved. Continue with pain control. Left-sided hydronephrosis noted. Will discuss with nephrology and urology who has been consulted. Once pain and nausea improved will advance diet slowly. Patient with stage IV Breast cancer with metastatic disease. Calcium has been replaced. Continue with nephrology recommendations on replacement. Will monitor liver function. If this continues to elevate will consider liver ultrasound. Patient remains on Eliquis for her treatment of pulmonary embolism. Will provide medication for constipation. Continue with Protonix. Code Status: Full Code DVT prophylaxis: Eliquis Advanced Care Planning-30 minutes: Home at discharge Time Spent Managing Pts Care (In Minutes): 55
[2021-01-02 06:27] LABS: Albumin 2.5 g/dL (3.4-5.0); Bilirubin Total 0.9 mg/dL (0.2-1.0); Magnesium 2.1 mg/dL (1.8-2.4); Potassium 4.6 mmol/L (3.5-5.1); Protein, Total 5.8 g/dL (6.4-8.2)
[2021-01-02] MEDS ORDERED: FUROSEMIDE 40 MG/4 ML VIAL IV PRN (07:46)
[2021-01-02] MEDS: LETROZOLE 2.5 MG PO SCH (08:01)
[2021-01-02] MEDS: PALBOCICLIB 125 MG PO SCH (08:02)
[2021-01-02] MEDS: PANTOPRAZOLE 40 MG INJ IVP SCH ×2 (08:07→20:36)
[2021-01-02] MEDS: THIAMINE 200 MG/2 ML INJ IVP SCH (08:07)
[2021-01-02] MEDS: CALCITROL 0.25 MCG CAP PO SCH ×2 (08:08→20:36)
[2021-01-02] MEDS: APIXABAN 5 MG TABLET PO SCH ×2 (08:09→21:00)
[2021-01-02] MEDS: DOCUSATE NA 100 MG CAP PO SCH (08:09)
[2021-01-02] MEDS: ENSURE CLEAR 200 ML CAN PO SCH ×2 (08:09→20:36)
[2021-01-02] MEDS: FOLIC ACID 5 MG/ML VIAL IVP SCH (08:10)
[2021-01-02 08:11] LABS: Anisocytosis 2+; Blood Morphology Comment NOTED (NOT SEEN); Platelet Estimate ADEQ; Polychromasia 1+; White Blood Cell Scan OK (OK)
--- NOTE | 2021-01-02 08:59 | RAD REPORT ---
EXAM DESCRIPTION: US - Renal Ultrasound-Complete - 01/02/2021 3:32 am CLINICAL HISTORY: Hydronephrosis COMPARISON: January 01, 2021 cat scan FINDINGS: The right kidney measures 10 cm with a normal echotexture. The left kidney measures 11 cm with a normal echotexture. Mild left hydronephrosis Hydronephrosis is not seen. A bladder mass is not seen IMPRESSION: Mild left hydronephrosis
[2021-01-02] MEDS ORDERED: LETROZOLE 2.5 MG TAB PO SCH (09:00)
[2021-01-02] MEDS ORDERED: FUROSEMIDE 40 MG/4 ML VIAL IV ONE (11:21)
--- NOTE | 2021-01-02 13:03 | RAD REPORT ---
EXAM DESCRIPTION: NM - Kidney Imag W/Flow F W - 01/02/2021 12:30 pm CLINICAL HISTORY: hydronephrosis COMPARISON: Renal Ultrasound-Complete dated 01/02/2021; Abdomen Pelvis Wo Contrast dated 01/01/2021 TECHNIQUE: Following intravenous administration of 8.9 mCi Tc99m MAG-3, posterior dynamic angiogram and sequential static images of the kidneys were obtained. 28 mg Lasix was administered intravenousl y 10 minutes into the study. Static post-void imaging was also performed. FINDINGS: FLOW: There is delayed uptake in the left kidney. The right kidney is unremarkable. SPLIT FUNCTION: Differential function at 2 min is 31.5% on the left and 68.5% on the right. RENOGRAM AND COLLECTING SYSTEM CLEARANCE: Symmetric renal size and normal orientation. There is left -sided hydronephrosis.. There is time to peak for right kidney of 3.45 minutes. There is hydronephro sis of the left kidney without peak identified..Time to peak activity on the right is 7.8 minutes whi ch is normal. The left kidney is hydronephrotic and does not peak. POST VOID: The left kidney remains hydronephrotic on the postvoid. The right kidney is unremarkable. IMPRESSION: Left-sided hydronephrosis consistent with grade 3 obstruction with persistent nephrogram and no evidence of excretion. No response to diuresis. The right kidney is unremarkable.
--- NOTE | 2021-01-02 13:33 | PN ---
Date of Progress Note: 01/02/2021 Subjective: The patient came to the hospital with breast cancer, nausea, and vomiting. The patient had metastasis. The patient found to have hypocalcemia. Physical Examination: Vital Signs: Blood pressure 119/89, pulse of 84. Chest: Clear to auscultation. Heart: S1, S2. Systolic murmur. Abdomen: Mild tenderness. No guarding or rebound. Extremities: No edema. Laboratory Data: H and H 10.6/30.7, platelet 249. Sodium 139, potassium 4.6, bicarb 26, BUN 4, crea tinine 0.7, calcium 7.7. Current Medications: The patient on include promethazine, letrozole, Eliquis, calcium carbonate, fol ic acid, Zofran. Assessment And Plan: 1.Acute kidney injury secondary to prerenal, recovered, resolved. 2.Hydronephrosis on the ultrasound yesterday. The patient is scheduled for renal scan. Mostly, it is nonfunctional hydro as kidney function has been stable. We will follow up renal scan. 3.Hypocalcemia secondary to vitamin D deficiency, paraneoplastic and chemo. I am going to continue vitamin D and calcium oral. 4.Vitamin D deficiency. We will supplement. 5.Hyperparathyroidism. Continue calcitriol. We will follow up. NIKA/EDUARDO Voice ID: [id number] Report ID: [id number]
--- NOTE | 2021-01-02 19:26 | CON ---
Reason For Consultation: Left-sided hydronephrosis. Additional Consulting Physician: The hop trainer consulting during this admission. History Of Present Illness: Ms. Amezcua is a 45-year-old woman with a history of stage IV breast ca ncer with metastasis to the bone, who has undergone chemotherapy in the past. She presented on 12/25 to the emergency department with nausea, vomiting, and dehydration associated with some neurolo gic symptoms and was found to be hypocalcemic, hypoalbuminemic, and has evidence of vitamin D deficie ncy. She was admitted for medical management, and during the course of the admission, she was found to have elevated liver functions and was diagnosed with pancreatitis. She underwent abdomen and pelv is imaging on 01/01/2021 after developing left flank pain that radiated into the left anterior abdome n on 12/31/2020. The pain was severe, 7-[address] scan was done without contrast and the impression was likely pancreatitis. They incidentally found development of mild left hydronephro sis without a cause clearly ascertained. Extensive skeletal metastatic disease was noted. A uretera l calculus was specifically not seen. Multiple pelvic phleboliths were noted. The patient had some associated nausea and vomiting with this. She underwent followup renal ultrasound on 01/02/2021 at 03:32 a.m. that revealed bilateral kidneys w ith normal echotexture, but persistent left hydronephrosis. Subsequently, a MAG3 Lasix renogram was obtained, which revealed 68.5% function on the right with 31.5% function on the left as obtained on 0 01/02/2021. Past Medical History: Inclusive of stage IV breast cancer as described above and the patient denies any other associated medical history. Physical Examination: The patient is lying recumbent and in no acute distress at this time. There was no dyspnea or signs of respiratory distress. She was thin and somewhat modestly ill-appearing. Her abdomen was soft wit h left lateral quadrant fullness and tenderness to moderate palpation. The tenderness extended into the left costovertebral angle. The right side was without mass or hepatosplenomegaly. Laboratory Data: 01/02/2021 laboratory analysis revealed mild anemia with a hemoglobin of 10.6, whit e blood count of 3.7, platelet count of 249, INR slightly elevated at 1.4, elevated liver function te sts, and creatinine 0.77. I reviewed the ultrasound images as well as the CT images in detail, and I noted the presence of mult iple phleboliths without definitive obstructing ureteral calculus. I noticed the left kidney had darlene dence of parenchymal calcification medially, but no renal mass was noted on ultrasound. I also noted the renal pelvic dilation abruptly transitioned at the level of the ureteropelvic junction. Assessment: This is a 45-year-old woman with metastatic breast cancer to the bones, stage IV disease , status post chemotherapy with nausea, vomiting associated with left-sided flank pain likely seconda ry to mild-moderate left-sided hydronephrosis with an abrupt transition at the UPJ in the absence of significant ureteronephrosis, consistent with possible left UPJ obstruction. Recommendations: Given the acuity of her left-sided pain at this time, I recommend operative placeme nt of a left ureteral stent if possible, and if not feasible, a percutaneous nephrostomy tube would l ikely assist in relieving her pain and potentially correcting some of her electrolyte abnormalities. Subsequently, she would benefit from a CT scan with IV contrast, arterial phase imaging to assess for a crossing vessel causing this UPJ obstruction. Likely, given her medical history, a ureteral stric ture may be possible. To that end, we will plan on operative cystoscopy with left retrograde pyelography and left ureteral stent placement tomorrow. I asked the patient and informed the nurses to keep the patient n.p.o. after midnight and continue th e IV fluids as necessary in preparation for surgery. JOSEFA/EDUARDO Voice ID: [id number] Report ID: [id number]
[2021-01-02] MEDS: ONDANSETRON 4 MG/2 ML VIAL IV PRN (22:21)
[2021-01-03] MEDS: D5 NS IV SCH ×4 (00:31→08:12)
[2021-01-03] MEDS: POTASSIUM CL IV SCH ×4 (00:31→08:12)
[2021-01-03] MEDS: TRAMADOL HCL 50 MG TAB PO PRN ×2 (00:36→09:42)
[2021-01-03] MEDS: HYDROMORPHONE HCL 1 MG/ML INJ IV PRN ×5 (02:12→21:25)
[2021-01-03] MEDS: ONDANSETRON 4 MG/2 ML VIAL IV PRN ×2 (02:12→06:30)
[2021-01-03] MEDS: HYDROCODONE/APAP 7.5/325 MG TAB PO PRN (04:27)
[2021-01-03 05:20] LABS: Absolute Lymphocytes (CBC) 1.2 K/uL (0.7-4.9); Basophils % 1.4 % (0-1.3); Hematocrit 32.6 % (36.0-45.0); Lymphocytes % 26.2 % (15.3-44.8); MPV 6.9 fL (7.6-11.3); RBC Red Blood Cell Count 3.38 M/uL (3.86-4.86)
[2021-01-03 06:08] LABS: Albumin 2.5 g/dL (3.4-5.0); Bilirubin Total 1.2 mg/dL (0.2-1.0); Magnesium 2.1 mg/dL (1.8-2.4); Protein, Total 6.3 g/dL (6.4-8.2)
--- NOTE | 2021-01-03 06:08 | P.PN ---
Subjective Date of Service: 01/03/21 Primary Care Provider: unknown Chief Complaint: Hypocalcemia, dehydration, hypokalemia Subjective: Other (Patient remains n.p.o. at this time. Still with pain to the left lower quadrant) Physical Examination - Vital Signs Temperature: 98.6 F Blood Pressure: 128/81 Pulse: 83 Respirations: 17 Pulse Ox (%): 98 - Studies Medications List Reviewed: Yes Assessment & Plan Discharge Plan: Home Plan to discharge in: Greater than 2 days Physician Review Additional Text: COVID: Negative CT scan: FINDINGS: Pulmonary arteries and vascular: Diagnostic quality bolus. Stable scattered filling defects in several bilateral segmental and subsegmental pulmonary arteries and within the distal right and left main pulmonary arteries. Heart and mediastinum: Heart size is normal. No lymphadenopathy. Thyroid gland: Visualized portions are normal. Lungs: Clear. Airways: No filling defects. No bronchiectasis. Pleura: No pneumothorax. No significant pleural effusion. Subphrenic structures: Within normal limits. Musculoskeletal and soft tissues: Redemonstrated numerous sclerotic and lytic osseous metastases. IMPRESSION: 1. Stable scattered small pulmonary emboli. 2. Redemonstrated numerous sclerotic and lytic osseous metastases. Follow up CT scan: COMPARISON: December 03, 2020 TECHNIQUE: Computed axial tomography of the abdomen and pelvis was obtained. IV was not requested. Oral contrast was given. Coronal reconstructions performed. All CT scans are performed using dose optimization technique as appropriate and may include automated exposure control or mA/KV adjustment according to patient size. FINDINGS: The evaluation of solid organs and vessels is limited secondary to the lack of contrast administration. Small bilateral pleural effusions. Pancreatic tail is inhomogeneous. Fluid is present within the peripancreatic space extending into the left anterior pararenal space inferiorly. Development of mild left hydronephrosis. A ureteral calculus is not seen. The liver, adrenals and right kidney appear grossly normal. There is no evidence of diverticulitis. Extensive skeletal metastatic disease IMPRESSION: These findings likely indicate pancreatitis. Development of mild left hydronephrosis. The cause of this is not clearly ascertained. Extensive skeletal metastatic disease Renal US: COMPARISON: January 01, 2021 cat scan FINDINGS: The right kidney measures 10 cm with a normal echotexture. The left kidney measures 11 cm with a normal echotexture. Mild left hydronephrosis Hydronephrosis is not seen. A bladder mass is not seen IMPRESSION: Mild left hydronephrosis Renal Scan: COMPARISON: Renal Ultrasound-Complete dated 01/02/2021; Abdomen Pelvis Wo Contrast dated 01/01/2021 TECHNIQUE: Following intravenous administration of 8.9 mCi Tc99m MAG-3, posterior dynamic angiogram and sequential static images of the kidneys were obtained. 28 mg Lasix was administered intravenously 10 minutes into the study. Static post-void imaging was also performed. FINDINGS: FLOW: There is delayed uptake in the left kidney. The right kidney is unremarkable. SPLIT FUNCTION: Differential function at 2 min is 31.5% on the left and 68.5% on the right. RENOGRAM AND COLLECTING SYSTEM CLEARANCE: Symmetric renal size and normal orientation. There is left-sided hydronephrosis.. There is time to peak for right kidney of 3.45 minutes. There is hydronephrosis of the left kidney without peak identified..Time to peak activity on the right is 7.8 minutes which is normal. The left kidney is hydronephrotic and does not peak. POST VOID: The left kidney remains hydronephrotic on the postvoid. The right kidney is unremarkable. IMPRESSION: Left-sided hydronephrosis consistent with grade 3 obstruction with persistent nephrogram and no evidence of excretion. No response to diuresis. The right kidney is unremarkable. Physical Exam: GENERAL: Patient alert and cooperative. VITAL SIGNS: Reviewed HEENT: Neck supple LUNGS: Clear to auscultation. No crackles or wheezes are heard. HEART: Regular rate and rhythm, no appreciable gallops, rubs, murmurs or extra heart sounds ABDOMEN: Soft. Tender to the left quadrant EXTREMITIES: Without any cyanosis, clubbing, rash, lesions or peripheral edema. NEUROLOGIC: The patient is oriented to person, place and time. Strength and sensation are grossly intact. Face is symmetric. SKIN: Normal color, turgor and temperature. No ulcerations or rashes noted. Impression: Nausea, vomiting with abdominal pain secondary to pancreatitis New left-sided hydronephrosis with renal scan showing grade 3 obstruction Stage IV metastatic breast cancer with metastasis to the bone Hypocalcemia Elevated liver function History of pulmonary embolism on chronic anticoagulation therapy Constipation Plan: Patient remains n.p.o. at this time. Case discussed with nephrology and urology yesterday. Urology will evaluate left sided hydronephrosis. Urology plans for stent placement. Await findings. Continue IV fluids. Will provide medication for nausea and pain. Anticipate improvement after stent placed. A transfer was initiated yesterday but [facility] would not be able to accept her due to capacity. This was discussed in detail with patient and sister. Continue Protonix. Continue Eliquis. Will monitor the patient closely. Reassess after stent placed. Will discuss further with urology and nephrology. Code Status: Full Code DVT prophylaxis: Eliquis Advanced Care Planning-30 minutes: Home at discharge Time Spent Managing Pts Care (In Minutes): 55
[2021-01-03] MEDS: DOCUSATE NA 100 MG CAP PO SCH (07:46)
[2021-01-03] MEDS: DRISDOL (VITAMIN D=ERGOCALCIFEROL) 50000 UNIT CAP PO SCH (07:46)
[2021-01-03] MEDS: ENSURE CLEAR 200 ML CAN PO SCH ×2 (07:46→21:17)
[2021-01-03] MEDS: APIXABAN 5 MG TABLET PO SCH ×2 (07:46→21:17)
[2021-01-03] MEDS: CALCITROL 0.25 MCG CAP PO SCH ×2 (07:47→21:17)
[2021-01-03] MEDS: PALBOCICLIB 125 MG PO SCH (08:23)
[2021-01-03] MEDS: LETROZOLE 2.5 MG PO SCH (08:23)
[2021-01-03] MEDS: FOLIC ACID 5 MG/ML VIAL IVP SCH ×2 (09:00→09:43)
[2021-01-03] MEDS: PANTOPRAZOLE 40 MG INJ IVP SCH ×2 (09:42→21:18)
[2021-01-03] MEDS: THIAMINE 200 MG/2 ML INJ IVP SCH (09:43)
[2021-01-03] MEDS ORDERED: MIDAZOLAM HCL 2 MG/2 ML INJ ONE (12:42)
[2021-01-03] MEDS ORDERED: KETOROLAC 30 MG/ML INJ ONE (12:42)
[2021-01-03] MEDS ORDERED: propofoL 200 MG/20 ML VIAL IV ONE (12:42)
[2021-01-03] MEDS ORDERED: FENTANYL CITR 100 MCG/2 ML ONE (12:42)
[2021-01-03] MEDS ORDERED: dexAMETHasone 10 MG/ML VIAL ONE (12:42)
[2021-01-03] MEDS ORDERED: LIDOCAINE 1% MPF 5 ML VIAL ONE (12:43)
[2021-01-03] MEDS ORDERED: ONDANSETRON 4 MG/2 ML VIAL ONE (12:44)
[2021-01-03] MEDS ORDERED: Ringers Lactate 1,000 ML IV ONE (12:51)
[2021-01-03] MEDS ORDERED: CEFAZOLIN/SWI 1gm 1 GM/10 ML SYR ONE (13:29)
--- NOTE | 2021-01-03 13:40 | PN ---
Date of Progress Note: 01/03/2021 Subjective: The patient was admitted with hypocalcemia. The patient had breast cancer with mets. T he patient found to have obstructive uropathy. The patient complaining from left flank pain. Physical Examination: Vital Signs: Blood pressure of 129/80, pulse of 84. Chest: Clear to auscultation. Heart: S1, S2. Regular. Abdomen: Soft. Tenderness on the left upper quadrant. No guarding or rebound. Extremities: No edema. Neuro: Alert. No focality. [place] negative. Laboratory Data: H and H , WBC 4.6. Sodium 136, potassium 4, bicarb 29, BUN 7, creatinine 0.8, GFR of 79, calcium 7.3. Albumin 2.5, corrected calcium is 8.5. Current Medications: The patient on include; 1.Eliquis. 2.Calcium carbonate 1000 every 6 hours. 3.Lactulose. 4.Folic acid. 5.Tramadol. Assessment And Plan: 1.Acute kidney injury secondary to prerenal, questionable of obstructive uropathy, recovered, [facility] ed. 2.Obstructive uropathy, possible secondary to mental status. We will follow up with Surgery. Plan for cystoscopy and stenting today. 3.Hypocalcemia. Continue calcium supplement. Continue ergocalciferol. 4.Hyperparathyroidism. Continue calcitriol. 5.Hypernatremia, resolved. I am going to change IV fluid to D5. 6.Hypophosphatemia, status post supplement, resolved. RAYSHAWN Voice ID: [id number] Report ID: [id number]
--- NOTE | 2021-01-03 14:43 | OP ---
Surgeon: DANIELE POSADAS Preoperative Diagnosis: Left hydronephrosis. Postoperative Diagnoses: 1.Left hydronephrosis. 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 Principle Procedures: 1.Cystoscopy. 2.Left retrograde pyelogram. 3.Left complicated ureteral stent placement. Indication For Procedure: Ms. Amezcua is a 45-year-old woman with a history of metastatic breast ca ncer status post chemotherapy, unclear if she also had radiation therapy, who presents with newly dis covered left-sided hydronephrosis associated with left flank pain that was severe. I counseled the p atient on the need for operative evaluation given the absence of any renal or ureteral calculus noted on the CT scan to explain the obstruction. Procedure In Detail: The patient was consented in the preoperative holding area before being transfe rred to the operative suite where general anesthesia was induced. She was given Ancef 1 g IV antimic robial prophylaxis and pneumo boots were provided for DVT prophylaxis. She was placed in the lithoto my position, padded and secured to the table appropriately. Her genitalia were prepped using [place] ns and she was draped in standard fashion. The case was begun using a 22-Irish rigid cystoscope to traverse the urethra and into the bladder with ease. The bladder was decompressed and urine culture was taken. I then refilled the bladder and surveyed it in its entirety. Other than a slight irregul ar area of mucosa around the left ureteral orifice and squamous metaplasia noted within the trigone, no concerning mucosal lesions, foreign bodies or stones were noted throughout. The ureteral orifices were orthotopic in location. I then cannulated the left ureteral orifice using the tip of a 5-Frenc h ureteral access catheter with ease and performed a left retrograde pyelogram. Left retrograde pyelography: Using a 70:30 mixture of Omnipaque and saline, contrast was injected via the lumen of the 5-Irish ur eteral access catheter and did propagate up a distal ureter into the mid ureter where a filling defec t was noted in an area of stricture narrowing that lasted at least 2 or 3 cm at the body of L4. Abov e this, there was another area of filling defect and stricture narrowing that continued for a couple of cm across the L2-L3 junction. Contrast did enter the renal pelvis, which was moderately dilated w ith some evidence of caliectasis. Because of this, I then had attempted to pass a Sensor wire into t he collecting system, but it would not pass beyond the point of stricture narrowing in the mid proxim al ureter. As a result, I utilized a hydrophilic Glidewire 0.035 cm, and I was able to navigate the wire beyond the point of stricture, obstruction into the upper pole calyx of the kidney. I then adva nced the 5-Irish ureteral access catheter over the wire into the upper pole of the kidney confirmed fluoroscopically. I then passed the Sensor wire into the upper pole of the kidney after removing the Glidewire. I then removed the 5-Irish ureteral access catheter and over the Sensor wire, I placed a 6-Irish by 24 cm double-J ureteral stent. A coil was observed fluoroscopically within the upper p ole and pelvis, and 1 cystoscopically was formed in the bladder. I then decompressed her bladder of fluid and urine, and she was taken out of the lithotomy position. She was then awakened from general anesthesia, transferred to a stretcher, and then transferred to the recovery room in good condition. Complications: None. Discharge Disposition: Given the findings of ureteral stricture disease versus filling defects at th e body of L4 and at the junction of L2-L3, it will be imperative that we complete ureteroscopic evalu ation within the coming days to rule out malignancy. I will also enquire as to whether the patient h as ever had radiation therapy, which may be underlying this development. As a result, she should follow up in the Urology Clinic where next steps in ureteroscopic evaluation of her left ureteral str icture disease can be arranged. JOSEFA/EDUARDO Voice ID: [id number] Report ID: [id number]
--- NOTE | 2021-01-03 14:52 | RAD REPORT ---
EXAM DESCRIPTION: RAD - Urethrocystogrphy Retrograde - 01/03/2021 2:39 pm FINDINGS: There 15 KUB fluoroscopic images obtained during a fluoroscopic assisted placement of a le ft ureteral stent. Fluoro time was 30 seconds.
[2021-01-03] MEDS ORDERED: PHENAZOPYRIDINE 100MG TAB PO ONE (15:00)
[2021-01-03] MEDS: D5W 1,000 ML with POTASSIUM CL 20 MEQ IV SCH ×2 (15:10)
[2021-01-04] MEDS: HYDROMORPHONE HCL 1 MG/ML INJ IV PRN ×4 (01:12→21:11)
[2021-01-04] MEDS: D5W 1,000 ML with POTASSIUM CL 20 MEQ IV SCH ×6 (01:28→17:07)
[2021-01-04 05:51] LABS: Absolute Lymphocytes (CBC) 1.1 K/uL (0.7-4.9); Basophils % 0.6 % (0-1.3); Hematocrit 28.2 % (36.0-45.0); Lymphocytes % 27.5 % (15.3-44.8); MPV 7.4 fL (7.6-11.3); RBC Red Blood Cell Count 2.91 M/uL (3.86-4.86)
--- NOTE | 2021-01-04 05:56 | P.PN ---
Subjective Date of Service: 01/04/21 Primary Care Provider: unknown Chief Complaint: Hypocalcemia, dehydration, hypokalemia Subjective: Improving (Patient doing better after stent placed. No significant nausea, vomiting or abdominal pain.) Physical Examination - Vital Signs Temperature: 97.1 F Blood Pressure: 105/64 Pulse: 66 Respirations: 17 Pulse Ox (%): 98 - Studies Medications List Reviewed: Yes Assessment & Plan Discharge Plan: Home Plan to discharge in: 24 Hours Physician Review Additional Text: COVID: Negative CT scan: FINDINGS: Pulmonary arteries and vascular: Diagnostic quality bolus. Stable scattered filling defects in several bilateral segmental and subsegmental pulmonary arteries and within the distal right and left main pulmonary arteries. Heart and mediastinum: Heart size is normal. No lymphadenopathy. Thyroid gland: Visualized portions are normal. Lungs: Clear. Airways: No filling defects. No bronchiectasis. Pleura: No pneumothorax. No significant pleural effusion. Subphrenic structures: Within normal limits. Musculoskeletal and soft tissues: Redemonstrated numerous sclerotic and lytic osseous metastases. IMPRESSION: 1. Stable scattered small pulmonary emboli. 2. Redemonstrated numerous sclerotic and lytic osseous metastases. Follow up CT scan: COMPARISON: December 03, 2020 TECHNIQUE: Computed axial tomography of the abdomen and pelvis was obtained. IV was not requested. Oral contrast was given. Coronal reconstructions performed. All CT scans are performed using dose optimization technique as appropriate and may include automated exposure control or mA/KV adjustment according to patient size. FINDINGS: The evaluation of solid organs and vessels is limited secondary to the lack of contrast administration. Small bilateral pleural effusions. Pancreatic tail is inhomogeneous. Fluid is present within the peripancreatic space extending into the left anterior pararenal space inferiorly. Development of mild left hydronephrosis. A ureteral calculus is not seen. The liver, adrenals and right kidney appear grossly normal. There is no evidence of diverticulitis. Extensive skeletal metastatic disease IMPRESSION: These findings likely indicate pancreatitis. Development of mild left hydronephrosis. The cause of this is not clearly ascertained. Extensive skeletal metastatic disease Renal US: COMPARISON: January 01, 2021 cat scan FINDINGS: The right kidney measures 10 cm with a normal echotexture. The left kidney measures 11 cm with a normal echotexture. Mild left hydronephrosis Hydronephrosis is not seen. A bladder mass is not seen IMPRESSION: Mild left hydronephrosis Renal Scan: COMPARISON: Renal Ultrasound-Complete dated 01/02/2021; Abdomen Pelvis Wo Contrast dated 01/01/2021 TECHNIQUE: Following intravenous administration of 8.9 mCi Tc99m MAG-3, posterior dynamic angiogram and sequential static images of the kidneys were obtained. 28 mg Lasix was administered intravenously 10 minutes into the study. Static post-void imaging was also performed. FINDINGS: FLOW: There is delayed uptake in the left kidney. The right kidney is unremarkable. SPLIT FUNCTION: Differential function at 2 min is 31.5% on the left and 68.5% on the right. RENOGRAM AND COLLECTING SYSTEM CLEARANCE: Symmetric renal size and normal orientation. There is left-sided hydronephrosis.. There is time to peak for right kidney of 3.45 minutes. There is hydronephrosis of the left kidney without peak identified..Time to peak activity on the right is 7.8 minutes which is normal. The left kidney is hydronephrotic and does not peak. POST VOID: The left kidney remains hydronephrotic on the postvoid. The right kidney is unremarkable. IMPRESSION: Left-sided hydronephrosis consistent with grade 3 obstruction with persistent nephrogram and no evidence of excretion. No response to diuresis. The right kidney is unremarkable. Urological intervention: Surgeon: DANIELE POSADAS Preoperative Diagnosis: Left hydronephrosis. Postoperative Diagnoses: 1. Left hydronephrosis. 2. Left ureteral stricture disease at the body of L4 and L2-L3 junction. Principle Procedures: 1. Cystoscopy. 2. Left retrograde pyelogram. 3. Left complicated ureteral stent placement. Physical Exam: GENERAL: Patient alert and cooperative. VITAL SIGNS: Reviewed HEENT: Neck supple LUNGS: Clear to auscultation. No crackles or wheezes are heard. HEART: Regular rate and rhythm, no appreciable gallops, rubs, murmurs or extra heart sounds ABDOMEN: Soft. Tender to the left quadrant EXTREMITIES: Without any cyanosis, clubbing, rash, lesions or peripheral edema. NEUROLOGIC: The patient is oriented to person, place and time. Strength and sensation are grossly intact. Face is symmetric. SKIN: Normal color, turgor and temperature. No ulcerations or rashes noted. Impression: Nausea, vomiting with abdominal pain secondary to left-sided hydronephrosis with renal scan showing grade 3 obstruction status post cystoscopy, left retrograde pyelogram, and left complicated ureteral stent placement likely related to stricture Stage IV metastatic breast cancer with metastasis to the bone with history of chemotherapy and radiation Hypocalcemia Elevated liver function History of pulmonary embolism on chronic anticoagulation therapy Constipation Plan: Patient has done well with ureteral stent to the left side. Patient without nausea vomiting, and abdominal pain. Will advance diet to full liquid this morning. If tolerated then will increase to regular diet. Spoke with urology at length. Patient had left complicated ureteral stent placement. This was likely related to a stricture. This may have been related to prior radiation. Physical therapy to ambulate. Continue Protonix. Continue Eliquis. Continue to monitor the patient closely. Anticipate improvement over the next 24 hours with likely discharge. Code Status: Full Code DVT prophylaxis: Eliquis Advanced Care Planning-30 minutes: Home at discharge Time Spent Managing Pts Care (In Minutes): 55
--- NOTE | 2021-01-04 06:16 | P.PN ---
Subjective Date of Service: 01/04/21 Primary Care Provider: unknown Chief Complaint: Hypocalcemia, dehydration, hypokalemia Subjective: Other (Reports having less nausea today.) Physical Examination - Vital Signs Temperature: 97.1 F Blood Pressure: 105/64 Pulse: 66 Respirations: 17 Pulse Ox (%): 98 - Physical Exam General: Other (No acute distress) HEENT: Atraumatic, Normocephalic Neck: Supple, JVD not distended Respiratory: Other (Symmetric chest expansion) Cardiovascular: No rubs, No murmurs Gastrointestinal: Soft and benign, Non-distended Musculoskeletal: No clubbing Integumentary: No warmth Neurological: Normal tone Urinary: Other (No bladder distention) External genitalia: Deferred Rectal: Deferred - Studies Medications List Reviewed: Yes Assessment And Plan - Plan # Hypocalcemia, non-PTH mediated, 2/2 Vit D deficiency + poor po intake +/- osteoblastic metastatic bone lesions Improved, corrected serum calcium 8.6 Increase calcitriol to 1 mcg by mouth twice a day Continue calcium carbonate every 6 hours po taken on empty stomach Continue vitamin D repletion as below Once serum calcium is normalized and stable, she would then benefit from receiving Zoledronic acid to decrease skeletal related events from her metastatic cancer # Secondary hyperparathyroidism Continue Ergocalciferol & Calcitriol # Vitamin D deficiency Continue high-dose Ergocalciferol 50,000 international units by mouth every 7 days # L ureteral obstruction likely 2/2 stricture likely related to prior ra diotherapy S/p L ureteral stenting Per Urology # Pulmonary embolism On apixaban # Hypophosphatemia Neutra-Phos ordered again for today # Anemia Monitor H&H # Nausea, vomiting Antiemetics when necessary # Breast cancer w/ metastasis On chemotherapy, last dose received a few days prior to this hospitalization Mngt per Oncology # Dispo Anticipate dc in 1-2d
[2021-01-04 06:27] LABS: ALT/SGPT 77 U/L (12-78); AST/SGOT 47 U/L (15-37); Albumin 2.3 g/dL (3.4-5.0); Alkaline Phosphatase 971 U/L (45-117); BUN Blood Urea Nitrogen 8 mg/dL (7-18); Bicarbonate 25 mmol/L (21-32); Bilirubin Total 0.8 mg/dL (0.2-1.0); Glucose Level 115 mg/dL (74-106); Magnesium 1.8 mg/dL (1.8-2.4); Phosphorus 2.2 mg/dL (2.5-4.9); Potassium 3.8 mmol/L (3.5-5.1); Protein, Total 5.7 g/dL (6.4-8.2); Sodium Level 135 mmol/L (136-145)
[2021-01-04] MEDS ORDERED: MAGNESIUM SULFATE 1 gm IVPB 1 GM/100 ML BAG IV ONE (08:00)
[2021-01-04] MEDS: PALBOCICLIB 125 MG PO SCH (09:00)
[2021-01-04] MEDS ORDERED: POTASSIUM CL SA 10 MEQ TAB PO ONE (09:00)
[2021-01-04] MEDS: LETROZOLE 2.5 MG PO SCH (09:00)
[2021-01-04] MEDS: POTASS/SODIUM PHOSPHATE 1 PKT POWD.PACK PO SCH ×2 (09:47→10:19)
[2021-01-04] MEDS: PANTOPRAZOLE 40 MG INJ IVP SCH ×2 (09:48→19:59)
[2021-01-04] MEDS: APIXABAN 5 MG TABLET PO SCH ×2 (09:48→20:00)
[2021-01-04] MEDS: DOCUSATE NA 100 MG CAP PO SCH (09:48)
[2021-01-04] MEDS: THIAMINE 200 MG/2 ML INJ IVP SCH (09:48)
[2021-01-04] MEDS: CALCITROL 0.25 MCG CAP PO SCH ×2 (09:48→20:00)
[2021-01-04] MEDS: ENSURE CLEAR 200 ML CAN PO SCH ×2 (09:49→20:00)
[2021-01-04] MEDS ORDERED: CALCITROL 0.25 MCG CAP PO STA (12:00)
[2021-01-04 14:45] VITALS: O2SAT 99
[2021-01-05] MEDS: HYDROMORPHONE HCL 1 MG/ML INJ IV PRN ×2 (01:16→05:23)
[2021-01-05] MEDS: D5W 1,000 ML with POTASSIUM CL 20 MEQ IV SCH ×2 (05:23)
--- NOTE | 2021-01-05 06:00 | P.PN ---
Subjective Date of Service: 01/05/21 Primary Care Provider: unknown Chief Complaint: Hypocalcemia, dehydration, hypokalemia Subjective: Improving, Doing well (No nausea, vomiting or abdominal pain. Patient tolerating diet) Physical Examination - Vital Signs Temperature: 98.2 F Blood Pressure: 97/65 Pulse: 97 Respirations: 16 Pulse Ox (%): 97 - Studies Medications List Reviewed: Yes Assessment & Plan Discharge Plan: Home Plan to discharge in: 24 Hours Physician Review Additional Text: COVID: Negative CT scan: FINDINGS: Pulmonary arteries and vascular: Diagnostic quality bolus. Stable scattered filling defects in several bilateral segmental and subsegmental pulmonary arteries and within the distal right and left main pulmonary arteries. Heart and mediastinum: Heart size is normal. No lymphadenopathy. Thyroid gland: Visualized portions are normal. Lungs: Clear. Airways: No filling defects. No bronchiectasis. Pleura: No pneumothorax. No significant pleural effusion. Subphrenic structures: Within normal limits. Musculoskeletal and soft tissues: Redemonstrated numerous sclerotic and lytic osseous metastases. IMPRESSION: 1. Stable scattered small pulmonary emboli. 2. Redemonstrated numerous sclerotic and lytic osseous metastases. Follow up CT scan: COMPARISON: December 03, 2020 TECHNIQUE: Computed axial tomography of the abdomen and pelvis was obtained. IV was not requested. Oral contrast was given. Coronal reconstructions performed. All CT scans are performed using dose optimization technique as appropriate and may include automated exposure control or mA/KV adjustment according to patient size. FINDINGS: The evaluation of solid organs and vessels is limited secondary to t he lack of contrast administration. Small bilateral pleural effusions. Pancreatic tail is inhomogeneous. Fluid is present within the peripancreatic space extending into the left anterior pararenal space inferiorly. Development of mild left hydronephrosis. A ureteral calculus is not seen. The liver, adrenals and right kidney appear grossly normal. There is no evidence of diverticulitis. Extensive skeletal metastatic disease IMPRESSION: These findings likely indicate pancreatitis. Development of mild left hydronephrosis. The cause of this is not clearly ascertained. Extensive skeletal metastatic disease Renal US: COMPARISON: January 01, 2021 cat scan FINDINGS: The right kidney measures 10 cm with a normal echotexture. The left kidney measures 11 cm with a normal echotexture. Mild left hydronephrosis Hydronephrosis is not seen. A bladder mass is not seen IMPRESSION: Mild left hydronephrosis Renal Scan: COMPARISON: Renal Ultrasound-Complete dated 01/02/2021; Abdomen Pelvis Wo Contrast dated 01/01/2021 TECHNIQUE: Following intravenous administration of 8.9 mCi Tc99m MAG-3, posterior dynamic angiogram and sequential static images of the kidneys were obtained. 28 mg Lasix was administered intravenously 10 minutes into the study. Static post-void imaging was also performed. FINDINGS: FLOW: There is delayed uptake in the left kidney. The right kidney is unremarkable. SPLIT FUNCTION: Differential function at 2 min is 31.5% on the left and 68.5% on the right. RENOGRAM AND COLLECTING SYSTEM CLEARANCE: Symmetric renal size and normal orientation. There is left-sided hydronephrosis.. There is time to peak for right kidney of 3.45 minutes. There is hydronephrosis of the left kidney without peak identified..Time to peak activity on the right is 7.8 minutes which is normal. The left kidney is hydronephrotic and does not peak. POST VOID: The left kidney remains hydronephrotic on the postvoid. The right kidney is unremarkable. IMPRESSION: Left-sided hydronephrosis consistent with grade 3 obstruction with persistent nephrogram and no evidence of excretion. No response to diuresis. The right kidney is unremarkable. Urological intervention: Surgeon: DANIELE POSADAS Preoperative Diagnosis: Left hydronephrosis. Postoperative Diagnoses: 1. Left hydronephrosis. 2. Left ureteral stricture disease at the body of L4 and L2-L3 junction. Principle Procedures: 1. Cystoscopy. 2. Left retrograde pyelogram. 3. Left complicated ureteral stent placement. Physical Exam: GENERAL: Patient alert and cooperative. VITAL SIGNS: Reviewed HEENT: Neck supple LUNGS: Clear to auscultation. No crackles or wheezes are heard. HEART: Regular rate and rhythm, no appreciable gallops, rubs, murmurs or extra heart sounds ABDOMEN: Soft. Tender to the left quadrant EXTREMITIES: Without any cyanosis, clubbing, rash, lesions or peripheral edema. NEUROLOGIC: The patient is oriented to person, place and time. Strength and sensation are grossly intact. Face is symmetric. SKIN: Normal color, turgor and temperature. No ulcerations or rashes noted. Impression: Nausea, vomiting with abdominal pain secondary to left-sided hydronephrosis with renal scan showing grade 3 obstruction status post cystoscopy, left retrograde pyelogram, and left complicated ureteral stent placement likely related to stricture Stage IV metastatic breast cancer with metastasis to the bone with history of chemotherapy and radiation Hypocalcemia Elevated liver function History of pulmonary embolism on chronic anticoagulation therapy Constipation Plan: Patient doing well today. No significant pain noted. Patient tolerating diet. We will plan for discharge. Code Status: Full Code DVT prophylaxis: Kristin Advanced Care Planning-30 minutes: Home at discharge Time Spent Managing Pts Care (In Minutes): 55
--- NOTE | 2021-01-05 06:03 | P.PN ---
Subjective Date of Service: 01/05/21 Primary Care Provider: unknown Chief Complaint: Hypocalcemia, dehydration, hypokalemia Physical Examination - Vital Signs Temperature: 98.2 F Blood Pressure: 97/65 Pulse: 97 Respirations: 16 Pulse Ox (%): 97 - Studies Medications List Reviewed: Yes Assessment And Plan - Plan # Hypocalcemia, non-PTH mediated, 2/2 Vit D deficiency + poor po intake +/- osteoblastic metastatic bone lesions Improved, corrected serum calcium 8.6 Increase calcitriol to 1 mcg by mouth twice a day Continue calcium carbonate every 6 hours po taken on empty stomach Continue vitamin D repletion as below Once serum calcium is normalized and stable, she would then benefit from receiving Zoledronic acid to decrease skeletal related events from her metastatic cancer # Secondary hyperparathyroidism Continue Ergocalciferol & Calcitriol # Vitamin D deficiency Continue high-dose Ergocalciferol 50,000 international units by mouth every 7 days # L ureteral obstruction likely 2/2 stricture likely related to prior radiother apy S/p L ureteral stenting Per Urology # Pulmonary embolism On apixaban # Hypophosphatemia Neutra-Phos ordered again for today # Anemia Monitor H&H # Nausea, vomiting Antiemetics when necessary # Breast cancer w/ metastasis On chemotherapy, last dose received a few days prior to this hospitalization Mngt per Oncology # Dispo Anticipate dc in 1-2d Physician Review Additional Text: COVID: Negative CT scan: FINDINGS: Pulmonary arteries and vascular: Diagnostic quality bolus. Stable scattered filling defects in several bilateral segmental and subsegmental pulmonary arteries and within the distal right and left main pulmonary arteries. Heart and mediastinum: Heart size is normal. No lymphadenopathy. Thyroid gland: Visualized portions are normal. Lungs: Clear. Airways: No filling defects. No bronchiectasis. Pleura: No pneumothorax. No significant pleural effusion. Subphrenic structures: Within normal limits. Musculoskeletal and soft tissues: Redemonstrated numerous sclerotic and lytic osseous metastases. IMPRESSION: 1. Stable scattered small pulmonary emboli. 2. Redemonstrated numerous sclerotic and lytic osseous metastases. Follow up CT scan: COMPARISON: December 03, 2020 TECHNIQUE: Computed axial tomography of the abdomen and pelvis was obtained. IV was not requested. Oral contrast was given. Coronal reconstructions performed. All CT scans are performed using dose optimization technique as appropriate and may include automated exposure control or mA/KV adjustment according to patient size. FINDINGS: The evaluation of solid organs and vessels is limited secondary to the lack of contrast administration. Small bilateral pleural effusions. Pancreatic tail is inhomogeneous. Fluid is present within the peripancreatic space extending into the left anterior pararenal space inferiorly. Development of mild left hydronephrosis. A ureteral calculus is not seen. The liver, adrenals and right kidney appear grossly normal. There is no evidence of diverticulitis. Extensive skeletal metastatic disease IMPRESSION: These findings likely indicate pancreatitis. Development of mild left hydronephrosis. The cause of this is not clearly ascertained. Extensive skeletal metastatic disease Renal US: COMPARISON: January 01, 2021 cat scan FINDINGS: The right kidney measures 10 cm with a normal echotexture. The left kidney measures 11 cm with a normal echotexture. Mild left hydronephrosis Hydronephrosis is not seen. A bladder mass is not seen IMPRESSION: Mild left hydronephrosis Renal Scan: COMPARISON: Renal Ultrasound-Complete dated 01/02/2021; Abdomen Pelvis Wo Contrast dated 01/01/2021 TECHNIQUE: Following intravenous administration of 8.9 mCi Tc99m MAG-3, posterior dynamic angiogram and sequential static images of the kidneys were obtained. 28 mg Lasix was administered intravenously 10 minutes into the study. Static post-void imaging was also performed. FINDINGS: FLOW: There is delayed uptake in the left kidney. The right kidney is unremarkable. SPLIT FUNCTION: Differential function at 2 min is 31.5% on the left and 68.5% on the right. RENOGRAM AND COLLECTING SYSTEM CLEARANCE: Symmetric renal size and normal orientation. There is left-sided hydronephrosis.. There is time to peak for right kidney of 3.45 minutes. There is hydronephrosis of the left kidney without peak identified..Time to peak activity on the right is 7.8 minutes which is normal. The left kidney is hydronephrotic and does not peak. POST VOID: The left kidney remains hydronephrotic on the postvoid. The right kidney is unremarkable. IMPRESSION: Left-sided hydronephrosis consistent with grade 3 obstruction with persistent nephrogram and no evidence of excretion. No response to diuresis. The right kidney is unremarkable. Urological intervention: Surgeon: DANIELE POSADAS Preoperative Diagnosis: Left hydronephrosis. Postoperative Diagnoses: 1. Left hydronephrosis. 2. Left ureteral stricture disease at the body of L4 and L2-L3 junction. Principle Procedures: 1. Cystoscopy. 2. Left retrograde pyelogram. 3. Left complicated ureteral stent placement. Physical Exam: GENERAL: Patient alert and cooperative. VITAL SIGNS: Reviewed HEENT: Neck supple LUNGS: Clear to auscultation. No crackles or wheezes are heard. HEART: Regular rate and rhythm, no appreciable gallops, rubs, murmurs or extra heart sounds ABDOMEN: Soft. Tender to the left quadrant EXTREMITIES: Without any cyanosis, clubbing, rash, lesions or peripheral edema. NEUROLOGIC: The patient is oriented to person, place and time. Strength and sensation are grossly intact. Face is symmetric. SKIN: Normal color, turgor and temperature. No ulcerations or rashes noted. Impression: Nausea, vomiting with abdominal pain secondary to left-sided hydronephrosis with renal scan showing grade 3 obstruction status post cystoscopy, left retrograde pyelogram, and left complicated ureteral stent placement likely related to stricture Stage IV metastatic breast cancer with metastasis to the bone with history of chemotherapy and radiation Hypocalcemia Elevated liver function History of pulmonary embolism on chronic anticoagulation therapy Constipation Plan: Patient has done well with ureteral stent to the left side. Patient without nausea vomiting, and abdominal pain. Will advance diet to full liquid this morning. If tolerated then will increase to regular diet. Spoke with urology at length. Patient had left complicated ureteral stent placement. This was likely related to a stricture. This may have been related to prior radiation. Physical therapy to ambulate. Continue Protonix. Continue Eliquis. Continue to monitor the patient closely. Anticipate improvement over the next 24 hours with likely discharge. Code Status: Full Code DVT prophylaxis: Eliquis Advanced Care Planning-30 minutes: Home at discharge
[2021-01-05 06:11] LABS: Albumin 2.3 g/dL (3.4-5.0); Phosphorus 2.1 mg/dL (2.5-4.9)
[2021-01-05] MEDS: THIAMINE 200 MG/2 ML INJ IVP SCH (08:03)
[2021-01-05] MEDS: DOCUSATE NA 100 MG CAP PO SCH (08:03)
[2021-01-05] MEDS: CALCITROL 0.25 MCG CAP PO SCH (08:03)
[2021-01-05] MEDS: PANTOPRAZOLE 40 MG INJ IVP SCH (08:04)
[2021-01-05] MEDS: POTASS/SODIUM PHOSPHATE 1 PKT POWD.PACK PO SCH ×3 (08:04→10:46)
[2021-01-05] MEDS: APIXABAN 5 MG TABLET PO SCH (08:04)
[2021-01-05] MEDS: PALBOCICLIB 125 MG PO SCH (08:05)
[2021-01-05] MEDS: LETROZOLE 2.5 MG PO SCH (08:05)
[2021-01-05] MEDS: ENSURE CLEAR 200 ML CAN PO SCH (08:06)
[2021-01-05] MEDS: FOLIC ACID 5 MG/ML VIAL IVP SCH (09:00)
[2021-01-05 09:30] VITALS: BP 97/65; TEMP 98.2
--- NOTE | 2021-01-05 09:30 | P.DS ---
Admission Date: 12/25/20 Discharge Date: 01/05/21 Primary Care Provider: unknown Disposition: ROUTINE DISCHARGE Discharge Condition: GOOD Reason for Admission: Hypocalcemia, dehydration, hypokalemia Consultations: Nephrology-Dr. Melton, Dr. Ward Urology-Dr. Branch Procedures: COVID: Negative CT scan: FINDINGS: Pulmonary arteries and vascular: Diagnostic quality bolus. Stable scattered filling defects in several bilateral segmental and subsegmental pulmonary arteries and within the distal right and left main pulmonary arteries. Heart and mediastinum: Heart size is normal. No lymphadenopathy. Thyroid gland: Visualized portions are normal. Lungs: Clear. Airways: No filling defects. No bronchiectasis. Pleura: No pneumothorax. No significant pleural effusion. Subphrenic structures: Within normal limits. Musculoskeletal and soft tissues: Redemonstrated numerous sclerotic and lytic osseous metastases. IMPRESSION: 1. Stable scattered small pulmonary emboli. 2. Redemonstrated numerous sclerotic and lytic osseous metastases. Follow up CT scan: COMPARISON: December 03, 2020 TECHNIQUE: Computed axial tomography of the abdomen and pelvis was obtained. IV was not requested. Oral contrast was given. Coronal reconstructions performed. All CT scans are performed using dose optimization technique as appropriate and may include automated exposure control or mA/KV adjustment according to patient size. FINDINGS: The evaluation of solid organs and vessels is limited secondary to the lack of contrast administration. Small bilateral pleural effusions. Pancreatic tail is inhomogeneous. Fluid is present within the peripancreatic space extending into the left anterior pararenal space inferiorly. Development of mild left hydronephrosis. A ureteral calculus is not seen. The liver, adrenals and right kidney appear grossly normal. There is no evidence of diverticulitis. Extensive skeletal metastatic disease IMPRESSION: These findings likely indicate pancreatitis. Development of mild left hydronephrosis. The cause of this is not clearly ascertained. Extensive skeletal metastatic disease Renal US: COMPARISON: January 01, 2021 cat scan FINDINGS: The right kidney measures 10 cm with a normal echotexture. The left kidney measures 11 cm with a normal echotexture. Mild left hydronephrosis Hydronephrosis is not seen. A bladder mass is not seen IMPRESSION: Mild left hydronephrosis Renal Scan: COMPARISON: Renal Ultrasound-Complete dated 01/02/2021; Abdomen Pelvis Wo Contrast dated 01/01/2021 TECHNIQUE: Following intravenous administration of 8.9 mCi Tc99m MAG-3, posterior dynamic angiogram and sequential static images of the kidneys were obtained. 28 mg Lasix was administered intravenously 10 minutes into the study. Static post-void imaging was also performed. FINDINGS: FLOW: There is delayed uptake in the left kidney. The right kidney is unremarkable. SPLIT FUNCTION: Differential function at 2 min is 31.5% on the left and 68.5% on the right. RENOGRAM AND COLLECTING SYSTEM CLEARANCE: Symmetric renal size and normal orientation. There is left-sided hydronephrosis.. There is time to peak for right kidney of 3.45 minutes. There is hydronephrosis of the left kidney without peak identified..Time to peak activity on the right is 7.8 minutes which is normal. The left kidney is hydronephrotic and does not peak. POST VOID: The left kidney remains hydronephrotic on the postvoid. The right kidney is unremarkable. IMPRESSION: Left-sided hydronephrosis consistent with grade 3 obstruction with persistent nephrogram and no evidence of excretion. No response to diuresis. The right kidney is unremarkable. Urological intervention: Surgeon: DANIELE BRANCH Preoperative Diagnosis: Left hydronephrosis. Postoperative Diagnoses: 1. Left hydronephrosis. 2. Left ureteral stricture disease at the body of L4 and L2-L3 junction. Principle Procedures: 1. Cystoscopy. 2. Left retrograde pyelogram. 3. Left complicated ureteral stent placement. Medical Problem List: Nausea, vomiting with abdominal pain secondary to left-sided hydronephrosis with renal scan showing grade 3 obstruction status post cystoscopy, left retrograde pyelogram, and left complicated ureteral stent placement likely related to stricture Stage IV metastatic breast cancer with metastasis to the bone with history of chemotherapy and radiation Hypocalcemia, nonparathyroid mediated secondary to vitamin D deficiency, poor oral intake and likely related to her metastatic bone disease Elevated liver function History of pulmonary embolism on chronic anticoagulation therapy Constipation Chronic pain related to her metastatic bone disease Brief History of Present Illness: 45-year female with history of stage IV metastatic breast cancer with mets to the bones presents emergency department for paresthesias, nausea, vomiting, dehydration. Patient was evaluated in the emergency department, labs were significant for white blood cell count 2.9 hemoglobin 9.6 medical 34.0 platelets 195 potassium 3.0 BUN 5 calcium 5.8 with corrected calcium for albumin of 6.3, AST 117 ALT 108 alk phos 721 BNP 169, ionized calcium, phosphorus, PTH. Patient was admitted for further evaluation and treatment. Hospital Course: Patient presented with nausea, vomiting and abdominal pain. Patient found to have left-sided hydronephrosis. Renal ultrasound showed grade 3 obstruction. Urology and nephrology were consulted. Patient had cystoscopy with left retrograde pyelogram. A left complicated ureteral stent was placed. Patient likely had obstruction related to stricture from her prior radiation. Symptoms have resolved. Patient able to tolerate her diet. At discharge she will continue with current diet. Patient will be provided Ensure supplementation twice daily. Recommend follow-up with urology in 1 to 2 weeks to follow-up his hospitalization. Stent will likely need to be removed in the future. This can be further determined by urology. During the course of her stay patient also had hypocalcemia. This was nonparathyroid mediated. This was likely secondary to vitamin D deficiency, poor oral intake and likely related to her metastatic bone disease. Nephrology was consulted to help in replacement. Patient has done well. Patient will continue with Calcitrol 1 mcg 1 pill twice daily, calcium carbonate every 6 hours taken with empty stomach, and vitamin D 50,000 units every 7 days. Recommend to recheck labCMP with serum calcium within 1 week. Further adjustment in medication can be done by nephrology. Recommend follow-up with nephrology within 1 week. In the future patient may benefit in receiving zoledronic acid to decrease skeletal related events from her metastatic disease. This can be further managed by nephrology. Patient with history of pulmonary embolism. Discharge she will continue with Eliquis 5 mg 1 pill twice daily. Patient with stage IV breast cancer with metastasis. Patient has received chemotherapy and radiation in the past. Patient will follow up with oncology as directed. At discharge she will continue with Femara 2.5 mg daily. Patient with chronic pain related to her metastatic disease. At discharge she will continue with morphine 15 mg as directed. Further adjustment can be done by her PCP or oncology. Vital Signs/Physical Exam: Temp Pulse Resp BP Pulse Ox 98.2 F 97 H 16 97/65 97 01/05/21 09:30 01/05/21 09:30 01/05/21 09:30 01/05/21 09:30 01/05/21 09:30 General: Alert, In no apparent distress, Oriented x3, Cooperative HEENT: Atraumatic Neck: Supple Respiratory: Clear to auscultation bilaterally, Normal air movement Cardiovascular: Normal pulses, Regular rate/rhythm Gastrointestinal: Normal bowel sounds, No ascites, No tenderness, No masses, No rebound, No guarding Integumentary: No tenderness/swelling, No erythema, No warmth, No cyanosis Neurological: Normal speech, Normal strength at 5/5 x4 extr, Normal tone Laboratory Data at Discharge: WBC 4.10 K/uL (4.3-10.9) L 01/04/21 05:28 Hgb 9.6 g/dL (12.0-15.0) L 01/04/21 05:28 Hct 28.2 % (36.0-45.0) L 01/04/21 05:28 Plt Count 282 K/uL (152-406) 01/04/21 05:28 PT 16.2 SECONDS (9.5-12.5) H 12/24/20 00:00 INR 1.40 12/24/20 00:00 Sodium 138 mmol/L (136-145) 01/05/21 05:21 Potassium 4.0 mmol/L (3.5-5.1) 01/05/21 05:21 BUN 7 mg/dL (7-18) 01/05/21 05:21 Creatinine 0.73 mg/dL (0.55-1.3) 01/05/21 05:21 Glucose 83 mg/dL (74-106) 01/05/21 05:21 Phosphorus 2.1 mg/dL (2.5-4.9) L 01/05/21 05:21 Magnesium 2.0 mg/dL (1.8-2.4) 01/05/21 05:21 Total Bilirubin 0.8 mg/dL (0.2-1.0) 01/04/21 05:28 AST 47 U/L (15-37) H 01/04/21 05:28 ALT 77 U/L (12-78) 01/04/21 05:28 Alkaline Phosphatase 971 U/L (45-117) H 01/04/21 05:28 Lipase 41 U/L (73-393) L 01/03/21 05:06 Home Medications: Apixaban [Eliquis] 5 mg PO BID #1 tab.ds.pk 12/03/20 Morphine *Extended Release* [MS Contin*] 1 tab PO PRN PRN 12/03/20 Letrozole [Femara*] 1 tab PO DAILY 12/27/20 Ensure Clear 200 ml PO BID #60 can 12/31/20 Promethazine Suppos [Phenergan] 25 mg OK Q12HP PRN #20 supp 12/31/20 Promethazine Tab [Phenergan] 25 mg PO Q6HP PRN #30 tab 12/31/20 Vitamin D [Drisdol*] 50,000 unit PO Q7D@0900 #5 cap 12/31/20 Calcium Carbonate [Tums Regular*] 1,000 mg PO QID #240 tab 01/05/21 calcitrioL [Rocaltrol] 1 mcg PO BID #60 capsule 01/05/21 New Medications: Vitamin D [Drisdol*] 50,000 unit PO Q7D@0900 #5 cap Ensure Clear 200 ml PO BID #60 can Promethazine Suppos [Phenergan] 25 mg OK Q12HP PRN #20 supp PRN Reason: nausea and vomiting Promethazine Tab [Phenergan] 25 mg PO Q6HP PRN #30 tab PRN Reason: nausea and vomiting calcitrioL [Rocaltrol] 1 mcg PO BID #60 capsule Calcium Carbonate [Tums Regular*] 1,000 mg PO QID #240 tab Physician Discharge Instructions: Patient presented with nausea, vomiting and abdominal pain. Patient found to have left-sided hydronephrosis. Renal ultrasound showed grade 3 obstruction. Urology and nephrology were consulted. Patient had cystoscopy with left retrograde pyelogram. A left complicated ureteral stent was placed. Patient likely had obstruction related to stricture from her prior radiation. Symptoms have resolved. Patient able to tolerate her diet. At discharge she will continue with current diet. Patient will be provided Ensure supplementation twice daily. Recommend follow-up with urology in 1 to 2 weeks to follow-up his hospitalization. Stent will likely need to be removed in the future. This can be further determined by urology. During the course of her stay patient also had hypocalcemia. This was nonparathyroid mediated. This was likely secondary to vitamin D deficiency, poor oral intake and likely related to her metastatic bone disease. Nephrology was consulted to help in replacement. Patient has done well. Patient will continue with Calcitrol 1 mcg 1 pill twice daily, calcium carbonate every 6 hour s taken with empty stomach, and vitamin D 50,000 units every 7 days. Recommend to recheck labCMP with serum calcium within 1 week. Further adjustment in medication can be done by nephrology. Recommend follow-up with nephrology within 1 week. In the future patient may benefit in receiving zoledronic acid to decrease skeletal related events from her metastatic disease. This can be further managed by nephrology. Patient with history of pulmonary embolism. Discharge she will continue with Eliquis 5 mg 1 pill twice daily. Patient with stage IV breast cancer with metastasis. Patient has received chemotherapy and radiation in the past. Patient will follow up with oncology as directed. At discharge she will continue with Femara 2.5 mg daily. Patient with chronic pain related to her metastatic disease. At discharge she will continue with morphine 15 mg as directed. Further adjustment can be done by her PCP or oncology. Diet: Regular Activity: Fall precautions Followup: Unknown,U [Primary Care Provider] - Time spent managing pt's care (in minutes): 55
[2021-01-05] MEDS: HYDROCODONE/APAP 7.5/325 MG TAB PO PRN (10:45)
[2021-01-05] MEDS ORDERED: FOLIC ACID 1 MG in NA CHLORIDE 0.9% 50 ML IV SCH (11:00)
== END 2021-01-05 11:49 | disposition home or self-care (01) | DRG 987 ==
LOC: ER 22:28 → ERHOLD 12-25 02:45 → 2ND 12-26 18:04
PROVIDERS: ADMIT Hospitalist; ATTEND Hospitalist
PROC: 0T778DZ Dilation of Left Ureter with Intraluminal Device, Via Natural or Artificial Opening Endoscopic (ICD-10-PCS; 2021-01-03)
PROC: BT1FYZZ Fluoroscopy of Left Kidney, Ureter and Bladder using Other Contrast (ICD-10-PCS; principal; 2021-01-03 11:30)
DX: E83.51 Hypocalcemia (principal); K85.90 Acute pancreatitis without necrosis or infection, unspecified; N13.1 Hydronephrosis with ureteral stricture, not elsewhere classified; C79.51 Secondary malignant neoplasm of bone; E87.0 Hyperosmolality and hypernatremia; N25.81 Secondary hyperparathyroidism of renal origin; N17.9 Acute kidney failure, unspecified; E46 Unspecified protein-calorie malnutrition; Z68.1 Body mass index [BMI] 19.9 or less, adult; E55.9 Vitamin D deficiency, unspecified; C50.919 Malignant neoplasm of unspecified site of unspecified female breast; G89.3 Neoplasm related pain (acute) (chronic); R79.89 Other specified abnormal findings of blood chemistry; Z79.01 Long term (current) use of anticoagulants; K59.00 Constipation, unspecified; R11.2 Nausea with vomiting, unspecified; E86.0 Dehydration; Y84.2 Radiological procedure and radiotherapy as the cause of abnormal reaction of the patient, or of later complication, without mention of misadventure at the time of the procedure; K52.9 Noninfective gastroenteritis and colitis, unspecified; E87.6 Hypokalemia; E83.39 Other disorders of phosphorus metabolism; D64.9 Anemia, unspecified; Z86.711 Personal history of pulmonary embolism; Z20.822 Contact with and (suspected) exposure to COVID-19
CPT/HCPCS: 36415; 51610; 71275; 74018; 74176; 74450; 76770; 78708; 80048; 80053; 80069; 80076; 82306; 82330; 82565; 82652; 82947; 83516; 83690; 83735; 83880; 83970; 84100; 84156; 84439; 84443; 84484; 85025; 85610; 86140; 87086; 87088; 93005; 96374; 96375; 97116; 97161; 99285; A9562; C9113; J0610; J0690; J1100; J1170; J1720; J1940; J2250; J2270; J2405; J2550; J2704; J3010; J3411; J3475; J3480; J7030; J7040; J7042; J7120; J7799; Q9967; U0003

== ENCOUNTER 2021-02-27 07:49 | Day surgery (SDC) | payer OTHER ==
[2021-02-22 13:03] LABS: Protime INR 1.03
[2021-02-22 13:13] LABS: BUN Blood Urea Nitrogen 7 mg/dL (7-18); Bicarbonate 30 mmol/L (21-32); Glucose Level 100 mg/dL (74-106); Potassium 3.7 mmol/L (3.5-5.1); Sodium Level 145 mmol/L (136-145)
[2021-02-22 13:23] LABS: Urine Appearance CLOUDY (Clear); Urine Bilirubin NEGATIVE (Negative); Urine Blood 1+ (Negative); Urine Color YELLOW (Yellow); Urine Glucose NEGATIVE (Negative); Urine Protein 1+ (Negative); Urine Specific Gravity 1.015 (1.005-1.030); Urine Urobilinogen 0.2 mg/dL (0.2-1.0)
[2021-02-22 13:33] LABS: Urine Microscopic Reflex ORDER UMIC
[2021-02-22 13:34] LABS: Urine Bacteria LOADED /HPF (<20); Urine Mucus MOD /HPF (NONE SEEN); Urine RBC <5 /HPF (NONE SEEN)
[2021-02-27] MEDS ORDERED: Ringers Lactate 1,000 ML IV ONE (08:37)
[2021-02-27] MEDS ORDERED: CEFAZOLIN/NS 1gm 1 GM/50 ML BAG ONE (08:37)
[2021-02-27 08:50] VITALS: BP 130/79; TEMP 97.4; O2SAT 99
[2021-02-27] MEDS ORDERED: CELECOXIB 100 MG CAPSULE PO ONE (09:42)
[2021-02-27] MEDS ORDERED: HYDROCODONE/APAP 7.5/325 MG TAB PO ONE (09:42)
[2021-02-27] MEDS ORDERED: HYDROCODONE/APAP 7.5/325 MG TAB ONE (10:00)
[2021-02-27] MEDS ORDERED: CELECOXIB 100 MG CAPSULE ONE (10:01)
[2021-02-27] MEDS ORDERED: ACETAMINOPHEN 500 MG TAB ONE (10:01)
== END 2021-02-27 11:00 | disposition home or self-care (01) ==
LOC: OR 07:49
PROVIDERS: ATTEND Urology
DX: N13.1 Hydronephrosis with ureteral stricture, not elsewhere classified (principal); Z53.09 Procedure and treatment not carried out because of other contraindication; Z20.822 Contact with and (suspected) exposure to COVID-19
CPT/HCPCS: 87088; 87086; 80048; 36415; 85610; 87077; 87186; U0003; J0690; J7120; 81003; 81015

== ENCOUNTER 2021-03-06 09:25 | Day surgery (SDC) | payer OTHER ==
[2021-03-06 10:30] LABS: Urine Appearance CLOUDY (Clear); Urine Bilirubin NEGATIVE (Negative); Urine Blood 3+ (Negative); Urine Color YELLOW (Yellow); Urine Glucose NEGATIVE (Negative); Urine Protein TRACE (Negative); Urine Specific Gravity 1.015 (1.005-1.030); Urine Urobilinogen 0.2 mg/dL (0.2-1.0)
[2021-03-06 10:35] LABS: Urine Microscopic Reflex ORDER UMIC
[2021-03-06 11:12] LABS: Urine Bacteria <20 /HPF (<20)
[2021-03-06] MEDS ORDERED: CEFAZOLIN/NS 1gm 1 GM/50 ML BAG ONE (11:12)
[2021-03-06] MEDS ORDERED: Ringers Lactate 1,000 ML IV ONE (11:12)
[2021-03-06] MEDS ORDERED: FENTANYL CITR 100 MCG/2 ML ONE ×2 (13:04→14:34)
[2021-03-06] MEDS ORDERED: MIDAZOLAM HCL 2 MG/2 ML INJ ONE (13:04)
[2021-03-06] MEDS ORDERED: LIDOCAINE 1% MPF 5 ML VIAL ONE (13:05)
[2021-03-06] MEDS ORDERED: propofoL 200 MG/20 ML VIAL IV ONE (13:05)
[2021-03-06] MEDS ORDERED: ROCURONIUM 50 MG/5 ML VIAL IV ONE (13:06)
[2021-03-06] MEDS ORDERED: dexAMETHasone 10 MG/ML VIAL ONE (13:35)
[2021-03-06] MEDS ORDERED: PHENAZOPYRIDINE 100MG TAB PO ONE ×3 (13:46→15:11)
[2021-03-06] MEDS ORDERED: Oxycodone HCl/Acetaminophen 1 TAB TAB PO PRN (13:46)
[2021-03-06] MEDS ORDERED: ONDANSETRON 4 MG/2 ML VIAL ONE (13:51)
[2021-03-06] MEDS ORDERED: GLYCOPYRROLATE 0.2 MG/ML SYR ONE ×2 (13:52)
[2021-03-06] MEDS ORDERED: NEOSTIGMINE 1 MG/ML -5 ML ONE (14:14)
[2021-03-06 14:22] VITALS: BP 121/70; TEMP 97.1; O2SAT 99
[2021-03-06] MEDS ORDERED: KETOROLAC 30 MG/ML INJ ONE (14:27)
[2021-03-06] MEDS ORDERED: Oxycodone HCl/Acetaminophen 1 TAB TAB ONE (15:11)
--- NOTE | 2021-03-06 23:48 | OP ---
Date of Procedure: 03/06/2021 Surgeon: DANIELE POSADAS Preoperative Diagnoses: 1.Left ureteral obstruction. 2.Left hydronephrosis. 3.Status post left ureteral stent placement for left flank pain. Postoperative Diagnoses: 1.Left ureteral obstruction. 2.Left hydronephrosis. 3.Status post left ureteral stent placement for left flank pain. 4.Likely left extrinsic ureteral compression at the body of L4. Principal Procedures: 1.Cystoscopy and left retrograde pyelogram. 2.Left ureteroscopy and ureteroscopic biopsy. 3.Left ureteral balloon dilation. 4.Left ureteral stent exchange with an upsized 7-Norwegian ureteral stent. Indication For Procedure: Ms. Farris is a 45-year-old woman with metastatic breast cancer to the b ones who has undergone chemotherapy. She had left-sided hydronephrosis causing flank pain due to ure teral obstruction covering the entirety of the body of L4. I previously performed a retrograde pyelo gram and placed a left ureteral stent, and she presents today for definitive evaluation and managemen t. Procedure In Detail: The patient was consented in the preoperative holding area before being transfe rred to the operative suite where general anesthesia was induced. She was given Ancef 1 g IV antimic robial prophylaxis and pneumo boots were provided for DVT prophylaxis. She was placed in the lithoto my position, padded and secured to the table appropriately. Her genitalia were prepped using Hibicle ns and she was draped in standard fashion. The case was begun using a 22-Norwegian rigid cystoscope to traverse the urethra and into the bladder with ease. The bladder was decompressed of urine and the s tent was visualized emanating from the left ureteral orifice. I then grasped the stent using an celeste gator grasper and delivered the tip to the meatus. I then passed a Sensor wire via the stent and obs erved a coil within the putative upper pole of the kidney. Over the Sensor wire, I removed the stent and replaced it with a dual-lumen catheter into the mid distal ureter. A retrograde pyelogram was t hen performed. Left retrograde pyelography: Using a 70:30 mixture of Omnipaque and saline, contrast was injected via the second lumen of the dual -lumen catheter and did propagate up the distal ureter before it met a point of obstruction at the kevin dy of L4 and only minimal contrast was noted to get beyond it and into the proximal ureter. An addit ional contrast bolus was given, and still the proximal ureter did not delineate fully raising a quest ion as to whether the stricture disease or extrinsic compression may have progressed since her prior stent placement, where just the body of L4 involved. As such, I injected additional contrast and thi s time was able to more fully delineate the renal pelvis and calices, but the proximal ureter still a ppeared somewhat ratty, irregular in appearance. As such, I removed the dual-lumen catheter and perf ormed a semi-rigid ureteroscopy under direct vision via the distal ureter and into the mid ureter. T he ureter was normal in appearance of its mucosa up until the body of L4 was encountered where there was significant compression in that area. No specific scar tissue was identified indicating an intri nsic ureteral process, and while the mucosa in that region was somewhat edematous, there were really no papillary urothelial neoplasm suspected. The point of obstruction did prohibit passage of the sco pe despite pressurized irrigation, which was increased from 125 cm of water pressure to 175 cm of thania er pressure. As such, I passed a Bridgestream guidewire via the semi-rigid ureteroscope in order to provi de a rail road track over which to gently pass the semi-rigid ureteroscope into the proximal ureter b eyond the point of obstruction. This was then countered. Once the body of L4 had been surpassed and into the junction of L3, L4, and the body of L3. There, the proximal ureteral mucosa was completely normal and there was no evidence of extrinsic compression. I then performed a retrograde pyelogram via the ureteroscope with the tip of the ureteroscope beyond the point of obstruction, and the renal pelvis and calices did delineate nicely without any evidence of filling defect, though they were some what hydronephrotic with caliectasis associated with the prior boluses of contrast injection. I thus backed the semi-rigid ureteroscope into the body of L4 survey along the way and looked for any abnor mal mucosa with which to biopsy. Again, while no urothelial neoplasm was strongly suspected, a coupl e of areas of slightly atypical mucosa were visualized and I was able to use a Piranha biopsy forceps to biopsy those areas in [address]. These were both taken from within the body of L4 in the ureteral lumen. I then removed the Piranha biopsy forceps and then the ureteroscope and the specimens were s ent for pathologic analysis. I then passed the dual-lumen catheter over the indwelling Sensor wire a gain and this time performed a retrograde pyelogram confirming absence of extravasation. I then pass ed a Paybubbleson guidewire into the renal pelvis again coiling it alongside the Sensor wire as observed f luoroscopically. I then began the ureteral dilation procedure. Left ureteral dilation at the body of L4 with a 15-Norwegian 6 cm ureteral balloon. Using the balloon as described above, the body of L4 was traversed as observed fluoroscopically with a markers all the balloon across the entirety of the body of L4 and across the junction of L3-L4 and L4-L5. The balloon was then inflated until there was no waist noted in the balloon and the balloon w as completely distended. We increased the pressure to 20 mmHg pressure and the ureteral lumen was ni chelsea opened. I allowed this pressurized dilation to remain in place for several minutes before defla ting the balloon and removing the balloon catheter. I then again replaced the dual-lumen catheter an d performed a retrograde pyelogram. This time, while contrast did more usually propagate beyond the point of obstruction at the body of L4, the ureter was still somewhat ratty in that location. As a r esult, I removed the dual-lumen catheter and backloaded the cystoscope over the indwelling safety wir e in order to place a 7-Norwegian x 26 cm double-J left ureteral stent. This was done with a coil obser jolene fluoroscopically within the renal pelvis and 1 cystoscopically formed within the bladder. The bl adder was then decompressed of fluid and urine, and the patient was taken out of the lithotomy positi on. She was then awakened from general anesthesia, transferred to a stretcher, and then transferred to the recovery room in good condition. Complications: None. Discharge Disposition: It appears likely the reason for the obstruction of the ureteral lumen of the body of L4 is due to extrinsic compression, which may be due to either fibrosis from her prior metas tatic disease and chemotherapy or potentially due to active disease. We will review her most recent imaging and consider MRI if necessary to more delineate the source of the extrinsic compression while we await the results of the pathology to confirm absence of urothelial or intraureteral malignancy n oted there. Otherwise, since she feels better with the stents in place, we will plan to continue wit h stent exchanges as long as the kidney is doing well with good function and no significant hydroneph rosis. JOSEFA/MODL Voice ID: [id number] Report ID: [id number]
== END 2021-03-06 14:45 | disposition home or self-care (01) ==
LOC: OR 09:25
PROVIDERS: ATTEND Urology
PROC: 0T778DZ Dilation of Left Ureter with Intraluminal Device, Via Natural or Artificial Opening Endoscopic (ICD-10-PCS; 2021-03-06)
PROC: 0TB78ZX Excision of Left Ureter, Via Natural or Artificial Opening Endoscopic, Diagnostic (ICD-10-PCS; 2021-03-06)
PROC: 0TB78ZX Excision of Left Ureter, Via Natural or Artificial Opening Endoscopic, Diagnostic (ICD-10-PCS; principal; 2021-03-06 11:00)
DX: N13.1 Hydronephrosis with ureteral stricture, not elsewhere classified (principal); Z20.822 Contact with and (suspected) exposure to COVID-19
CPT/HCPCS: 88305; 52354; 52344; 52332; U0003; J2704; J2250; J3010 ×2; J1100; J2710; J0690; J7120; J2405; 81003; 81015

== ENCOUNTER 2021-08-02 16:23 | Emergency (ER) | payer OTHER ==
--- OUTSIDE RECORDS SUMMARY | 2021-08-02 16:28 | XMS REPORT | Clinical Summary ---
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 Cancer associated pain morphine (MSIR) 15 mg Take 1 tablet (15 120 tablet 0 1 Active IR tabletIndications: mg) by mouth every Cancer associated 4 (four) hours as pain needed for moderate pain or severe pain. ondansetron (Zofran) Take 1 tablet (8 30 tablet 0 11/28/2020 Active 8 mg mg) by mouth every tabletIndications: 8 (eight) hours as Nausea needed for nausea or vomiting. Additional Information [...] lower outer quadrant of left female breast famotidine (PEPCID) 20 Take 20 mg by 0 Active mg tablet mouth daily as needed. lidocaine (XYLOCAINE) Swish and spit 100 mL 0 12/07/2020 Active 20 mg/mL (2%) viscous 15 mL as needed solutionIndications: (rinse and Infiltrating duct expectorate as carcinoma of needed TID). overlapping sites of right female breast ondansetron Dissolve 1 30 tablet 3 12/13/2020 Active (ZOFRAN-ODT) 8 mg tablet (8 mg) disintegrating on the tongue tabletIndications: every 8 (eight) Infiltrating duct hours as needed carcinoma of for nausea or overlapping sites of vomiting. right female breast HYDROcodone-acetaminop Take 1 tablet 120 tablet 0 01/11/2021 Active hen (NORCO) 7.5 mg-325 by mouth every mg per 6 (six) hours tabletIndications: as needed for Secondary malignant moderate pain. 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 Unwrap overlapping sites of foil prior to right female breast, insertion. Estrogen receptor positive status (ER+) dexamethasone Take 1 tablet 30 tablet 0 01/18/2021 A ctive (DECADRON) 4 mg (4 mg) by mouth tabletIndications: 2 (two) times a Secondary malignant day after neoplasm of bone, meals. Take 4 Infiltrating duct mg in AM, 2 mg carcinoma of in early overlapping sites of afternoon, for right female breast, one week, then Estrogen receptor 2 mg twice a positive status (ER+) day for a week, then 2 mg in am for a week, then 2 mg every other day esomeprazole (NexIUM) Take 1 capsule 30 capsule 0 01/18/2021 Active 20 MG (20 mg) by capsuleIndications: mouth every Secondary malignant morning before neoplasm of bone, breakfast. 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 Estrogen receptor positive status (ER+) HYDROcodone-acetaminop Take 1 tablet 120 tablet 0 02/02/2021 Active hen (NORCO) 7.5 mg-325 by mouth every mg per 6 (six) hours tabletIndications: as needed for Secondary malignant moderate pain. neoplasm of bone, Estrogen receptor positive status (ER+) diclofenac sodium 100 Take 100 mg by 0 10/09/2020 07 /2 Discontinued mg 24 hr tablet mouth at 3 (Err or) bedtime. 21 gabapentin (NEURONTIN) Take 100 mg by 0 10/18/2020 0 7/2 Discontinued 100 mg capsule mouth 3 (three) 0 (Alternate times a day. 21 therapy ) phenazopyridine Take 200 mg by 0 10/09/2020 07/2 Discontinued (PYRIDIUM) 200 mg mouth daily as 320 (Error) tablet needed. 21 tiZANidine (ZANAFLEX) Take 2 mg by 0 10/18/2020 07/2 Discontinued 2 mg tablet mouth daily as 3/20 (Er ror) needed. 21 traMADol-acetaminophen Take 1 tablet 0 10/18/20202 Discontinued (ULTRACET) 37.5-325 mg by mouth every 3 20 (Error) per tablet 8 (eight) hours 21 as needed. dexamethasone Take 1 tablet 60 tablet 2 11/16/202012/03 E xpired (DECADRON) 4 mg (4 mg) by mouth 08/22 tabletIndications: 2 (two) times a 21 Secondary malignant day with meals neoplasm of bone, for 30 days. Acute thoracic back pain, Malignant neoplasm of unspecified site of unspecified female breast LORazepam (ATIVAN) 1 Take 1 tablet 30 tablet 2 11/16/202001/03 Discontinued mg tabletIndications: (1 mg) by mouth Secondary malignant as directed. 21 neoplasm of bone, Take 45 minutes Acute thoracic back prior to MRI or pain, Malignant radiation neoplasm of treatment, once unspecified site of daily. Ok to unspecified female take 1 breast additional pill at time of appointment if needed. gabapentin (NEURONTIN) Take 1 capsule 90 capsule 2 11/21/202001/03 Discontinued 300 mg (300 mg) by 10/22 capsuleIndications: mouth 3 (three) 21 Secondary malignant times a day. neoplasm of bone HYDROcodone-acetaminop Take 1-2 30 tablet 0 11/21/202001/03 Discontinued hen (Truchas) 5 mg-325 tablets by 10/22 mg per mouth every 10 23 tabletIndications: (six) hours as Secondary malignant needed for neoplasm of bone moderate pain. pantoprazole Take 1 tablet 30 tablet 0 11/28/202001/03 Di scontinued (Protonix) 40 mg EC (40 mg) by 10/22 tabletIndications: mouth daily 21 Nausea with breakfast. palbociclib (Ibrance) Take 1 tablet 21 tablet 3 11/30/202012/03 125 mg (125 mg) by 01/22 tabletIndications: mouth daily for 21 Infiltrating duct 21 days. carcinoma of Repeat every 28 overlapping sites of days. 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 21 predniSONE (DELTASONE) 0 12/04/202001/03 Discontinued 20 mg tablet 10/22 (Therap y 21 completed) chlorhexidine Swish and spit 473 mL 12/07/2020 (PERIDEX) 0.12% 15 mL twice 08/22 solutionIndications: daily for 30 21 Infiltrating duct days. carcinoma of overlapping sites of right female breast fluoride, sodium, Apply to teeth 51 g 12/07/2020 (PREVIDENT) 1.1 % twice daily for 08/22 dental 30 days. [place] 21 creamIndications: teeth with Infiltrating duct cream twice a carcinoma of day and overlapping sites of expectorate (Do right female breast not rinse for 30 minutes). ergocalciferol 50,000 Units 0 12/31/202001/03 D iscontinued (DRISDOL) 50,000 units every 7 days. 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 12/08/2020 Anemia [...] Encounters Date Type Specialty Care Team Description 02/21/2021 Telephone Oncology Tony Zheng CGC 02/09/2021 Specialty Pharmacy Lalo Helton, PharmD 02/07/2021 Telephone Oncology Tony Zheng CGC 02/07/2021 Telephone Oncology Tony Zheng CGC 02/02/2021 Orders Only Breast [facility], Secondary mal ignant neoplasm of bone (Primary Dx); Oncology MD George Estrogen recept or positive status (ER+) 01/18/2021 Infusion Infusion Services Aboarb, Secondary malignant neoplasm of bone (Primary Dx); MD George Estrogen recept or positive status (ER+); Infiltrating du ct carcinoma of overlapping sites of right female breast 01/18/2021 Office Visit [facility], Secondary mal ignant neoplasm of bone (Primary Dx); Oncology MD George Infiltrating du ct carcinoma of overlapping sites of right female breast; Estrogen recept or positive status (ER+) 01/18/2021 Travel 01/15/2021 Hospital Encounter Ophthalmic Plastic Librado Bajwa Facial palsy 01/11/2021 Orders Only [facility], Secondary mal ignant neoplasm of bone (Primary Dx); Oncology MD George Infiltrating du ct carcinoma of overlapping sites of right female breast; Estrogen recept or positive status (ER+) 01/11/2021 Orders Only [facility], Secondary mal ignant neoplasm of bone (Primary Dx); Oncology MD George Infiltrating du ct carcinoma of overlapping sites of right female breast; Estrogen recept or positive status (ER+) 01/11/2021 Telephone Oncology Noé Turk RN 01/01/2021 Documentation Ophthalmology Radha Jimenes RN 01/01/2021 Telephone Oncology Noé Turk RN 12/28/2020 Orders Only Ophthalmology Lawrence, Facial palsy ANGIE Arcos (Primary Dx) 12/27/2020 Orders Only [facility], Secondary mal ignant neoplasm of bone (Primary Dx); Oncology MD George Infiltrating du ct carcinoma of overlapping sites of right female breast; Estrogen recept or positive status (ER+) 12/25/2020 Telephone Oncology Noé Turk RN 12/21/2020 Infusion Infusion Services Abouharb, Secondary malignant neoplasm of bone (Primary Dx); MD George Estrogen recept or positive status (ER+); Infiltrating du ct carcinoma of overlapping sites of right female breast 12/21/2020 Office Visit [facility], Secondary mal ignant neoplasm of bone (Primary Dx); Oncology MD George 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; Infiltrating du ct carcinoma of overlapping sites of right female breast; Estrogen recept or positive status (ER+) 12/21/2020 Orders Only [facility], Bria Vazquez MD 12/21/2020 Orders Only [facility], Secondary mal ignant neoplasm of bone (Primary [...] Garay PA 12/13/2020 Orders Only Oncology Sweta Estrada, 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 (Primary Dx) 12/11/2020 Telephone Oncology Noé Turk RN 12/08/2020 Telemedicine Pain Medicine José Miguel, Neoplasm rela reyes pain (acute) (chronic) (Primary Dx); MD Judi Secondary m alignant neoplasm of bone; 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; Infiltrating du ct carcinoma of overlapping sites of right female breast; [facility] curre nt use of opiate analgesic 12/08/2020 Telephone Pain Medicine Marina Ravi RN 12/07/2020 Hospital Encounter Lab Abouhar[place], Secondary malignant neoplasm of bone; MD George 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; Infiltrating du ct carcinoma of overlapping sites of right female breast; Estrogen recept or positive status (ER+) 12/07/2020 Hospital Encounter Dental Oncology Isidoro Jasmine, Jonas ounter for DDS observation for other suspected condition ruled out 12/07/2020 Hospital Encounter Dental Oncology Isidoro Jasmine, Aracelis ondary malignant neoplasm of bone; DDS 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; Infiltrating du ct carcinoma of overlapping sites of right female breast; Estrogen recept or positive status (ER+) 12/07/2020 Documentation [facility], Oncology MD George 12/07/2020 Orders Only [facility], Secondary mal ignant neoplasm of bone (Primary Dx); Oncology MD George 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; Infiltrating du ct carcinoma of overlapping sites of right female breast; Estrogen recept or positive status (ER+) 12/07/2020 Orders Only Dental Oncology Sade, Encounter f or NIKA Anderson observation for other suspected condition ruled out (Primary Dx ) 12/07/2020 Travel 12/04/2020 Telephone Oncology Noé Turk PE, RN 12/01/2020 Specialty Pharmacy Maura Calabrese, Robi 11/30/2020 Infusion Infusion Services Abouharb, Secondary malignant neoplasm of bone (Primary Dx); MD George Estrogen recept or positive status (ER+); Infiltrating du ct carcinoma of overlapping sites of right female breast 11/30/2020 Office Visit Breast Medical [facility], Secondary mal ignant neoplasm of bone (Primary Dx); Oncology MD George 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; Infiltrating du ct carcinoma of overlapping sites of right female breast; Estrogen recept or positive status (ER+) 11/30/2020 Clinical Support Radiation Oncology [facility], Guillermo Vazquez MD (Physician Request) 11/30/2020 Documentation Radiation Oncology [place] 11/30/2020 Orders Only Oncology Sweta Estrada, Infiltratin g duct carcinoma of overlapping sites of right female breast (Primary Dx); 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 Estrogen recept or positive status (ER+); Secondary malig nant neoplasm of bone; 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 11/30/2020 Travel 11/29/2020 Telemedicine Breast [facility], Secondary mal ignant neoplasm of bone; Oncology MD George 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; Infiltrating du ct carcinoma of overlapping sites of right female breast; Estrogen recept or positive status (ER+) 11/29/2020 Travel 11/29/2020 Telephone Radiation Oncology Lorenza Menjivar RN 11/27/2020 Telemedicine Radiation Oncology Janette Dodd MD 11/26/2020 Documentation Radiation Oncology Jordon Muniz MD PhD 11/25/2020 Travel 11/24/2020 Hospital Encounter /GI Med Юлия Han Infil trating duct carcinoma of breast (Primary Dx); - Cancer associated pain; 11/28/2020 Jeny Guillermo Facial palsy ; MD Italia Thoracic back pain; Lorenza Montes, Benign neop lasm of right choroid; Encounter for observation for other susp ected condition ruled out; Vesna, Nausea; MD Jesse Infiltrating duct carcinoma of lower out er quadrant of left female breast Gilbert Napier MD 11/24/2020 Orders Only Ophthalmology Bravo, Facial palsy ANGIE Arcos (Primary Dx) 11/24/2020 Ophth Exam Ophthalmology Maria Dolores Swanson MD 11/24/2020 Travel 11/23/2020 [facility] Karey Gallegos of bone (Jasmine Griffin, RN Dx) 11/23/2020 Consult Breast Medical [facility], Secondary mal ignant neoplasm of bone (Primary Dx); Oncology MD George 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; Infiltrating du ct carcinoma of overlapping sites of right female breast; Estrogen recept or positive status (ER+) 11/23/2020 Documentation Radiation Oncology Paulina Jiang MD 11/23/2020 Travel 11/23/2020 Orders Only Radiation Oncology Mone Garay PA malignant neopl asm of bone (Primar y Dx) 11/23/2020 Telephone Radiation Oncology Maggie Sal RN 11/22/2020 Documentation Radiation Oncology Janette Dodd MD 11/21/2020 Orders Only Radiation Oncology Janette Dodd MD 11/21/2020 Telephone Radiation Oncology Justin Villarreal RN 11/21/2020 Orders Only Radiation Oncology Janette Dodd MD malignant neopl asm of bone (Primar y Dx) 11/20/2020 Hospital Encounter Radiation Oncology George Mason MD 11/17/[address] 11/16/2020 Office Visit Radiation Oncology Janette Dodd Secondary malignant neoplasm of bone (Primary Dx); MD Louisa Facial palsy; Acute thoracic back pain; Malignant neopl asm of unspecified site of unspecified female breast 11/16/2020 NPR Patient Access Miguel Aefe, Services MD George 11/16/2020 Documentation Radiation Oncology Janette Dodd MD 11/16/2020 Documentation Radiation Oncology Janette Dodd MD 11/16/2020 Lab Requisition Juancho Rodríguez MD Muthukumarana, [place], MD 11/16/2020 Documentation Physical Therapy Bella Laurent, BOB 11/16/2020 Orders Only Radiation Oncology Mone Garay PA malignant neopl asm of bone (Primar y Dx) 11/16/2020 Travel 11/15/2020 Clinical Support Covid Isabella, Suspected C OVID-19 MD George (Primary Dx) Myra Ann MA 11/15/2020 Orders Only Radiation Oncology Janette Dodd MD malignant neopl asm of bone (Primar y Dx) 11/15/2020 Orders Only Radiation Oncology Mone Garay PA 11/15/2020 Travel 11/10/2020 Ancillary Procedure Radiology Isabella, Kana Vazquez MD 11/10/2020 Ancillary Procedure Radiology Isabella, Kana Vazquez MD 11/10/2020 Ancillary Procedure Radiology Isabella, Kana Vazquez MD 11/10/2020 Ancillary Procedure Radiology Isabella, Kana Vazquez MD 11/10/2020 Ancillary Procedure Radiology Isabella, Kana Vazquez MD 11/10/2020 Ancillary Procedure Radiology Isabella, Kana Vazquez MD 11/10/2020 Ancillary Procedure Radiology Kana Mason MD 11/10/2020 Ancillary Procedure Radiology Kana Mason MD 11/10/2020 Ancillary Procedure Radiology Kana Mason MD 11/09/2020 Telephone Patient Access Isabella, Mary Vazquez MD after 08/02/2020 Surgical History Surgery Date Site/Laterality Comments HYSTERECTOMY 05/05/2013 - 05/04/2014 Uterine fi broid HUMERUS FRACTURE SURGERY 05/05/1991 - 05/04/1992 Left M etal Screws Family History Medical History Relation Name Comments Kidney cancer Father stage IV RCC Stomach cancer Mother Cervical cancer Sister Relation Name Status Comments Father Alive Mother Alive Sister Alive Social History Tobacco Use Types Packs/Day Years [...] file Not on file Not on file Obstetrics History Para Term AB IAB SAB Ectopic Multiple Living Live Births 0 0 0 0 0 0 0 0 0 0 0 Comments Menses: Age 10 Oral Contraceptives: None Last Filed Vital Signs Vital Sign Reading Time Taken Comments Blood Pressure 99/58 01/18/2021 12:35 PM CDT Pulse 89 01/18/2021 12:35 PM CDT Temperature 36.9 C (98.4 F) 01/18/2021 12:35 PM CDT Respiratory Rate 17 01/18/2021 12:35 PM CDT Oxygen Saturation 95% 01/18/2021 12:35 PM CDT Inhaled Oxygen Concentration - - Weight 58.5 kg (128 lb 15.5 oz) 01/18/2021 10:00 AM CDT Height 164.5 cm (5' 4.76") 11/25/2020 9:12 PM CDT Body Mass Index 21.62 11/25/2020 9:12 PM CDT Plan of Treatment Health Maintenance Due Date Last Done Comments COVID-19 Vaccination (1) 1985 Implants Implanted Type Area Tunneling Machine 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 overlapping sites of right female breast Estrogen receptor positive status (ER+) TOTAL PROTEIN Routine 01/18/2021 9:42 Secondary malignant Res ults for this AM CDT neoplasm of bone procedure are in Infiltrating duct the result s carcinoma of section. overlapping sites of right female breast Estrogen receptor positive status (ER+) ASPARTATE Routine 01/18/2021 9:42 Secondary malignant Resu lts for this AMINOTRANSFERASE AM CDT neoplasm of bon e procedure are in Infiltrating duct the result s carcinoma of section. overlapping sites of right female breast Estrogen receptor positive status (ER+) ALANINE AMINOTRANSFERASE Routine 01/18/2021 9:42 Secondary ma lignant Results for this AM CDT neoplasm of bone procedure are in Infiltrating duct the result s carcinoma of section. overlapping sites of right female breast Estrogen receptor positive status (ER+) ALKALINE PHOSPHATASE Routine 01/18/2021 9:42 Secondary malign ant Results for this AM CDT neoplasm of bone procedure are in Infiltrating duct the result s carcinoma of section. overlapping sites of right female breast Estrogen receptor positive status (ER+) ALBUMIN LEVEL Routine 01/18/2021 9:42 Secondary malignant Res ults for this AM CDT neoplasm of bone procedure are in Infiltrating duct the result s carcinoma of section. overlapping sites of right female breast Estrogen receptor positive status (ER+) CALCIUM LEVEL TOTAL Routine 01/18/2021 9:42 Secondary maligna nt Results for this AM CDT neoplasm of bone procedure are in Infiltrating duct the result s carcinoma of section. overlapping sites of right female breast Estrogen receptor positive status (ER+) .GLOMERULAR FILTRATION Routine 01/18/2021 9:42 Secondary fina gnant Results for this RATE AM CDT neoplasm of bone procedure are in Infiltrating duct the result s carcinoma of section. overlapping sites of right female breast Estrogen receptor positive status (ER+) SERUM CREATININE Routine 01/18/2021 9:42 Secondary malignant Results for this AM CDT neoplasm of bone procedure are in Infiltrating duct the result s carcinoma of section. overlapping sites of right female breast Estrogen receptor positive status (ER+) ELECTROLYTE PANEL Routine 01/18/2021 9:42 Secondary malignant Results for this AM CDT neoplasm of bone procedure are in Infiltrating duct the result s carcinoma of section. overlapping sites of right female breast Estrogen receptor positive status (ER+) BLOOD UREA NITROGEN Routine 01/18/2021 9:42 Secondary maligna nt Results for this AM CDT neoplasm of bone procedure are in Infiltrating duct the result s carcinoma of section. overlapping sites of right female breast Estrogen receptor positive status (ER+) GLUCOSE LEVEL Routine 01/18/2021 9:42 Secondary malignant Res ults for this AM CDT neoplasm of bone procedure are in Infiltrating duct the result s carcinoma of section. overlapping sites of right female breast Estrogen receptor positive status (ER+) MANUAL DIFFERENTIAL Routine 01/18/2021 9:42 Secondary maligna nt Results for this AM CDT neoplasm of bone procedure are in Infiltrating duct the result s carcinoma of section. overlapping sites of right female breast Estrogen receptor positive status (ER+) Results CBC Routine 01/18/2021 9:42 Secondary malignant Resu lts for this AM CDT neoplasm of bone procedure are in Infiltrating duct the result s carcinoma of section. overlapping sites of right female breast Estrogen receptor positive status (ER+) CANCER ANTIGEN 15-3 Routine 01/18/2021 9:42 Secondary maligna nt Results for this AM CDT neoplasm of bone procedure are in Infiltrating duct the result s carcinoma of section. overlapping sites of right female breast Estrogen receptor positive status (ER+) PHOSPHORUS LEVEL Routine 01/18/2021 9:42 Secondary malignant Results for this AM CDT neoplasm of bone procedure are in Infiltrating duct the result s carcinoma of section. overlapping sites of right female breast Estrogen receptor positive status (ER+) MAGNESIUM LEVEL Routine 01/18/2021 9:42 Secondary malignant R esults for this AM CDT neoplasm of bone procedure are in Infiltrating duct the result s carcinoma of section. 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 after 08/02/2020 Results .Serum Creatinine (01/18/2021 9:42 AM CDT)Only the most recent of8 results within the time period is included. Pathologist Sig nature Creatinine 0.51Comment: Testing 0.51 - 0.95 mg/dL READING performed at [facility], [address] [place] [id number] Specimen Blood Performing Organization Address City/State/ZIP Code Phon e Number [place] [id number] [place] [address] (ABNORMAL) .CBC (01/18/2021 9:42 AM CDT)Only the most recent of8 resultswithin the time period is included. Pathologist Sig nature WBC 4.6Comment: All 4.0 - 11.0 K/uL READING components of the CBC performed at [facility], [address] [place] [address], [place] [address] RBC 3.10 (L)Comment: All 4.00 - 5.50 READING components of the CBC M/uL performed at [facility], [address] [place] [address] Hgb 10.1 (L)Comment: As 12.0 - 16.0 READING part of CBC or as an gm/dL individual orderable testing performed at [facility], [address] [place] [address], [place] [address] Hct 31.9 (L)Comment: As 37.0 - 47.0 % READING part of CBC testing performed at [facility], [address] [place] [address] 67792 MCV 103 (H)Comment: As 82 - 98 fL READING part of CBC testing performed at [facility], [address] [place] [address] MCH 32.6 (H)Comment: As 27.0 - 31.0 pg READING part of CBC testing performed at [facility], [address] [place] [address] MCHC 31.7Comment: As part 31.0 - 36.0 READING of CBC testing gm/dL performed at [facility], [address] [place] [address] 69704 RDW-SD 72.4 (H)Comment: As 35.1 - 46.3 fL READING part of CBC testing performed at [facility], [address] [place] [address] 28727 RDW-CV 19.2 (H)Comment: As 12.0 - 15.5 % READING part of CBC testing performed at [facility], [address] [place], [place] [phone] Platelet count 473 (H)Comment: As 140 - 440 K/uL READING part of CBC or an individual orderable testing performed at [facility], [address] [place] [address] MPV 8.6Comment: As part 4.0 - 10.4 fL READING of CBC testing performed at [facility], [address] [place] [address] Specimen Blood Performing Organization Address City/State/ZIP Code Phon e Number [facility] [place] [address] [facility] Glomerular Filtration Rate (01/18/2021 9:42 AM CDT)Only the most recent of8 resultswithin the time period is included. [facility] nature eGFR-AA 132 >=60 mL/min/1.73 READING Comment: sq. m Normal eGFR >= 60 mL/min/1.73 m2 Note: The eGFR is calculated using the CKD-EPI equation. The eGFR declines with age. eGFR <60 mL/min/1.73 m2 is considered as "decreased". This equation should only be used for patients 18 and older. According to the [facility]'s Kidney Disease Outcome Quality Initiative (KDOQI) [...] 5 Kidney failure <15 Testing performed at [facility], [address] [place] [address]229 eGFR-EFREM 115 >=60 mL/min/1.73 READING Comment: sq. m Normal eGFR >= 60 mL/min/1.73 m2 Note: The eGFR is calculated using the CKD-EPI equation. The eGFR declines with age. eGFR <60 mL/min/1.73 m2 is considered as "decreased". This equation should only be used for patients 18 and older. According to the [facility]'s Kidney Disease Outcome Quality Initiative (KDOQI) classification [...] 5 Kidney failure <15 Testing performed at [facility], [address] [place] [address] Specimen Blood Performing Organization Address City/State/[place] [address] [place] [address] Fractionated Bilirubin (01/18/2021 9:42 AM CDT)Only the most recent of8 results within the time period is included. [facility] Bili Total 0.4 <=1.2 mg/dL READING Comment: Indocyanine Green (ICG) may cause falsely elevated bilirubin results. Total and direct bilirubin must not be measured from samples containing indocyanine green. False elevation of total sarita irubin can be seen in patients with IgG concentrations above 28 g/L. Testing performed at [facility], [address] [place] [address]809 Bili Direct 0.2 <=0.3 mg/dL READING Comment: Indocyanine Green (ICG) may cause falsely elevated bilirubin results. Total and direct bilirubin must not be measured from samples containing indocyanine green. Testing performed at [facility], [address] [place] [address] 08929 Bili Indirect 0.2Comment: Testing 0.0 - 0.9 READING performed at [facility] mg/[facility], [address] [place] [address] 15742 Specimen Blood Performing Organization Address City/[facility] [place] [address] [place] [address] (ABNORMAL) CA 15-3 (01/18/2021 9:42 AM CDT)Only the most recent of3 results within the time period is included. [facility] CA 15-3 1,931.0 (H) <=25.0 U/mL READING Comment: Results greater than 2400 U/ L may not be reliable due to matrix effect with extended dilution as it exceeds the restaurant server s recommended limit. Caution should be exercised when interpreting such ha ues and done in conjunction with clinical context. This test is measured by olena ctrochemiluminescence immunoassay on [employer] Rodney immunoassay analyzers. Results obtained in different methods are not interchangeable. Testing performed at [facility], [address] [place] [address] Specimen Blood Performing Organization Address City/State/ZIP Code Phon e Number [facility] [place] [address] [place] [address] (ABNORMAL) Differential (01/18/2021 9:42 AM CDT)Only the most recent of8 resultswithin the time period is included. Total Cells 100Comment: All READING components of the Differential performed at [facility], [address] [place], [place] [phone] Neutrophil % 58.0 42.0 - 66.0 % READING Comment: The Neutrophil count includes Bands. As part of the Differential testing performed at [facility], [address] [place] [address] Lymphocyte % 30.0Comment: As part 24.0 - 44.0 % READING of the Differential testing performed at [facility], [address] [place], [place] [phone] Monocyte % 5.0Comment: As part of 2.0 - 7.0 % READING the Differential testing performed at [facility], [address] [place] [address] 41687 Eosinophil % 6.0 (H)Comment: As 1.0 - 4.0 % READING part of the Differential testing performed at [facility], [address] [place] [address] 34456 Metamyelocyte % 1.0 (H) <=0.0 % READING Comment: The Metamyelocyte count includes Myelocytes. As part of the Differential testing performed at [facility], [address] [place] [address] 24510 NRBC 5.0 (H)Comment: As <=0.0 READING part of the Differential testing performed at [facility], [address] [place] [address] 13314 Neutrophil Abs 2.67Comment: As part 1.70 - 7.30 READING of the Differential K/uL testing performed at [facility], [address] [place], [place] [phone] Lymphocyte Abs 1.38Comment: As part 1.00 - 4.80 READING of the Differential K/uL testing performed at [facility], [address] [place] [address] 58225 Monocyte Abs 0.23Comment: As part 0.08 - 0.70 READING of the Differential K/uL testing performed at [facility], [address] [place] [address] 25526 Eosinophil Abs 0.28Comment: As part 0.04 - 0.40 READING of the Differential K/uL testing performed at [facility], [address] [place] [address] 51984 RBC Morph Present (A)Comment: As Normal READING part of the Differential testing performed at [facility], [address] [place] [address] PLT Morph NormalComment: As part Normal READING of the Differential testing performed at [facility], [address] [place] [address] Anisocytosis Present (A)Comment: As Not Present READING part of the Differential testing performed at [facility], [address] [place] [address] Polychromasia Present (A)Comment: As Not Present READING part of the Differential testing performed at [facility], [address] [place] [address] Specimen Blood Performing Organization Address City/State/[facility] Code Phon e Number [address] (ABNORMAL) BUN (01/18/2021 9:42 AM CDT)Only the most recent of8 resultswithin the time period is included. Pathologist Sig nature BUN <4 (L)Comment: Testing 6 - 23 mg/dL READING performed at [facility], [address] [place] [address] Specimen Blood Performing Organization Address City/State/[facility] Code Phon e Number [address] ALT (01/18/2021 9:42 AM CDT)Only the most recent of8 resultswithin the time period is included. Pathologist Sig nature ALT 8Comment: Testing performed at <=33 U/L [facility], [address] [place] [address] Specimen Blood Performing Organization Address City/[facility]/ZIP Code Phon e Number [place], [place] [id number] [place] [address] Aspartate Aminotransferase (01/18/2021 9:42 AM CDT)Only the most recent of8 resultswithin the time period is included. Pathologist Sig [facility] AST 20Comment: Testing performed <=32 U/L [facility], [address] [place] [address]50 Specimen Blood Performing Organization Address City/[facility]/ZIP Code Phon e Number [address] Total Protein (01/18/2021 9:42 AM CDT)Only the most recent of8 resultswithin the time period is included. Pathologist Sig [facility] Total Protein 6.4Comment: Testing 6.4 - 8.3 g/dL READING performed at [facility], [address] [place] [address] Specimen Blood Performing Organization Address City/[facility]/ZIP Code Phon e Number [address] Phosphorus Level (01/18/2021 9:42 AM CDT)Only the most recent of5 resultswithin the time period is included. Pathologist Sig [facility] Phosphorus 2.8Comment: Testing 2.5 - 4.5 mg/dL READING performed [facility], [address] [place] [address] 28423 Specimen Blood Performing Organization Address City/State/ZIP Code Phon e Number [address] (ABNORMAL) Alkaline Phosphatase (01/18/2021 9:42 AM CDT)Only the most recent of 8 resultswithin the time period is included. Pathologist Sig [facility] Alk Phos 1,013 (H)Comment: Testing 35 - 104 U/L READING performed at [facility], [address] [place] [address] 07234 Specimen Blood Performing Organization Address City/[facility]/ZIP Code Phon e Number [place], [place] [address] [place] [address] Magnesium Level (01/18/2021 9:42 AM CDT)Only the most recent of5 resultswithin the time period is included. Pathologist Sig nature Magnesium 1.9Comment: Testing 1.6 - 2.6 mg/dL READING performed at [facility], [address] [place] [address] 14840 Specimen Blood Performing Organization Address City/[facility]/ZIP Code Phon e Number [place], [place] [id number] [place] [address] Glucose Level (01/18/2021 9:42 AM CDT)Only the most recent of8 resultswithin the time period is included. Pathologist Sig nature Glucose Level 95 70 - 99 mg/dL READING Comment: Effective 11/29/15, the gluco se reference intervals have been updated based on [place] [employer] guidelines (Standards of Medical Care in Diabetes 2016. Diabetes Care 2016; 39: S13-S22). Fasting blood glucose: Normal: 70-99 mg/dL Impaired fasting glucose (in creased risk for diabetes or pre-diabetes): 100- 125 mg/dL Diabetes mellitus: >/=126 mg/dL Random blood glucose: Normal: 70-199 mg/dL Note: Random glucose >100 mg/dL is assoc iated with increased risk for diabetes Testing performed at [facility], [address] [place] [address] 50176 Specimen Blood Performing Organization Address City/State/ZIP Code Phon e Number [facility] [place] [address] [place] [address] (ABNORMAL) Calcium Level (01/18/2021 9:42 AM CDT)Only the most recent of8 resultswithin the time period is included. Pathologist Sig nature Calcium Lvl 8.2 (L)Comment: 8.4 - 10.2 mg/dL READING Testing performed at [facility], [address] [place] [address], [place] [address] Specimen Blood Performing Organization Address City/[facility]/ZIP Code Phon e Number [place], [place] [id number] [place] [address] (ABNORMAL) Albumin Level (01/18/2021 9:42 AM CDT)Only the most recent of8 resultswithin the time period is included. Pathologist Sig nature Albumin Lvl 3.1 (L)Comment: 3.5 - 5.2 gm/dL READING Testing performed at [facility], [address] [place] [address] 14712 Specimen Blood Performing Organization Address City/[facility] Code Phon e Number [place], [place] [id number] [place] [address] (ABNORMAL) Electrolyte Panel (01/18/2021 9:42 AM CDT)Only the most recent of8 resultswithin the time period is included. Pathologist Sig nature Sodium Lvl 141Comment: Testing 136 - 145 mEq/L READING performed at [facility], [address] [place] [address] 14513 Potassium Lvl 3.4 (L)Comment: 3.5 - 5.1 mEq/L READING Testing performed at [facility], [address] [place] [address] 95336 Chloride 105Comment: Testing 98 - 107 mEq/L READING performed at [facility], [address] [place] [address] 48417 CO2 28Comment: Testing 22 - 29 mEq/L READING performed at [facility], [address] [place] [address] 22280 Anion Gap 8Comment: Testing 4 - 14 mEq/L READING performed at [facility], [address] [place] [address] 25506 Specimen Blood Performing Organization Address City/[facility]/ZIP [facility] Phon e Number [place], [place] [id number] [place] [address] Confirm ABORh (12/21/2020 12:45 PM CDT) Pathologist Sig nature ABORh Confirm. O NEG [facility] ER Specimen Blood Performing Organization Address City/[facility]/ZIP Code Phon e Number [facility] Unless otherwise noted, [address] all lab tests performed by: Division of Pathology and Laboratory Medicine [address] Clot Expiration Date (12/21/2020 12:02 PM CDT) Pathologist Sig nature T & S Expiration 12/24/2020 [facility] Specimen Blood Performing Organization Address [facility] Phon e Number [facility] Unless otherwise noted, [address] all lab tests performed by: Division of Pathology and Laboratory Medicine [address] TMP Interpretation Antibody Screen Negative (12/21/2020 12:02 PM CDT) TMP Auto Neg ABSC At the present time, patien t plasma shows no evidence of RBC alloantibodies. [facility] Interp Comment: [facility] MALLORY VALLADARES, Dictated by: MALLORY VALLADARES, Dictated Date/Time: 12.23.19 7:17 AM CDT Transcribed Date/Time: 12.22.2020 7:17 AM CDT Electronically Signed By: MALLORY VALLADARES, on 12.04 7:17 AM C Specimen Blood Performing Organization Address [facility] Phon e Number [facility] Unless otherwise noted, [address] all lab tests performed by: Division of Pathology and Laboratory Medicine [address] ABORh (12/21/2020 12:02 PM CDT) Pathologist Sig nature ABORh. O NEG [facility] Specimen Blood Performing Organization Address City/[facility]/ZIP Code Phon e Number [facility] Unless otherwise noted, [address] all lab tests performed by: Division of Pathology and Laboratory Medicine [address] Antibody Screen (12/21/2020 12:02 PM CDT) Pathologist Sig nature ABSC. Negative ABSC [facility] Specimen Blood Performing Organization Address City/[facility]/ZIP Code Phon e Number [facility] Unless otherwise noted, [address] all lab tests performed by: Division of Pathology and Laboratory Medicine [address] Estradiol (12/07/2020 9:48 AM CDT) Pathologist Sig nature Estradiol <11 pg/mL [facility] Comment: [facility] Reference Ranges: Adult Females: Follicular Phase [...] contact pathologist. Specimen Blood Performing Organization Address [facility] Phon e Number [facility] Unless otherwise noted, [address] all lab tests performed by: Division of Pathology and Laboratory Medicine [address] LH (12/07/2020 9:48 AM CDT) Pathologist Sig nature LH 3.1 mIU/mL [facility] Comment: [facility] Female Luteinizing Hormone Reference Ranges: LOW H IGH Follicular 2.4 12.6 Ovulation 14.0 95.6 Luteal 1.0 11.4 Postmenopause 7.7 58.5 Specimen Blood Performing Organization Address [facility] Phon e Number [facility] Unless otherwise noted, [address] all lab tests performed by: Division of Pathology and Laboratory Medicine [address] FSH (12/07/2020 9:48 AM CDT) Pathologist Sig nature FSH 5.0 mIU/mL [facility] Comment: [facility] Female Follicle Stimulating Hormone Reference Ranges: LOW HI GH Follicular 3.5 12.5 Ovulation 4.7 21.5 Luteal 1.7 7.7 Postmenopause 25.8 134.8 Specimen Blood Performing Organization Address City/[facility] Phon e Number [facility] Unless otherwise noted, [address] all lab tests performed by: Division of Pathology and Laboratory Medicine [address] Orthopantogram (12/07/2020 8:04 AM CDT) Anatomical Region Laterality Modality Other Specimen Narrative Systemgenerated, Documentation - 021 8:04 AM CDT This procedure requires no interpretatio n from the radiologist. MRI Brain with and without Contrast (11/24/2020 9:54 PM CDT) Anatomical Region Laterality Modality Head Magnetic Resonance Specimen Impressions [id number] - 11/24/2020 10:20 PM CDT No acute intracranial lesions. Enhancement of the [...] superior orbital fissure. No visualized intra-axial metastasis. Narrative [id number] - 11/24/2020 10:20 PM CDT FULL RESULT: Examination: MRI BRAIN [...] bilateral dural enhancement. There is no visualized leptom eningeal or sulcal cisternal enhancement to suggest obvious [...] the inner cortex with subtle underlying dural enh ancement (series 24, image 5). There is an enhancing lesion in the left sphenoid triangle with asymmetric enhancement extending over the left superior orbital fis sure (series 24, image 13; series 2501, image 62). Procedure Note Dm Heredia MD - 11/24/2020 FULL RESULT: Examination: MRI BRAIN W WO [...] Organization Address City/State/ZIP Code Phon e Number [id number] MRI CERVICAL THORACIC LUMBAR SPINE W WO CONTRAST (11/24/2020 9:53 PM CDT) Anatomical Region Laterality Modality Spine, C-spine, T-spine, L-spine Magneti c Resonance Specimen Impressions [id number] - 11/24/2020 10:45 PM CDT Metastatic disease throughout the skull base cervical thoracic lumbosacral spine both luis and ribs as well as anterior chest wall bones that with enhancement and some mottling throughout consistent wit h diffuse metastatic disease. No epidura l or leptomeningeal disease. Mottling of the marrow signal is consistent with predominantly cellular metastasis with some areas of bony sclerosis. Small biconcave compression injury in th e posterior aspect of T10 anterior biconcave compression injuries in T8 unchanged from prior study October 30, 2020. Narrative [id number] - 11/24/2020 10:45 PM CDT FULL RESULT: Examination: MRI CERVICAL [...] October 30, 2020 Technique: Multiplanar, multisequence magnetic resonance imaging of the [...] compromise. No significant epidural and no leptomeningeal dise ase. Vertebral body alignment is stable. Marrow signal is heterogenous consistent diffuse metastatic disease. No significant spinal canal stenosis is present. There is no cord signal abnormality or cord compression. Thoracic spine: Multiple metastatic lesi ons throughout the thoracic spine and ribs consistent with diffuse metastatic disease. Vertebral body alignment is stable. Marrow signal is heterogenous consist ent with diffuse metastatic disease. N o significant spinal canal stenosis is present. There is no cord signal abnormality or cord compression. No epidural or leptomeningeal disease.Small biconcave com pression injury in the posterior aspect of T10 anterior biconcave compression injuries in T8 unchanged from prior study October 30, 2020. Lumbosacral spine: Multicentric metastat ic lesions throughout the lumbosacral spine both luis consistent with diffuse metastatic disease. Vertebral body alignment is stable. Marrow signal is heterogen ous consistent with diffuse metastatic d isease.. No significant spinal canal stenosis is present. There is no cord signal abnormality or cord compression. No epidural or leptomeningeal disease. Procedure Note Larry Hsieh MD - 11/24/2020 FULL RESULT: Examination: MRI CERVICAL THORACIC LUMBA [...] Organization Address City/State/ZIP Code Phon e Number [id number] OCT, Retina - OU - Both Eyes (11/24/2020 2:14 PM CDT) Specimen Narrative Maria Dolores Swanson MD - 11/24/2020 2:25 P M CDT Right Eye Quality was good. Scan locations include d subfoveal. This is the baseline exam. Findings include normal foveal con tour. Left Eye Quality was good. Scan locations include d subfoveal. This is the baseline exam. Findings include normal foveal con tour. Fundus Photos - OU - Both Eyes (11/24/2020 2:14 PM CDT) Specimen Narrative Maria Dolores Swanson MD - 11/24/2020 2:23 P M CDT Right Eye Basline Exam. The vitreous is clear. Dis c findings include normal observations. Macula findings include no rmal observations. Vessel findings include normal observations. Periphery f indings include Comments: (WWP, Nevus along ST and SN). Left Eye Basline Exam. The vitreous is clear. Dis c findings include normal observations. Macula findings include no rmal observations. Vessel findings include normal observations. Periphery f indings include Comments: (WWP). Notes OD: nevus along ST and SN, no orange pig ment or SRF. Influenza A/B + COVID-19 Asymptomatic- L (11/24/2020 9:13 AM CDT) COVID19 Not Detected Not Detected [facility] (SARS-CoV-2) [facility] Influenza A Not Detected Not Detected [facility] Influenza B Not Detected Not Detected [facility] COVID19 SARS Inpatient Admission [facility] Indication [facility]ER CENTER Inf AB+Cov19 See Note [facility] Comment Comment: [facility] The rodney SARS-CoV-2 & Influ yogesh [...] fact sheet for patients provided by the restaurant server ([employer]) can be reviewed at: https://www.fda.gov/media/028729/download A fact sheet for Health Care providers is provided by the restaurant server ([employer]) and can be reviewed at: https://www.fda.gov/media/115158/download Influenza A and Influenza B negative results [...] and high-complexity tests. The Microbiology Laboratory at [facility], CLIA Accreditation # [id number] and CAP Accreditation #[id number], verified the performance characteristics of this assay. Internal controls are used to monitor all stages of the test process. Specimen Nasopharyngeal Swab Performing Organization Address City/State/ZIP Code Phon e Number [facility] Unless otherwise noted, [place] [address] [place] all lab tests performed by: Division of Pathology and Laboratory Medicine [address] Mathias MD COVID-19 (CINDI-CoV-2) PCR Asymptomatic (11/15/2020 10:27 AM CDT) COVID19 SARS Pre-Radiation Therapy [facility] COVID19 SARS Result Not Detected Not Detected [facility] COVID19 SARS SARS-CoV-2 NOT Detected. [facility] Reference Range: Not Detected Methodology: The Ramírez Real Time SARS-CoV-2 assay is a qualitative real-time reverse dental internship polymerase chain reaction (orientation and mobility specialist-PCR) test to detect RNA from SARS-CoV-2 in nasal, nasopharyngeal and oropharyngeal swabs from patients with signs and symptoms of infection who ar e suspected of COVID-19 by their health care provider. The Ramírez RealTime SARS-CoV-2 performed on the Medypal000 System is a dual target assay with [...] high- complexity Molecular Diagnostics Laboratory (MDL) at [facility] under the Food and Drug Administration (FDA) s Emergency Use Authorization. Factsheet for patients: https://www.[facility].org/Abb ottFactSheetPatients Factsheet for healthcare pro viders: https://www.[facility].org/AbbottFactSheetHCP Test performed by: [facility] [address] [place] [address] Specimen Nasopharyngeal Swab Performing Organization Address City/State/ZIP Code Phon e Number [facility] Unless otherwise noted, [place] [address] [place] all lab tests performed by: Division of Pathology and Laboratory Medicine [facility] Nathaliamart Mathias OSI Femur (11/04/2020 11:36 AM CDT)Only the most recent of2 resultswithin the time period is included. Anatomical Region Laterality Modality Thigh, Extremity Other Specimen Narrative Systemgenerated, Documentation - 021 11:36 AM CDT Study acquired at another institution. For comparison only. No [facility] originated interpretation requested or a vailable. OSI Interventional (11/02/2020 11:35 AM CDT) Anatomical Region Laterality Modality Other Specimen Narrative Systemgenerated, Documentation - 07/09/2 021 11:36 AM CDT Study acquired at another institution. For comparison only. No [facility] originated interpretation requested or a vailable. OSI US Breast (10/31/2020 11:37 AM CDT)Only the most recent of2 resultswithin the time period is included. Anatomical Region Laterality Modality Breast Other Specimen Narrative [facility] - 11/10/2020 11:37 AM CDT Study acquired at another institution. For comparison only. No [facility] originated interpretation requested or a vailable. Performing Organization Address City/[facility] Phon e Number [facility] OSI Mammo (10/31/2020 11:36 AM CDT)Only the most recent of2 resultswithin the time period is included. Anatomical Region Laterality Modality Breast Other Specimen Narrative [facility] - 11/10/2020 11:36 AM CDT Study acquired at another institution. For comparison only. No [facility] originated interpretation requested or a vailable. Performing Organization Address [facility] Phon e Number [facility] Pathology Outside Interpretation (10/31/2020) Materials Accession#, Stained, Block, Unstained Collected Receiv ed [facility] Received A. [id number], 16 SS, 0 BLOCKS, 0 USS B. [id number], 14 SS, 0 BLOCKS, 0 USS 10/31/2020 11/02/2020 11/16/2020 11/16/2020 Diagnosis Outside ([id number], 16 SS, 0 BLOCKS, 0 USS, lino ected on 10/31/2020): [facility] Electronically signed by Willi [...] GRADE 2 (INTERMEDIATE-GRADE). (SEE COMMENT #1) Outside ([id number], 14 SS, 0 BLOCKS, 0 USS, collected [...] with metastatic carcinoma, breast primary. Biomarker T: [id number], B1-5 [facility] Block(s) N: N/A Disclaimer "Some tests reported here [facility] may have been developed and performance characteristics determined by [facility] Pathology and Laboratory Medicine. These tests have not been specifically cleared or approved by the U.S. Food and Drug Administration. If applicable, controls were reviewed and showed appropriate reactivity." Specimen Tissue Tissue Performing Organization Address City/State/ZIP Code Phon e Number [facility] [place] [address] [address] [facility] [address] OSI CT CHEST ABDOMEN PELVIS (10/30/2020 11:35 AM CDT) Anatomical Region Laterality Modality Chest, Abdomen, Pelvis Other Specimen Narrative Systemgenerated, Documentation - 021 11:35 AM CDT Study acquired at another institution. For comparison only. No [facility] originated interpretation requested or a vailable. OSI Hip (10/29/2020 5:16 PM CDT) Anatomical Region Laterality Modality Hip Other Specimen Narrative Systemgenerated, Documentation - 021 5:17 PM CDT Study acquired at another institution. For comparison only. No [facility] originated interpretation requested or a vailable. after 08/02/2020 Insurance Payer Benefit Plan / Subscriber ID Effective Phone Address T ype Group Dates [facility] [id number] 2021-N[id number] Medicaid [employer] MEDICAID [place], [place] [employer] NON SSI [id number] Advance Directives Code Status Date Activated Date Inactivated Comments Full Code 11/24/2020 3:48 PM 11/28/2020 7:18 PM Care Teams Tv Host Relationship Specialty Start Date End Date Beatriz Sanchez PCP - External Follow Up Family Practice 10/18/20 ANGIE [facility] [address] [address] George Mason MD PCP - General Breast Medical 11/09/[address] [place] [address] [place] [address]
--- OUTSIDE RECORDS SUMMARY | 2021-08-02 16:29 | XMS REPORT | Continuity of Care Document ---
:1975 Author Organization [facility] t Address [address] [place] [address] Care Team Providers Name Role Phone [phone] Primary Care Physician Unavailable Vasquez Vital Attending Clinician Unavailable Dee Attending Clinician Unavailable SYSTEM, NOT IN Attending Clinician Unavailable Von Zheng CGC Attending Clinician Demetrius Vital MD Attending Clinician Danie TanD, C Attending Clinician Unavailable DEMETRIUS VITAL Attending Clinician Unavailable Isabella MARION Attending Clinician ISABELLA Attending Clinician Unavailable PRIETO Attending Clinician Unavailable Prieto MARION Attending Clinician Burke RN T Attending Clinician Unavailable Héctor HANSEN Attending Clinician Unavailable GABBY Attending Clinician Unavailable Jalil HITCHCOCK, D Attending Clinician Elias Landa Attending Clinician Carson ADAMS Attending Clinician Vasquez Biggs Attending Clinician Unavailable Tonya Gibbs Attending Clinician Sean IC ENGINEER, L Attending Clinician José Miguel MARION Attending Clinician Trav HITCHCOCK, A Attending Clinician Unavailable MATEO Attending Clinician Unavailable Mateo DDS Attending Clinician Sade MAHER Attending Clinician Guanakito Rosenbaum Attending Clinician Louisa Dodd MD Attending Clinician Doctor Unassigned, Name Attending Clinician Unavailable Otto HITCHCOCK, Yvette Attending Clinician Von Han MD Attending Clinician Italia Guillermo MD Attending Clinician Jyoti MARION Attending Clinician Vesna MARION Attending Clinician Latonia Murguia MD Attending Clinician Latonia MURGUIA Attending Clinician Unavailable LOUISA DODD Attending Clinician Unavailable VESNA Attending Clinician Unavailable Cristy MARION PhD, Magali Attending Clinician KWAKU Attending Clinician Unavailable BRENDA Attending Clinician Unavailable Kwaku MARION Attending Clinician El RN, D Attending Clinician Unavailable Deidre MARION, R Attending Clinician Doron HITCHCOCK Attending Clinician Unavailable Phil HITCHCOCK, A Attending Clinician Unavailable Daniel ADAMS Attending Clinician Alfredo CORDOVA, B Attending Clinician Unavailable Lizette Rodríguez MD Attending Clinician Evelyn MARION Attending Clinician Desmond Alfaro PT Attending Clinician DANIEL Attending Clinician Unavailable Catalina Ann MA Attending Clinician Unavailable FABIOLA Attending Clinician Unavailable Clemente STEELE Attending Clinician Unavailable RAY NGUYEN Attending Clinician Unavailable KIMBERLEY Attending Clinician Unavailable ANKITA Attending Clinician Unavailable KARLENE CARR Admitting Clinician Unavailable VESNA Admitting Clinician Unavailable ANKITA Admitting Clinician Unavailable Payers Payer Name Policy Type Policy Number Effective Date Expiration Date S jevon MEDICAID [place] [facility] [id number] 2020 00:00:00 [facility] [id number] 2021 MD Krunal yeboah [facility] 00:00:00 [facility] MEDICAID STAR NON [id number] O [address] [place] [id number] d [facility] STAR [id number] 2021 PLUS 00:00:00 MEDICAID [place] [id number] 2020 TRADITIONAL STAR 00:00:00 NON SSI MEDICAID SSI PENDING 2020 2020 PENDING 00:00:00 00:00:00 Problems Condition Condition Condition Status Onset Resolution Last Treating Co mments Source Name Details Category Date Date Treatment Clinician Date nursing home nursing home Disease Active current current 12-08 Anderso use of use of 00:00: n opiate opiate 00 analgesic analgesic 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 11-26 An derso disease disease 00:00: n 00 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 11-24 An derso home home 00:00: n [...] pain 11-24 Krunal rso 00:00: n 00 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 00:00: n of of 00 overlappin overlappin g sites of g sites of right right female female breast 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 Chalino o positive positive 00:00: n status status 00 (ER+) (ER+) 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 rso neoplasm neoplasm 00:00: n of bone of bone 00 E46 E46 Disease Active Univers Unspecifie Unspecifie 702 it y of d severe d severe 00:00: [place] protein-ca protein-ca 00 Me dical home [facility] malnutriti malnutriti on on Medication Medication Disease Active U nivbay management management 6- it y of 00:00: [place] [facility] Branch Pathologic Pathologic Disease Active U nivers al al 6- ity of fracture fracture 00:00: [place] of rib, of rib, 00 Medical initial initial Branch encounter encounter Metastatic Metastatic Disease Active U 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 6-16 ity of spine spine 00:00: [place] [facility] Cancer Cancer Disease Active Univers associated associated 6-16 it y of pain pain 00:00: [place] [facility] Breast Breast Disease Active Univers mass, mass, 6-16 ity of right right 00:00: [place] 00 [facility] Opacity of Opacity of Disease Active U nivers lung on lung on 16 ity of imaging imaging 00:00: [place] study study 00 [facility] Acute Acute Disease Active Univers midline midline 6-16 ity of low back low back 00:00: [place] pain with pain with 00 Medi neal right-side right-side Br anch d sciatica d sciatica 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 00:00: n of lower of lower 00 outer outer quadrant quadrant of left of left female female breast breast Nausea Nausea Disease Active MD De Jesus n Malignant Malignant Disease Active neoplasm neoplasm Chalino o related related n fatigue fatigue Slow Slow Disease Active transit transit Anderso constipati constipati n on on Acute Acute Disease Active hyperglyce hyperglyce An derso david david n Allergies, Adverse Reactions, Alerts Allergy Allergy Status Severity Reaction(s) Onset Inactive Treating Comm ents Source Name Type Date Date Clinician NO KNOWN Drug Active Univers ALLERGIE Class ity of S [facility] Family History Family Member Diagnosis Comments Start Date Stop Date Source Natural father Kidney cancer Krunal rson Natural mother Stomach cancer And erson Natural sister Cervical cancer MD Megan marr Social History Social Habit Start Date Stop Date Quantity Comments Source History SDHI University o f Alcohol Frequency [facility] edical Branch History SDHI University o f Alcohol Std Drinks [place] [facility] [place] History [facility] University o f Alcohol Binge [place] Medic al Branch Exposure to Not sure University of SARS-CoV-2 (event) [facility] History of tobacco Cigarette Smoker MD Osei use Alcohol intake 2021-02-21 2021-02-21 Ex-drinker MD Neal gore 00:00:00 00:00:00 (finding) Cigarettes smoked 2020-11-16 2020-11-16 MD Krunal yeboah current (pack per 00:00:00 00:00:00 day) - Reported Cigarette 2020-11-16 2020-11-16 MD Osei pack-years 00:00:00 00:00:00 Tobacco use and 2020-11-16 2020-11-16 Smokeless MD Allred on exposure 00:00:00 00:00:00 tobacco non-user Alcohol Comment 2020-08-31 2020-08-31 Ajit's 12 pack Uni versity of 00:00:00 00:00:00 [facility] Sex [birth year] At [birth year] MD Allred on 00:00:00 00:00:00 Smoking Status Start Date Stop Date Source Smokes tobacco daily 2020-11-16 00:00:00 MD Krunal yeboah Medications Ordered Filled Start Stop Current Ordering Indication Dosage Frequency Signature Comments Components Source Medication Medication Date Date Medication? Clinician (SIG) Name Name famotidine Yes 20mg Take 20 mg M D (PEPCID) 20 2-14 by mouth Krunal rso mg tablet 03:36: daily as n 39 needed. ELIQUIS 2.5 2020-05 Yes Univer s mg tablet 0-01 ity of 00:00: [place] [facility] [place] HYDROcodone 2020-05 Yes Univer s -acetaminop 0-01 ity of hen 7.5-325 00:00: [place] mg per 00 Medical tablet Branch ELIQUIS 2.5 2020-05 Yes Univer s mg tablet 0-01 ity of 00:00: 00 [facility] HYDROcodone 2020-05 Yes Univer s -acetaminop 0-01 ity of hen 7.5-325 00:00: [place] mg per 00 Medical tablet Branch ELIQUIS 2.5 2020-05 Yes Univer s mg tablet 0-01 ity of 00:00: Medical Branch HYDROcodone 2020-05 Yes Univer s -acetaminop 0-01 ity of hen 7.5-325 00:00: [place] mg per 00 Medical tablet Branch ELIQUIS 2.5 2020-05 Yes Univer s mg tablet 0-01 ity of 00:00: Medical Branch HYDROcodone 2020-05 Yes Univer s -acetaminop 0-01 ity of hen 7.5-325 00:00: [place] mg per 00 Medical tablet Branch Eliquis 2.5 2020-05 Yes Estrogen 2.5mg Take 1 MD mg tablet 0-01 receptor tablet Krunal rso 00:00: positive (2.5 mg) n 00 status by mouth (ER+) every 12 (twelve) hours. HYDROcodone 2020-05 Yes Estrogen 1{tbl} Take 1 MD -acetaminop 0-01 receptor tablet by Anderso jeanie (NORCO) 00:00: positive mouth n 7.5 mg-325 00 status every 6 mg per (ER+) (six) tablet hours as needed for moderate pain. esomeprazol Yes 20mg Take 20 mg Univers e 20 mg 9-16 by mouth. ity of capsule 00:00: [facility] Branch esomeprazol Yes 20mg Take 20 mg Univers e 20 mg 9-16 by mouth. ity of capsule 00:00: [facility] esomeprazol Yes 20mg Take 20 mg Univers e 20 mg 9-16 by mouth. ity of capsule 00:00: [facility] Branch esomeprazol Yes 20mg Take 20 mg Univers e 20 mg 9-16 by mouth. ity of capsule 00:00: [facility] Branch letrozole Yes Estrogen 2.5mg Take 1 M D (FEMARA) 9-16 receptor tablet Harley so 2.5 mg 00:00: positive (2.5 mg) n tablet 00 status by mouth (ER+) daily. promethazin Yes Estrogen 25mg Insert 1 MD e 9-16 receptor suppositor Harley so (PHENERGAN) 00:00: positive y (25 mg) n 25 mg 00 status into the suppository (ER+) rectum every 6 (six) hours as needed for nausea. Unwrap foil prior to insertion. dexamethaso Yes Estrogen 4mg Take 1 MD ne 9-16 receptor tablet (4 Chalino o (DECADRON) 00:00: positive mg) by n 4 mg tablet 00 status mouth 2 (ER+) (two) times a day after meals. Take 4 mg in AM, 2 mg in early afternoon, for one week, then 2 mg twice a day for a week, then 2 mg in am for a week, then 2 mg every other day esomeprazol Yes Estrogen 20mg Take 1 MD e (NexIUM) 9-16 receptor capsule An derso 20 MG 00:00: positive (20 mg) by n capsule 00 status mouth (ER+) every morning before breakfast. HYDROcodone Yes Estrogen 1{tbl} Take 1 MD -acetaminop 01-11 receptor tablet by Neal ware (NORCO) 00:00: positive mouth n 7.5 mg-325 00 status every 6 mg per (ER+) (six) tablet hours as needed for moderate pain. calcium Yes FOUR TIMES MD carbonate 01-05 DAILY Anderso (TUMS) 500 00:00: n mg (200 mg 00 elemental calcium per tablet) chewable tablet calcitriol 2020- No TWICE MD (RocaltroL) 01-05- DAILY Chalino o 0.5 mcg 00:00: 00:00 n capsule 00 :00 promethazin 2020-0 Yes EVERY MD e - TWELVE Anderso (PHENERGAN) 00:00: HOURS n 25 mg 00 NEEDED suppository promethazin 2020-0 Yes EVERY 6 MD e 8-29 HOURS Anderso (PHENERGAN) 00:00: NEEDED n 25 mg 00 tablet lactose-red 0 Yes TWICE MD uced food 12-31 DAILY Anderso (ENSURE 00:00: n CLEAR ORAL) 00 ergocalcife 0 2021- No [id number] 50,000 M D rol 12-31-16 Units Anderso (DRISDOL) 00:00: 00:00 every 7 n 50,000 00 :00 days. units capsule ondansetron Yes Infiltratin 8mg Dissolve 1 MD [...] right needed female TID). breast chlorhexidi 2020- No Infiltratin 15mL Swish and MD ne 05 09-05 g duct spit 15 mL Chalino o (PERIDEX) 00:00: 04:59 carcinoma twice n 0.12% 00 :00 of daily for solution overlapping 30 days. sites of right female breast fluoride, 2020- No Infiltratin Apply to MD sodium, 12-07 09-05 g duct teeth Anderso (PREVIDENT) 00:00: 04:59 carcinoma twice n 1.1 % 00 :00 of daily for dental overlapping 30 days. cream sites of [place] right teeth with female cream breast twice a day and expectorat e (Do not rinse for 30 minutes). Eliquis 2.5 2020- No 2.5mg Take 2.5 MD mg tablet 12-04 10-01 mg by Anderso 00:00: 00:00 mouth n 00 :00 every 12 (twelve) hours. predniSONE 2020- No MD (DELTASONE) 12-04 09-16 Anderso 20 mg 00:00: 00:00 n tablet 00 :00 letrozole Yes 2.5mg Take 2.5 Uni vers 2.5 mg 7-29 mg by ity of tablet 00:00: mouth [address] letrozole 2020-0 Yes 2.5mg Take 2.5 Uni vers 2.5 mg 7-29 mg by ity of tablet 00:00: [address] letrozole Yes 2.5mg Take 2.5 Uni vers 2.5 mg 7-29 mg by ity of tablet 00:00: mouth [address] letrozole Yes 2.5mg Take 2.5 Uni vers 2.5 mg 7-29 mg by ity of tablet 00:00: mouth [address] letrozole 0 Yes Infiltratin 2.5mg Take 1 MD (Femara) 7-29 g duct tablet Anderso 2.5 mg 00:00: carcinoma (2.5 mg) n tablet 00 of lower by mouth outer daily. quadrant of left female breast palbociclib 2020- No Infiltratin 125mg Take 1 MD (Ibrance) 7-29 08-20 g duct tablet Harley so 125 mg 00:00: 04:59 carcinoma (125 mg) n tablet 00 :00 of lower by mouth outer daily for quadrant of 21 days. left female Repeat breast every 28 days. morphine IR 0 Yes 15mg Take 15 mg Univers 15 mg 7-27 by mouth. ity of tablet 00:00: [address] morphine IR 2020-0 Yes 15mg Take 15 mg Univers 15 mg 7-27 by mouth. ity of tablet 00:00: [address] morphine IR 2020-0 Yes 15mg Take 15 mg Univers 15 mg 7-27 by mouth. ity of tablet 00:00: [address] morphine IR 2020-0 Yes 15mg Take 15 mg Univers 15 mg 7-27 by mouth. ity of tablet 00:00: [address] morphine 2020-0 Yes Cancer 30mg Take 1 MD (MS [...] as needed for nausea or vomiting. pantoprazol 2020- No Nausea 40mg Take 1 M D e 7-29 01-16 tablet (40 Anderso (Protonix) 00:00: 00:00 mg) by n 40 mg EC 00 :00 mouth tablet daily with breakfast. gabapentin 2020- No Secondary 300mg Take 1 MD (NEURONTIN) 11-21 malignant capsule Anderso 300 mg 00:00: 00:00 neoplasm of (300 mg) n capsule 00 :00 bone by mouth 3 (three) times a day. HYDROcodone 2020- No Secondary 1{tbl} Take 1-2 MD -acetaminop 11-21 malignant tablets by Anderso hen (Dilley) 00:00: 00:00 neoplasm of mouth n 5 mg-325 mg 00 :00 bone every 6 per tablet (six) hours as needed for moderate pain. LORazepam 2020- No Malignant 1mg Take 1 MD (ATIVAN) 1 11-16 neoplasm of tablet (1 Anderso mg tablet 00:00: 00:00 unspecified mg) by n 00 :00 site of mouth as unspecified directed. female Take 45 breast minutes prior to MRI or radiation treatment, once daily. Ok to take 1 additional pill at time of appointmen t if needed. dexamethaso 2020- No Malignant 4mg Take 1 MD ne 11-16 neoplasm of tablet (4 An derso (DECADRON) 00:00: 04:59 unspecified mg) by n 4 mg tablet 00 :00 site of mouth 2 unspecified (two) female times a breast day with meals for 30 days. DULoxetine Yes [id number] 20mg Take 20 mg Univers 20 mg CDRS 6-16 by mouth 2 ity of 00:00: (two) [place] 00 times Medical daily. Branch tiZANidine Yes [id number] 2mg Take 1 Univers 2 mg tablet 6-16 tablet by ity of 00:00: mouth [place] 00 every 8 Medical (eight) Branch hours as needed (muscle spasms). traMADoL-ac Yes [id number] 1{tbl} Take 1 Un minh etaminophen 6-16 tablet by ity of 37.5-325 mg 00:00: mouth [place] per tablet 00 every 8 Medica l (eight) Branch hours as needed for Pain. Indication s: chronic pain gabapentin 2021-0 Yes [id number] 100mg Take 1 Univers 100 mg 6-16 capsule by ity of capsule 00:00: mouth 3 (three) Medical times Branch daily. DULoxetine 2021-0 Yes [id number] 20mg Take 20 mg Univers 20 mg CDRS 6-16 by mouth 2 ity of 00:00: (two) [place] 00 times Medical daily. Branch tiZANidine 2020-0 Yes [id number] 2mg Take 1 Univers 2 mg tablet 6-16 tablet by ity of 00:00: mouth [place] 00 every 8 Medical (eight) Branch hours as needed (muscle spasms). traMADoL-ac 202-0 Yes [id number] 1{tbl} Take 1 Un minh etaminophen 6-16 tablet by ity of 37.5-325 mg 00:00: mouth [place] per tablet 00 every 8 Medica l (eight) Branch hours as needed for Pain. Indication s: chronic pain gabapentin 2020-0 Yes [id number] 100mg Take 1 Univers 100 mg 6-16 capsule by ity of capsule 00:00: mouth (three) Medical times Branch daily. DULoxetine 202-0 Yes [id number] 20mg Take 20 mg Univers 20 mg CDRS 6-16 by mouth 2 ity of 00:00: (two) 00 times Medical daily. Branch tiZANidine 2020-0 Yes [id number] 2mg Take 1 Univers 2 mg tablet 6-16 tablet by ity of 00:00: mouth 00 every 8 Medical (eight) Branch hours as needed (muscle spasms). traMADoL-ac 1-0 Yes [id number] 1{tbl} Take 1 Un minh etaminophen 6-16 tablet by ity of 37.5-325 mg 00:00: mouth [place] per tablet 00 every 8 Medica l (eight) Branch hours as needed for Pain. Indication s: chronic pain gabapentin 2020-0 Yes [id number] 100mg Take 1 Univers 100 mg 6-16 capsule by ity of capsule 00:00: mouth 3 (three) Medical times Branch daily. DULoxetine 2021-0 Yes [id number] 20mg Take 20 mg Univers 20 mg CDRS 6-16 by mouth 2 ity of 00:00: (two) [place] 00 times Medical daily. Branch tiZANidine Yes [id number] 2mg Take 1 Univers 2 mg tablet 6-16 tablet by ity of 00:00: mouth [place] 00 every 8 Medical (eight) Branch hours as needed (muscle spasms). traMADoL-ac Yes [id number] 1{tbl} Take 1 Un minh etaminophen 6-16 tablet by ity of 37.5-325 mg 00:00: mouth [place] per tablet 00 every 8 Medica l (eight) Branch hours as needed for Pain. Indication s: chronic pain gabapentin Yes [id number] 100mg Take 1 Univers 100 mg 6-16 capsule by ity of capsule 00:00: mouth 3 [place] 00 (three) Medical times Branch daily. tiZANidine 2020- No 2mg Take 2 mg M D (ZANAFLEX) 10-18-23 by mouth Krunal rso 2 mg tablet 00:00: 00:00 daily as n 00 :00 needed. traMADol-ac 2020- No 1{tbl} Take 1 M D etaminophen -17 11-23 tablet by An derso (ULTRACET) 00:00: 00:00 mouth n 37.5-325 mg 00 :00 every 8 per tablet (eight) hours as needed. gabapentin 2020-2020- No 100mg Take 100 M D (NEURONTIN) 10-18 07-20 mg by Chalino o 100 mg 00:00: 00:00 mouth 3 n capsule 00 :00 (three) times a day. diclofenac 2020-2020- No 100mg Take 100 M D sodium 100 10-09-23 mg by Anderso mg 24 hr 00:00: 00:00 mouth at n tablet 00 :00 bedtime. phenazopyri 2020-2020- No 200mg Take 200 MD dine 10-09 07-23 mg by Anderso (PYRIDIUM) 00:00: 00:00 mouth n 200 mg 00 :00 daily as tablet needed. ProAir HFA ProAir HFA 2018-05 Yes Adriana [address] [facility] Vitamin D Vitamin D Yes Adriana [address] [facility] ([facility] Vital Signs Vital Name Observation Time Observation Value Comments Source Systolic blood 2021-02-07 18:21:00 104 mm[Hg] Univer sity of pressure [facility] Diastolic blood 2021-02-07 18:21:00 70 mm[Hg] Unive rsity of [facility] Heart rate 2021-02-07 18:21:00 111 /min [facility] Body temperature 2021-02-07 18:21:00 36.89 [facility] [place] Body height 2021-02-07 18:21:00 170.2 cm [facility] Body weight 2021-02-07 18:21:00 56.7 kg [facility] BMI 2021-02-07 18:21:00 19.58 kg/m2 [facility] Systolic blood 2021-01-18 17:35:00 99 mm[Hg] pressure Diastolic blood 2021-01-18 17:35:00 58 mm[Hg] MD Megan marr pressure Heart rate 2021-01-18 17:35:00 89 /min MD Harley kasper Body temperature 2021-01-18 17:35:00 36.89 Marisol MD Dorene malinon Respiratory rate 2021-01-18 17:35:00 17 /min MD Catherine nderson Oxygen saturation in 2021-01-18 17:35:00 95 /min MD Osei Arterial blood by Pulse oximetry Body weight 2021-01-18 15:00:00 58.5 kg MD Souza son BMI 2021-01-18 15:00:00 21.62 kg/m2 MD Souza son Body height 2020-11-26 02:12:00 164.5 cm MD Harley kasper Procedures Procedure Date / Time Performed Performing Clinician [facility] e COMPLETE BLOOD COUNT W/ 2021-01-18 14:42:13 George Harper MD DIFFERENTIAL COMPREHENSIVE METABOLIC PANEL 2021-01-18 14:42:13 Sheila Harper MD MAGNESIUM LEVEL 2021-01-18 14:42:13 George Harper MD PHOSPHORUS LEVEL 2021-01-18 14:42:13 George Harper MD CANCER ANTIGEN 15-3 2021-01-18 14:42:13 George Harper MD Krunal rson Results CBC 2021-01-18 14:42:13 George Harper MD MANUAL DIFFERENTIAL 2021-01-18 14:42:13 George Harper MD Krunal rson GLUCOSE LEVEL 2021-01-18 14:42:13 George Harper MD BLOOD UREA NITROGEN 2021-01-18 14:42:13 George Harper MD Krunal rson ELECTROLYTE PANEL 2021-01-18 14:42:13 George Harper MD Chalino on SERUM CREATININE 2021-01-18 14:42:13 George Harper MD .GLOMERULAR FILTRATION RATE 2021-01-18 14:42:13 George Harper MD CALCIUM LEVEL TOTAL 2021-01-18 14:42:13 George Harper MD Krunal rson ALBUMIN LEVEL 2021-01-18 14:42:13 George Harper MD ALKALINE PHOSPHATASE 2021-01-18 14:42:13 George Harper MD And erson ALANINE AMINOTRANSFERASE 2021-01-18 14:42:13 George Hraper MD ASPARTATE AMINOTRANSFERASE 2021-01-18 14:42:13 George Harper MD TOTAL PROTEIN 2021-01-18 14:42:13 George Harper MD FRACTIONATED BILIRUBIN 2021-01-18 14:42:13 George Harper MD nderson CONFIRM ABORH TYPE 2020-12-21 17:45:00 AboGeorge jordan MD Harley son COMPLETE BLOOD COUNT W/ 2020-12-21 17:02:00 George Harper MD DIFFERENTIAL COMPREHENSIVE METABOLIC PANEL 2020-12-21 17:02:00 Sheila Harper MD TYPE AND SCREEN 2020-12-21 17:02:00 George Harper MD CANCER ANTIGEN 15-3 2020-12-21 17:02:00 George Harper MD Krunal rson Results CBC 2020-12-21 17:02:00 George Harper MD MANUAL DIFFERENTIAL 2020-12-21 17:02:00 Abouhefe, George Winchestere rson GLUCOSE LEVEL 2020-12-21 17:02:00 AbouhGeorge wilks MD BLOOD UREA NITROGEN 2020-12-21 17:02:00 AbouhGeorge wilks MD rson ELECTROLYTE PANEL 2020-12-21 17:02:00 AbouharbGeorge MD Chalino on SERUM CREATININE 2020-12-21 17:02:00 Abouharb, George Allredo n .GLOMERULAR FILTRATION RATE 2020-12-21 17:02:00 AbouharbGeorge MD CALCIUM LEVEL TOTAL 2020-12-21 17:02:00 Abouharb, George Winchestere rson ALBUMIN LEVEL 2020-12-21 17:02:00 AbouhGeorge wilks MD ALKALINE PHOSPHATASE 2020-12-21 17:02:00 Abouharb, George MARION And erson ALANINE AMINOTRANSFERASE 2020-12-21 17:02:00 AbouharbGeorge MD ASPARTATE AMINOTRANSFERASE 2020-12-21 17:02:00 AbouharbGeorge MD TOTAL PROTEIN 2020-12-21 17:02:00 AbouhGeorge wilks MD FRACTIONATED BILIRUBIN 2020-12-21 17:02:00 AbouhGeorge wilks MD nderson ABORH 2020-12-21 17:02:00 AbouhGeorge wilks MD ANTIBODY SCREEN 2020-12-21 17:02:00 AbouhGeorge wilks MD CLOT EXPIRATION DATE 2020-12-21 17:02:00 AbouhGeorge wilks MD And erson TMP INTERPRETATION ANTIBODY 2020-12-21 17:02:00 AbouharbGeorge MD SCREEN NEGATIVE COMPLETE BLOOD COUNT W/ 2020-12-07 14:48:00 AbouhGeorge wilks MD DIFFERENTIAL COMPREHENSIVE METABOLIC PANEL 2020-12-07 14:48:00 AbouhSheila wilks MD CANCER ANTIGEN 15-3 2020-12-07 14:48:00 AbouharbGeorge MD Krunal rson PHOSPHORUS LEVEL 2020-12-07 14:48:00 AbouhGeorge wilks MD MAGNESIUM LEVEL 2020-12-07 14:48:00 AbouharbGeorge MD ESTRADIOL LEVEL 2020-12-07 14:48:00 AbouharbGeorge MD FOLLICLE STIMULATING HORMONE 2020-12-07 14:48:00 AbouharbJennifer MD LEVEL LUTEINIZING HORMONE 2020-12-07 14:48:00 Abouharb, George MARION Krunal rson Results CBC 2020-12-07 14:48:00 AbouharbGeorge MD MANUAL DIFFERENTIAL 2020-12-07 14:48:00 Abouharb, George MARION Krunal rson GLUCOSE LEVEL 2020-12-07 14:48:00 AbouharbGeorge MD BLOOD UREA NITROGEN 2020-12-07 14:48:00 Abouharb, George MARION Krunal rson ELECTROLYTE PANEL 2020-12-07 14:48:00 AbouharbGeorge MD on SERUM CREATININE 2020-12-07 14:48:00 Abouharb, George De Jesus n .GLOMERULAR FILTRATION RATE 2020-12-07 14:48:00 AbouharbGeorge MD CALCIUM LEVEL TOTAL 2020-12-07 14:48:00 AbouharbGeorge MD Krunal rson ALBUMIN LEVEL 2020-12-07 14:48:00 AbouharbGeorge MD ALKALINE PHOSPHATASE 2020-12-07 14:48:00 AbouharbGeorge MD And erson ALANINE AMINOTRANSFERASE 2020-12-07 14:48:00 AbouharbGeorge MD ASPARTATE AMINOTRANSFERASE 2020-12-07 14:48:00 AbouharbGeorge MD TOTAL PROTEIN 2020-12-07 14:48:00 AbouharbGeorge MD FRACTIONATED BILIRUBIN 2020-12-07 14:48:00 AbouharbGeorge MD nderson ORTHOPANTOGRAM 2020-12-07 13:04:31 Isidoro Jasmine MD COMPLETE BLOOD COUNT W/ 2020-11-28 08:04:00 Pia Doll MD DIFFERENTIAL COMPREHENSIVE METABOLIC PANEL 2020-11-28 08:04:00 Jefry Doll MD Results CBC 2020-11-28 08:04:00 Pia Doll MD Harleydaylin kasper MANUAL DIFFERENTIAL 2020-11-28 08:04:00 Pia Doll MDrsilya GLUCOSE LEVEL 2020-11-28 08:04:00 Pia Doll MD Harleydaylin kasper BLOOD UREA NITROGEN 2020-11-28 08:04:00 Pia Doll MDrsilya ELECTROLYTE PANEL 2020-11-28 08:04:00 Pia Doll MD And ersilya SERUM CREATININE 2020-11-28 08:04:00 Pia Doll MD Kurnal rsilya .GLOMERULAR FILTRATION RATE 2020-11-28 08:04:00 Renae Doll MD CALCIUM LEVEL TOTAL 2020-11-28 08:04:00 Pia Doll MDrsilya ALBUMIN LEVEL 2020-11-28 08:04:00 Pia Doller ranjith ALKALINE PHOSPHATASE 2020-11-28 08:04:00 Pia Doll MD ALANINE AMINOTRANSFERASE 2020-11-28 08:04:00 Pia Doll MD ASPARTATE AMINOTRANSFERASE 2020-11-28 08:04:00 Pia Doll MD TOTAL PROTEIN 2020-11-28 08:04:00 Pia Doll MD Harleydaylin kasper FRACTIONATED BILIRUBIN 2020-11-28 08:04:00 Pia Doll COMPLETE BLOOD COUNT W/ 2020-11-27 08:02:00 Pia Doll MD DIFFERENTIAL COMPREHENSIVE METABOLIC PANEL 2020-11-27 08:02:00 Jefry Doll MD Results CBC 2020-11-27 08:02:00 Pia Doll MD MANUAL DIFFERENTIAL 2020-11-27 08:02:00 Pia Doll MD GLUCOSE LEVEL 2020-11-27 08:02:00 Pia Doll MD Harleydaylin kasper BLOOD UREA NITROGEN 2020-11-27 08:02:00 Pia Doll MD ELECTROLYTE PANEL 2020-11-27 08:02:00 Pia Doll MD And erson SERUM CREATININE 2020-11-27 08:02:00 Pia Doll MD Krunal rson .GLOMERULAR FILTRATION RATE 2020-11-27 08:02:00 Renae Doll MD CALCIUM LEVEL TOTAL 2020-11-27 08:02:00 Pia Doll MD ALBUMIN LEVEL 2020-11-27 08:02:00 Pia Doll MD [facility] ALKALINE PHOSPHATASE 2020-11-27 08:02:00 Pia Doll MD ALANINE AMINOTRANSFERASE 2020-11-27 08:02:00 Pia Doll MD ASPARTATE AMINOTRANSFERASE 2020-11-27 08:02:00 Pia Doll MD TOTAL PROTEIN 2020-11-27 08:02:00 Pia Doll MD [facility] FRACTIONATED BILIRUBIN 2020-11-27 08:02:00 Pia Doll COMPLETE BLOOD COUNT W/ 2020-11-26 05:32:00 Pia Doll MD DIFFERENTIAL COMPREHENSIVE METABOLIC PANEL 2020-11-26 05:32:00 Jefry Doll MD MAGNESIUM LEVEL 2020-11-26 05:32:00 Pia Doll MD [facility] PHOSPHORUS LEVEL 2020-11-26 05:32:00 Pia Doll MD Krunal rson Results CBC 2020-11-26 05:32:00 Pia Doll MD [facility] MANUAL DIFFERENTIAL 2020-11-26 05:32:00 Pia Doll MD GLUCOSE LEVEL 2020-11-26 05:32:00 Pia Doll MD Harleybanner BLOOD UREA NITROGEN 2020-11-26 05:32:00 Pia Doll MD ELECTROLYTE PANEL 2020-11-26 05:32:00 Pia Doll MD And erson SERUM CREATININE 2020-11-26 05:32:00 Pia Doll MD Krunalvasquez yeboah .GLOMERULAR FILTRATION RATE 2020-11-26 05:32:00 Renae Doll MD CALCIUM LEVEL TOTAL 2020-11-26 05:32:00 Pia Doll MD nderson ALBUMIN LEVEL 2020-11-26 05:32:00 Pia Doll MD Harleybanner ALKALINE PHOSPHATASE 2020-11-26 05:32:00 Pia Doll MD ALANINE AMINOTRANSFERASE 2020-11-26 05:32:00 Pia Doll MD ASPARTATE AMINOTRANSFERASE 2020-11-26 05:32:00 Pia Doll MD TOTAL PROTEIN 2020-11-26 05:32:00 Pia Doll MD [facility] FRACTIONATED BILIRUBIN 2020-11-26 05:32:00 Pia Doll COMPLETE BLOOD COUNT W/ 2020-11-25 12:33:00 ThoppilJustine MD DIFFERENTIAL COMPREHENSIVE METABOLIC PANEL 2020-11-25 12:33:00 ThoppilJustine MD MAGNESIUM LEVEL 2020-11-25 12:33:00 ThoppilJustine MD PHOSPHORUS LEVEL 2020-11-25 12:33:00 ThoppilJustine MD Andbayo sofía Results CBC 2020-11-25 12:33:00 ThoppilJustine MD MANUAL DIFFERENTIAL 2020-11-25 12:33:00 ThoppilJustine MD Krunalvasquez yeboah GLUCOSE LEVEL 2020-11-25 12:33:00 ThoppilJustine MD BLOOD UREA NITROGEN 2020-11-25 12:33:00 ThoppilJustine MD Krunal rsilya ELECTROLYTE PANEL 2020-11-25 12:33:00 ThoppilJustine MD on SERUM CREATININE 2020-11-25 12:33:00 ThoppilJustine MD Andbayo n .GLOMERULAR FILTRATION RATE 2020-11-25 12:33:00 ThoppiJustine edge MD CALCIUM LEVEL TOTAL 2020-11-25 12:33:00 ThoppilJustine MD Krunal rson ALBUMIN LEVEL 2020-11-25 12:33:00 ThoppilJustine MD ALKALINE PHOSPHATASE 2020-11-25 12:33:00 Thoppil, Justine Jones MD And erson ALANINE AMINOTRANSFERASE 2020-11-25 12:33:00 ThoppilJustine MD ASPARTATE AMINOTRANSFERASE 2020-11-25 12:33:00 ThoppilJustine MD TOTAL PROTEIN 2020-11-25 12:33:00 ThoppilJustien MD FRACTIONATED BILIRUBIN 2020-11-25 12:33:00 ThoppilJustine MD nderson [...] PHOSPHORUS LEVEL 2020-11-24 14:13:00 Justyn Olsen MD derson Results CBC 2020-11-24 14:13:00 Юлия Han MD MANUAL DIFFERENTIAL 2020-11-24 14:13:00 Юлия Han MD Harley son GLUCOSE LEVEL 2020-11-24 14:13:00 Юлия Han MD BLOOD UREA NITROGEN 2020-11-24 14:13:00 Юлия Han MD Harley ranjith ELECTROLYTE PANEL 2020-11-24 14:13:00 Юлия Han MD SERUM CREATININE 2020-11-24 14:13:00 Юлия Han MD .GLOMERULAR FILTRATION RATE 2020-11-24 14:13:00 Юлия Han MD CALCIUM LEVEL TOTAL 2020-11-24 14:13:00 Юлия Han MD Harleybanner ALBUMIN LEVEL 2020-11-24 14:13:00 Юлия Han MD ALKALINE PHOSPHATASE 2020-11-24 14:13:00 Юлия Han MD rsilya ALANINE AMINOTRANSFERASE 2020-11-24 14:13:00 Юлия Han MD ASPARTATE AMINOTRANSFERASE 2020-11-24 14:13:00 Юлия Han TOTAL PROTEIN 2020-11-24 14:13:00 Юлия Han MD FRACTIONATED BILIRUBIN 2020-11-24 14:13:00 Юлия Han MD [facility] 2019-NCOV COVID-19 2020-11-15 15:27:00 Ofelia Dodd MD OSI FEMUR 2020-11-04 16:36:00 George Harper MD OSI INTERVENTIONAL 2020-11-02 16:35:00 George Harper MD Harley son OSI US BREAST 2020-10-31 16:37:00 George Harper MD OSI MAMMO BILATERAL 2020-10-31 16:36:00 George Harper MD rsilya PATHOLOGY OUTSIDE 2020-10-31 00:00:00 MD Neal Rivas INTERPRETATION [place] [facility] CHEST ABDOMEN PELVIS 2020-10-30 16:35:00 George Harper MD OSI FEMUR 2020-10-29 22:17:00 George aHrper MD OSI HIP 2020-10-29 22:16:00 George Harper MD OSI MAMMO BILATERAL 2020-10-26 22:18:00 George Harper MD rson OSI US BREAST 2020-10-26 16:35:00 George Harper MD Plan of Care Planned Activity Planned Date Details Comments Source Future Scheduled Test 1985 00:00:00 COVID-19 Vaccination MD Osei (1) [code = COVID-19 Vaccination (1)] Encounters Start End Encounter Admission Attending Care Care Encounter Source Date/Time Date/Time Type Type Clinicians Facility Department ID 2021-07-24 Outpatient Cely [facility] [id number] 14:47:01 [facility] 2021-06-22 Outpatient Cely [facility] [id number] 14:00:01 [facility] 2021-05-30 Outpatient Cely [facility] [id number] 14:40:35 [facility]ber [facility] 2021-05-30 Outpatient Dee [facility] [id number] 14:16:05 Yomaira 32498 [facility] 2021-05-30 Outpatient Dee, [facility] [id number] 13:48:34 Yomaira 78414 [facility] 2021-05-30 Outpatient Dee, [facility] [id number] 13:46:36 Yomaira 34788 [facility] 2021-05-30 Outpatient Dee, [facility] [id number] 11:24:32 Yomaira 77922 [facility] 2021-05-30 Outpatient Dee, [facility] [id number] 11:15:16 Yomaira 32864 [facility] 2021-03-05 Emergency [facility] [id number] Univers 16:48:24 [facility] 2021-03-05 Inpatient U [facility] TERRY [id number] Univers 04:05:48 [facility] 2021-01-25 Outpatient SYSTEM, [facility] [id number] 08:10:11 PROVIDER Chalino gore 2020-12-14 Outpatient SYSTEM, MDA MDA [id number] 09:08:58 PROVIDER Chalino gore 2020-11-23 Outpatient MDA MDA [id number] 15:33:25 Neal gore 2020-11-09 Outpatient SYSTEM, MDA MDA [id number] 15:38:19 PROVIDER Chalino gore 2021-03-20 2021-03-20 ambulatory [facility] [id number] [facility] 2021-03-15 2021-03-15 ambulatory [id number] [facility] 2021-02-26 2021-02-26 Outpatient [facility] [id number] [facility] 2021-02-13 2021-02-13 Telephone [facility] [id number] Univers 00:00:00 00:00:[address] [facility] [id number] it [place] [id number] Juancho as Martín?Blea [id number] [address] Office [facility] 2021-02-12 2021-02-12 Telephone [facility] [id number] Univers 00:00:00 00:00:[address] [facility] [id number] it [facility] [place] [id number] Juancho as Martín?Blea [id number] [address] Office [facility] 2021-02-07 2021-02-07 Outpatient R [facility] [id number] [facility] 13:30:00 13:51:36 EBER ran [facility] 2021-02-07 2021-02-07 Office [facility] [id number] [facility] 13:10:08 13:40:08 [place] [id number] it y [place] [id number] Juancho as Martín?Blea [id number] Ct zeina [address] Medical Office Building 2021-02-07 2021-02-07 Outpatient Carola VITAL [facility] [id number] Q-20 Univers 13:30:00 13:30:00 EBER [id number] [facility] 2021-01-18 2021-01-18 Outpatient EL JULIO CÉSARUHARB, MDA MDA [id number] 11:05:39 15:45:40 GEORGE gore 2021-01-18 2021-01-18 Outpatient EL ABOUHARB, MDA MDA [id number] 09:43:10 11:04:39 GEORGE gore 2021-01-18 2021-01-18 Outpatient EL JULIO CÉSARUHARB, MDA MDA [id number] 09:32:00 09:36:48 GEORGE gore 2021-01-17 2021-01-17 Outpatient [facility] [id number] [facility] 00:[facility] 00:00:00 Jazz[facility] 2021-01-15 2021-01-15 Outpatient BOOKER MOREAU LUCINA MDA [id number] 09:30:00 23:59:00 SALLIE gore 2021-01-09 2021-01-09 Outpatient BALBINA CARDONA [facility] [id number] Univers 11:00:00 11:00:00 [id number] [facility] 2021-01-01 2021-01-01 Outpatient DENI GREER [facility] [id number] Univers 13:00:00 13:00:00 [id number] [facility] 2020-12-21 2020-12-21 Emergency [facility] [id number] 16:00:00 16:48:00 [facility] [id number] Pedro [id number] [facility] [phone] [address] ([facility]) 2020-12-21 2020-12-21 Outpatient BOOKER HARPER, MDA MDA [id number] 13:55:05 15:34:33 GEORGE gore 2020-12-21 2020-12-21 Outpatient EL ABOUHARB, MDA MDA [id number] 12:47:00 13:53:05 GEORGE Vanegasers bimal gore 2020-12-21 2020-12-21 Outpatient EL ABOUHARB, MDA MDA [id number] 12:00:35 12:39:38 GEORGE Vanegasers bimal gore 2020-12-19 2020-12-19 Outpatient Carola [facility] [id number] Univers 13:00:00 13:00:00 [id number] [facility] 2020-12-19 2020-12-19 Outpatient Carola ALVARESDAVID [facility] [id number] Univers 13:00:00 13:00:00 [facility] 2020-12-07 2020-12-07 Outpatient EL ABOUHARB, MDA MDA [id number] 09:15:00 23:59:00 GEORGE gore 2020-12-07 2020-12-07 Outpatient EL WON, MDA MDA [id number] 08:04:31 09:14:00 ISIDORO gore 2020-12-07 2020-12-07 Outpatient EL WON, MDA MDA [id number] 08:00:00 08:03:00 ISIDORO dacostao osfía 2020-11-30 2020-11-30 Outpatient EL ABOUHARB, MDA MDA [id number] 15:20:51 17:28:01 GEORGE gore 2020-11-30 2020-11-30 Outpatient EL ABOUHARB, MDA MDA [id number] 14:05:47 15:12:04 GEORGE Vanegasers bimal gore 2020-11-30 2020-11-30 Outpatient EL ABOUHARB, MDA MDA [id number] 13:05:56 13:55:00 GEORGE Vanegasers o sofía 2020-11-30 2020-11-30 Outpatient EL ABOUHARB, MDA MDA [id number] 13:04:21 13:04:21 GEORGE Vanegasers o sofía 2020-11-30 2020-11-30 Elfego PARSONS [id number] 00:00:00 00:00:00 Only Unassigned, KATHLEEN [id number] [place] [facility] [id number] 2020-11-29 2020-11-29 Outpatient EL JULIO CÉSARUHARB, MDA MDA [id number] 14:40:25 17:37:42 GEORGE gore 2020-11-29 2020-11-29 Outpatient EL JULIO CÉSARUHARB, MDA MDA [id number] 09:54:45 09:54:45 GEORGE gore 2020-11-24 2020-11-28 Inpatient ER SHANTAL, MDA Med Breast [id number] 08:40:00 17:13:00 GABRIELLA gore 2020-11-27 2020-11-27 Inpatient EL DODD, MDA MDA [id number] 13:27:40 14:01:08 OFELIA gore 2020-11-27 2020-11-27 Inpatient EL JULIO CÉSARUHARB, MDA MDA [id number] 10:51:56 10:52:00 GEORGE gore 2020-11-26 2020-11-26 Inpatient EL VESNA, MDA MDA [id number] 22:10:48 22:26:19 EVER gore 2020-11-24 2020-11-24 Outpatient EL KWAKU, MDA MDA [id number] 13:48:32 15:01:50 BEATA gore 2020-11-24 2020-11-24 [facility] [id number] Q-20 Univers 14:00:00 14:00:00 YOLANDA [id number] [facility] 2020-11-24 2020-11-24 [facility] [id number] Univers 14:00:00 14:00:00 YOLANDA [facility] 2020-11-23 2020-11-23 Outpatient EL ISABELLA, MDA MDA [id number] 13:43:16 17:07:13 GEORGE gore 2020-11-23 2020-11-23 Outpatient EL JULIO CÉSARUHARB, MDA MDA [id number] 15:09:37 16:35:32 GEORGE gore 2020-11-23 2020-11-23 Outpatient EL ABOUHARB, MDA MDA [id number] 15:10:43 15:10:43 GEORGE gore 2020-11-20 2020-11-20 Outpatient EL ABOUHARB, MDA MDA [id number] 06:00:00 23:59:00 GEORGE gore 2020-11-20 2020-11-20 Outpatient R DENI PIERRE [facility] [id number] Univers 11:00:00 11:00:00 [id number] [facility] 2020-11-20 2020-11-20 Telephone [facility] [id number] 00:00:00 00:00:00 [facility] [id number] [place] [id number] [facility] [id number] nal [address] 2020-11-16 2020-11-16 Outpatient EL DODD, MDA MDA [id number] 08:49:34 10:32:19 OFELIA gore 2020-11-16 2020-11-16 Outpatient EL DODD, MDA MDA [id number] 07:59:46 09:39:56 OFELIA gore 2020-11-16 2020-11-16 Outpatient EL ABOUHARB, MDA MDA [id number] 07:55:28 08:28:52 GEORGE gore 2020-11-15 2020-11-15 Outpatient R DANIEL [facility] [id number] Q-20 Univers 11:00:00 11:00:00 [facility] [id number] y o [facility] 2020-11-15 2020-11-15 Outpatient EL ABOUHARB, MDA MDA [id number] 09:59:18 10:28:17 GEORGE gore 2020-11-15 2020-11-15 Outpatient R EVAN HICKS [facility] [id number] Univers 00:00:00 00:00:00 [facility] 2020-11-14 2020-11-14 Orders Doctor JAQUELINE [id number] 00:00:00 00:00:00 Only Unassigned, KATHLEEN [id number] [place] [facility] [id number] 2020-11-10 2020-11-10 Outpatient EL ABOUHARB, MDA MDA [id number] 17:14:57 17:14:57 USASofía Chalino o n 2020-11-10 2020-11-10 Outpatient EL ABOUHARB, MDA MDA [id number] 11:12:04 11:12:04 SAUSASofía Chalino o n 2020-11-10 2020-11-10 Outpatient EL ABOUHARB, MDA MDA [id number] 11:11:06 11:11:06 USASofía Chalino o n 2020-11-10 2020-11-10 Outpatient EL ABOUHARB, MDA MDA [id number] 11:10:25 11:10:25 USASofía Chalino o n 2020-11-10 2020-11-10 Outpatient EL ABOUHARB, MDA MDA [id number] 11:09:41 11:09:41 SAUSASofía Chalino o n 2020-11-10 2020-11-10 Outpatient EL ABOUHARB, MDA MDA [id number] 11:09:07 11:09:07 USASofía Chalino o n 2020-11-10 2020-11-10 Outpatient EL ABOUHARB, MDA MDA [id number] 11:08:45 11:08:45 USASofía Chalino o n 2020-11-10 2020-11-10 Outpatient EL ABOUHARB, MDA MDA [id number] 11:07:07 11:07:07 SAUSAN Chalino o n 2020-11-10 2020-11-10 Outpatient EL ABOUHARB, MDA MDA [id number] 11:04:03 11:04:03 USASofía Chalino o n 2020-11-08 2020-11-08 Outpatient EVAN BALTAZAR [facility] [id number] Univers 11:30:00 11:30:00 [id number] [facility] 2020-11-08 2020-11-08 Outpatient R EVAN HICKS [facility] [id number] Univers 11:30:00 11:30:00 [facility] 2020-11-02 2020-11-02 Surgery [facility] [id number] 13:05:00 15:27:00 SPECIALTY [id number] [facility] [id number] WANDA AT [id number] MARGARITA Crook [facility] 2020-11-01 2020-11-01 Outpatient R DANIEL [facility] [id number] Q-20 Univers 09:30:00 09:30:00 EH [id number] linnearan [facility] 2020-11-01 2020-11-01 Outpatient R DANIEL [facility] [id number] Univers 09:30:00 09:30:00 EH [facility] 2020-10-31 2020-10-31 Outpatient R IVETTE [facility] [id number] Univers 15:00:00 15:00:00 AURELIO [facility] 2020-10-31 2020-10-31 Outpatient R WENDY [facility] [id number] Univers 11:15:00 11:15:00 GABRIELA [id number] [facility] 2020-10-31 2020-10-31 Outpatient R DANIEL [facility] [id number] Univers 00:00:00 00:00:00 EH ward bimal [facility] 2020-10-30 2020-10-30 Outpatient Carola HERNANDEZ [facility] [id number] Q-20 Univers 07:00:00 07:00:00 EH [id number] ed o [facility] 2020-10-30 2020-10-30 Outpatient Carola HERNANDEZ [facility] [id number] Univers 00:00:00 00:00:00 EH ward bimal [facility] 2020-10-26 2020-10-26 Outpatient Carola HERNANDEZ [facility] [id number] Q-20 Univers 00:00:00 00:00:00 EH [id number] ity o [facility] 2020-10-26 2020-10-26 Outpatient R DANIEL [facility] [id number] Univers 00:00:00 00:00:00 EH hooks [facility] 2020-10-24 2020-10-24 Outpatient DANIEL [facility] [id number] Q-20 Univers 14:30:00 14:30:00 EH [id number] ed hooks [facility] 2020-10-24 2020-10-24 Outpatient R DANIEL [facility] [id number] Univers 00:00:00 00:00:00 EHRADHA wallis [facility] 2020-10-18 2020-10-18 Outpatient Carola MIGUEREA [facility] [id number] Univers 13:00:00 13:00:00 AHSAN [id number] [facility] 2020-10-18 2020-10-18 Outpatient Carola CHU [facility] [id number] Univers 13:00:00 13:00:00 AHSAN [facility] 2020-10-18 2020-10-18 Outpatient MADELYN_KIKI GALLAGHER [facility] [id number] [place] 02:41:00 02:41:00 _ANN [address] [facility]re [facility] 2020-10-16 2020-10-16 Outpatient DANIEL [facility] [id number] Q-20 Univers 17:10:00 17:10:00 EH [id number] de wallis [facility] 2020-10-16 2020-10-16 Outpatient R DANIEL [facility] [id number] Univers 00:00:00 00:00:00 EH ed hooks [facility] 2020-10-13 2020-10-13 Outpatient Carola GUTIERREZ [facility] [id number] Q-20 Univers 09:00:00 09:00:00 YOLANDA [id number] [facility] 2020-10-13 2020-10-13 Outpatient Carola GUTIERREZ [facility] [id number] Univers 09:00:00 09:00:00 YOLANDA [facility] 2020-10-11 2020-10-11 Outpatient DANIEL [facility] [id number] Q-20 Univers 14:30:00 14:30:00 EH [id number] ed hooks [facility] 2020-10-11 2020-10-11 Outpatient Carola HERNANDEZ [facility] [id number] Univers 14:30:00 14:30:00 EH hooks [facility] 2020-10-09 2020-10-09 Outpatient Carola HERNANDEZ [facility] [id number] Univers 15:41:17 23:59:00 EH hooks [facility] 2020-09-28 2020-09-28 Outpatient Carola HERNANDEZ [facility] [id number] Q-20 Univers 15:30:00 15:30:00 EH [id number] ed hooks [facility] 2020-09-21 2020-09-21 Outpatient Carola HERNANDEZ [facility] [id number] Q-20 Univers 09:30:00 09:30:00 EH [id number] ed hooks [facility] 2020-09-21 2020-09-21 Outpatient Carola HERNANDEZ [facility] [id number] Univers 09:30:00 09:30:00 EH hooks [facility] 2020-08-31 2020-08-31 Outpatient Carola HERNANDEZ [facility] [id number] Univers 15:00:00 15:00:00 EH hooks [facility] 2019-07-26 2019-07-26 [facility] [id number] [facility] 14:00:00 14:00:00 [facility] Outpati ent Clinics 2019-07-26 2019-07-26 [facility] [id number] 10:51:00 10:51:00 [facility] Outpati ent Clinics 2019-02-12 2019-02-12 [facility] [id number] 10:40:00 10:40:00 [facility] Outpati [facility] Clinics 2018-07-29 2018-07-29 Outpatient [facility] [id number] [facility] 13:15:00 13:15:00 [facility] 2018-05-08 2018-05-08 Outpatient Primo Vergara [id number] [facility] 14:34:00 14:34:00 [facility] Results Test Description Test Time Test Comments Results Result Comments Source [facility] 2020-12-07 15:59:51 Test Item Value Reference Range Interpretation Comme nts [facility] (test code = 5571) 5.0 mIU/mL Femal e Follicle Stimulating Hormone Reference Ranges: LOW HIGHFollicular 3.5 12.5Ovulation 4.7 21.5Luteal 1.7 7.7Postmenopause 25.8 134.8 MD [id number] 15:59:50 Test Item Value Reference Range Interpretation Comments LH (test code = 3.1 mIU/mL Female Lutei nizing Hormone 6126) Reference Range s: LOW HIGHFollicular 2.4 12.6O vulation 14.0 95.6Luteal 1.0 11.4Postmenopau se 7.7 58.5 MD Os[id number] 15:59:49 Test Item Value Reference Range Interpretation [...] or assistance, ple ase contact pathologist. MD OseiInfluenza A/B + COVID-19 Asymptomatic- [id number] 14:56:39 Test Item Value Reference Range Interpretation Comments COVID19 Not Detected Not Detected (SARS-CoV-2) (test code = 55311-6) Influenza A (test Not Detected Not Detected code = 85180-5) Influenza B (test Not Detected Not Detected code = 47204-6) COVID19 SARS Inpatient Indication (test Admission code = 55633) Inf AB+Cov19 See Note The rodney SARS- CoV-2 Comment (test & Influenza A/ B code = 10960) nucleic acid t est for use on the bebeto s [employer] System is a [employer] tiplex real-time RT-PC R assay intended for [...] sheet for patie nts provided by the teletype clerk ([employer]) can be rev iewed at: https://www.fda .gov/m edia/549718/josias nloadA fact sheet for Health Care providers is provided by the teletype clerk ([employer]) and can be reviewed at: https://www.fda .gov/m edia/554819/josias nload Influenza A and Influenza B neg [...] This assay has been authorized by t FDA for use only un [place] Emergency Use Authorization ( EUA) in laboratories that have been CLIA-certified to perform moderate-comple xity and high-comple xity tests. The [facility] at [facility], CLIA Accreditation #[id number] and CAP Accreditation #[id number], verif ied the performance characteristics of this assay. Int ernal controls are us ed to monitor all sta ges of the test proces s. [facility] Dyoqcckttrkimn4732-24-96 15:53:36 Test Item Value Reference Range Interpretation Comments Materials Received (test n3uzyXJfJDGngINtPsKx code = 9973) QQRxMECpf2yoXRWvxLHa ZzEwMzNcZnRuYmpcdWMx LVXgSvXsq9bsz822sLUz l1ccJEWxLmR8jAEgIGFo qBIaS366SJTpUMugi9sd d1BzQHCskSBxf6Q5HUUV wjskwGu0zRlnB49cd5Z3 WvsxS9dnECKdQTDvO5Ss FD2kNVGnAbh0EVN6LUK5 ZNFsXYAaL8FkTQ7eSTNn gQWtMQc8i0rdzQrxTRGu LWY9e1ybAGcabjXyCC5z af3uhJj1c8cmgmNiBTXe AIGalSXQEPEdC3CuaGtf Hz5fqYd8jFckXpraVXS6 [id number] GOSapgjwQmY7ZIlcNFUt kkmqIXu5PYlwVDMgjZlu MFxtYXJncjcyMFxtYXJn oSE5VASozGBlR5XmOHTf ZYooYYEqqob2OmYzGd6a iSDtoZxmAZsgf3xsp1wp sOAtVpq7UXHoNlLxNxic JMfjj5Blz5tuJYQbdl1v TFZ3uGZjjIfah3D1rKEa UQIecLThusVjHFAwzp58 cCVpaVLepQWkyk2vpzIs pSCqtIGhGTT4kHCtgqSt FFLywTRaNEWjBI2prPMf HGUntX3zsuceHRQdXoPg bjaxLXHlhYklvePuLh9z rBdfEIS9JUkhG8feiQ5j DuN2SUjoC1rpoP8fAOm2 AAidnOY3OIHokR7aDF4x tkriy5gdBrYkTD7hyazt s7buLvGeQF8urek1m7sw AAY7HMvuPXMpRhR4fjP1 NDBcaGVhZGVyeTcyMFxm l171VXH1KdKpEBFjm6Zb O2DukWthY33suPeiS58j NYEizUrxrF0leFkveC5s WpZqIwRkWRb3hu14LGo6 ljfebWoeOHr1eqZsKTNm EKB1IOLrgHYoQLTqC1c5 nyNjBWQyZSC6NBLtbDXi LUFqA6f6tuAjTVE5GMi0 cnBhZGRmdDNcdHJwYWRk YjBcdHJwYWRkZmIzXHRy mMEjpFQvhBBmiR9oiZkc YJTkfYUnkA7oDHD2AGJl cmgzMjBcdHJoZHJcbHRy ko34PNTfsxAwhXOebRmb jVQxCLW0ADSdJPEbFLKk OTH1STHkHsTmgzYkVNad bGJyZHJiXGJyZHJzXGJy DGN9OFTcNmRtflOnGXvb bGJyZHJsXGJyZHJzXGJy KIW2HEBaCtMealHsIDfm bGJyZHJyXGJyZHJzXGJy IJJ5MTLvImMchgOxOIzb bHBhZHQxMFxjbHBhZGZ0 W0qikOJpLONoBTualZEp JAYzT2dypAVkPMhbMDNd cGFkZmwzXGNscGFkYjBc M0zsGJBhHlHdH3VqbHo3 MDAwXGNsdmVydGFsdFxj xFHiZUE4OPXlZORfWVLd DFG5NTYqVtKtltZtMJar bGJyZHJiXGJyZHJzXGJy KCC3AWJzZwOtuiTgXRrq bGJyZHJsXGJyZHJzXGJy IEX4PBCySqUnaoNzJLvv bGJyZHJyXGJyZHJzXGJy VYB7CITdPbDxalZvNCpy bHBhZHQxMFxjbHBhZGZ0 N9sidVNxTSOuEKqmkVEn EHXpU9apaSTfKDxhHXDp cGFkZmwzXGNscGFkYjBc T2veAQGkKgYaM1RozBq9 NjAwXGNsdmVydGFsdFxj lIJwYEW8GGJnQKAlTCIs YPJ4HLDbNpCevwOzLTuh bGJyZHJiXGJyZHJzXGJy SFS0EDQrIrJrcpVyRRmq bGJyZHJsXGJyZHJzXGJy UUR0YRDuJxZhliRrQOln bGJyZHJyXGJyZHJzXGJy BQJ1UHZiDfKvqvFbGEnb bHBhZHQxMFxjbHBhZGZ0 A3zirRHlBZJbSCzlxRDf CKDgT7idhFQpURqoOVNc cGFkZmwzXGNscGFkYjBc D4bxQFOpJpZbZ4IbvPj2 RbEiWDDcxaGcgP33Keaj b7GdKKArPWT0QTacOLux bFxwbGFpblxmMVxmczIw GWhmiwfpTWQuAFreT9wr XhHpJWOgaLddLLlib0Sk XGYxXGNmMlxmczIwXGIg FVRqPWXckY9mMfekE3No eF7kQHawEbzhN7zkFYRr t7VctU8tEDitrMApmoyt MVxmczIwXGxhbmcxMDMz XLnfL2zzHlDcWIZvsLha PHsip4VpUPYnDKCzFlnw nxWyAVh8ewYsFBUxyBxe wVMxLAjuflOzmMzhk4Ro bpJytYibDBQyMNq8ncJp mchzoCh7uGXdwRroSVDu kZdyuM4yYpTqPqPtDDci bGFpblxmMVxmczIwXGxh ecnbNNJwZAdnL7emTgMm JZIohBrsYJqzw7UpRDQj LHThCrlpacVgBWTcC14j bGVjdGVkXHBsYWluXGYx XGZzMjBcbGFuZzEwMzNc aGljaFxmMVxkYmNoXGYx CBsxO0teIqMzE9FyRMPn HuRvlUEtZ2vkJ8EyjVda YXJkXGludGJsXHNzcGFy FQQ7qBDdrpImxMYqbNSt WFHyZQajAAB5dGNfcrwt yLTzshpcYKrzjlS1DMPv YWluXGYxXGZzMjBcbGFu ZzEwMzNcaGljaFxmMVxk UoHqAOFhHDssQ8tgYnYa M5HfZVCyJeQqQqKUDCMo aXZlZFxwbGFpblxmMVxm czIwXGxhbmcxMDMzXGhp L0kyAjReWXRncBynSBej c9AbJLZyKXYrWjulboBe GJv2zzQcQMLfpLlpvX63 Cgifcj21PGSrf6bzPQQa D2PmhSCdBMMzzHNtFZox MDhcdHJwYWRkZmwzXHRy cGFkZHIxMDhcdHJwYWRk ZnIzXHRycGFkZHQwXHRy xQBjTKY3Q6k7pkJnFYRg SZc4jmEjARGkQrOniCWo EUN6HVx8QlplvcT0vJNt N3k1BokttmRvLKlvgGMt me72AQYihzZwzNQkxYmg uAZrVAJ6XFIiERHcXHZq MBX0LSAbDcYldeSxGYzp bGJyZHJiXGJyZHJzXGJy CQM6HOIpApSsqyVlIDbx bGJyZHJsXGJyZHJzXGJy TNJ5MAXeQtIosjOeATnf bGJyZHJyXGJyZHJzXGJy MBV6GNSpJjEhynOyFLav bHBhZHQxMFxjbHBhZGZ0 W6pkrOAqNXEwUZupaBJx BSKiP1bojFQzZPusZFLn cGFkZmwzXGNscGFkYjBc A5gtIMCkMwZyO2LsqXf7 MDAwXGNsdmVydGFsdFxj tUTxPOM5ZGBuFQXnNFMg UOQ3DTLgLrJserVtPEvo bGJyZHJiXGJyZHJzXGJy BFN0PMLxDdBpriKyTNxd bGJyZHJsXGJyZHJzXGJy FMN5BUDmJoEvrhMmWPqw bGJyZHJyXGJyZHJzXGJy SZK4GNGkKwJmmvEtNFld bHBhZHQxMFxjbHBhZGZ0 K9pmbCFyUFNjICbwtNGu NQIfF9etfHYjOIwjDADr cGFkZmwzXGNscGFkYjBc P7ahTTYmDtVrO3QulZm7 NjAwXGNsdmVydGFsdFxj bQOxGSC9QADkTIIqNZGv KQO4GBEyVjJleuYyLFxd bGJyZHJiXGJyZHJzXGJy DMQ5ZGKwKgTsguUxAJse bGJyZHJsXGJyZHJzXGJy CIG4RYJuSbDrsvWoXVnp bGJyZHJyXGJyZHJzXGJy ZZP6GUZlQtXckjVfWZsw bHBhZHQxMFxjbHBhZGZ0 C0wooSWoZTDtOAeceVVo FSTyG7qdfFJfATubDLSq cGFkZmwzXGNscGFkYjBc S2tfLFZsUvNpG6ZveXc4 ZhDiGVIawmGomV67Pkfx q6BtCUQvDIU9GLwbMQxb bFxwbGFpblxmMFxmczI0 XHBsYWluXGYxXGZzMjBc bGFuZzEwMzNcaGljaFxm ICqrAoJsBLPhXHvuR1uc VeNoW5CvUVQjUnEiIB3g EpEhOPLpTXb1PZKjLxGL VuxgPREOBA1UP0PoZBMg VVNTXHBhciBCLiBTMjEt SWLvPIScUVE7YFQSHTIz CDUBP0MPLgyoPCSUP1Bt fTgojD3oQgJnCjTdVQgk DB2nMJVtH0ecbKDbMLVl UOAiP3poQjYyrK7icWap MVxjZjJcZnMyMFxsdHJj eIpuSUdtHTSbfjYfbG06 Svoej0BkXOJrQPC5ALsb MFxxbFxwbGFpblxmMFxm gzB3WINiGEbaLGNrZIZw MjBcbGFuZzEwMzNcaGlj aFxmMVxkYmNoXGYxXGxv C9kbUmQvX3IsIRMgSwUq Ly6iTQ5oMZIlADMbnbN3 LzEvMjAyMVxwbGFpblxm MVxmczIwXGxhbmcxMDMz UWejY4wcRsBjWOLqtFrb RIbpa3BvFBMkYULsUpjd rmTvQMy6ndZrSTHjqWpx tECwNVwkjkBqbMpgp8Vc cmFhdXgwXHMwXHFsXHBs YWluXGYwXGZzMjRccGxh hD1hZwEsYbOkGMyhEM4p OTLzU8uimGSyIWSoLYCz F2zsPxQfbL6tfPilBEnf WtOzDrKdZMP8NsL2TwWf MjFccGFyIDcvMTUvMjAy MVxwbGFpblxmMVxmczIw XMbxssiyVNSqSZjzK9mz WyXrRITvuPfnAMebc0Ts XGYxXGNmMlxmczIwXGx0 xgSsKZSkhQegbP26Bhoy bk96SPIyjiHzy8FiSEIl WDM9AWfoRTcneEppbUUm hpisXNokfgC2RHCaQYwx XGYxXGZzMjBcbGFuZzEw MzNcaGljaFxmMVxkYmNo LDBrAKxtQ8boDfJoChUv MFxwYXJ9 Diagnosis (test code = o6vhaWTzQLCyiDC9QSTm 34) EYEal3zba2DzjHLorTHm RHbbvENrhlOpwq28rHJ6 hD48FK7nIAUgLxQ2XLAr phL5Loh2RVCaEUByhANg J338o7fyk6bjdwPcvLL7 YSCkAWMdS8DnDN3pYQPp gYAeD24elXPoQLN1WPHu CIBdwQZyHDMyRIN8COAt bICzG6gbSXXaPN4ivhaw SRbzXCjhUHMlaOG4GSYi sOBnN9ZwBLDzLYcoCYFb yss8KoRiMs0ivDTgoRho MFxwYXJkXHBsYWluXGZz IvTgB7YaSZ73nNKhLTPq RPGoWB2cOEK6XecdXLCb I1GfCFKwUpbQK7gLWYTt MVWTTotsA10ttYPubSRt LW5yGMTgHtoeZiWmCIn3 XHBhclxjZjBccGFyXGxp NzIwXGxpbjcyMCBCcmVh x7XnBDofEuSzILecFyMq StVtSDJ8GZ1cq1XsTNnu GEWzFSYeCB5tvCBhTKWy QTEtNSwgQTItNSwgQTMt SLqkXHmOZVu9ZNeivDLb XHBhclxsaTIxNjBcZmkt YcLfPIrqdnDqBiQiF7Ya GXpKSlSYQBFXHPEKJ7KM IWKWBKBBWA7YQHTpYuNQ PDZNXXSMGLBHQ0wCC4lP LZiNNAVWZGJaMZ8QAZxR XCPIGPXYEBQOI0ViUqRK TEVBUiBHUkFERSAyIChJ JdEMNw2VLVoMCMAeH5DN QKQsVlWbY8AWSAOBEN3V TlQgIzEpXHBhclxwYXJk XHrjJnQ6ZElshR05ZeIs tKmgJbC8CLfzYwZeeTGp GRpzOsJzXMJhTElwwZ43 ThOcWrMwUNW7VMDiwDdr dCwgcmlnaHQgYnJlYXN0 ZN2ff6MeXCrhYKRhYEJa RA8crFRzOJRgIbOrZZbj QjItNSwgQjMtNSwgSUhD EKt5OWvvaIPzKCLgsdtr jPM7KIJseAxvOAY7YUiw LuUpIP4ERTMCUkJkWCVR LVUGCFACLfLIFm5ATATR AaADO7ClQLqZV5OMKK6X WYAuF6YBPNWwKcjcFR8D FJEDBJWiEplVT9gzWnQM VUNMRUFSIEdSQURFIDIg XXnLKJPKJGCNWZJFAT6D MiVRFEruWGtUHDGhY62L TUVOVCAjMSlccGFyXGxp IAjnxQ4kMAVfSHthBMZb V4QhCX90lIFaCUIvNEZk GJ5tXWJlVhctLJUqK1Sw ENMbLegLY7kAFNAkLATY NnloK03aaJHntVGxMW6z RYgcZV8dMSKqYRhvyAVy KTKeONhqGIYcsZu7LlFo bGluNzIwIEJvbmUsIGlu cDZerHQvhIykUCD3EJXd MW3epdrpAxOwdBQdyMjl jVXoLU71jvRsBCTxKume JNRtAQntYEWePSl3OKQx clxwYXJcbGkyMTYwXGZp HPaoMPuovN3bXLZsDBAE S7SINQLVANHRWLKLOkDV FOODPMRSKBVQCQ2DZEDx CCLcP0EIOEHDEV8QWwNo IzIpXHBhclxwYXJcbGk3 MjBcZmkwXGxpbjcyMCBC g94uCOFagaMuNA2uQJXx pHQmiXHjIYKawJ5jJMNl y48fjppbyVUgBtTbrCOj KEIxLTIsIEIyLTEsIEIz LPGgLEE5INYgKQnIKnC0 Yim6TOXkrlgaXAUjeUku MQYsZKbqnzI0VYNjKT9R UkxZIERJRkZFUkVOVElB IRFUGIGYGgBUYv1IHH2w ITuPZRUqI55UNAUXAAKx MilccGFyXHBhcmRccGFy MJuNAh0LSOKdcNZreC== Comment (test code = x9aqkWMmYDEnsRG9YWPa 9873) DEYcq2iet2KjoSKibCNw RHzbeZPdauEddd26rPU6 oO53DW9aVWBbZjN7OIOy jrC2Vmq3XSGkXUHnsQQu R729g5bys1ogqhUfhGV3 sVqkTHBkxqavHuF6JWrk MWWylzqdATk4TBjvSOIw xEP1DDHzfIZvM5DmQKIk SE9jqyj1VPA3DHakZYGw GdA3BCXfmQKjHLYudIgp QFcxv139KGJ8LtHpMDBb syIqqTbgoG7bQeIdYSJb ZNdhN22iu3ZlkAu3rIQl DF87dUZfGMLhe3rdJKNv HUWil44bTm12iWNgQZT4 IGFuZCByaWdodCBicmVh w0LeqPAde1ReWrgkuFMb ZXMsIGludmFzaXZlIGNh zeUlrq7fTOIhlzOfn9Rb iOp0AUFfj1AoLAZ9qe6m LE6holKbPYB9e7EnZXr8 SDtbCvoquJ09NX9jwWA2 EFbimV0wiNAqfeTxLh1g TGDod7ewr2Snvw8vUMRv ZWNlcHRvciAoOTUlLCAz KyBpbnRlbnNpdHkpLCBh bpOwqyXpPJXrzaOhLc9d BPgMXmRaw3OutrQ4rZDs f1Rgm67wOXExOP6cQ6r0 VgKxpj5taNBqdyU9pIAs YPbnNUL0YBzlBTUwWU6o PUjvLVDlL0PqiOz8eURy SUtzaTKpo1yrg6IsG3jw hLudZJfen9TwuV9tNKFn ciBFLWNhZGhlcmluIHNo w1gthSAlMmPawxJju6Tx hQ9xcuigbR5mgJOhl8Ed G1LagWSrZCL9bNYuhwHl mplhETCxrtVxLIxdB92l k1ynLsdeRBOpiYGmVHZh ArZMcRCljMX3GBGbfJ5i yS4qpEtleP8vyZAdxYTx pJRcqZGooFInLUHcx6ds fVLcm5ZeS4VauLJlGHYx KXNca9k9tKJyLTDmitZZ AZAqEAGpLAI5iT4lYYEj xAoawevgY7m5UDYOORTC MywgRVIsIGFuZCBQUiwg JY4zWZ5tL7I2lCVnHHVk ciBDSzIwIGFuZCBIRVIy QlKZkRGqe0MtmgDkoLKt pGQ2n5fzG3ihOVDngyDu kzhnPQMxc40tEWisvTuh xTmqGGBhwC3oJ3QcEHrc p6ZvdxfyQD9zRTNdxY6x aUHeLRspmEJwy7rpu0Ca Y2nxlSuaPZljq4WbjM7f MUFvPSLss95lrXB5QQ56 GMjjnEilhJI5KLC6MTUe LaFhLXTovY6ojFRuOEDo YHEcoONourwbJYR3Lnif YXJccGFyfQ== Biomarker Block(s) (test n7bqcRQpGYJcdUB9HUKb code = 9841) IMCdb7qzy6XxmATtxSRo MFogwWFurtVqhs31aYW6 xJ83CY1hQUDuZoY5YWAb cxD2Sjz6QDEkAUGxnFUr R861k0jde3jpxbMlrOC6 CYNfVEXbK7MuHD2hMSXv hSDqG86jdBYiWNV8JUUo FAZjnSLrDQNwDNF3UBJy eAQcA9guDJFyIR9zvhmu ULqwGBwcRVXupBA0QKJm nOZmD6KfFVZsNGjgAFOb zrx0UuBaPw3mdGNrqPoc MFxwYXJkXHBsYWluXGZz MjAgVDogXGNmMSBTMjEt MTEwOTcsIEIxLTVccGFy LD87NJ0aFPqfAGG4 Disclaimer (test code = o2aefRHwSDKuhKZxRcEi 9835) IFPlEJAom7hpBYGmkCYy ZzEwMzNcZnRuYmpcdWMx RDUlQzUse7vbi314aJEb h3uvLJSpHyU1qUGfYQVg kIFuC218FPAuVPrwa1ed w2IzSDFdsHIiu0N6PIBP coxsgIz9fOjmR91uy3Q0 MmtcU5ptCZAlWURuH9Aj AD6lMOKfHrq5QZW2UHM9 BHGyFVFzC3RuOR8wYRLj aREuQEy4c2xjoAszWTAp ITE3d6kdSKyttmAiHP4b dd7uuWd0r2mnbyOeVWDo KAQobDYZVZAiV4AyrGyz Ik1vwYs0bEwyKmeaNVC0 Yfw3PQ3jna47erg3fSgy VQCzgemuShO6HYqmKMKn nuzeASf4TTikRZIzrES1 SZHvyFSgH1DaAJTdUP6o cwf6YHR7RBgjWRAuEuA7 NDBcaGVhZGVyeTcyMFxm m018BHU2DsGzNI5pB4Wx x3B2mK7puSYcNZUnrXYs OmVeNOJxcj4jkZKiWRtg z1UuEUQ2iqB2oATjdCEc QGCoAZ83Qygpj6KvBerz SSV9HWQvwcUcr0Cqd0eg BuWflqPkI2qaT3RcAVFl RUVdTFLcTnQyryEmi6Gv h4NsfZDzcSr9n4cxNHAp BIYwpBizn2esSYD0VXJp H8S4hHShy8tqJZuzPQBt bWX2fuM3DEQhwRBjV7Bv hW6xVLDyOC7dmii1y5yq UPA9AReoOUCnSnE3eeY4 NDBcaGVhZGVyeTcyMFxm d173HVE5NnJpVPPlk3Sn O9TqxIolQ01aaNibV60x CLKnsWyngW9piSovlF4r ZjBcZnMyNFxxbFxwbGFp hnnzIJvvttN3WEeahndb CLJqJVpwE7blUePdCIHx wBeiPKnxp6QgJFVbVFVu FayvkeB6RGGCx90wCXUc p6PkLTCsiU4pkCVhDWjv xrDzkFJ7KVcrpjDyZyRu tkGwLGPapY3kEICyOH7w BBQycsPusg7otpWlYCAj EWNkD2HyqrqnqVrqdvZt SZDczs1lptBoJET2ECLR EI6MYFVhUYOcv84dGIRk kYeaeX9jfTDukhVqEIBk r3GwuL0umTMSHEKnA4ym FX2pIZvup0OrpVFfuZXd oJM0LZSbd7ErIzChenNw bNKvzTPhZ2MpvLusV2js VZEzCSXfioPnlBJrb0Ac HPBtqYI1kYRqAJ6SNtOA g82eIJYpBUUKktEpSTBe yFwtjLD9txJ5bN1gBcQA ZiBhcHBsaWNhYmxlLCBj m274ff6ksuY0OLQrTMXd xpwxb0LuDYOhCPAdpP47 SJRiGWZcbn5zcktfoDPb gcTeV4Slmwh7kA3vMFXf YWluXGYxXGZzMjJcbGFu ZzEwMzNcaGljaFxmMVxk ItUgUYQfODsuT5vtSoDh ZnMyMlxwYXJ9 MD OseiMT COVID-19 (CINDI-CoV-2) PCR [id number] 11:39:53 Test Item Value Reference Interpretation Comments Range COVID19 SARS Pre-Radiation Therapy Indication (test code = 15509) COVID19 SARS Result Not Detected Not Detected (test code = 21003-9) COVID19 SARS SARS-CoV-2 NOT Detected. Interpretation (test Reference Range: Not code = 16586) Detected Methodology: The Ram[employer] RealTime SARS-CoV-2 assay is a qualitative real-time reverse quality control inspector heading polymerase chain reaction (supervisor wool shearing-PCR) test to detect RNA from SARS-CoV-2 in nasal, nasopharyngeal and oropharyngeal swabs from patients with signs and symptoms of infection who are suspected of COVID-19 by their health care provider. The Ramírez RealTime SARS-CoV-2 performed on the Tubett000 System is a dual target assay with [...] sole basis for patient management decisions. The [employer] RealTime SARS-CoV-2 assay is for in vitro diagnostic use under FDA Emergency Use Authorization only. Testing is limited to laboratories certified under the Clinical Laboratory Improvement Amendments of 1988 (CLIA), 42U.S.C. 263a, to perform high complexity tests. The Test was performed by the CLIA-certified, high-complexity Molecular Diagnostics Laboratory ([facility]) at [facility] under the Food and Drug Administration (FDA) s Emergency Use Authorization. Factsheet for patients: https://www.[facility].org/ AbbottFactSheetPatientsFact sheet for healthcare providers: https://www.[facility].org/ AbbottFactSheetHCP Test performed by:[facility] Diagnostic [id number] [place] [address] MD Osei
[2021-08-02] MEDS ORDERED: NA CHLORIDE 0.9% 1,000 ML ONE (18:36)
[2021-08-02] MEDS ORDERED: ONDANSETRON 4 MG/2 ML VIAL ONE (18:49)
[2021-08-02] MEDS ORDERED: MORPHINE 4 MG/ML SYR ONE (18:49)
[2021-08-02 18:53] LABS: Absolute Lymphocytes (CBC) 1.3 K/uL (0.7-4.9); Hematocrit 40.3 % (36.0-45.0); Lymphocytes % 24.7 % (15.3-44.8); MPV 7.1 fL (7.6-11.3); RBC Red Blood Cell Count 4.43 M/uL (3.86-4.86)
[2021-08-02 18:57] LABS: Protime INR 1.09
[2021-08-02 19:15] LABS: Albumin 3.9 g/dL (3.4-5.0); Bilirubin Direct 0.1 mg/dL (0-0.2); Bilirubin Total 0.3 mg/dL (0.2-1.0); Potassium 4.3 mmol/L (3.5-5.1); Protein, Total 7.1 g/dL (6.4-8.2)
[2021-08-02 19:29] LABS: Urine Bacteria <20 /HPF (<20); Urine Mucus HEAVY /HPF (NONE SEEN); Urine RBC TNTC /HPF (NONE SEEN)
[2021-08-02] MEDS ORDERED: NA CHLORIDE 0.9% 50 ML ONE (20:14)
[2021-08-02] MEDS ORDERED: CEFTRIAXONE 1000 MG/VIAL ONE (20:14)
--- NOTE | 2021-08-02 20:35 | RAD REPORT ---
EXAM DESCRIPTION: CT - Stone Protocol - 08/02/2021 7:55 pm CLINICAL HISTORY: HEMATURIA COMPARISON: Abdomen Pelvis Wo Contrast dated 01/01/2021; Chest Abd Pelvis Wo Con dated 06/29/2021 TECHNIQUE: Axial 3 mm thick images were obtained without oral or IV contrast. The [id number] span s the entirety of the system including uppermost abdomen and lung bases. All CT scans are performed using dose optimization technique as appropriate and may include automated exposure control or mA/KV adjustment according to patient size. FINDINGS: Double pigtail stent is in place in the left collecting system. No calculi seen along the course the stent. No left-sided hydronephrosis identifiable. Numerous phleboliths are seen along the pelvic floor. No suspicious renal masses. Isodense masses and pyelonephritis are not excluded on a st one protocol CT scan. No significant adrenal finding. Urinary bladder is mostly contracted. Imaged portions of the liver, spleen and pancreas show no suspicious findings on non-contrast imaging . No gallbladder or biliary tree abnormality identified. No suspicious bowel findings. No hernia, mass or bulky lymphadenopathy noted. No free air, free fluid or inflammatory stranding. Very extensive osseous metastatic pattern is again noted. Hardware is present in the right femur from prior fracture repair. IMPRESSION: Stent is in place in the left collecting system properly positioned. No acute finding identified. Isodense masses and pyelonephritis are not excluded on stone protocol technique. Extensive osseous metastatic disease similar to comparison.
--- NOTE | 2021-08-02 21:50 | ER ---
Nurse's Notes [facility] Name: Joyce Amezcua Age: 45 yrs Sex: Female : 1975 Arrival Date: 08/02/2021 Time: 16:26 Bed 13 Private MD: Diagnosis: UTI/ Urinary tract infection, site not specified Presentation: 08/02 16:35 Chief complaint: Patient states: she has been having kidney pain with blood in urine ap3 for a few days now. Patient also reports having very thick, green foul smelling vaginal discharge. 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 Patient currently being treated for breast and bone cancers. Coronavirus screen: At this time, the client does not indicate any symptoms associated with coronavirus-19. Ebola Screen: No symptoms or risks identified at this time. Initial Sepsis Screen: Does the patient meet any 2 criteria? No. Patient's initial sepsis screen is negative. Does the patient have a suspected source of infection? No. Patient's initial sepsis screen is negative. Risk Assessment: Do you want to hurt yourself or someone else? Patient reports no desire to harm self or others. Onset of symptoms was July 28, 2021. 16:35 Method Of Arrival: Ambulatory ap3 16:35 Acuity: JOHNIE 3 ap3 Triage Assessment: 16:39 General: Appears in no apparent distress. Behavior is calm, cooperative, appropriate ap3 for age. Pain: Complains of pain in low back area Pain currently is 8 out of 10 on a pain scale. at worst was 10 out of 10 on a pain scale. Neuro: Level of Consciousness is awake, alert, obeys commands, Oriented to person, place, time, situation. Cardiovascular: Patient's skin is warm and dry. Respiratory: Airway is patent Respiratory effort is even, unlabored, Respiratory pattern is regular, symmetrical. : Reports discharge, from vagina that is green, yellow, blood in urine. 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 Flu vaccine is not up to date. - Social history:: Smoking status: Patient reports the use of cigarette tobacco products, smokes one pack cigarettes per day. Patient uses street drugs, marijuana. Screenin:41 Abuse screen: Denies threats or abuse. Nutritional screening: patient currently being ap3 treated for multiple cancers. Tuberculosis screening: No symptoms or risk factors identified. 18:51 Fall Risk None identified. ab2 Assessment: 16:44 General: patient provided with urine specimen cup, and education on proper urine ap3 collection. patient verbalized understanding of education. . 18:50 General: Appears in no apparent distress. uncomfortable, Behavior is calm, cooperative, ab2 appropriate for age. Pain: Complains of pain in low back area. Neuro: Level of Consciousness is awake, alert, obeys commands. Cardiovascular: No deficits noted. Denies chest pain, shortness of breath, Heart tones S1 S2 present Patient's skin is warm and dry. Respiratory: Airway is patent Respiratory effort is even, unlabored, Respiratory pattern is regular, symmetrical, Breath sounds are clear bilaterally. GI: No deficits noted. No signs and/or symptoms were reported involving the gastrointestinal system. Abdomen is flat, non-distended, Bowel sounds present X 4 quads. : Urine is jeramy blood, Reports discharge, bloody. EENT: No deficits noted. No signs and/or symptoms were reported regarding the EENT system. Derm: No deficits noted. No signs and/or symptoms reported regarding the dermatologic system. Skin is intact, is healthy with good turgor, Skin is pink, warm \T\ dry. 20:28 General: Appears in no apparent distress. uncomfortable, Behavior is calm, cooperative. al4 Pain: Complains of pain in low back area Pain currently is 7 out of 10 on a pain scale. Neuro: Level of Consciousness is awake, alert, obeys commands, Oriented to person, place, time, situation. Cardiovascular: Capillary refill < 3 seconds Patient's skin is warm and dry. Respiratory: Airway is patent Respiratory effort is unlabored, Respiratory pattern is regular. : Reports discharge, bloody, bloody urine. Musculoskeletal: Circulation, motion, and sensation intact. 21:24 Reassessment: Patient is alert, oriented x 3, equal unlabored respirations, skin al4 warm/dry/pink. 22:40 Reassessment: Patient is alert, oriented x 3, equal unlabored respirations, skin al4 warm/dry/pink. 22:43 Reassessment: Patient discharged with ride from friend. al4 Vital Signs: 16:35 BP 127 / 97; Pulse 101; Resp 18; Temp 97.9; Pulse Ox 100% ; Weight 55.34 kg; Height 5 ap3 ft. 6 in. (167.64 cm); Pain 8/10; 18:51 BP 120 / 84; Pulse 96; Resp 17; Pulse Ox 99% on R/A; ab2 19:30 BP 124 / 82; Pulse 66; Resp 16 S; Pulse Ox 100% on R/A; al4 21:32 BP 111 / 79; Pulse 74; Resp 16 S; Pulse Ox 99% on R/A; al4 22:00 BP 115 / 88; Pulse 85; Resp 16 S; Pulse Ox 98% on R/A; al4 16:35 Body Mass Index 19.69 (55.34 kg, 167.64 cm) ap3 ED Course: 16:26 Patient arrived in ED. ds1 16:38 Triage completed. ap3 16:41 Arm band placed on right wrist. ap3 18:08 [facility]. cp 18:26 Nael Calvert MD is Attending Physician. cp 18:31 Kannan Moreau is Primary Nurse. ab2 18:40 Inserted saline lock: 20 gauge in right antecubital area, using aseptic technique. ab2 Blood collected. 18:42 Basic Metabolic Panel Sent. ab2 18:42 CBC with Diff Sent. ab2 18:42 LFT's Sent. ab2 18:42 Magnesium Sent. ab2 18:42 PT-INR Sent. ab2 18:43 Ptt, Activated Sent. ab2 18:43 Lipase Sent. ab2 18:51 Patient has correct armband on for positive identification. Bed in low position. Call ab2 light in reach. Side rails up X2. 18:51 No provider procedures requiring assistance completed. ab2 18:57 EKG done, by ED staff, reviewed by Davian LEWIS. dh3 19:57 CT Stone Protocol In Process Unspecified. EDMS 20:21 CK Sent. al4 20:21 Blood Culture Adult (2) Sent. al4 20:22 Lactate Sent. al4 20:22 Procalcitonin Sent. al4 21:49 Elmer Branch MD is Referral Physician. cp 22:41 IV discontinued, intact, bleeding controlled, No redness/swelling at site. Pressure al4 dressing applied. Administered Medications: 18:42 Drug: NS 0.9% 1000 ml Route: IV; Rate: 1 bolus; Site: right antecubital; ab2 20:00 Follow up: Response: No adverse reaction; IV Status: Completed infusion al4 18:49 Drug: morphine 4 mg Route: IVP; Site: right antecubital; ab2 19:30 Follow up: Response: No adverse reaction; RASS: Alert and Calm (0) al4 18:49 Drug: Zofran (Ondansetron) 4 mg Route: IVP; Site: right antecubital; ab2 19:30 Follow up: Response: No adverse reaction; RASS: Alert and Calm (0) al4 20:28 Drug: Rocephin - (cefTRIAXone) 1 grams Route: IVPB; Infused Over: 30 mins; Site: right al4 antecubital; 22:29 Follow up: Response: No adverse reaction; IV Status: Completed infusion al4 Outcome: 21:49 Discharge ordered by MD. cp 22:41 Discharged to home ambulatory, with friend. al4 22:41 Condition: stable 22:41 Discharge instructions given to patient, friend, Instructed on discharge instructions, follow up and referral plans. medication usage, Demonstrated understanding of instructions, follow-up care, medications, Prescriptions given X 1. 22:42 Patient left the ED. al4 Signatures: Dispatcher [employer] [facility] Nadiya Gómez ds1 Davian Gonzalez PA PA Nirali Hanson 3 Dalia Lau RN RN [id number] Kannan Wilhelm al4 Kannan Moreau ab2
--- NOTE | 2021-08-02 21:50 | EDPHYS ---
Physician Documentation [facility] Name: Joyce Amezcua Age: 45 yrs Sex: Female : 1975 Arrival Date: 08/02/2021 Time: 16:26 Bed 13 Private MD: ED Physician Nael Calvert HPI: 08/02 17:00 This 45 yrs old Female presents to ER via Ambulatory with complaints of Kidney Pain- cp Blood in Urine. 08/03 22:21 The patient presents with urinary symptoms, frequency, hematuria. Onset: The cp symptoms/episode began/occurred 3 day(s) ago. Associated signs and symptoms: Pertinent positives: vaginal discharge, flank pain, Pertinent negatives: constipation, diarrhea, fever, vomiting. Severity of symptoms: in the emergency department the symptoms are unchanged, despite home interventions. 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 Flu vaccine is not up to date. - Social history:: Smoking status: Patient reports the use of cigarette tobacco products, smokes one pack cigarettes per day. Patient uses street drugs, marijuana. ROS: 17:05 Constitutional: Negative for body aches, chills, fever, poor PO intake. cp 17:05 Cardiovascular: Negative for chest pain. cp 17:05 Respiratory: Negative for cough, shortness of breath, wheezing. 17:05 Abdomen/GI: Negative for abdominal pain, vomiting, diarrhea, constipation. 17:05 Back: Positive for flank pain. 17:05 : Positive for urinary frequency, hematuria, vaginal discharge. 17:05 Neuro: Negative for altered mental status, headache, weakness. 17:05 All other systems are negative. Exam: 17:10 Constitutional: The patient appears in no acute distress, alert, awake, cp non-diaphoretic, non-toxic, well developed, well nourished. 17:10 Head/Face: Normocephalic, atraumatic. cp 17:10 Eyes: Periorbital structures: appear normal, Conjunctiva: normal, no exudate, no injection, Sclera: no appreciated abnormality, Lids and lashes: appear normal, bilaterally. 17:10 ENT: External ear(s): are unremarkable, Nose: is normal, Mouth: Lips: moist, Oral mucosa: moist, Posterior pharynx: Airway: no evidence of obstruction, patent. 17:10 Neck: ROM/movement: is normal, is supple, without pain, no range of motions limitations. 17:10 Chest/axilla: Inspection: normal. 17:10 Cardiovascular: Rate: tachycardic, Rhythm: regular. 17:10 Respiratory: the patient does not display signs of respiratory distress, Respirations: normal, no use of accessory muscles, no retractions, labored breathing, is not present, Breath sounds: are clear throughout, no decreased breath sounds, no stridor, no wheezing. 17:10 Abdomen/GI: Inspection: abdomen appears normal, Bowel sounds: active, all quadrants, Palpation: abdomen is soft and non-tender, in all quadrants. 17:10 Back: pain, that is moderate, of the mid back area, ROM is painful, with all movement. 17:10 Skin: no rash present. 17:10 Neuro: Orientation: to person, place \T\ time. Mentation: is normal, Motor: moves all fours, strength is normal, Sensation: is normal. Vital Signs: 16:35 BP 127 / 97; Pulse 101; Resp 18; Temp 97.9; Pulse Ox 100% ; Weight 55.34 kg; Height 5 ap3 ft. 6 in. (167.64 cm); Pain 8/10; 18:51 BP 120 / 84; Pulse 96; Resp 17; Pulse Ox 99% on R/A; ab2 19:30 BP 124 / 82; Pulse 66; Resp 16 S; Pulse Ox 100% on R/A; al4 21:32 BP 111 / 79; Pulse 74; Resp 16 S; Pulse Ox 99% on R/A; al4 22:00 BP 115 / 88; Pulse 85; Resp 16 S; Pulse Ox 98% on R/A; al4 16:35 Body Mass Index 19.69 (55.34 kg, 167.64 cm) ap3 MDM: 18:13 Patient medically screened. cp 21:48 Data reviewed: vital signs, nurses notes, lab test result(s), radiologic studies, CT cp scan. 21:48 Differential diagnosis: nonspecific abdominal pain, urinary tract infection, kidney cp stone. Counseling: I had a detailed discussion with the patient and/or guardian regarding: the historical points, exam findings, and any diagnostic results supporting the discharge/admit diagnosis, lab results, radiology results, the need for outpatient follow up, a family practitioner, to return to the emergency department if symptoms worsen or persist or if there are any questions or concerns that arise at home. Response to treatment: the patient's symptoms have mildly improved after treatment, and as a result, I will discharge patient. 08/02 16:46 Order name: Urine Culture rn 08/02 16:46 Order name: Urine Microscopic Only; Complete Time: 19:37 rn 08/02 19:37 Interpretation: Normal except: UWBC 20-50; URBC TNTC. 08/02 18:27 Order name: Basic Metabolic Panel; Complete Time: 19:22 08/02 19:22 Interpretation: Normal except: GLUC 140; GFR 78. 08/02 18:27 Order name: CBC with Diff; Complete Time: 19:22 08/02 19:22 Interpretation: Normal except: MCV 90.8; RDW 16.0; MPV 7.1. 08/02 18:27 Order name: LFT's; Complete Time: 19:22 08/02 20:47 Interpretation: Normal except: AST 8. 08/02 18:27 Order name: Magnesium; Complete Time: 19:22 08/02 18:27 Order name: PT-INR; Complete Time: 19:22 08/02 18:27 Order name: Lipase; Complete Time: 19:22 08/02 18:27 Order name: Ptt, Activated; Complete Time: 19:22 08/02 19:44 Order name: Procalcitonin 08/02 19:44 Order name: Lactate; Complete Time: 21:22 08/02 21:22 Interpretation: Reviewed. 08/02 19:44 Order name: Blood Culture Adult (2) 08/02 16:46 Order name: Urine Dipstick-Ancillary (obtain specimen); Complete Time: 18:42 08/02 18:27 Order name: EKG; Complete Time: 18:28 08/02 18:27 Order name: Cardiac monitoring; Complete Time: 18:53 08/02 18:27 Order name: EKG - Nurse/Tech; Complete Time: 18:53 cp 08/02 18:27 Order name: IV Saline Lock; Complete Time: 18:42 cp 08/02 18:27 Order name: Labs collected and sent; Complete Time: 18:42 cp 08/02 18:27 Order name: O2 Per Protocol; Complete Time: 18:42 cp 08/02 18:27 Order name: O2 Sat Monitoring; Complete Time: 18:42 cp 08/02 19:23 Order name: CT Stone Protocol; Complete Time: 20:43 cp 08/02 19:44 Order name: CK; Complete Time: 21:22 cp Administered Medications: 18:42 Drug: NS 0.9% 1000 ml Route: IV; Rate: 1 bolus; Site: right antecubital; ab2 20:00 Follow up: Response: No adverse reaction; IV Status: Completed infusion al4 18:49 Drug: morphine 4 mg Route: IVP; Site: right antecubital; ab2 19:30 Follow up: Response: No adverse reaction; RASS: Alert and Calm (0) al4 18:49 Drug: Zofran (Ondansetron) 4 mg Route: IVP; Site: right antecubital; ab2 19:30 Follow up: Response: No adverse reaction; RASS: Alert and Calm (0) al4 20:28 Drug: Rocephin - (cefTRIAXone) 1 grams Route: IVPB; Infused Over: 30 mins; Site: right al4 antecubital; 22:29 Follow up: Response: No adverse reaction; IV Status: Completed infusion al4 Disposition: 08/03 16:30 Co-signature as Attending Physician, Nael Calvert MD. rn Disposition Summary: 08/02/21 21:49 Discharge Ordered Location: Home cp Problem: new cp Symptoms: have improved cp Condition: Stable cp Diagnosis - UTI/ Urinary tract infection, site not specified cp Followup: cp - With: Elmer Branch MD - When: 2 - 3 days - Reason: Recheck today's complaints Discharge Instructions: - Discharge Summary Sheet cp - Urinary Tract Infection, Adult cp Forms: - Medication Reconciliation Form cp - Thank You Letter cp - Antibiotic Education cp - Prescription Opioid Use cp Prescriptions: - cefpodoxime 100 mg Oral Tablet - take 1 tablet by ORAL route every 12 hours for 10 days take with food; 20 cp tablet; Refills: 0, Product Selection Permitted Signatures: Dispatcher [employer] EDMS Nael Calvert MD MD rn Page, Corey, PA PA cp Prokisch, Amanda, RN RN ap3 Kannan Wilhelm al4 Kannan Moreau ab2 Corrections: (The following items were deleted from the chart) 08/02 19:01 16:47 UA MICROSCOPIC+U.LAB.BRZ ordered. EDMS EDMS : 19:22 Normal except: UBILI 3+; UKET 1+; UBLD 3+; UPROT 3+; U NIT Positive. EDMS : 19:22 Urinalysis reviewed. EDMS : 18:38 Urinalysis W/Microscopic ordered. EDMS EDMS
[2021-08-03 00:52] VITALS: TEMP 97.9
[2021-08-03 00:57] VITALS: BP 115/88; O2SAT 98
--- NOTE | 2021-08-06 11:24 | EKG ---
Test Date: 2021-08-02 Test Time: 18:53:04 Director Of Strategy & Mobile: YANIV MEASUREMENT RESULTS: Intervals: Rate: 63 IL: 140 QRSD: 94 QT: 440 QTc: 450 Phillips: P: 46 IL: 140 QRS: 64 T: 65 INTERPRETIVE STATEMENTS: Normal sinus rhythm Normal ECG Compared to ECG 01/03/2021 11:42:30 Myocardial infarct finding no longer present Electronically Signed On 08-06-21 11:14:01 CDT by Jeevan Sandoval
== END 2021-08-02 22:42 | disposition home or self-care (01) ==
LOC: ER 16:23
DX: N39.0 Urinary tract infection, site not specified (principal); F17.210 Nicotine dependence, cigarettes, uncomplicated; Z85.3 Personal history of malignant neoplasm of breast; Z85.830 Personal history of malignant neoplasm of bone
CPT/HCPCS: 96365; 96361; 93005; 87040 ×2; 87088; 85025; 87086; 80048; 36415; 83735; 82550; 85610; 80076; 83605; 85730; 81015; 83690; 84145; 76377; 74176; 96375; 99284; 96366; J7030; J2405

== ENCOUNTER → 2021-12-04 | Day surgery (SDC) | payer OTHER ==
[2021-11-29 13:18] LABS: Absolute Lymphocytes (CBC) 2.3 K/uL (0.7-4.9); Hematocrit 38.2 % (36.0-45.0); Lymphocytes % 25.3 % (15.3-44.8); MCV 98.3 fL (80-100); MPV 8.1 fL (7.6-11.3); RBC Red Blood Cell Count 3.89 M/uL (3.86-4.86)
[2021-11-29 13:41] LABS: Potassium 4.4 mmol/L (3.5-5.1)
[2021-11-29 13:51] LABS: SARS-CoV-2 Antigen Rapid Res Negative (Negative)
[2021-11-29 13:51] LABS: Protime INR 1.08
[2021-11-29 14:02] LABS: Urine Bacteria >50 /HPF (<20); Urine RBC >50 /HPF (None Seen)
[~2021-12-04] MED LIST: AMPICILLIN SODIUM 2 GM in NA CHLORIDE 0.9% 100 ML IVPB ONE; GEMCITABINE HCL 26.3 ML IVPB ONE; Gentamicin Inj 120 MG in NA CHLORIDE 0.9% 100 ML IV ONE; OPIUM/BELLADONNA SUPPOS (30-16.2 MG) PR ONE; Oxycodone HCl/Acetaminophen 1 TAB TAB PO PRN; PHENAZOPYRIDINE 100MG TAB PO ONE; Ringers Lactate 1,000 ML IV ONE; SUGAMMADEX SODIUM 200 MG/2 ML VIAL IV ONE
--- NOTE | 2021-12-04 12:54 | RAD REPORT ---
EXAM DESCRIPTION: RAD - Urethrocystogrphy Retrograde - 12/04/2021 12:47 pm FINDINGS: There are total of 39 portable KUB images obtained during fluoroscopic assisted positionin g of a left ureteral stent. Images show stepwise positioning procedure. Blastic bony metastatic changes are identifiable. TIME 1:54 DOSE 28.4
[2021-12-04 13:44] VITALS: BP 102/70; TEMP 97.7; O2SAT 99
--- NOTE | 2021-12-04 17:57 | OP ---
Surgeon: DANIELE POSADAS Preoperative Diagnoses: 1.Left ureteral stricture disease. 2.History of ureteroscopic biopsy suspicious for high-grade urothelial carcinoma. Postoperative Diagnoses: 1.Left ureteral stricture disease. 2.History of ureteroscopic biopsy suspicious for high-grade urothelial carcinoma. Principle Procedures: 1.Cystoscopy. 2.Left retrograde pyelography. 3.Left ureteroscopy with biopsy of ureteral lesions. 4.Left ureteroscopic fulguration of ureteral lesions. 5.Left ureteral stent exchange. 6.Left intrarenal gemcitabine 2 g in 50 cc normal saline retrograde instillation. 7.Placement of urethral Martin catheter. Findings: Frondular appearing irregular ureteral mucosa extending across the body of L4 and L5 witho ut mucosal change proximal to L4 or distal to the body of L5. Indication For Procedure: Ms. Amezcua is a 45-year-old woman [facility], who completed chemotherapy and radiation therapy with nausea and vomiting associated with left- sided flank pain initially secondary to [id number] left-sided hydronephrosis with an abrupt tra nsition at the ureteropelvic junction in the absence of significant ureteronephrosis. She underwent cystoscopy, left retrograde pyelography and ureteral stent placement for the hydronephrosis revealing left ureteral stricture disease at the body of L4 and the L2-3 junction back on January 03, 2021. She had significant symptomatic improvement after the stent was placed and was recommended for intrar enal chemotherapy to treat the ureteral lesions after the pathology returned suspicious for urothelia l carcinoma. The patient was lost to follow up and eventually wrangled back into urologic care by he r medical oncologist who agreed with the recommendation for intrarenal gemcitabine chemotherapy for t he suspected urothelial carcinoma. So, after nearly a year lost to follow up, she presents for defin itive repeat evaluation and management. Procedure In Detail: The patient was consented in the preoperative holding area before being transfe rred to the operative suite where general anesthesia was induced. She was given ampicillin and genta micin IV antimicrobial prophylaxis and pneumo boots were provided for DVT prophylaxis. She was place d in lithotomy position, padded and secured to the table appropriately. Her genitalia were prepped u sing Hibiclens and draped in standard fashion. The case was begun using a 22-Beninese rigid cystoscope to traverse the urethra and into the bladder with ease. The bladder was surveyed in its entirety, a nd there were no mucosal lesions, foreign bodies or stones noted throughout. The left ureteral stent was emanating from the left ureteral orifice and the tip of the stent was grasped and delivered via the meatus with ease. A Sensor wire was passed via the stent into the putative upper pole of the lef t renal collecting system. Over the Sensor wire, a 5-Beninese ureteral access catheter was passed and retrograde pyelography was performed confirming appropriate intraluminal location of the wire and con trast. I thus replaced the Sensor wire into the collecting system with a coil observed fluoroscopica lly, and performed a semi-rigid ureteroscopy using sterile water for irrigation. The ureteral orific e was entered and traversed to the pelvic inlet where at the junction of the body of L5, frondular ur othelial mucosa was noted within the ureter. This irregular appearing mucosa extended across the bod y of L5 and the body of L4 was then became normal appearing at the junction of L3 and L4. I thus uti lized the [facility] ureteroscopic biopsy forceps and took multiple, 5 or 6, samples of the irregular mu cosa in an attempt to make a definitive pathologic analysis and diagnosis. These were sent for patho logic analysis in formalin. I then utilized the ureteroscopic Bugbee with a cautery setting of 15 cu t and 15 coag to fulgurate the entirety of the irregular mucosa observed across the body of L4 and L5 mostly using cut as opposed to fulguration. Once the irregular tissue had largely been treated, I t jeanie passed the ureteroscope beyond the point of obstruction and again surveyed the proximal ureter ju st distal to the ureteropelvic junction. No additional mucosal lesions were noted. I thus placed a Bentson guidewire via the ureteroscope into the collecting system with a coil observed fluoroscopical ly, and I removed the semi-rigid ureteroscope. The safety Sensor wire was still in place. Over the Bentson guidewire, I then passed a dual-lumen catheter into the distal ureter just below the level of L5 and sent a ureteral wash/Barbotage cytology. This was sent for cytologic analysis. I then advan grupo the dual-lumen catheter all the way into the collecting system and decompressed it of fluid and u rine. I then removed the dual-lumen catheter leaving a Bentson wire in place and over the Sensor wir e passed a 5-Beninese ureteral access catheter and performed an antegrade pyelogram. Left retrograde pyelography: Using a 70:30 mixture of Omnipaque and saline, contrast was injected via the 5-Beninese ureteral access catheter directly into the upper pole of the left kidney and did delineate each of the calyces and t he renal pelvis without any filling defects noted. The contrast did extend down into the proximal ur eter just beyond the ureteropelvic junction. I thus replaced the Sensor wire into the collecting sys tem and removed the 5-Beninese ureteral access catheter. Over the Timecros guidewire, I passed a 7-Fren ch by 28 cm double-J ureteral stent into the upper pole of the kidney with a coil observed fluoroscop ically within the renal pelvis. An additional coil was fluoroscopically formed within the bladder, a nd the Sensor wire remained in place. Thus, over the Sensor wire, I passed a 5-Beninese ureteral acces s catheter, but this time it would only go into the mid proximal ureter at the junction of L4, L5, li mary aborted by the prior fulguration and disrupted mucosa in that location along with the presence o f the 7-Beninese stent. There, I injected initially 25 cc of 1 g of gemcitabine with approximately 5 c c of Omnipaque mixed with the gemcitabine and then injected the mixture via the 5-Beninese ureteral acc ess catheter and observed. It propagated up the proximal ureter and into the collecting system. Claude e contrast did immediately refluxed down into the bladder from the stent, but the calyces did delinea te. I thus injected an additional 25 cc of a second g of gemcitabine via the 5-Beninese ureteral acces s catheter into the collecting system and then removed the 5-Beninese ureteral access catheter. Of not e, a 16-Beninese Martin catheter had been placed into her bladder prior to the injection of the gemcitab ine, and her bladder was decompressed of fluid and urine. The catheter was clamped prior to the inje ction of the gemcitabine in order to keep it in situ intravesical. The clamped catheter was connecte d to a leg bag, and her genitalia was held off. She was taken out of the lithotomy position, awakene d from general anesthesia, transferred to a stretcher, and then transferred to the recovery room in g ood condition to maintain the gemcitabine intravesical and refluxing up the stent over the course of the next 60-90 minutes ideally. Complications: None. Discharge Disposition: She will maintain the catheter in place with fluid in her bladder hopefully f or 60-90 minutes before it is decompressed using standard barrier precautions for chemotherapeutic ad ministration. Subsequently, the patient will be discharged home and should follow up within the next 2-3 weeks to discuss the pathology of the biopsies and determine next steps in management. JOSEFA/EDUARDO Voice ID: [id number] Report ID: [id number]
== END | disposition home or self-care (01) ==
LOC: OR 09:19
PROVIDERS: ATTEND Urology
PROC: 0T9780Z Drainage of Left Ureter with Drainage Device, Via Natural or Artificial Opening Endoscopic (ICD-10-PCS; 2021-12-04)
PROC: 3E0K805 Introduction of Other Antineoplastic into Genitourinary Tract, Via Natural or Artificial Opening Endoscopic (ICD-10-PCS; 2021-12-04)
PROC: 0TB78ZX Excision of Left Ureter, Via Natural or Artificial Opening Endoscopic, Diagnostic (ICD-10-PCS; principal; 2021-12-04 11:30)
DX: N13.5 Crossing vessel and stricture of ureter without hydronephrosis (principal); C50.919 Malignant neoplasm of unspecified site of unspecified female breast; Z20.822 Contact with and (suspected) exposure to COVID-19
CPT/HCPCS: 87088; 85025; 87086; 80048; 36415; 88108; 85610; 88305; 81015; 74450; 51610; 87811; 52354; 52332; 51720; J1580; J9201 ×2; J7120; J0290

== ENCOUNTER 2022-04-30 17:03 | Inpatient (IN) | payer OTHER ==
--- OUTSIDE RECORDS SUMMARY | 2022-04-30 17:13 | XMS REPORT | Clinical Summary ---
:1975 Author Organization [facility] MD [facility]za [facility] Address [address] [place] [address] Care Team Providers Name Role Phone Beatriz Sanchez [employer] Unavailable [phone] George Mason MD Primary Care Provider Allergies No known active allergies Medications Medication Sig Dispensed Refills Start Date End Date Status morphine (MS CONTIN) Take 1 tablet (30 90 tablet 0 11/28/2020 Active 30 mg 12 hr mg) by mouth every tabletIndications: 8 (eight) hours. Cancer associated pain morphine (MSIR) 15 mg Take 1 tablet (15 120 tablet 0 Active IR tabletIndications: mg) by mouth every [...] Self, Reported on 12/07/2020 letrozole (Femara) 2.5 mg Take 1 tablet (2.5 30 tablet 2 11/30 Active tabletIndications: Secondary mg) by mouth daily. 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 lidocaine (XYLOCAINE) 20 Swish and spit 15 mL 100 mL 0 09/2020 Active mg/mL (2%) viscous as needed (rinse and solutionIndications: expectorate as Infiltrating duct carcinoma needed TID). of overlapping sites of right female breast ondansetron (ZOFRAN-ODT) 8 Dissolve 1 tablet (8 30 tablet 3 Active mg disintegrating mg) on the tongue tabletIndications: every 8 (eight) Infiltrating duct carcinoma hours as needed for of overlapping sites of nausea or vomiting. right female breast HYDROcodone-acetaminophen Take 1 tablet by 120 tablet 0 2020 Active (NORCO) 7.5 mg-325 mg per mouth every 6 (six) tabletIndications: Secondary hours as needed for malignant neoplasm of bone, moderate pain. 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 Unwrap foil sites of right female prior to insertion. breast, Estrogen receptor positive status (ER+) dexamethasone (DECADRON) 4 Take 1 tablet (4 mg) 30 tablet 0 Active mg tabletIndications: by mouth 2 (two) Secondary malignant neoplasm times a day after of bone, Infiltrating duct meals. Take 4 mg in carcinoma of overlapping AM, 2 mg in early sites of right female afternoon, for one breast, Estrogen receptor week, then 2 mg positive status (ER+) twice a day for a week, then 2 mg in am for a week, then 2 mg every other day esomeprazole (NexIUM) 20 MG Take 1 capsule (20 30 capsule 0 Active capsuleIndications: mg) by mouth every Secondary malignant neoplasm morning before of bone, Infiltrating duct breakfast. carcinoma of overlapping sites of right female breast, Estrogen receptor positive status (ER+) lactose-reduced food (ENSURE TWICE DAILY 0 Active CLEAR ORAL) Eliquis 2.5 mg Take 1 tablet (2.5 60 tablet 2 02/02/2021 Active tabletIndications: Secondary mg) by mouth every malignant neoplasm of bone, 12 (twelve) hours. Estrogen receptor positive status (ER+) HYDROcodone-acetaminophen Take 1 tablet by 120 tablet 0 2020 Active (NORCO) 7.5 mg-325 mg per mouth every 6 (six) tabletIndications: Secondary hours as needed for malignant neoplasm of bone, moderate pain. Estrogen receptor positive status (ER+) Active Problems Problem Noted Date jail current use of opiate analgesic 12/08/2020 Anemia [...] related fatigue Slow transit constipation Acute hyperglycemia Surgical History Surgery Date Site/Laterality Comments HYSTERECTOMY 05/05/2013 - 05/04/2014 Uterine fi broid HUMERUS FRACTURE SURGERY 05/05/1991 - 05/04/1992 Left M etal Screws Family History Medical History Relation Name Comments Kidney cancer Father stage IV RCC Stomach cancer Mother Cervical cancer Sister Relation Name Status Comments Father Alive Mother Alive Sister Alive Social History Tobacco Use Types Packs/Day Years Used Date Smoking Tobacco: Every Day Cigarettes 0.3 30 Smokeless Tobacco: Never Tobacco Cessation: Ready to Quit: No; Co [...] Oral Contraceptives: None Last Filed Vital Signs Not on file Plan of Treatment Health Maintenance Due Date Last Done Comments COVID-19 Vaccination (#1) 06/19/1974 Medical Devices Implanted Type Area Metal Fitter Device Identifier Shelf Exp iration Model / Serial Date / Lot Nail Nail Femur Results Not on fileafter 04/30/2021 Insurance Payer Benefit Plan / Subscriber ID Effective Phone Address T ype Group Dates [facility] [id number] 2021-Presbhanu [address] Medicaid [employer] MEDICAID STAR [place], [place] [employer] NON SSI [id number] Advance Directives Code Status Date Activated Date Inactivated Comments Full Code 11/24/2020 3:48 PM 11/28/2020 7:18 PM 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
--- OUTSIDE RECORDS SUMMARY | 2022-04-30 17:14 | XMS REPORT | Continuity of Care Document ---
:1975 Author Organization [facility] t Address [address] [place] [address] Care Team Providers Name Role Phone [phone] Primary Care Physician Unavailable Eber Vital Attending Clinician Unavailable Yomaira Price Attending Clinician Unavailable SYSTEM, PROVIDER NOT IN Attending Clinician Unavailable ANKITA Attending Clinician Unavailable Eber Vital MD Attending Clinician EBER VITAL Attending Clinician Unavailable TARUN HARPER Attending Clinician Unavailable SALLIE MOREAU Attending Clinician Unavailable Eh Marcano Attending Clinician Dima Weiss Attending Clinician DENI PIERRE Attending Clinician Unavailable EMMANUEL GALINDO Attending Clinician Unavailable Doctor Unassigned, Abiquiu Attending Clinician Unavailable GABRIELLA MURGUIA Attending Clinician Unavailable OFELIA QUARLES Attending Clinician Unavailable ADEEL HUERTA Attending Clinician Unavailable BEATA AMES Attending Clinician Unavailable YOLANDA GUTIERREZ Attending Clinician Unavailable EVAN HICKS Attending Clinician Unavailable EH HERNANDEZ Attending Clinician Unavailable AURELIO STEELE Attending Clinician Unavailable AHSAN CHU Attending Clinician Unavailable AURA KIM Admitting Clinician Unavailable ANKITA Admitting Clinician Unavailable ADEEL HUERTA Admitting Clinician Unavailable Payers Payer Name Policy Type Policy Number Effective Date Expiration Date S jevon [place]ICAID OF [place] [id number] 2020 00:00:00 MEDICAID [id number] [facility] MEDICAID [id number] [facility] STAR [id number] 2021 PL[place] 00:00:00 [place] [id number] 2020 TRADITIONAL STAR 00:00:00 NON SSI MEDICAID [id number] [facility] MEDICAID SSI PENDING 2020 2020 PENDING 00:00:00 00:00:00 Problems Condition Condition Condition Status Onset Resolution Last Treating Co mments Source Name Details Category Date Date Treatment Clinician Date 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 Neoplasm Neoplasm Disease Active Unive rs related related 11-24 ity of pain pain 00:00: [place] (acute) (acute) 00 (chronic) (chronic) Krunal dacosta sofía 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 Thoracic Thoracic Disease Active Unive rs back pain back pain 11-24 ity of 00:00: [place] [address] [facility] Severe Severe Disease Recurre 2021-0 Univers protein-ca protein-ca nce 7-23 it y of home bhat 00:00: [place] malnutriti malnutriti 00 on on [facility] Infiltrati Infiltrati Disease Active U nivers ng duct ng duct 7-22 ity of carcinoma carcinoma 00:00[place] of of 00 [place] aguirrepin overlappin An derso g sites of g sites of n right right Cancer female female Center breast breast Estrogen Estrogen Disease Active Unive rs receptor receptor 7- ity of positive positive 00:00: [place] status status 00 (ER+) (ER+) RominaRUST Secondary Secondary Disease Active Uni vers malignant malignant 7-14 ity of neoplasm neoplasm 00:00: [place] of [facility] E46 E46 Disease Active Univers Unspecifie Unspecifie 702 it y of d severe d severe 00:00: [place] protein-ca protein-ca 00 Me dical home bhat Branch malnutriti malnutriti on on Medication Medication Disease Active U nivers management management 6-29 it y of 00:00: [place] 00 Medical Branch Pathologic Pathologic Disease Active U elisabeth al al 6-26 ity of fracture fracture 00:00: [place] of rib, of rib, 00 Medical initial initial Branch encounter encounter Metastatic Metastatic Disease Active U 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 6-16 ity of spine spine 00:00: [place] 00 Medical Branch Breast Breast Disease Active Univers mass, mass, 6-16 ity of right right 00:00: [place] 00 Medical Branch Opacity of Opacity of Disease Active U nivers lung on lung on 6-16 ity of imaging imaging 00:00: [place] study study 00 Medical Branch Acute Acute Disease Active Univers midline midline 6-16 ity of low back low back 00:00: [place] pain with pain with 00 Medi neal right-side right-side Br anch d sciatica d sciatica Infiltrati Infiltrati Disease Active U nivers ng duct ng duct 6-16 ity of carcinoma carcinoma 00:00[place] of lower of lower 00 outer outer Anderso quadrant quadrant n of left of left Cancer female female Center breast breast [id number] Gastroesop Problem Active Co mmon [facility], [facility] Med[facility] l not Center specified Hydronephr Hydronephr Problem Active 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 - [facility] stricture stricture [facility] [id number] Tobacco Problem Active Commo n use [facility] [id number] Throat Problem Active Common pain [facility] [id number] Right arm Problem Active Com mon pain [facility] [id number] Hoarseness Problem Active Com mon [facility] [id number] Abnormal Problem Active Comm on [facility] of [facility] abdomen [facility] Anxiety Anxiety Problem Active Common [facility] [id number] Acute UTI Problem Active Com mon [facility] [id number] Hepatic Problem Active Common cyst [facility] [id number] Vitamin D Problem Active Comm on deficiency [facility] [id number] Hydronephr Problem Active Com mon osis, left [facility] [id number] Hyperchole Problem Active Com mon sterolemia [facility] [id number] Other Problem Active Common chronic [facility] pain [facility] [id number] Renal Problem Active Common cysts, Spirit acquired, - [facility] bilateral [facility] [id number] Blood in Problem Active Commo n stool [facility] [id number] Callus of Problem Active Com mon foot [facility] [id number] Elevated Problem Active Comm on blood [facility] pressure - [facility] reading [facility] diagnosis Medical of [place] hypertensi on [id number] Ureteral Problem Active Commo n stricture, Spirit left [facility] Malignant Malignant Problem Active Com mon neoplasm neoplasm Spirit of female of - [facility] breast unspecifie [facility] unspecifie Medica l d female Center breast Pain due Cancer Problem Active Common to related Spirit neoplastic pain - [facility] disease [facility] [id number] Urothelial Problem Active C ommon [id number] carcinoma Spirit of left - [facility] distal [facility] Chronic Chronic Problem Active Common kidney kidney Spirit disease disease, - [facility] unspecifie [facility] Breast Breast Problem Active Common cancer cancer [facility] Malignant Malignant Problem Active Com mon tumor of neoplasm Spirit ureter of - [facility] unspecifie [facility] ureter [facility] Chronic Chronic Problem Active Common renal kidney Spirit failure disease, - [facility] syndrome unspecifie [facility] stage [facility] [id number] Gross Problem Active Common hematuria [facility] [id number] Left flank Problem Active Co mmon pain [facility] Nausea Nausea Disease Active Univers ity of [facility] Malignant Malignant Disease Active Uni vers neoplasm neoplasm ity of related related [place] fatigue fatigue MD Neal gore [facility] Slow Slow Disease Active Univers transit transit ity of const[place]ati [place] on on MD Neal gore [facility] Acute Acute Disease Active Univers hyperglyce hyperglyce it y of [facility] MD Neal gore [facility] Allergies, Adverse Reactions, Alerts Allergy Allergy Status Severity Reaction(s) Onset Inactive Treating Comm ents Source Name Type Date Date Clinician NO KNOWN Drug Active Univers ALLERGIE Class ity of S [facility] Family History Family Member Diagnosis Comments Start Date Stop Date Source Natural father Kidney cancer Univers ity of [place] [facility] [place] Natural mother Stomach cancer Univer sity of [place] Natural sister Cervical cancer Unive rsity of [place] Social History Social Habit Start Date Stop Date Quantity Comments Source History of Tobacco Current Smoker Co [facility] - Use [facility] History SDOH University o f [facility] [place] [facility] SDOH University o f Alcohol Std Drinks [facility] History SDOH University o f Alcohol Binge [facility] [place] Exposure to Not sure [place] of SARS-CoV-2 (event) [facility] Alcohol intake 2021-02-21 2021-02-21 Ex-drinker University of 00:00:00 00:00:00 (finding) Kari kasper [facility] Cigarettes smoked 2020-11-23 2020-11-23 Univers ity of current (pack per 00:00:00 00:00:00 [place] Yvette Griffin ) - Reported Cancer Ce nter Cigarette 2020-11-23 2020-11-23 University of pack-years 00:00:00 00:00:[address] [facility] Tobacco use and 2020-08-31 2020-08-31 Never used Universit y of exposure 00:00:00 00:00:00 [facility] Alcohol Comment 2020-08-31 2020-08-31 Ajit's 12 pack Uni versity of 00:00:00 00:00:00 [facility] Sex [birth year] At [birth year] Universit y of 00:00:00 00:00:00 [facility] Smoking Status Start Date Stop Date Source Current Smoker 2021-12-27 00:00:00 [facility] Medications Ordered Filled Start Stop Current Ordering Indication Dosage Frequency Signature Comments Components Source Medication Medication Date Date Medication? Clinician (SIG) Name Name famotidine Yes 20mg Take 20 mg U nivers (PEPCID) 20 2-14 by mouth ity of mg tablet 03:36: daily as [place] 39 needed. MD [facility] Cipro 500 Cipro 500 2020-05- No 1{table BID Cipro 500 MG MG 0-25 - t} MG 00:00: 00:00 00 :00 ELIQUIS 2.5 2020-05 Yes Univer s mg tablet 0-01 ity of 00:00: [place] 00 Medical Branch HYDROcodone 2020-05 Yes Univer s -acetaminop 0-01 ity of hen 7.5-325 00:00: [place] mg per 00 Medical tablet Branch ELIQUIS 2.5 2020-05 Yes Univer s mg tablet 0-01 ity of 00:00: [place] 00 Medical Branch HYDROcodone 2020-05 Yes Univer s -acetaminop 0-01 ity of hen 7.5-325 00:00: [place] mg per 00 Medical tablet Branch ELIQUIS 2.5 2020-05 Yes Univer s mg tablet 0-01 ity of 00:00: [place] 00 Medical Branch HYDROcodone 2020-05 Yes Univer s -acetaminop 0-01 ity of hen 7.5-325 00:00: [place] mg per 00 Medical tablet Branch ELIQUIS 2.5 2020-05 Yes Univer s mg tablet 0-01 ity of 00:00: [place] 00 Medical Branch HYDROcodone 2020-05 Yes Univer s -acetaminop 0-01 ity of hen 7.5-325 00:00: [place] mg per 00 Medical tablet Branch Eliquis 2.5 2020-05 Yes Estrogen 2.5mg Take 1 Univers mg tablet 0-01 receptor tablet ity of 00:00: positive (2.5 mg) [place] 00 status by mouth MD (ER+) every 12 Anderso (twelve) n hours. Cancer Center HYDROcodone 2020-05 Yes Estrogen 1{tbl} Take 1 Univers -acetaminop 0-01 receptor tablet by ity of hen (NORCO) 00:00: positive mouth [place] 7.5 mg-325 00 status every 6 MD mg per (ER+) (six) Anderso tablet hours as n needed for Cancer moderate Center pain. esomeprazol Yes 20mg Take 20 mg Univers e 20 mg 9-16 by mouth. ity of capsule 00:00: [place] [facility] esomeprazol Yes 20mg Take 20 mg Univers e 20 mg 9-16 by mouth. ity of capsule 00:00: [place] [facility] esomeprazol Yes 20mg Take 20 mg Univers e 20 mg 9-16 by mouth. ity of capsule 00:00: [place] [facility] esomeprazol Yes 20mg Take 20 mg Univers e 20 mg 9-16 by mouth. ity of capsule 00:00: [address] letrozole Yes Estrogen 2.5mg Take 1 U nivers (FEMARA) 9-16 receptor tablet ity o f 2.5 mg 00:00: positive (2.5 mg) [place] as tablet 00 status by mouth MD (ER+) daily. [facility]o n [facility] promethazin Yes Estrogen 25mg Insert 1 Univers e 9-16 receptor suppositor ity o f (PHENERGAN) 00:00: positive y (25 mg) [place] 25 mg 00 status into the MD suppository (ER+) rectum Harley so every 6 n (six) Cancer hours as Center needed for nausea. Unwrap foil prior to insertion. dexamethaso Yes Estrogen 4mg Take 1 Univers ne 9-16 receptor tablet (4 ity of (DECADRON) 00:00: positive mg) by [place] 4 mg tablet 00 status mouth 2 MD (ER+) (two) Anderso times a n day after Cancer meals. Center Take 4 mg in AM, 2 mg in early afternoon, for one week, then 2 mg twice a day for a week, then 2 mg in am for a week, then 2 mg every other day esomeprazol Yes Estrogen 20mg Take 1 Univers e (NexIUM) 9-16 receptor capsule it y of 20 MG 00:00: positive (20 mg[place] capsule 00 status mouth MD (ER+) every Anderso morning n before Cancer breakfast. Center HYDROcodone Yes Estrogen 1{tbl} Take 1 Univers -acetaminop 01-11 receptor tablet by ity of hen (NORCO) 00:00: positive mouth [place] 7.5 mg-325 00 status every 6 MD mg per (ER+) (six) Anderso tablet hours as n needed for Cancer moderate Center pain. calcium Yes FOUR TIMES Univ ers carbonate 9-03 DAILY ity of (TUMS) 500 00:00: [place] mg (200 mg 00 MD elemental Anderso calcium per n tablet) Cancer chewable Center tablet promethazin Yes EVERY Unive rs e 8-29 TWELVE ity of (PHENERGAN) 00:00: HOURS [place] 25 mg 00 NEEDED MD suppository [facility] promethazin Yes EVERY 6 Uni vers e 8-29 HOURS ity of (PHENERGAN) 00:00: NEEDED [place] 25 mg 00 MD tablet Anderso n [facility] lactose-red Yes TWICE Unive rs uced food 8-29 DAILY ity of (ENSURE 00:00: [place] CLEAR ORAL) 00 MD [facility] ondansetron Yes Infiltratin 8mg Dissolve 1 Univers (ZOFRAN-ODT 8-11 g duct tablet (8 i ty of ) 8 mg 00:00: carcinoma mg) on the [place] disintegrat 00 of tongue MD ing tablet overlapping every 8 Anderso sites of (eight) n right hours as Cancer female needed for Center breast nausea or vomiting. lidocaine Yes Infiltratin 15mL Swish and Univers (XYLOCAINE) 8-05 g duct spit 15 mL ity of 20 mg/mL 00:00: carcinoma as needed [place] (2%) 00 of (rinse and MD viscous overlapping expectorat Anderso solution sites of e as n right needed Cancer female TID). Center breast letrozole Yes 2.5mg Take 2.5 Uni vers 2.5 mg 7-29 mg by ity of tablet 00:00: mouth [place] [facility] letrozole 2020-0 Yes 2.5mg Take 2.5 Uni vers 2.5 mg 7-29 mg by ity of tablet 00:00: mouth [place] [facility] letrozole 2020-0 Yes 2.5mg Take 2.5 Uni vers 2.5 mg 7-29 mg by ity of tablet 00:00: mouth [place] [facility] letrozole Yes 2.5mg Take 2.5 Uni vers 2.5 mg 7-29 mg by ity of tablet 00:00: mouth [place] [facility] letrozole Yes Infiltratin 2.5mg Take 1 Univers (Femara) 7-29 g duct tablet ity of 2.5 mg 00:00: carcinoma (2.5 mg) [place] tablet 00 of lower by mouth MD outer daily. Anderso quadrant of n left female Cancer breast Center morphine IR 0 Yes 15mg Take 15 mg Univers 15 mg 7-27 by mouth. ity of tablet 00:00: [place] [facility] morphine IR 2020-0 Yes 15mg Take 15 mg Univers 15 mg 7-27 by mouth. ity of tablet 00:00: [place] [facility] morphine IR 2020-0 Yes 15mg Take 15 mg Univers 15 mg 7-27 by mouth. ity of tablet 00:00: [place] [facility] morphine IR 2020-0 Yes 15mg Take 15 mg Univers 15 mg 7-27 by mouth. ity of tablet 00:00: [place] [facility] morphine 2020-0 Yes Cancer 30mg Take 1 Unive rs (MS CONTIN) 7-27 associated tablet (30 ity of 30 mg 12 hr 00:00: pain mg) by [place] tablet 00 mouth MD every 8 Anderso (eight) n hours. Cancer Center morphine 2020-0 Yes Cancer 15mg Take 1 Unive rs (MSIR) 15 7-27 associated tablet (15 ity of mg IR 00:00: pain mg) by [place] tablet 00 mouth MD every 4 Anderso (four) n hours as Cancer needed for Center moderate pain or severe pain. ondansetron 0 Yes Nausea 8mg Take 1 Un minh (Zofran) 8 7-27 tablet (8 ity of mg tablet 00:00: mg) by [place] 00 mouth MD every 8 Anderso (eight) n hours as Cancer needed for Center nausea or vomiting. DULoxetine 2020-0 Yes [id number] 20mg Take 20 mg Univers 20 mg CDRS 6-16 by mouth 2 ity of 00:00: (two) [place] 00 times Medical daily. Branch tiZANidine 2020-0 Yes [id number] 2mg Take 1 Univers 2 mg tablet 6-16 tablet by ity of 00:00: mouth [place] 00 every 8 Medical (eight) Branch hours as needed (muscle spasms). traMADoL-ac 2020-0 Yes [id number] 1{tbl} Take 1 Un minh etaminophen 6-16 tablet by ity of 37.5-325 mg 00:00: mouth [place] per tablet 00 every 8 Medica l (eight) Branch hours as needed for Pain. Indication s: chronic pain gabapentin 2020-0 Yes [id number] 100mg Take 1 Univers 100 mg 6-16 capsule by ity of capsule 00:00: mouth 3 [place] 00 (three) Medical times Branch daily. DULoxetine 2020-0 Yes [id number] 20mg Take 20 mg Univers 20 mg CDRS 6-16 by mouth 2 ity of 00:00: (two) [place] 00 times Medical daily. Branch tiZANidine 2020-0 Yes [id number] 2mg Take 1 Univers 2 mg tablet 6-16 tablet by ity of 00:00: mouth [place] 00 every 8 Medical (eight) Branch hours as needed (muscle spasms). traMADoL-ac 2020-0 Yes [id number] 1{tbl} Take 1 Un minh etaminophen 6-16 tablet by ity of 37.5-325 mg 00:00: mouth [place] per tablet 00 every 8 Medica l (eight) Branch hours as needed for Pain. Indication s: chronic pain gabapentin 2020-0 Yes [id number] 100mg Take 1 Univers 100 mg 6-16 capsule by ity of capsule 00:00: mouth 3 [place] 00 (three) Medical times Branch daily. DULoxetine 2020-0 Yes [id number] 20mg Take 20 mg Univers 20 mg CDRS 6-16 by mouth 2 ity of 00:00: (two) [place] 00 times Medical daily. Branch tiZANidine 2020-0 Yes [id number] 2mg Take 1 Univers 2 mg tablet 6-16 tablet by ity of 00:00: mouth [place] 00 every 8 Medical (eight) Branch hours as needed (muscle spasms). traMADoL-ac 2020-0 Yes [id number] 1{tbl} Take 1 Un minh etaminophen 6-16 tablet by ity of 37.5-325 mg 00:00: mouth [place] per tablet 00 every 8 Medica l (eight) Branch hours as needed for Pain. Indication s: chronic pain gabapentin 2020-0 Yes [id number] 100mg Take 1 Univers 100 mg 6-16 capsule by ity of capsule 00:00: mouth 3 (three) Medical times Branch daily. DULoxetine 2020-0 Yes [id number] 20mg Take 20 mg Univers 20 mg CDRS 6-16 by mouth 2 ity of 00:00: (two) [place] 00 times Medical daily. Branch tiZANidine 2020-0 Yes [id number] 2mg Take 1 Univers 2 mg tablet 6-16 tablet by ity of 00:00: mouth [place] 00 every 8 Medical (eight) Branch hours as needed (muscle spasms). traMADoL-ac 2020-0 Yes [id number] 1{tbl} Take 1 Un minh etaminophen 6-16 tablet by ity of 37.5-325 mg 00:00: mouth [place] per tablet 00 every 8 Medica l (eight) Branch hours as needed for Pain. Indication s: chronic pain gabapentin 2020-0 Yes [id number] 100mg Take 1 Univers 100 mg 6-16 capsule by ity of capsule 00:00: mouth 3 [place] 00 (three) Medical times Branch daily. Kenalog Kenalog 2020-0 No 40mg Common (Triamcinol (Triamcinol 3-23 S pirit one) one) 00:00: - [facility] 00 [facility] Dexamethaso Dexamethaso 2020-0 No 10mg Common ne ne 3-23 Spirit 00:00: - [facility] Kenalog Kenalog 2020-0 No 40mg Common (Triamcinol (Triamcinol 3-23 S pirit one) one) 00:00: - [facility] Dexamethaso Dexamethaso 2020-0 No 10mg Common ne ne 3-23 Spirit 00:00: - [facility] 00 [facility] Kenalog Kenalog 2020-0 No 40mg Common (Triamcinol (Triamcinol 3-23 S pirit one) one) 00:00: - [facility] 00 [facility] Dexamethaso Dexamethaso 2020-0 No 10mg Common ne ne 3-23 Spirit 00:00: - [facility] 00 [facility] Kenalog Kenalog 2020-0 No 40mg Common (Triamcinol (Triamcinol 3-23 S pirit one) one) 00:00: - [facility] 00 [facility] Dexamethaso Dexamethaso 2020-0 No 10mg Common ne ne 3-23 Spirit 00:00: - [facility] 00 [facility] ProAir HFA ProAir HFA 2019-1 Yes Adriana 2 puffs as Common 0-11 Jack needed Spirit 00:00: - [facility] 00 [facility] Solumedrol Solumedrol 2019- No 125mg Common 125mg/2ml 125mg/2ml 0-11 Spiri t 00:00: - [facility] 00 [facility] xRocephin 1 xRocephin 1 2019- No 1g Common gm gm 0-11 Spirit 00:00: - [facility] 00 [facility] Solumedrol Solumedrol 2019- No 125mg Common 125mg/2ml 125mg/2ml 0-11 Spiri t 00:00: - [facility] xRocephin 1 xRocephin 1 2019- No 1g Common gm gm 0-11 Spirit 00:00: - [facility] 00 [facility] Solumedrol Solumedrol 2019- No 125mg Common 125mg/2ml 125mg/2ml 0-11 Spiri t 00:00: - [facility] xRocephin 1 xRocephin 1 2019- No 1g Common gm gm 0-11 Spirit 00:00: - [facility] 00 [facility] Solumedrol Solumedrol 2019- No 125mg Common 125mg/2ml 125mg/2ml 0-11 Spiri t 00:00: - [facility] 00 [facility] xRocephin 1 xRocephin 1 2019- No 1g Common gm gm 0-11 Spirit 00:00: - [facility] 00 [facility] Vitamin D Vitamin D Yes Adriana 2 capsules Common Jack (OTC) [facility] HYDROcodone HYDROcodone No 1{table QID HYDROcodon -Acetaminop -Acetaminop t_as_ne e-Acetamin hen 7.5-325 hen 7.5-325 eded} ophen MG MG 7.5-325 MG Morphine Morphine No 1{table 6xD Morphine Sulfate 15 Sulfate 15 t_as_ne Sulfate 15 MG MG eded} MG HYDROcodone HYDROcodone No 1{table QID HYDROcodon -Acetaminop -Acetaminop t_as_ne e-Acetamin hen 7.5-325 hen 7.5-325 eded} ophen MG MG 7.5-325 MG Morphine Morphine No 1{table 6xD Morphine Sulfate 15 Sulfate 15 t_as_ne Sulfate 15 MG MG eded} MG Morphine Morphine No 1{table 6xD Morphine Sulfate 15 Sulfate 15 t_as_ne Sulfate 15 MG MG eded} MG HYDROcodone HYDROcodone No 1{table QID HYDROcodon -Acetaminop -Acetaminop t_as_ne e-Acetamin hen 7.5-325 hen 7.5-325 eded} ophen MG MG 7.5-325 MG Eliquis 5 Eliquis 5 No 1{table BID Eliquis 5 MG MG t} MG HYDROcodone HYDROcodone No 1{table QID HYDROcodon -Acetaminop -Acetaminop t_as_ne e-Acetamin hen 7.5-325 hen 7.5-325 eded} ophen MG MG 7.5-325 MG HYDROcodone HYDROcodone No 1{table QID HYDROcodon -Acetaminop -Acetaminop t_as_ne e-Acetamin hen 7.5-325 hen 7.5-325 eded} ophen MG MG 7.5-325 MG HYDROcodone HYDROcodone No 1{table QID HYDROcodon -Acetaminop -Acetaminop t_as_ne e-Acetamin hen 7.5-325 hen 7.5-325 eded} ophen MG MG 7.5-325 MG HYDROcodone HYDROcodone No 1{table QID HYDROcodon -Acetaminop -Acetaminop t_as_ne e-Acetamin hen 7.5-325 hen 7.5-325 eded} ophen MG MG 7.5-325 MG Immunizations Ordered Immunization Filled Immunization Date Status Commen ts Source Name Name xRocephin 1 gm xRocephin 1 gm 2019-02-12 Completed [facility] 11:54:00 [facility] Solumedrol 125mg/2ml Solumedrol 125mg/2ml 2019-02-12 Completed [facility] 11:54:00 - [facility] xRocephin 1 gm xRocephin 1 gm 2019-02-12 Completed [facility] 11:54:00 - [facility] Solumedrol 125mg/2ml Solumedrol 125mg/2ml 2019-02-12 Completed [facility] 11:54:00 [facility] Vital Signs Vital Name Observation Time Observation Value Comments Source height 2021-12-27 16:00:00 66.25 [in_i] [facility] weight 2021-12-27 16:00:00 122.8 [lb_av] [facility] temperature 2021-12-27 16:00:00 98.4 [degF] [facility] bmi 2021-12-27 16:00:00 19.67 kg/m2 [facility] oximetry 2021-12-27 16:00:00 99 % [facility] respiratory rate 2021-12-27 16:00:00 16 /min Comm on [facility] blood pressure 2021-12-27 16:00:00 131 mm[Hg] [facility] [place] [place] systolic [facility] blood pressure 2021-12-27 16:00:00 87 mm[Hg] [facility] - diastolic [facility] height 2021-11-01 09:15:00 66.25 [in_i] [facility] [facility] weight 2021-11-01 09:15:00 120.8 [lb_av] [facility] temperature 2021-11-01 09:15:00 98.4 [degF] [facility] bmi 2021-11-01 09:15:00 19.35 kg/m2 [facility] oximetry 2021-11-01 09:15:00 98 % [facility] respiratory rate 2021-11-01 09:15:00 16 /min [facility] blood pressure 2021-11-01 09:15:00 160 mm[Hg] [facility] blood pressure 2021-11-01 09:15:00 86 mm[Hg] [facility] - diastolic [facility] height 2021-03-15 08:30:00 66.25 [in_i] [facility] weight 2021-03-15 08:30:00 130 [lb_av] [facility] temperature 2021-03-15 08:30:00 98.2 [degF] [facility] bmi 2021-03-15 08:30:00 20.82 kg/m2 [facility] oximetry 2021-03-15 08:30:00 97 % [facility] blood pressure 2021-03-15 08:30:00 118 mm[Hg] [facility] - systolic [facility] blood pressure 2021-03-15 08:30:00 77 mm[Hg] [facility] Systolic blood 2021-02-07 18:21:00 104 mm[Hg] Univer sity of pressure [facility] Diastolic blood 2021-02-07 18:21:00 70 mm[Hg] Unive rsity of [facility] Heart rate 2021-02-07 18:21:00 111 /min [facility] Body temperature 2021-02-07 18:21:00 36.89 [facility] 2021-02-07 18:21:00 170.2 cm [facility] Body weight 2021-02-07 18:21:00 56.7 kg [facility] BMI 2021-02-07 18:21:00 19.58 kg/m2 [facility] height 2021-01-17 10:30:00 66.25 [in_i] [facility] weight 2021-01-17 10:30:00 127.6 [lb_av] [facility] temperature 2021-01-17 10:30:00 97 [degF] [facility] bmi 2021-01-17 10:30:00 20.44 kg/m2 [facility] oximetry 2021-01-17 10:30:00 98 % [facility] blood pressure 2021-01-17 10:30:00 109 mm[Hg] [facility] systolic [facility] blood pressure 2021-01-17 10:30:00 73 mm[Hg] [facility] diastolic [facility] Procedures This patient has no known procedures. Plan of Care Planned Activity Planned Date Details Comments Source Future Scheduled 2022-03-02 COVID-19 Vaccination [facility] Test 13:29:53 (#1) [code = COVID-19 And chanel Cancer Vaccination (#1)] Center Encounters Start End Encounter Admission Attending Care Care Encounter Source Date/Time Date/Time Type Type Clinicians Facility Department ID 2022-04-08 Outpatient Veselka, STLMLC [facility] [id number] Common 15:33:00 Eber [facility] 2022-01-04 Outpatient Veselka, STLMLC [facility] [id number] Common 09:42:00 Eber [facility] 2021-12-03 Outpatient Veselka, STLMLC [facility] [id number] 2 Common 10:59:00 Eber [facility] 2021-11-27 Outpatient Veselka, STLMLC [facility] [id number] 2 Common 15:01:00 Eber [facility] 2021-11-26 Outpatient Veselka, STLMLC [facility] [id number] 2 Common 14:04:00 Eber [facility] 2021-10-11 Outpatient Cely, STTONELC STLMLC [id number] 2 Common 14:15:01 Eber [facility] 2021-07-24 Outpatient Cely, STTONELC STLMLC [id number] 2 Common 14:47:01 Eber [facility] 2021-06-22 Outpatient Cely, STTONELC STLMLC [id number] 2 Common 14:00:01 Eber [facility] 2021-05-30 Outpatient Cely, STTONELC STLMLC [id number] 2 Common 14:40:35 Eber [facility] 2021-05-30 Outpatient Dee, STLMLC STLMLC [id number] Common 14:16:05 Yomaira 29078 [facility] 2021-05-30 Outpatient Dee, STLMLC STLMLC [id number] Common 13:48:34 Yomaira 02913 [facility] 2021-05-30 Outpatient Dee, STLMLC STLMLC [id number] Common 13:46:36 Yomaira 52533 [facility] 2021-05-30 Outpatient Dee, STLMLC STLMLC [id number] Common 11:24:32 Yomaira 68427 [facility] 2021-05-30 Outpatient Dee, STLMLC STLMLC [id number] Common 11:15:16 Yomaira 16501 [facility] 2021-03-05 Emergency [facility] [id number] Univers 16:48:24 ity [facility] 2021-03-05 Inpatient U [facility] TERRY [id number] Univers [facility], [facility] LUCINA [id number] 08:10:11 PROVIDER Chalino gore 2020-12-14 Outpatient SYSTEM, LUCINA VERDUGO [id number] 09:08:58 PROVIDER Chalino gore 2020-11-23 Outpatient MDA MDA [id number] 15:33:25 Neal gore 2020-11-09 Outpatient SYSTEM, MDA MDA [id number] 15:38:19 PROVIDER Chalino gore 2022-04-23 2022-04-23 Outpatient NANETTE [place]ALLAGHER [place] [id number] [place] 00:00:00 00:00:00 _ANN 1220 da [facility] 2021-12-27 2021-12-27 OFFICE STLMLC STLMLC [id number] Co mmon 00:00:00 00:00:00 VISIT Spirit ESTAB PT - CHI LEVEL 2 [facility] 2021-11-30 2021-11-30 Outpatient [place]ANETTE [place] [id number] [place] 00:00:00 00:00:00 _ANN 0729 da [facility] 2021-11-19 2021-11-19 (TEL) STLMLC STLMLC [id number] Co mmon 00:00:00 00:00:00 [facility] 2021-11-01 2021-11-01 OFFICE STLMLC STLMLC [id number] Co mmon 00:00:00 00:00:00 VISIT EST Spir it PT LEVEL 3 [facility] 2021-03-20 2021-03-20 (TEL) STLMLC STLMLC [id number] Co mmon 00:00:00 00:00:00 [facility] 2021-03-15 2021-03-15 OFFICE STLMLC STLMLC [id number] Co mmon 00:00:00 00:00:00 VISIT EST Spir it PT LEVEL 3 [facility] 2021-02-26 2021-02-26 (TEL) STLMLC STLMLC [id number] Co mmon 00:00:00 00:00:00 [facility] 2021-02-13 2021-02-13 Telephone Cely [facility] [id number] Univers 00:00:00 00:00:00 [facility] [id number] it y of Demetrius Rothman [id number] Juancho as Martín?Blea [id number] Ct zeina kennedy [address] [place] [address] Office [facility] 2021-02-12 2021-02-12 Telephone [facility] [id number] Univers 00:00:00 00:00:00 [place] [id number] it y of Edward [place] [id number] Juancho as Martín?Blea [phone] Ct zeina [address] Office [facility] 2021-02-07 2021-02-07 Outpatient R [facility] [id number] [facility] 13:30:00 13:51:36 EBER [facility] 2021-02-07 2021-02-07 Office [facility] [id number] [facility] 13:10:08 13:40:08 Visit [facility] [id number] it y of [place] [id number] Juancho as Martín?Blea [phone] Ct zeina [address] Office [facility] 2021-01-18 2021-01-18 Outpatient BOOKER CHOARB, MDA MDA [id number] 11:05:39 15:45:40 TARUN gore 2021-01-18 2021-01-18 Outpatient EL JULIO CÉSARUHARB, MDA MDA [id number] 09:43:10 11:04:39 TARUN gore 2021-01-18 2021-01-18 Outpatient EL TAMMIEARB, MDA MDA [id number] 09:32:00 09:36:48 TARUN gore 2021-01-17 2021-01-17 OFFICE STLMLC STLMLC [id number] Co mmon 00:00:00 00:00:00 VISIT EST Spir it PT LEVEL 3 - [facility] 2021-01-15 2021-01-15 Outpatient BOOKER PRIETO, LUCINA MDA [id number] 09:30:00 23:59:00 SALLIE gore 2021-01-11 2021-01-11 Telephone [facility] [id number] Univers 00:00:00 00:00:00 [place] [id number] minor [place] [id number] Juancho as Martín?Blea [phone] Ct zeina [address] Medical Office Building 2020-12-21 2020-12-21 [facility] [id number] 16:00:00 16:48:00 Formerly [facility] [id number] [facility] [id number] [facility] [phone] [address] ([facility]) 2020-12-21 2020-12-21 Outpatient EL ABOUHARB, MDA MDA [id number] 13:55:05 15:34:33 TARUN gore 2020-12-21 2020-12-21 Outpatient EL ABOUHARB, MDA MDA [id number] 12:47:00 13:53:05 TARUN gore 2020-12-21 2020-12-21 Outpatient EL ABOUHARB, MDA MDA [id number] 12:00:35 12:39:38 TARUN gore 2020-12-19 2020-12-19 Outpatient DENI GREER [facility] [id number] Univers 13:00:00 13:00:00 ity [facility] 2020-12-07 2020-12-07 Outpatient EL ABOUHARB, MDA MDA [id number] 09:15:00 23:59:00 TARUN gore 2020-12-07 2020-12-07 Outpatient EL WON, MDA MDA [id number] 08:04:31 09:14:00 EMMANUEL gore 2020-12-07 2020-12-07 Outpatient EL WON, MDA MDA [id number] 08:00:00 08:03:00 EMMANUEL gore 2020-11-30 2020-11-30 Outpatient EL ABOUHARB, MDA MDA [id number] 15:20:51 17:28:01 TARUN gore 2020-11-30 2020-11-30 Outpatient EL ABOUHARB, MDA MDA [id number] 14:05:47 15:12:04 TARUN gore 2020-11-30 2020-11-30 Outpatient EL JULIO CÉSARUHARB, MDA MDA [id number] 13:05:56 13:55:00 TARUN gore 2020-11-30 2020-11-30 Outpatient EL JULIO CÉSARUHARB, MDA MDA [id number] 13:04:21 13:04:21 TARUN gore 2020-11-30 2020-11-30 Orders Doctor PARSONS [id number] 00:00:00 00:00:00 Only Unassigned, KATHLEEN [id number] Abiquiu [facility] [id number] 2020-11-29 2020-11-29 Outpatient EL JULIO CÉSARUHARB, MDA MDA [id number] 14:40:25 17:37:42 TARUN gore 2020-11-29 2020-11-29 Outpatient EL TAMMIEARB, MDA MDA [id number] 09:54:45 09:54:45 TARUN gore 2020-11-24 2020-11-28 Inpatient ER SHANTAL, MDA Med Breast [id number] 08:40:00 17:13:00 GABRIELLA gore 2020-11-27 2020-11-27 Inpatient BOOKER QUARLES, MDA MDA [id number] 13:27:40 14:01:08 OFELIA gore 2020-11-27 2020-11-27 Inpatient EL LEROY, MDA MDA [id number] 10:51:56 10:52:00 TARUN gore 2020-11-26 2020-11-26 Inpatient BOOKER HUERTA, MDA MDA [id number] 22:10:48 22:26:19 EVER gore 2020-11-24 2020-11-24 Outpatient BOOKER AMES, MDA MDA [id number] 13:48:32 15:01:50 BEATA gore 2020-11-24 2020-11-24 Outpatient Carola GUTIERREZ [facility] [id number] Univers 14:00:00 14:00:00 YOLANDA ward [facility] 2020-11-23 2020-11-23 Outpatient EL ABOUHARB, MDA MDA [id number] 13:43:16 17:07:13 TARUN gore 2020-11-23 2020-11-23 Outpatient EL ABOUHARB, MDA MDA [id number] 15:09:37 16:35:32 TARUN gore 2020-11-23 2020-11-23 Outpatient EL ABOUHARB, MDA MDA [id number] 15:10:43 15:10:43 TARUN gore 2020-11-20 2020-11-20 Outpatient EL ABOUHARB, MDA MDA [id number] 06:00:00 23:59:00 TARUN ogre 2020-11-20 2020-11-20 Telephone Daniel [facility] [id number] 00:00:00 00:00:00 [facility] [id number] [place] [id number] [facility] [phone] nal [address] 2020-11-16 2020-11-16 Outpatient EL QUARLES, MDA MDA [id number] 08:49:34 10:32:19 OFELIA gore 2020-11-16 2020-11-16 Outpatient EL QUARLES, MDA MDA [id number] 07:59:46 09:39:56 OFELIA gore 2020-11-16 2020-11-16 Outpatient EL ABOUHARB, MDA MDA [id number] 07:55:28 08:28:52 TARUN gore 2020-11-15 2020-11-15 Outpatient EL ABOUHARB, MDA MDA [id number] 09:59:18 10:28:17 TARUN gore 2020-11-15 2020-11-15 Outpatient EVAN BALTAZAR [facility] [id number] Univers 00:00:00 00:00:00 ity of [facility] 2020-11-14 2020-11-14 Orders Doctor PARSONS [id number] 00:00:00 00:00:00 Only Unassigned, KATHLEEN [id number] Abiquiu [facility] [id number] 2020-11-10 2020-11-10 Outpatient EL ABOUHARB, MDA MDA [id number] 17:14:57 17:14:57 SAUSASofía Chalino o n 2020-11-10 2020-11-10 Outpatient EL ABOUHARB, MDA MDA [id number] 11:12:04 11:12:04 SAUSAN Chalino o n 2020-11-10 2020-11-10 Outpatient EL ABOUHARB, MDA MDA [id number] 11:11:06 11:11:06 SAUSAN Chalino o n 2020-11-10 2020-11-10 Outpatient EL ABOUHARB, MDA MDA [id number] 11:10:25 11:10:25 USASofía Chalino o n 2020-11-10 2020-11-10 Outpatient EL ABOUHARB, MDA MDA [id number] 11:09:41 11:09:41 SAUSAN Chalino o n 2020-11-10 2020-11-10 Outpatient EL ABOUHARB, MDA MDA [id number] 11:09:07 11:09:07 SAUSAN Chalino o n 2020-11-10 2020-11-10 Outpatient EL ABOUHARB, MDA MDA [id number] 11:08:45 11:08:45 SAUSASofía Chalino o n 2020-11-10 2020-11-10 Outpatient EL ABOUHARB, MDA MDA [id number] 11:07:07 11:07:07 SAUSAN Chalino o n 2020-11-10 2020-11-10 Outpatient EL ABOUHARB, MDA MDA [id number] 11:04:03 11:04:03 SAUSAN Chalino o n 2020-11-08 2020-11-08 Outpatient EVAN BALTAZAR [facility] [id number] Univers 11:30:00 11:30:00 ity [facility] 2020-11-02 2020-11-02 Surgery [facility] [id number] 13:05:00 15:27:00 SPECIALTY [id number] [facility] [id number] [place] [id number] MARGARITA MOORE 2020-11-01 2020-11-01 Outpatient Carola HERNANDEZ [facility] [id number] Univers 09:30:00 09:30:00 EH hooks [facility] 2020-10-31 2020-10-31 Outpatient Carola DANOROC [facility] [id number] Univers 15:00:00 15:00:00 AURELIO ed [facility] 2020-10-31 2020-10-31 Outpatient R DANIEL [facility] [id number] Univers 00:00:00 00:00:00 EHRADHA hooks [facility] 2020-10-30 2020-10-30 Outpatient Caroal DANIEL [facility] [id number] Univers 00:00:00 00:00:00 EH [facility] 2020-10-26 2020-10-26 Outpatient Carola DANIEL [facility] [id number] Univers 00:00:00 00:00:00 EH hooks [facility] 2020-10-24 2020-10-24 Outpatient Carola DANIEL [facility] [id number] Univers 00:00:00 00:00:00 EH hooks [facility] 2020-10-18 2020-10-18 Outpatient Carola CHU [facility] [id number] Univers 13:00:00 13:00:00 AHSAN ed [facility] 2020-10-18 2020-10-18 Outpatient MADELYN_KIKI GALLAGHER [id number] [place] 02:41:00 02:41:00 _ANN 0616 da [facility] 2020-10-16 2020-10-16 Outpatient Carola GASPAREE [facility] [id number] Univers 00:00:00 00:00:00 EHRADHA [facility] 2020-10-13 2020-10-13 Outpatient Carola GUTIERREZ [facility] [id number] Univers 09:00:00 09:00:00 YOLANDA yarbroughran [facility] 2020-10-11 2020-10-11 Outpatient Carola HERNANDEZ [facility] [id number] Univers 14:30:00 14:30:00 EH hooks [facility] 2020-10-09 2020-10-09 Outpatient Carola HERNANDEZ [facility] [id number] Univers 15:41:17 23:59:00 EH hooks [facility] 2020-09-21 2020-09-21 Outpatient Carola HERNANDEZ [facility] [id number] Univers 09:30:00 09:30:00 EH hoosk [facility] 2020-08-31 2020-08-31 Outpatient Carola HERNANDEZ [facility] [id number] Univers 15:00:00 15:00:00 EH hooks [facility] 2019-07-26 2019-07-26 Outpatient [facility] [place] [id number] Common 14:00:00 14:00:00 t [facility] [address] [facility] 2019-07-26 2019-07-26 Outpatient [facility] [id number] Common 10:51:00 10:51:00 t [facility] [address] [facility] 2019-02-12 2019-02-12 Outpatient [facility] [id number] Common 10:40:00 10:40:00 t [facility] [address] [facility] 2018-07-29 2018-07-29 Outpatient [facility] [id number] Common 13:15:00 13:15:00 t [facility] [address] [facility] 2018-05-08 2018-05-08 Outpatient [facility] [id number] Common 14:34:00 14:34:00 t [facility] [address] [facility] Results This patient has no known results.
[2022-04-30 18:25] LABS: Hematocrit 29.4 % (36.0-45.0); Lymphocytes % 42.7 % (15.3-44.8); MCV 92.8 fL (80-100); RBC Red Blood Cell Count 3.17 M/uL (3.86-4.86)
[2022-04-30 18:26] LABS: Protime INR 1.19
[2022-04-30] MEDS ORDERED: MORPHINE 4 MG/ML SYR ONE ×2 (18:31→23:37)
[2022-04-30] MEDS ORDERED: NA CHLORIDE 0.9% 1,000 ML ONE (18:31)
[2022-04-30] MEDS ORDERED: ONDANSETRON 4 MG/2 ML VIAL ONE ×2 (18:31→23:38)
[2022-04-30 18:42] LABS: Albumin 3.5 g/dL (3.4-5.0); Bilirubin Direct 0.2 mg/dL (0-0.2); Bilirubin Total 0.5 mg/dL (0.2-1.0); Magnesium 2.2 mg/dL (1.6-2.4); Potassium 3.5 mmol/L (3.5-5.1); Protein, Total 6.6 g/dL (6.4-8.2)
[2022-04-30 18:59] LABS: MPV 7.9 fL (7.6-11.3)
--- NOTE | 2022-04-30 19:07 | RAD REPORT ---
EXAM DESCRIPTION: RAD - Chest Single View - 04/30/2022 6:48 pm CLINICAL HISTORY: vomiting COMPARISON: Abdomen 1 View (KUB) dated 01/01/2021; Chest Single View dated 12/03/2020; Chest Pa And Lat (2 Views) dated 08/11/2015; Bone Imaging Whole Body dated 04/03/2022 FINDINGS: Lines: None. Lungs: No evidence of edema or pneumonia. Pleural: No significant pleural effusions or pneumothorax. Cardiac: The heart size is within normal limits. Mediastinum: Within normal limits. Bones: No acute fractures. Widespread osseous metastatic disease. Other: None IMPRESSION: No acute cardiopulmonary disease.
[2022-04-30 19:49] LABS: White Blood Cell Scan DIFF (OK)
[2022-04-30 19:50] LABS: Blood Morphology Comment NOTED (NOT SEEN); Platelet Estimate ADEQ; Polychromasia 1+
--- NOTE | 2022-04-30 20:53 | RAD REPORT ---
EXAM DESCRIPTION: CTAbdomen Pelvis W Contrast - 04/30/2022 8:13 pm CLINICAL HISTORY: abdominal pain COMPARISON: Chest Abdomen Pelvis W Cont dated 04/03/2022; Chest Abdomen Pelvis W Cont dated 2; Bone Imaging Whole Body dated 01/01/2022 TECHNIQUE: CT of the abdomen and pelvis was performed with IV contrast. All CT scans are performed using dose optimization technique as appropriate and may include automated exposure control or mA/KV adjustment according to patient size. FINDINGS: Lower chest: No acute abnormality. Liver: Similar intrahepatic biliary ductal dilatation. Biliary: Abnormal enhancement at the gallbladder neck is abnormal and slightly more prominent than on the prior CT. . Stomach: The gastric wall is diffusely thickened. Duodenum: No significant focal abnormality. Pancreas: No significant abnormality. Spleen: No significant abnormality. Adrenal: No suspicious lesions. Kidney/ureter: Left ureteral stent in place. No renal calculi. Too small to characterize and/or benig n appearing renal lesions are noted. Similar or mild bilateral hydronephrosis. Retroperitoneum: No retroperitoneal adenopathy. Vascular: No aneurysm. Bowel: The colon wall is diffusely thickened. No bowel obstruction. Peritoneum: Abdominopelvic free fluid has increased from prior. Bladder: Grossly unremarkable. Reproductive: No adnexal masses. Bones: Widespread osseous metastatic disease is unchanged. Other: n/a IMPRESSION: Increasing abdominopelvic free fluid compared with 04/03/2022. Increasing free fluid cou ld be secondary to peritoneal carcinomatosis though is nonspecific. Grossly similar intra- and extrahepatic biliary ductal dilatation. There is, however, abnormal wall t hickening at the gallbladder neck and fundus that is more prominent than on the prior CT. Correlate w ith LFTs. Increased wall thickening at the stomach and colon that could reflect gastritis/colitis but could als o be reactive to peritoneal carcinomatosis. No bowel obstruction is identified
--- NOTE | 2022-04-30 21:34 | EDPHYS ---
Physician Documentation [facility] Name: Joyce Amezcua Age: 46 yrs Sex: Female : 1975 Arrival Date: 04/30/2022 Time: 17:05 Bed 5 Private MD: MIGUE Physician Davian Osei HPI: 04/30 18:15 This 46 yrs old Female presents to ER via EMS with complaints of Nausea/Vomiting. cp 18:15 The patient presents to the emergency department with nausea, with "dry heaves", cp vomiting, that is intermittent. Onset: The symptoms/episode began/occurred 2 day(s) ago. Associated signs and symptoms: Pertinent positives: abdominal pain, anorexia, Pertinent negatives: constipation, diarrhea, fever, GI bleeding. Severity of symptoms: in the emergency department the symptoms are unchanged despite home interventions. Patient presents to ED with 2 days of nausea/vomiting, difficulty opening mouth with feeling of jaw being locked. Patient with history of stage 4 metastatic breast cancer. Oncologist is DR Gomes. Historical: - Allergies: 17:30 No Known Drug Allergies; ll1 - PMHx: 17:30 bone cancer; breast cancer; Pulmonary Embolism; ll1 - PSHx: 17:30 femur fracture repair-R side; Total abdominal hysterectomy; urinary stents; ll1 - Immunization history:: Client reports having NOT received the Covid vaccine. - Social history:: Smoking status: Patient reports the use of cigarette tobacco products, smokes one pack cigarettes per day. ROS: 18:20 Constitutional: Positive for poor PO intake, Negative for body aches, chills, fever. cp 18:20 Eyes: Negative for injury, pain, redness, and discharge. cp 18:20 ENT: Negative for drainage from ear(s), ear pain, sore throat, difficulty swallowing, difficulty handling secretions. 18:20 Cardiovascular: Negative for chest pain, palpitations. 18:20 Respiratory: Negative for cough, shortness of breath, wheezing. 18:20 Abdomen/GI: Positive for abdominal pain, nausea and vomiting, anorexia, Negative for diarrhea, constipation, hematemesis, black/tarry stool, rectal bleeding. 18:20 : Negative for urinary symptoms. 18:20 Neuro: Positive for weakness, Negative for altered mental status, dizziness, headache, syncope. 18:20 All other systems are negative. Exam: 18:25 Constitutional: The patient appears in no acute distress, alert, awake, cp non-diaphoretic, non-toxic, well developed, well nourished, uncomfortable. 18:25 Head/Face: Normocephalic, atraumatic. cp 18:25 Eyes: Periorbital structures: appear normal, Conjunctiva: normal, no exudate, no injection, Sclera: no appreciated abnormality, Lids and lashes: appear normal, bilaterally. 18:25 ENT: External ear(s): are unremarkable, Nose: is normal, Mouth: Lips: dry, Oral mucosa: dry, Posterior pharynx: Airway: no evidence of obstruction, patent. 18:25 Neck: ROM/movement: is normal, is supple, without pain, no range of motions limitations, no meningismus. 18:25 Chest/axilla: Inspection: normal, Palpation: is normal, no crepitus, no tenderness. 18:25 Cardiovascular: Rate: tachycardic, Rhythm: regular, Edema: is not appreciated, JVD: is not appreciated. 18:25 Respiratory: the patient does not display signs of respiratory distress, Respirations: normal, no use of accessory muscles, no retractions, labored breathing, is not present, Breath sounds: are clear throughout, no decreased breath sounds, no stridor, no wheezing. 18:25 Abdomen/GI: Inspection: abdomen appears normal, Bowel sounds: active, all quadrants, Palpation: soft, in all quadrants, moderate abdominal tenderness, in all quadrants, rebound tenderness, is not appreciated, voluntary guarding, is elicited in all quadrants. 18:25 Back: pain, that is moderate, ROM is painful, with all movement. 18:25 Skin: cellulitis, is not appreciated, no rash present. 18:25 Neuro: Orientation: to person, place \\T\\ time. Mentation: is normal, Cerebellar function: is grossly normal, Motor: moves all fours, general weakness with no focal deficits, Sensation: is normal, Gait: is unsteady. 18:37 ECG was reviewed by the Attending Physician. cp Vital Signs: 17:30 BP 120 / 77; Pulse 100; Resp 16; Temp 97.9; Pulse Ox 100% ; Weight 53.07 kg; Height 5 ll1 ft. 6 in. (167.64 cm); Pain 10/10; 18:35 BP 127 / 88; Pulse 79; Resp 18; Pulse Ox 100% on R/A; Pain 8/10; ld1 19:30 BP 126 / 85; Pulse 73; Resp 18; Pulse Ox 100% on R/A; em6 23:00 BP 124 / 84; Pulse 78; Resp 20; Pulse Ox 100% on R/A; em6 05/01 00:00 BP 113 / 76; Pulse 76; Resp 15; Pulse Ox 100% on R/A; ll3 01:00 BP 115 / 79; Pulse 78; Resp 15; Pulse Ox 100% on R/A; ll3 02:02 BP 105 / 74; Pulse 81; Resp 17; Pulse Ox 97% on R/A; ll3 04/30 17:30 Body Mass Index 18.88 (53.07 kg, 167.64 cm) ll1 MDM: 04/30 17:56 Patient medically screened. cp 21:30 Data reviewed: vital signs, nurses notes, lab test result(s), EKG, radiologic studies, cp CT scan, plain films, I have discussed the patient's presentation/case with the attending Emergency Department Physician; and as a result, I will admit patient. 21:30 Differential diagnosis: gastritis, viral gastroenteritis, gastroenteritis, dehydration, cp electrolyte abnormality, sepsis, colitis, gastritis. Test interpretation: by ED physician or midlevel provider: ECG, plain radiologic studies. Counseling: I had a detailed discussion with the patient and/or guardian regarding: the historical points, exam findings, and any diagnostic results supporting the discharge/admit diagnosis, lab results, radiology results, will admit for adult failure to thrive and IV fluids. Response to treatment: the patient's symptoms have mildly improved after treatment, and as a result, I will admit patient. 04/30 18:08 Order name: Basic Metabolic Panel; Complete Time: 19:25 cp 04/30 18:08 Order name: CBC with Diff; Complete Time: 19:56 cp 04/30 19:57 Interpretation: Normal except: RBC 3.17; HGB 10.5; HCT 29.4; PLT 100. cp 04/30 18:08 Order name: LFT's; Complete Time: 19:25 cp 04/30 19:25 Interpretation: Normal except: AST 43; ALK 160. cp 04/30 18:08 Order name: Magnesium; Complete Time: 19:25 cp 04/30 18:08 Order name: PT-INR; Complete Time: 19:25 cp 04/30 19:26 Interpretation: Abnormal: PT 13.1. cp 04/30 18:08 Order name: Troponin HS; Complete Time: 19:25 cp 04/30 18:08 Order name: Urine Microscopic Only cp 04/30 19:02 Order name: CBC Smear Scan; Complete Time: 19:56 EDMS 04/30 19:50 Order name: Manual Differential; Complete Time: 19:56 EDMS 04/30 21:34 Order name: Blood Culture Adult (2) 04/30 21:34 Order name: Lactate w/ 2H reflex if indic.; Complete Time: 01:01 05/01 00:28 Order name: Urine Dipstick-Ancillary; Complete Time: 01:00 EDMS 05/01 00:33 Order name: Urine --Ancillary (enter results) mw2 05/01 00:44 Order name: SARS RAPID ll3 04/30 18:08 Order name: XRAY Chest (1 view); Complete Time: 19:25 cp 04/30 18:08 Order name: EKG; Complete Time: 18:09 cp 04/30 18:08 Order name: Cardiac monitoring; Complete Time: 18:10 04/30 18:08 Order name: EKG - Nurse/Tech; Complete Time: 18:43 cp 04/30 18:08 Order name: IV Saline Lock; Complete Time: 18:10 04/30 18:08 Order name: Labs collected and sent; Complete Time: 18:20 cp 04/30 18:08 Order name: O2 Per Protocol; Complete Time: 18:10 04/30 18:08 Order name: O2 Sat Monitoring; Complete Time: 18:10 04/30 19:29 Order name: CT Abd/Pelvis - IV Contrast Only; Complete Time: 21:14 cp 05/01 01:18 Order name: Urine --Ancillary EDOH 05/01 01:25 Order name: SARS-COV-2 Antigen Rapid EDOH 04/30 18:08 Order name: Urine Dipstick-Ancillary (obtain specimen); Complete Time: 00:33 cp EC:37 Rate is 76 beats/min. Rhythm is regular. CO interval is normal. QRS interval is normal. cp QT interval is normal. T waves are Inverted in lead aVR. Interpreted by me. Reviewed by me. Administered Medications: 18:43 Drug: NS 0.9% 1000 ml Route: IV; Rate: 500 ml/hr; Site: right antecubital; ld1 20:53 Follow up: Response: No adverse reaction; IV Status: Completed infusion; IV Intake: em6 1000ml 18:43 Drug: morphine 4 mg Route: IVP; Infused Over: 4 mins; Site: right antecubital; ld1 19:30 Follow up: Response: No adverse reaction em6 18:43 Drug: Zofran (Ondansetron) 4 mg Route: IVP; Site: right antecubital; ld1 19:30 Follow up: Response: No adverse reaction em6 22:11 Drug: Lactated Ringers Solution 1000 ml Route: IV; Rate: 125 ml/hr; Site: right em6 antecubital; 05/01 02:25 Follow up: Response: No adverse reaction; IV Status: Infusion continued upon admission; as6 IV Intake: 300ml 04/30 22:48 Drug: Zosyn (piperacillin-tazobactam) 3.375 grams Route: IVPB; Infused Over: 60 mins; em6 Site: left antecubital; 05/01 00:13 Follow up: Response: No adverse reaction; IV Status: Completed infusion; IV Intake: em6 100ml Disposition Summary: 04/30/22 21:33 Hospitalization Ordered Hospitalization Status: Inpatient Admission cp Provider: Ambika Sal cp Location: Telemetry/[facility] (Inpatient) cp Condition: Stable cp Problem: new cp Symptoms: have improved cp Bed/Room Type: Standard cp Room Assignment: 410(05/01/22 01:32) cg Diagnosis - Nausea with vomiting, unspecified cp - Adult failure to thrive cp Forms: - Medication Reconciliation Form cp - SBAR form cp Signatures: Dispatcher [employer] EDMS Davian Gonzalez PA PA cp Garcia, Cindy, RN RN Bill Rader RN RN ll1 Janette Day RN RN ld1 Anna Lay RN RN em6 Ambika Sal PA-C PAMatthieu [id number] Sathya Noyola RN as6 Corrections: (The following items were deleted from the chart) 04/30 19:57 19:26 Normal except: RBC 3.17; HGB 10.5; HCT 29.4. cp cp 05/01 01:32 04/30 21:33 cp cg
--- NOTE | 2022-04-30 21:34 | ER ---
Nurse's Notes [facility] Name: Joyce Amezcua Age: 46 yrs Sex: Female : 1975 Arrival Date: 04/30/2022 Time: 17:05 Bed 5 Private MD: Diagnosis: Nausea with vomiting, unspecified;Adult failure to thrive Presentation: 04/30 17:30 Chief complaint: Patient states: N/V for 2 days. Her jaw has been locked for 1 week, ll1 unable to eat. Chief complaint: EMS states: CA remission. N/V for 3 weeks. IV started, LR given 500 ml en route. Reglan 10 MG IV. Coronavirus screen: Vaccine status: Patient reports being unvaccinated. Client denies travel out of the [place] in the last 14 days. At this time, the client does not indicate any symptoms associated with coronavirus-19. Ebola Screen: Patient denies travel to an Ebola-affected area in the 21 days before illness onset. Initial Sepsis Screen: Does the patient meet any 2 criteria? HR > 90 bpm. No. Patient's initial sepsis screen is negative. Does the patient have a suspected source of infection? Yes: Acute abdominal pain. Risk Assessment: Do you want to hurt yourself or someone else? Patient reports no desire to harm self or others. Onset of symptoms was April 26, 2022. 17:30 Method Of Arrival: EMS ll1 17:30 Acuity: JOHNIE 2 ll1 Historical: - Allergies: 17:30 No Known Drug Allergies; ll1 - PMHx: 17:30 bone cancer; breast cancer; Pulmonary Embolism; ll1 - PSHx: 17:30 femur fracture repair-R side; Total abdominal hysterectomy; urinary stents; ll1 - Immunization history:: Client reports having NOT received the Covid vaccine. - Social history:: Smoking status: Patient reports the use of cigarette tobacco products, smokes one pack cigarettes per day. Screenin:[address] [facility] ED Fall Risk Assessment (Adult) History of falling in the last 3 months, ld1 including since admission No falls in past 3 months (0 pts) Confusion or Disorientation No (0 pts) Intoxicated or Sedated No (0 pts). Abuse screen: Denies threats or abuse. Denies injuries from another. Nutritional screening: No deficits noted. Tuberculosis screening: No symptoms or risk factors identified. Assessment: 18:35 General: Appears in no apparent distress. comfortable, Behavior is calm, cooperative, ld1 appropriate for age. Pain: Complains of pain in back and abdomen Pain does not radiate. Pain currently is 9 out of 10 on a pain scale. Quality of pain is described as throbbing, Pain began suddenly, Is continuous. 18:35 Neuro: Level of Consciousness is awake, alert, obeys commands, Oriented to person, ld1 place, time, situation. Cardiovascular: Capillary refill < 3 seconds Patient's skin is warm and dry. Respiratory: Airway is patent Respiratory effort is even, unlabored. GI: Abdomen is flat, non-distended, Reports lower abdominal pain, upper abdominal pain, nausea, vomiting. : No signs and/or symptoms were reported regarding the genitourinary system. EENT: No signs and/or symptoms were reported regarding the EENT system. Derm: No signs and/or symptoms reported regarding the dermatologic system. Musculoskeletal: No signs and/or symptoms reported regarding the musculoskeletal system. 19:35 Reassessment: Patient appears in no apparent distress at this time. No changes from em6 previously documented assessment. Patient and/or family updated on plan of care and expected duration. Pain level reassessed. Patient is alert, oriented x 3, equal unlabored respirations, skin warm/dry/pink. 20:35 Reassessment: Patient appears in no apparent distress at this time. No changes from em6 previously documented assessment. Patient and/or family updated on plan of care and expected duration. Pain level reassessed. Patient is alert, oriented x 3, equal unlabored respirations, skin warm/dry/pink. 21:35 Reassessment: Patient appears in no apparent distress at this time. No changes from em6 previously documented assessment. Patient and/or family updated on plan of care and expected duration. Pain level reassessed. Patient is alert, oriented x 3, equal unlabored respirations, skin warm/dry/pink. 22:35 Reassessment: Patient appears in no apparent distress at this time. No changes from em6 previously documented assessment. Patient and/or family updated on plan of care and expected duration. Pain level reassessed. Patient is alert, oriented x 3, equal unlabored respirations, skin warm/dry/pink. Vital Signs: 17:30 BP 120 / 77; Pulse 100; Resp 16; Temp 97.9; Pulse Ox 100% ; Weight 53.07 kg; Height 5 ll1 ft. 6 in. (167.64 cm); Pain 10/10; 18:35 BP 127 / 88; Pulse 79; Resp 18; Pulse Ox 100% on R/A; Pain 8/10; ld1 19:30 BP 126 / 85; Pulse 73; Resp 18; Pulse Ox 100% on R/A; em6 23:00 BP 124 / 84; Pulse 78; Resp 20; Pulse Ox 100% on R/A; em6 05/01 00:00 BP 113 / 76; Pulse 76; Resp 15; Pulse Ox 100% on R/A; ll3 01:00 BP 115 / 79; Pulse 78; Resp 15; Pulse Ox 100% on R/A; ll3 02:02 BP 105 / 74; Pulse 81; Resp 17; Pulse Ox 97% on R/A; ll3 04/30 17:30 Body Mass Index 18.88 (53.07 kg, 167.64 cm) ll1 ED Course: 04/30 17:05 Patient arrived in ED. am2 17:06 Davian Gonzalez PA is PHCP. cp 17:06 Davian Osei MD is Attending Physician. cp 17:33 Triage completed. ll1 17:33 Arm band placed on. ll1 17:57 Janette Day, RN is Primary Nurse. ld1 18:35 Patient has correct armband on for positive identification. Placed in gown. Bed in low ld1 position. Call light in reach. Side rails up X2. monitoring engineer on. Pulse ox on. NIBP on. Door closed. Noise minimized. Warm blanket given. 18:43 No provider procedures requiring assistance completed. Maintain EMS IV. Dressing ld1 intact. Good blood return noted. Site clean \T\ dry. Gauge \T\ site: 20 g RAC. 18:49 XRAY Chest (1 view) In Process Unspecified. EDMS 20:14 CT Abd/Pelvis - IV Contrast Only In Process Unspecified. EDMS 21:33 Ambika Sal PA-C is Hospitalizing Provider. cp 05/01 02:25 Patient admitted, IV remains in place. as6 Administered Medications: 04/30 18:43 Drug: NS 0.9% 1000 ml Route: IV; Rate: 500 ml/hr; Site: right antecubital; ld1 20:53 Follow up: Response: No adverse reaction; IV Status: Completed infusion; IV Intake: em6 1000ml 18:43 Drug: morphine 4 mg Route: IVP; Infused Over: 4 mins; Site: right antecubital; ld1 19:30 Follow up: Response: No adverse reaction em6 18:43 Drug: Zofran (Ondansetron) 4 mg Route: IVP; Site: right antecubital; ld1 19:30 Follow up: Response: No adverse reaction em6 22:11 Drug: Lactated Ringers Solution 1000 ml Route: IV; Rate: 125 ml/hr; Site: right em6 antecubital; 05/01 02:25 Follow up: Response: No adverse reaction; IV Status: Infusion continued upon admission; as6 IV Intake: 300ml 04/30 22:48 Drug: Zosyn (piperacillin-tazobactam) 3.375 grams Route: IVPB; Infused Over: 60 mins; em6 Site: left antecubital; 05/01 00:13 Follow up: Response: No adverse reaction; IV Status: Completed infusion; IV Intake: em6 100ml Medication: 04/30 18:35 VIS not applicable for this client. ld1 Intake: 20:53 IV: 1000ml; Total: 1000ml. em6 05/01 00:13 IV: 100ml; Total: 1100ml. em6 02:25 IV: 300ml; Total: 1400ml. as6 Outcome: 04/30 21:33 Decision to Hospitalize by Provider. cp 05/01 02:25 Admitted to Tele accompanied by nurse, via wheelchair. as6 Condition: stable Instructed on the need for admit. 02:26 Patient left the ED. as6 Signatures: Dispatcher [employer] EDMS Davian Gonzalez PA PA cp Dalia Dobson am2 Bill Rader RN RN ll1 Janette Day RN RN ld1 Sathya Noyola RN RN as6 Wendi Nagy RN RN ll3 Anna Lay RN RN em6
[2022-04-30] MEDS ORDERED: Ringers Lactate 1,000 ML IV ONE ×2 (22:02→23:47)
[2022-04-30] MEDS ORDERED: PIPERACIL/TAZO 3.375 GM VIAL IV ONE (22:02)
[2022-04-30] MEDS ORDERED: NA CHLORIDE 0.9% 100 ML IV ONE (22:03)
--- NOTE | 2022-04-30 23:13 | P.HP ---
Certification for Inpatient Patient admitted to: Inpatient With expected LOS: >2 Midnights Patient will require the following post-hospital care: None Practitioner: I am a practitioner with admitting privileges, knowledge of patient current condition, hospital course, and medical plan of care. Services: Services provided to patient in accordance with Admission requirements found in Title 42 Section 412.3 of the Code of Federal Regulations Patient History Date of Service: 05/01/22 Reason for admission: Intractable N/V, FTT History of Present Illness: Patient is a 46-year old female with history of stage IV metastatic breast cancer with mets to the bones on active chemotherapy who presented to the emergency department with complaints of nausea and vomiting for 2 days. She states that her "jaw has been locked" for 1 week and has been unable to eat. Also reports >50 pound unintentional weight loss over the past year. Labs are significant for hemoglobin 10.5, AST 43, alk phos 160, urine nitrite positive. CT abdomen pelvis showed "Increasing abdominopelvic free fluid which could be secondary to peritoneal carcinomatosis though is nonspecific. Grossly similar intra- and extrahepatic biliary ductal dilatation. Abnormal wall thickening at the gallbladder neck and fundus that is more prominent than on the prior CT. Increased wall thickening at the stomach and colon that could reflect gastritis/colitis but could also be reactive to peritoneal carcinomatosis. No bowel obstruction is identified." She was given IV fluids, morphine, zofran, and zosyn in the emergency department and is admitted for further evaluation and management. Allergies No Known Drug Allergies Allergy (Verified 11/29/21 12:48) Unknown Home medications list reviewed: Yes Home Medications: Morphine *Extended Release* [MS Contin*] 1 tab PO PRN PRN 12/03/20 Letrozole [Femara*] 1 tab PO DAILY 12/27/20 Hydrocodone 5/APAP 325 [[place] 5/325*] 1 tab PO Q6HR PRN 02/22/21 Palbociclib [Ibrance] 1 tab PO DAILY 11/29/21 - Past Medical/Surgical History Diabetic: No -: Stage IV breast cancer with bone metastases -: Pulmonary Embolism -: Right hip surgery -: Hysterectomy Psychosocial/ Personal History: Lives with significant other currently unemployed - Family History Father -: Cancer Mother -: Cancer - Social History Smoking Status: Current every day smoker Alcohol use: No CD- Drugs: No Caffeine use: Yes Place of Residence: Home Review of Systems General: Weakness Gastrointestinal: Nausea, Vomiting Physical Examination - Vital Signs Temperature: 97.9 F Blood Pressure: 127/88 Pulse: 79 Respirations: 18 Pulse Ox (%): 100 - Physical Exam General: Alert, In no apparent distress HEENT: Atraumatic, PERRLA, EOMI, Sclerae nonicteric Neck: Supple, 2+ carotid pulse no bruit Respiratory: Clear to auscultation bilaterally, Normal air movement Cardiovascular: Regular rate/rhythm, Normal S1 S2 Gastrointestinal: Normal bowel sounds, No tenderness Musculoskeletal: No tenderness Integumentary: No rashes Neurological: Normal speech, Normal strength at 5/5 x4 extr, Normal tone, Normal affect - Studies Laboratory Data (last 24 hrs) 04/30/22 18:16: PT 13.1 H, INR 1.19 04/30/22 18:16: WBC 7.10, Hgb 10.5 L, Hct 29.4 L, Plt Count 100 L 04/30/22 18:16: Sodium 138, Potassium 3.5, BUN 13, Creatinine 0.64, Glucose 97, Magnesium 2.2, Total Bilirubin 0.5, AST 43 H, ALT 42, Alkaline Phosphatase 160 H Assessment and Plan - Problems (Diagnosis) (1) Failure to thrive in adult Current Visit: Yes Status: Acute (2) Intractable nausea and vomiting Current Visit: Yes Status: Acute (3) Breast cancer, stage 4 Current Visit: Yes Status: Chronic Qualifiers: Laterality: unspecified laterality Qualified Code(s): C50.919 - Malignant neoplasm of unspecified site of unspecified female breast (4) Metastasis to bone Current Visit: Yes Status: Chronic (5) Anemia Current Visit: Yes Status: Chronic Qualifiers: Anemia type: unspecified type Qualified Code(s): D64.9 - Anemia, unspecified (6) Tobacco abuse Current Visit: Yes Status: Chronic - Plan Patient is admitted for further management of nausea, vomiting, dehydration, adult failure to thrive. Continue supportive measures with IV fluids, pain medications, and antiemetics. Patient sees Dr. Gomes for chemotherapy. Dr. La is covering at this time. Urine has grown enterobacter cloacae in the past with sensitivity to zosyn. Will continue and follow current culture. Lipase, lipid panel, TSH ordered for the morning. Clear liquid diet, advance as tolerated. Patient may require PEG tube if malnutrition/FTT persists. Monitor and replete electrolytes per protocol. Reconcile and continue home medications. Lovenox for VTE prophylaxis. Full code. Discharge Plan: Home Plan to discharge in: Greater than 2 days - Advance Directives Does patient have a Living Will: No Does patient have a Durable POA for Healthcare: No - Code Status/Comfort Care Code Status Assessed: Yes Code Status: Full Code Physician Review: Patient Assessed, Agree with Above Assessment and Plan Critical Care: No Time Spent Managing Pts Care (In Minutes): 50
[2022-04-30] MEDS ORDERED: ALBUTEROL 2.5 MG/3 ML NEB SOL NEB PRN (23:22)
[2022-04-30] MEDS ORDERED: ACETAMINOPHEN 500 MG TAB PO PRN (23:22)
[2022-04-30] MEDS: Ringers Lactate 1,000 ML IV SCH (23:28)
[2022-04-30] MEDS: MORPHINE 4 MG/ML SYR IV PRN (23:40)
[2022-04-30] MEDS: ONDANSETRON 4 MG/2 ML VIAL IV PRN (23:41)
[2022-05-01 00:28] LABS: Urine Blood Trace-intact (Negative); Urine Glucose Negative (Negative); Urine Protein 2+ (Negative); Urine pH 5.5 (5.0-7.0)
[2022-05-01 01:04] LABS: Urine Bacteria <20 /HPF (<20); Urine Mucus 4+ /HPF (None Seen)
[2022-05-01 01:25] LABS: SARS-CoV-2 Antigen Rapid Res Negative (Negative)
[2022-05-01] MEDS: Ringers Lactate 1,000 ML IV SCH ×4 (02:40→21:31)
[2022-05-01 04:00] LABS: Absolute Lymphocytes (CBC) 3.6 K/uL (0.7-4.9); Hematocrit 24.5 % (36.0-45.0); Lymphocytes % 57.4 % (15.3-44.8); MCV 93.5 fL (80-100); MPV 7.4 fL (7.6-11.3); RBC Red Blood Cell Count 2.62 M/uL (3.86-4.86)
[2022-05-01] MEDS: MORPHINE 4 MG/ML SYR IV PRN ×5 (04:14→21:26)
[2022-05-01 04:16] LABS: Albumin 2.9 g/dL (3.4-5.0); Bilirubin Total 0.5 mg/dL (0.2-1.0); Phosphorus 3.5 mg/dL (2.5-4.9); Potassium 3.6 mmol/L (3.5-5.1); Protein, Total 5.4 g/dL (6.4-8.2)
[2022-05-01 04:36] LABS: Blood Morphology Comment NOTED (NOT SEEN); Platelet Estimate DECR; Polychromasia 2+; White Blood Cell Scan OK (OK)
[2022-05-01] MEDS: ONDANSETRON 4 MG/2 ML VIAL IV PRN (08:24)
[2022-05-01] MEDS ORDERED: POTASSIUM CL SA 10 MEQ TAB PO ONE (09:00)
[2022-05-01] MEDS: ENSURE CLEAR 200 ML CAN PO SCH ×2 (12:06→21:00)
[2022-05-01] MEDS ORDERED: ALBUTEROL 2.5 MG/3 ML NEB SOL NEB PRN (14:00)
--- NOTE | 2022-05-01 14:49 | P.PN ---
Subjective Date of Service: 05/01/22 Patient still with nausea. 15 pound weight loss. Generalized weakness. Diffuse pain. Stage IV advanced metastatic breast cancer. Review of Systems 10-point ROS is otherwise unremarkable Physical Examination - Vital Signs Temperature: 98.3 F Blood Pressure: 110/66 Pulse: 73 Respirations: 18 Pulse Ox (%): 98 - Physical Exam General: Alert, In no apparent distress, Oriented x3 Respiratory: Clear to auscultation bilaterally, Normal air movement Cardiovascular: Regular rate/rhythm, Normal S1 S2, No murmurs Gastrointestinal: Normal bowel sounds, Soft and benign, Non-distended, No tenderness Musculoskeletal: No clubbing, No swelling, No tenderness Neurological: Sensation intact, Cranial nerves 3-12 intact - Studies Laboratory Data (last 24 hrs) 04/30/22 18:16: PT 13.1 H, INR 1.19 04/30/22 18:16: WBC 7.10, Hgb 10.5 L, Hct 29.4 L, Plt Count 100 L 04/30/22 18:16: Sodium 138, Potassium 3.5, BUN 13, Creatinine 0.64, Glucose 97, Magnesium 2.2, Total Bilirubin 0.5, AST 43 H, ALT 42, Alkaline Phosphatase 160 H Microbiology Data (last 24 hrs): 04/30/22 22:35 Blood - Blood Anaerobic Blood Culture - Final 04/30/22 22:45 Blood - Blood Anaerobic Blood Culture - Final Medications List Reviewed: Yes Assessment & Plan - Problems (Diagnosis) (1) Intractable nausea and vomiting Current Visit: Yes Status: Acute (2) Breast cancer, stage 4 Current Visit: Yes Status: Chronic Qualifiers: Laterality: unspecified laterality Qualified Code(s): C50.919 - Malignant neoplasm of unspecified site of unspecified female breast (3) Metastasis to bone Current Visit: Yes Status: Chronic (4) Tobacco abuse Current Visit: Yes Status: Chronic (5) 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 IV hydration 2. IV nutrition 3. Pain control 4. Antiemetics 5. Out of bed and ambulate 6. Long-term prognosis is poor. 7. Monitor calcium level closely Discharge Plan: Home Plan to discharge in: Greater than 2 days - Advance Directives Does patient have a Living Will: No Does patient have a Durable POA for Healthcare: No - Code Status/Comfort Care Code Status: Full Code Physician Review: Patient Assessed, Agree with Above Assessment and Plan Critical Care: No Time Spent Managing PTS Care (In Minutes): 35
[2022-05-01] MEDS ORDERED: LETROZOLE 2.5 MG TAB PO ONE (16:00)
[2022-05-01] MEDS: HYDROCODONE/APAP 5/325 MG TAB PO PRN (16:03)
[2022-05-02] MEDS: HYDROCODONE/APAP 5/325 MG TAB PO PRN ×2 (00:41→14:03)
[2022-05-02] MEDS: MORPHINE 4 MG/ML SYR IV PRN ×4 (02:00→20:47)
[2022-05-02 03:30] LABS: Absolute Lymphocytes (CBC) 2.5 K/uL (0.7-4.9); Hematocrit 22.8 % (36.0-45.0); MCV 93.2 fL (80-100); MPV 7.1 fL (7.6-11.3); RBC Red Blood Cell Count 2.45 M/uL (3.86-4.86)
[2022-05-02 05:09] LABS: Blood Morphology Comment NOTED (NOT SEEN); Platelet Estimate DECR; Polychromasia 1+
[2022-05-02 05:24] LABS: Albumin 2.6 g/dL (3.4-5.0); Bilirubin Total 0.4 mg/dL (0.2-1.0); Magnesium 1.9 mg/dL (1.6-2.4); Phosphorus 3.8 mg/dL (2.5-4.9); Potassium 3.9 mmol/L (3.5-5.1)
[2022-05-02] MEDS: Ringers Lactate 1,000 ML IV SCH ×3 (05:45→16:08)
[2022-05-02 05:48] LABS: Folic Acid, (Folate) 3.1 ng/mL (3.1-17.5); Thyroid Stimulating Hormone 1.11 uIU/mL (0.358-3.740)
[2022-05-02] MEDS: PALBOCICLIB 100 MG PO SCH (08:30)
[2022-05-02] MEDS: MORPHINE *EXTENDED RELEASE* 15 MG TAB PO PRN (08:46)
[2022-05-02] MEDS: LETROZOLE 2.5 MG TAB PO SCH (08:46)
[2022-05-02] MEDS: ENSURE CLEAR 200 ML CAN PO SCH ×3 (08:47→20:48)
[2022-05-02] MEDS: ONDANSETRON 4 MG/2 ML VIAL IV PRN ×2 (13:07→20:47)
[2022-05-02] MEDS ORDERED: FOLIC ACID 5 MG/ML VIAL IVP ONE (16:19)
--- NOTE | 2022-05-02 17:49 | EKG ---
Test Date: 2022-04-30 Test Time: 18:33:05 [facility] Sales Consultant: JAMAR MEASUREMENT RESULTS: Intervals: Rate: 76 SC: 144 QRSD: 96 QT: 408 QTc: 459 [place]: P: 63 SC: 144 QRS: 65 T: 68 INTERPRETIVE STATEMENTS: Normal sinus rhythm Normal ECG Compared to ECG 04/30/2022 18:31:25 ST (T wave) deviation no longer present T-wave abnormality no longer present Electronically Signed On 05-02-22 17:45:37 DIRECTOR HARDWARE by Jf Doyle
--- NOTE | 2022-05-02 17:49 | EKG ---
Test Date: 2022-04-30 Test Time: 18:31:25 Track Greaser: JAMAR MEASUREMENT RESULTS: Intervals: Rate: 78 NM: 136 QRSD: 90 QT: 414 QTc: 471 [place]: P: 56 NM: 136 QRS: 72 T: 137 INTERPRETIVE STATEMENTS: Normal sinus rhythm Nonspecific ST abnormality Abnormal QRS-T angle, consider primary T wave abnormality Abnormal ECG Compared to ECG 08/02/2021 18:53:04 ST (T wave) deviation now present T-wave abnormality now present Electronically Signed On 05-02-22 17:45:42 BRIM CUTTER by Jf Doyle
[2022-05-02] MEDS: HYDROCORTISONE SUC 100 MG INJ IV SCH (18:01)
[2022-05-03] MEDS: MORPHINE 4 MG/ML SYR IV PRN ×5 (01:23→21:27)
[2022-05-03] MEDS: Ringers Lactate 1,000 ML IV SCH ×3 (01:23→13:04)
[2022-05-03 04:14] LABS: Absolute Lymphocytes (CBC) 2.9 K/uL (0.7-4.9); Hematocrit 22.7 % (36.0-45.0); Lymphocytes % 49.2 % (15.3-44.8); MCV 93.5 fL (80-100); RBC Red Blood Cell Count 2.42 M/uL (3.86-4.86)
[2022-05-03 04:30] LABS: Albumin 2.5 g/dL (3.4-5.0); Bilirubin Total 0.4 mg/dL (0.2-1.0); Magnesium 1.8 mg/dL (1.6-2.4); Potassium 3.9 mmol/L (3.5-5.1)
[2022-05-03] MEDS ORDERED: POTASSIUM CL SA 10 MEQ TAB PO ONE (05:36)
--- NOTE | 2022-05-03 05:38 | P.PN ---
Date of Service: 05/02/22 Subjective Patient's nausea is a little bit better. We will go ahead and advance diet as tolerated. She is also constipated due to the pain medication. Continue with medication for pain control. Long-term prognosis is poor as she appears to have peritoneal carcinomatosis. She will need to follow-up with her oncologist. As long she is tolerating diet and moving her bowels we will get her ready to go home. Review of Systems 10-point ROS is otherwise unremarkable Physical Examination - Vital Signs Reviewed - Physical Exam General: Alert, In no apparent distress, Oriented x3 Respiratory: Clear to auscultation bilaterally, Normal air movement Cardiovascular: Regular rate/rhythm, Normal S1 S2, No murmurs Gastrointestinal: Normal bowel sounds, Soft and benign, Non-distended, No tenderness Musculoskeletal: No clubbing, No swelling, No tenderness Neurological: Sensation intact, Cranial nerves 3-12 intact Assessment & Plan - Problems (Diagnosis) (1) Intractable nausea and vomiting Current Visit: Yes Status: Acute (2) Breast cancer, stage 4 Current Visit: Yes Status: Chronic Qualifiers: Laterality: unspecified laterality Qualified Code(s): C50.919 - Malignant neoplasm of unspecified site of unspecified female breast (3) Metastasis to bone Current Visit: Yes Status: Chronic (4) Tobacco abuse Current Visit: Yes Status: Chronic (5) 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 Continue with IV hydration 2. IV folate and will advance diet 3. Pain control as needed; hold off as much as we can as she is constipated 4. Antiemetics 5. Out of bed and ambulate 6. She states that she has been told cancer in remission; however multiple metastatic lesions seen on CT-should get PET scan 7. Monitor calcium level closely 8. Continue with IV steroids
[2022-05-03] MEDS: HYDROCORTISONE SUC 100 MG INJ IV SCH (05:51)
[2022-05-03 07:08] LABS: Urine Bacteria <20 /HPF (<20); Urine Bilirubin NEGATIVE (Negative); Urine Blood Negative (Negative); Urine Clarity Clear (Clear); Urine Color Light-Yellow (Yellow); Urine Glucose NEGATIVE (Negative); Urine Mucus 2+ /HPF (None Seen); Urine Protein NEGATIVE (Negative); Urine RBC <5 /HPF (None Seen); Urine Urobilinogen Normal (Normal); Urine WBC Clump Rare /HPF (None Seen)
[2022-05-03] MEDS: PALBOCICLIB 100 MG PO SCH (07:52)
[2022-05-03] MEDS: HYDROCODONE/APAP 5/325 MG TAB PO PRN ×2 (08:44→19:27)
[2022-05-03] MEDS: FOLIC ACID 1 MG in NA CHLORIDE 0.9% 50 ML IV SCH (08:44)
[2022-05-03] MEDS: LETROZOLE 2.5 MG TAB PO SCH (08:44)
[2022-05-03] MEDS: ENSURE CLEAR 200 ML CAN PO SCH ×3 (08:45→20:10)
[2022-05-03] MEDS ORDERED: FOLIC ACID 5 MG/ML VIAL IVP SCH (09:00)
[2022-05-03] MEDS ORDERED: MAGNESIUM SULFATE 1 gm IVPB 1 GM/100 ML BAG IV ONE (09:00)
[2022-05-03] MEDS ORDERED: BISACODYL E.C. 5 MG TAB PO ONE (12:00)
[2022-05-04] MEDS: MORPHINE 4 MG/ML SYR IV PRN ×6 (01:38→22:03)
[2022-05-04 05:41] LABS: Magnesium 2.1 mg/dL (1.6-2.4); Phosphorus 3.7 mg/dL (2.5-4.9); Potassium 3.9 mmol/L (3.5-5.1)
--- NOTE | 2022-05-04 06:07 | P.PN ---
Date of Service: 05/03/22 Subjective Patient's nausea is improved; pt is constipated; s/p laxative. Encouraging mobility. As long she is tolerating diet and moving her bowels we will get her ready to go home. Review of Systems 10-point ROS is otherwise unremarkable Physical Examination - Vital Signs Reviewed - Physical Exam General: Alert, In no apparent distress, Oriented x3 Respiratory: Clear to auscultation bilaterally, Normal air movement Cardiovascular: Regular rate/rhythm, Normal S1 S2, No murmurs Gastrointestinal: Normal bowel sounds, Soft and benign, Non-distended, No tenderness Musculoskeletal: No clubbing, No swelling, No tenderness Neurological: Sensation intact, Cranial nerves 3-12 intact Assessment & Plan - Problems (Diagnosis) (1) Intractable nausea and vomiting Current Visit: Yes Status: Acute (2) Breast cancer, stage 4 Current Visit: Yes Status: Chronic Qualifiers: Laterality: unspecified laterality Qualified Code(s): C50.919 - Malignant neoplasm of unspecified site of unspecified female breast (3) Metastasis to bone Current Visit: Yes Status: Chronic (4) Tobacco abuse Current Visit: Yes Status: Chronic (5) 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 Heplock IV 2. Continue with folate supplementation and will advance diet 3. Pain control as needed; hold off as much as we can as she is constipated 4. Antiemetics 5. Out of bed and ambulate 6. She states that she has been told cancer in remission; however multiple metastatic lesions seen on CT-should get PET scan 7. s/p laxative; 8. Continue with IV steroids
[2022-05-04] MEDS: PALBOCICLIB 100 MG PO SCH (07:29)
[2022-05-04] MEDS ORDERED: FLEET ENEMA ADULT PR ONE (08:21)
[2022-05-04] MEDS: ENSURE CLEAR 200 ML CAN PO SCH ×3 (09:00→20:24)
[2022-05-04] MEDS: LETROZOLE 2.5 MG TAB PO SCH (09:16)
[2022-05-04] MEDS: FOLIC ACID 1 MG in NA CHLORIDE 0.9% 50 ML IV SCH (09:16)
--- NOTE | 2022-05-04 09:28 | P.PN ---
Subjective Date of Service: 05/04/22 Chief Complaint: Intractable N/V, FTT No change patient is now complaining of severe constipation and to eat or drink is got metastatic breast cancer Review of Systems General: Weakness Gastrointestinal: Constipation Physical Examination - Vital Signs Temperature: 98.5 F Blood Pressure: 108/70 Pulse: 75 Respirations: 14 Pulse Ox (%): 96 - Physical Exam General: Alert, Oriented x3, Moderate distress Respiratory: Clear to auscultation bilaterally Cardiovascular: No edema, Regular rate/rhythm Gastrointestinal: Normal bowel sounds, Hypoactive - Studies Medications List Reviewed: Yes Assessment And Plan - Current Problems (Diagnosis) (1) Constipation Current Visit: Yes Status: Acute Plan: Patient is complaining of severe constipation try a fleets enema today advised the prognosis is poor she has metastatic breast cancer patient is on hormonal therapy is thrombocytopenic with a mild anemia vital signs oxygenation satisfactory cultures negative possible discharge tomorrow she is on morphine probably has drug-induced constipation labs reviewed Qualifiers: Constipation type: drug induced constipation Qualified Code(s): K59.03 - Drug induced constipation Discharge Plan: Home Plan to discharge in: 24 Hours Physician Review: Patient Assessed, Agree with Above Assessment and Plan
[2022-05-04] MEDS ORDERED: LACTULOSE 20 GM/30 ML UCUP PO PRN (09:31)
[2022-05-04] MEDS: D5 0.45 NS 1,000 ML IV SCH (20:24)
[2022-05-04] MEDS: ONDANSETRON 4 MG/2 ML VIAL IV PRN (22:03)
[2022-05-05] MEDS: MORPHINE 4 MG/ML SYR IV PRN ×3 (02:25→10:07)
[2022-05-05 04:48] LABS: Potassium 3.5 mmol/L (3.5-5.1)
[2022-05-05] MEDS: D5 0.45 NS 1,000 ML IV SCH ×2 (06:18→18:05)
[2022-05-05] MEDS: ENSURE CLEAR 200 ML CAN PO SCH ×3 (08:21→21:00)
[2022-05-05] MEDS: PALBOCICLIB 100 MG PO SCH (08:21)
[2022-05-05] MEDS: LETROZOLE 2.5 MG TAB PO SCH (08:43)
[2022-05-05] MEDS: FOLIC ACID 1 MG in NA CHLORIDE 0.9% 50 ML IV SCH (08:43)
[2022-05-05] MEDS ORDERED: POTASSIUM CL SA 10 MEQ TAB PO ONE (09:00)
--- NOTE | 2022-05-05 10:00 | P.PN ---
Date of Service: 05/05/22 ENT Consultation Please see dictated H&P. Impression: 1. Trismus-- noninfectious. Most likely due to mastication muscle spasticity, un clear etiology. Metabolic, cancer-related?? 2. Right facial paresis-- possible metastatic etiology. Plan: 1. Recommend IV or IM muscle relaxer now-- methocarbamol 1000 mg x 1 now. May give two additional 1000 mg doses in a 24-hour period. 2. Recommend converting muscle relaxer to po when able. 3. NSAIDS helpful when able to tolerate oral solids. 4. Warm, moist compresses bilateral masseter/temporalis/scalene/SCM muscles. 5. Consider Botox/Xeomin injections in the outpatient setting. 6. Business card given to f/up in 1-[address] you [address] Hopkins, for this most interesting consultation.
[2022-05-05] MEDS: LACTULOSE 20 GM/30 ML UCUP PO SCH ×2 (11:27→21:00)
--- NOTE | 2022-05-05 11:29 | P.PN ---
Subjective Date of Service: 05/05/22 Chief Complaint: Facial trismus right facial paralysis severe constipation No change in patient's condition still complains of abdominal discomfort with severe constipation no relief with lactulose and enema by ENT Review of Systems General: Weakness Gastrointestinal: Constipation Physical Examination - Vital Signs Temperature: 97.7 F Blood Pressure: 111/72 Pulse: 73 Respirations: 18 Pulse Ox (%): 96 - Physical Exam General: Alert, Oriented x3, Mild distress Respiratory: Clear to auscultation bilaterally, Friction rub Cardiovascular: Regular rate/rhythm Gastrointestinal: Normal bowel sounds, Soft and benign - Studies Medications List Reviewed: Yes Assessment And Plan - Current Problems (Diagnosis) (1) Constipation Current Visit: Yes Status: Acute Plan: Complaining of severe constipation continue with enemas and lactulose for now another KUB has been ordered nausea and vomiting has improved also there is a possibility of peritoneal carcinomatosis on the CT scan prognosis is very poor due to metastatic cancer Qualifiers: Constipation type: drug induced constipation Qualified Code(s): K59.03 - Dr ug induced constipation (2) Trismus Current Visit: Yes Status: Acute Plan: Patient has facial trismus and right-sided paralysis appreciate consult by Dr. Grier ENT steroids and methocarbamol have been has been ordered we will outpatient Botox Physician Review: Patient Assessed, Agree with Above Assessment and Plan
[2022-05-05] MEDS: dexAMETHasone 10 MG/ML VIAL IV SCH ×2 (11:36→18:05)
[2022-05-05] MEDS: ONDANSETRON 4 MG/2 ML VIAL IV PRN (11:42)
[2022-05-05] MEDS ORDERED: FLEET ENEMA ADULT PR ONE (12:58)
--- NOTE | 2022-05-05 13:37 | RAD REPORT ---
EXAM DESCRIPTION: RAD - Abdomen 1 View (KUB) - 05/05/2022 12:25 pm CLINICAL HISTORY: Constipation COMPARISON: Abdomen 1 View (KUB) dated 01/01/2021; Abdomen Pelvis W Contrast dated 04/30/2022; Bone Imaging Whole Body dated 04/03/2022 FINDINGS: Bowel gas pattern is non-specific. No obstruction, free air or pneumatosis. Stent is in p lace in the left collecting system. There are numerous phleboliths along the pelvic floor. 2 oval or rounded densities are present in the right upper quadrant. These could be gallstones. Stones were not seen on the April [address] CT study though stones can be occult on CT imaging. These could also be dusty sted medications within the GI tract. Diffuse osseous bony metastatic disease is present, well-documented. IMPRESSION: No obstruction, free air or acute abdomen or pelvis finding. Nonacute findings detailed in the body of the report.
[2022-05-05] MEDS: FLEET ENEMA ADULT PR ONE ×2 (14:17→20:00)
[2022-05-05] MEDS: MORPHINE *EXTENDED RELEASE* 15 MG TAB PO PRN (14:34)
[2022-05-05] MEDS: HYDROCODONE/APAP 5/325 MG TAB PO PRN (18:05)
[2022-05-05] MEDS ORDERED: dexAMETHasone 10 MG/ML VIAL IV SCH (21:00)
[2022-05-05] MEDS ORDERED: NA CHLORIDE 0.9% 0 ML ONE (22:26)
[2022-05-06] MEDS: dexAMETHasone 10 MG/ML VIAL IV SCH (01:00)
[2022-05-06] MEDS: HYDROCODONE/APAP 5/325 MG TAB PO PRN ×2 (01:03→06:33)
[2022-05-06] MEDS: D5 0.45 NS 1,000 ML IV SCH (01:05)
[2022-05-06 06:42] VITALS: BMI 18.2
[2022-05-06 07:25] VITALS: O2SAT 95
[2022-05-06 07:40] LABS: Magnesium 2.1 mg/dL (1.6-2.4); Phosphorus 3.4 mg/dL (2.5-4.9); Potassium 3.8 mmol/L (3.5-5.1)
--- NOTE | 2022-05-06 08:57 | P.DS ---
Admission Date: 04/30/22 Discharge Date: 05/06/22 Disposition: ROUTINE DISCHARGE Discharge Condition: GOOD Reason for Admission: Facial trismus right facial paralysis severe constipation Consultations: 1. 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 HOSPITAL COURSE: Ms. Joyce Amezcua is a pleasant 46-year-old female with a past medical history significant for stage IV metastatic breast cancer with peritoneal carcinomatosis who was admitted to the [facility] on 04/30/2022 for int ractable nausea and vomiting. She was admitted to the Medicine service. She was treated with symptomatic management with anti-emetics and pain medications. Over the course of her hospitalization, her nausea and vomiting improved; however, she developed rightsided facial trismus. Otorhinolaryngology was consulted and she was evaluated by Dr. Grier. She thought that her symptoms are likely secondary to mastication muscle spasticity. She recommended starting IV methocarbamol, which she responded well to. She was transitioned to PO methocarbamol, without any issues. Dr. Grier recommended outpatient follow-up for consideration of Botox therapy. This morning, she felt that her symptoms were well controlled and stated that she would wish to be discharged home. On 05/06/2022, she was seen on morning rounds and deemed medically stable for discharge. She was discharged with instructions to schedule follow-up appointments with her PCP, her Oncologist (Dr. Gomes), and with Otorhinolaryngology (Dr. Grier). She was provided a prescription for methocarbamol. She was given the opportunity to ask questions and reported no further questions. Furthermore, all questions were answered to the best of my ability. A copy of this discharge summary will be sent to the above providers to facilitate continuity of care. Today, I personally spent 25 minutes on her case, of which greater than 50% of the time was spent in patient education, counseling, and coordination of care as described above. Vital Signs/Physical Exam: Temp Pulse Resp BP Pulse Ox 98.6 F 71 16 115/66 93 05/06/22 04:00 05/06/22 04:00 05/06/22 06:33 05/06/22 04:00 05/06/22 06:33 General: Alert, In no apparent distress, Oriented x3 HEENT: Atraumatic, Other (right-sided facial paresis), Sclerae nonicteric Neck: JVD not distended Respiratory: Clear to auscultation bilaterally, Normal air movement Cardiovascular: No edema, Regular rate/rhythm, Normal S1 S2, No gallops, No rubs, No murmurs Gastrointestinal: Normal bowel sounds, Soft and benign, Non-distended, No tenderness, No rebound, No guarding Musculoskeletal: No clubbing Integumentary: No rashes Neurological: Normal speech, Cranial nerves 3-12 intact (with exception of right-sided facial paresis and trismus), Normal affect Laboratory Data at Discharge: WBC 5.90 K/uL (4.3-10.9) 05/03/22 03:57 Hgb 8.1 g/dL (12.0-15.0) L 05/03/22 03:57 Hct 22.7 % (36.0-45.0) L 05/03/22 03:57 Plt Count 69 K/uL (152-406) L* 05/03/22 03:57 PT 13.1 SECONDS (9.5-12.5) H 04/30/22 18:16 INR 1.19 04/30/22 18:16 Sodium 139 mmol/L (136-145) 05/06/22 07:03 Potassium 3.8 mmol/L (3.5-5.1) 05/06/22 07:03 BUN 4 mg/dL (7-18) L 05/06/22 07:03 Creatinine 0.50 mg/dL (0.55-1.02) L 05/06/22 07:03 Glucose 182 mg/dL (74-106) H 05/06/22 07:03 Phosphorus 3.4 mg/dL (2.5-4.9) 05/06/22 07:03 Magnesium 2.1 mg/dL (1.6-2.4) 05/06/22 07:03 Total Bilirubin 0.4 mg/dL (0.2-1.0) 05/03/22 03:57 AST 38 U/L (15-37) H 05/03/22 03:57 ALT 32 U/L (13-56) 05/03/22 03:57 Alkaline Phosphatase 118 U/L (45-117) H 05/03/22 03:57 Lipase 377 U/L (73-393) 05/01/22 02:56 Lipase Cancelled 05/01/22 02:56 Home Medications: Morphine *Extended Release* [MS Contin*] 1 tab PO PRN PRN 12/03/20 Letrozole [Femara*] 1 tab PO DAILY 12/27/20 Palbociclib [Ibrance] 1 tab PO DAILY 11/29/21 Ensure Clear 237 ml PO TID #0 can 05/03/22 Hydrocodone 5/APAP 325 [[place] 5/325*] 1 tab PO Q6HR PRN #30 tab 05/04/22 methocarbamoL [Robaxin] 500 mg PO TID PRN #90 tab 05/06/22 New Medications: Hydrocodone 5/APAP 325 [[place] 5/325*] 1 tab PO Q6HR PRN #30 tab PRN Reason: Pain Scale 5-7 (Moderate) methocarbamoL [Robaxin] 500 mg PO TID PRN #90 tab PRN Reason: Muscle Spasms Physician Discharge Instructions: 1. Please attend your follow-up appointment with your PCP tomorrow - If you remember her name, please let us know and we would be happy to send her records 2. Please call and schedule a follow-up appointment with ENT (Dr. Grier) in 5-7 days 3. Please call and schedule a follow-up appointment with Oncology (Dr. Gomes) in 5-7 days Diet: Regular Activity: Ad kimber Followup: Sallie rGier DO [ACTIVE - CAN ADMIT] - NONE,NONE [Primary Care Provider] - Haley Jj MD [ACTIVE - CAN ADMIT] - Time spent managing pt's care (in minutes): 25
[2022-05-06] MEDS: LACTULOSE 20 GM/30 ML UCUP PO SCH (09:00)
[2022-05-06] MEDS ORDERED: POTASSIUM CL SA 10 MEQ TAB PO ONE (09:00)
[2022-05-06] MEDS: PALBOCICLIB 100 MG PO SCH (09:00)
[2022-05-06] MEDS: FOLIC ACID 1 MG in NA CHLORIDE 0.9% 50 ML IV SCH (09:55)
[2022-05-06] MEDS: LETROZOLE 2.5 MG TAB PO SCH (09:56)
[2022-05-06] MEDS: ENSURE CLEAR 200 ML CAN PO SCH (09:56)
[2022-05-06 10:23] VITALS: BP 113/70; TEMP 97.9
--- NOTE | 2022-05-13 15:46 | CON ---
Date of Consultation: 05/05/2022 Chief Complaint: Jaw pain. History Of Present Illness: The patient is a 46-year-old female with a history of stage IV metastatic breast cancer with metastasis to the bones on active chemotherapy, who presented to the emergency department with complaints of nausea, vomiting for 2 days. She was subsequently admitted and was seen by Dr. Hopkins, who stated that after his examination, he notes that her jaw had been locked for approximately 1 week and unable to take in solids or liquids. She has had a 50-pound unintentional weight loss over the past year. Thus I was consulted for further evaluation and treatment. On arrival to bedside, the patient is in moderate to severe pain involving bilateral masseter and temporalis muscles and extending into the neck with spasticity and unable to open her mouth approximately at least 1 cm. She also complains of dry mouth and dehydration. This is all of the history that I could obtain from the patient as she was in significant discomfort during the history and physical exam. Past Medical History: Stage IV breast cancer with bone metastasis, pulmonary embolism. Past Surgical History: Right hip surgery, hysterectomy. Home Medications: Include morphine extended release, MS Contin, letrozole, hydrocodone 5/325, palbociclib. Allergies: NO KNOWN DRUG ALLERGIES. Social History: Smoking status, current every day smoker. No alcohol or drugs. Review of Systems: General: Positive for weakness and lethargy. Eyes: Negative for eye drainage, pain, blurred or double vision. Ears: Negative for otorrhea, otalgia, hearing loss, tinnitus. Nose: Positive for dry intranasal mucosa. Negative for epistaxis or obstruction. Oral cavity: Positive for dry mouth and trismus. Neck: Negative for lymphadenopathy or thyromegaly. Physical Examination: Vital Signs: Temperature 97.9, blood pressure is stable as is pulse and respirations and pulse ox is currently 100%. General: Moderate discomfort due to jaw trismus, but in no acute distress. Head: Atraumatic, normocephalic. Eyes: PERRLA/EOMI. Ears: Bilateral external auditory canals patent. Tympanic membranes intact. No otorrhea or middle ear effusion. Nose: Dry intranasal mucosa. Midline septum. No obstruction. Face: Moderate to severe bilateral masseter and temporalis muscle tenderness and tautness to the muscles extending down into bilateral splenius capitis muscles and sternocleidomastoid muscles. House Brackmann 2/3 right facial paresis. The patient is able to close right eye. Oral Cavity: Patient unable to distract jaw more than 1 cm without significant tenderness. No evidence of temporomandibular joint dislocation. Neck: Supple. Trachea midline. No lymphadenopathy or thyromegaly palpated. Impression: 1. Trismus - nonnfectious. Most likely due to mastication muscle spasticity, possibly from metabolic disorder secondary to cancer metastasis. 2. Right facial paresis - possible metastatic etiology. Recommendations: 1. Discussed with Dr. Hopkins about the use of the VIDEO PRODUCTION ENGINEER IV/IM muscle relaxer now - methocarbamol 1000 mg b.i.d. 2. Recommend converting muscle relaxer p.o. when able. 3. Recommend fluid hydration with D5 half-normal saline. 4. NSAIDs are helpful when able to tolerate oral solids. 5. Warm moist compresses to Bilateral masseter/temporalis/splenius capitus/sternocleidomastoid muscles. 6. Consider Botox/vehement injections in the outpatient setting. 7. Business card given to follow up in 1-2 weeks outpatient. Thank you, Dr. Hopkins, for this most interesting consultation. NOLAN/EDUARDO Voice ID: [id number] Report ID: [id number] GEORGE
== END 2022-05-06 12:59 | disposition home or self-care (01) | DRG 391 ==
LOC: ER 17:03 → ERHOLD 23:05 → 4TH 05-01 01:43
PROVIDERS: ADMIT Hospitalist; ATTEND Internal Medicine
DX: R11.2 Nausea with vomiting, unspecified (principal); E43 Unspecified severe protein-calorie malnutrition; Z68.1 Body mass index [BMI] 19.9 or less, adult; C79.51 Secondary malignant neoplasm of bone; C79.82 Secondary malignant neoplasm of genital organs; C78.6 Secondary malignant neoplasm of retroperitoneum and peritoneum; E86.0 Dehydration; G51.0 Bell's palsy; D64.9 Anemia, unspecified; M62.838 Other muscle spasm; D69.59 Other secondary thrombocytopenia; T50.995A Adverse effect of other drugs, medicaments and biological substances, initial encounter; K59.03 Drug induced constipation; C50.919 Malignant neoplasm of unspecified site of unspecified female breast; T50.905A Adverse effect of unspecified drugs, medicaments and biological substances, initial encounter; F17.210 Nicotine dependence, cigarettes, uncomplicated; R62.7 Adult failure to thrive; Z56.0 Unemployment, unspecified; Z86.711 Personal history of pulmonary embolism; Z28.310 Unvaccinated for COVID-19; Z90.710 Acquired absence of both cervix and uterus; Z79.899 Other long term (current) drug therapy; Z20.822 Contact with and (suspected) exposure to COVID-19
CPT/HCPCS: 36415; 71045; 74018; 74177; 80048; 80053; 80076; 81001; 81003; 81015; 81025; 82533; 82607; 82746; 83540; 83605; 83615; 83690; 83735; 84100; 84439; 84443; 84484; 85025; 85610; 87040; 87811; 93005; 94760; 96361; 96365; 96375; 99285; J1100; J1720; J2405; J2543; J2800; J3475; J7030; J7120; J7799; Q9967